=== PATIENT | female | born 1950 | race Caucasian/White ===

== ENCOUNTER → 2016-06-26 | Outpatient (CLI) | payer OTHER ==
[2016-04-22 18:00] VITALS: BP 129/91
[2016-06-26 08:03] LABS: ALANINE AMINOTRANSFERASE 27 Units/L (12-78); ALBUMIN 3.6 g/dL (3.4-5.0); ALKALINE PHOSPHATASE 86 Units/L (46-116); ASPARTATE AMINO TRANSFERASE 13 Units/L (15-37); BLOOD UREA NITROGEN 15 mg/dL (7-18); CALCIUM 8.8 mg/dL (8.5-10.1); CHLORIDE 107 mmol/L (98-107); FREE T4 (FREE THYROXINE) 1.21 ng/dL (0.76-1.46); GLUCOSE 93 mg/dL (65-99); SODIUM 142 mmol/L (136-145); TOTAL PROTEIN 6.9 g/dL (6.4-8.2); TSH (3RD GENERATION) 1.362 uIU/mL (0.358-3.74); eGFR BLACK RACES > 60 (>60); eGFR NON BLACK RACES > 60 (>60)
== END ==
LOC: LAB 07:08
PROVIDERS: ATTEND Ophthalmology
DX: E03.8 Other specified hypothyroidism (principal); E27.49 Other adrenocortical insufficiency
CPT/HCPCS: 36415; 80053; 84439; 84443; 86376

== ENCOUNTER 2016-07-29 17:46 | Emergency (ER) | payer OTHER ==
[2016-07-29 18:02] VITALS: BP 187/97; BMI 33.9
[2016-07-29] MEDS ORDERED: DECADRON INJ IM ONE (19:25)
[2016-07-29] MEDS ORDERED: ROCEPHIN VIAL 1 GM IM ONE (19:25)
[2016-07-29] MEDS ORDERED: TORADOL 60 MG VIAL IM ONE (19:25)
--- NOTE | 2016-07-29 19:27 | DR.GENAD ---
HPI - PCP Primary Care Physician: DAYA DUTTA - HPI Comment HPI Comment: RIGHT EAR PAIN SINCE YESTERDAY. WORSE TODAY. FREQUENT EAR INFECTION. - Complaint/Symptoms Chief Complaint Doctors Comments: SEVERE RIGHT EAR PAIN. PATIENT CRYING. Chief Complaint:: "RIGHT EAR IS HURTING AND STARTED YESTERDAY." - Nurses notes reviewed Nurses Notes Review: Yes - Source History Provided: Patient - Mode of Arrival Mode of Arrival: Ambulatory - Timing Onset of Chief Complaint: 07/28/16 Came on: Suddenly - Duration Duration: Constant Duration: Days - Severity Severity: Moderate PMH - PMH Past Medical History: Yes Past Medical History: Asthma, COPD, GERD Past Surgical History: Yes Surgical History: Appendectomy, Cholecystectomy Past Surgical History Comment: 6 INCHES OF COLON REMOVED, NISAN, HERNIA REPAIR, TUMMY TUCK, BREAST AUGMENTATION - Family History History of Family Medical Conditions: Yes Family Medical History: Diabetes Mellitus, [place], Hypertension - Social History Does patient currently use any type of tobacco product: Yes Have you used tobacco products in the last 12 months: Yes Type of Tobacco Use: Cigarettes How many years tobacco product used: 30 Does any household member use tobacco: No Alcohol Use: None Do you use any recreational Drugs:: No Lives With: Family Lives Where: Home - infectious screening In the last 2 months have you had wt loss of >10#?: NO Have you had fever, night sweats or hemotysis?: No Have you traveled outside the country in the last 6 months?: No Isolation: Standard ROS - Review of Systems Constitutional: No Symptoms Reported. negative: Fever, Weakness, Fatigue Eyes: No Symptoms Reported. negative: Eye Pain, Discharge ENTM: Ear Pain. negative: Ear Discharge, Hearing Loss, Nose Discharge, Nose Congestion, Throat Pain Respiratoy: No Symptoms Reported. negative: Productive Cough, Non-Productive Cough, Short of Breath, Wheezing, Hemoptysis Cardiovascular: No Symptoms Reported Gastrointestinal/Abdominal: No Symptoms Reported Genitourinary: No Symptoms Reported Neurological: Headache, Dizziness Musculoskeletal: No Symptoms Reported Integumentary: No Symptoms Reported Hematologic/Lymphatic: No Symptoms Reported Endocrine: No Symptoms Reported All Other Systems: Reviewed and Negative PE - Vital Signs Vitals: Temperature 99.0 F Pulse Rate 116 Respiratory Rate 18 Blood Pressure [Right Arm] 146/70 Blood Pressure [Left Arm] 127/82 Blood Pressure 187/97 O2 Sat by Pulse Oximetry 99 - General Limitations: No Limitations General Appearance: Alert - Head Head Exam: Normal Inspection - Eyes Eye exam: Normal Appearance - ENT ENT Exam: Normal External Ear Exam External Ear Exam: Pain with Movement. negative: Auricular Hematoma, Auricular Trauma, Mastoid Tenderness, Periauricular Adenopathy TM/Canal Exam: Left Bulging Nose Exam: Normal Nose Exam Mouth Exam: Normal Inspection Throat Exam: Normal Inspection - Neck Neck Exam: Trachea Midline - Chest Chest Inspection: Symmetric Chest Wall Rise - Respiratory Respiratory Exam: Normal Lung Sounds Bilat Respiratory Exam: Bilateral Clear to Auscultation - Cardiovascular Cardiovascular Exam: Regular Rate, Normal Rhythm, Normal Heart Sounds - Abdominal Exam Abdominal Exam: Normal Inspection - Extremities Extremities Exam: Normal Inspection - Back Back Exam: Normal Inspection - Neurologic Neurological Exam: Alert, Oriented X3 - Psychiatric Psychiatric Exam: Anxious - Skin Skin Exam: Normal Color MDM - Additional Information Additional Information Obtained From: Family - Differential Diagnosis Differential Diagnosis: RIGHT OTITIS MEDIS, SINUSITIS Course - Treatment Treatment: SEE ORDERS. IM MEDS IN ED. - Reevaluation 1st: Improved - Education/Counseling Education/Counseling: Patient, Education Educated On: Treatment, Diagnosis, Needs for Follow Up - Diagnosis Discharge Problem: Right otitis media Qualifiers: Otitis media type: suppurative Chronicity: acute Recurrence: recurrent Spontaneous tympanic membrane rupture: without spontaneous rupture Qualified Code(s): H66.004 - Acute suppurative otitis media without spontaneous rupture of ear drum, recurrent, right ear - Discharge Plan Disposition: 01 HOME, SELF-CARE Condition: Stable Prescriptions: Clarithromycin [Biaxin] 500 mg PO BID #20 tab Ketorolac Tromethamine [Toradol Tab] 10 mg PO Q8H PRN #20 tab PRN Reason: Pain - Follow ups/Referrals Follow ups/Referrals: NFD,None [Primary Care Provider] - 3 days - Instructions Instructions: Otitis Media, Adult Additional Instructions: RETURN TO ED IF WORSE.
[2016-07-29] MEDS ORDERED: DECADRON INJ ONE (19:31)
[2016-07-29] MEDS ORDERED: TORADOL 60 MG VIAL ONE (19:31)
[2016-07-29] MEDS ORDERED: ROCEPHIN VIAL 1 GM ONE (19:31)
[2016-07-29] MEDS ORDERED: XYLOCAINE 1 % (PLAIN) ONE (19:33)
== END 2016-07-29 20:09 | disposition home or self-care (01) ==
LOC: ER 18:03
DX: H66.004 Acute suppurative otitis media without spontaneous rupture of ear drum, recurrent, right ear (principal)
CPT/HCPCS: 96372; 99282; J0696; J1100; J1885; J2001

== ENCOUNTER 2016-08-04 21:33 | Emergency (ER) | payer OTHER ==
[2016-08-04 21:44] VITALS: BP 173/77; BMI 33.2
[2016-08-04] MEDS ORDERED: HIBICLENS WASH ONE (21:52)
[2016-08-04] MEDS ORDERED: ADACEL TDaP IM ONE ×2 (22:06→22:16)
--- NOTE | 2016-08-04 22:09 | DR.GENAD ---
HPI - PCP Primary Care Physician: flory baez - Complaint/Symptoms Chief Complaint Doctors Comments: Patient states she was cutting the label off a box and it cut her in the stomach about 45 minutes ago. spouse states he thinks about 3/4 inch of the knife went into her stomach. Patient states she tried gluing the wound to control the bleeding but the family made her stop and come to the emergency room. States the pain is 3-4 of 10. She is unsure when she had her last tetanus. States she has right inner ear problems and she is taking steriods for her ear from ENT. She denies fever, chills, nausea or vomiting. Patient states she has taken Keflex before without problems and she has some Keflex at home now. Chief Complaint:: patient dropped knife and it poked her the belly - Nurses notes reviewed Nurses Notes Review: Yes - Source History Provided: Patient, Family Member - Mode of Arrival Mode of Arrival: Ambulatory - Timing Onset of Chief Complaint: 08/04/16 Came on: Suddenly - Duration Duration: Constant How lon Duration: Minutes - Location Location: epigastric area midline - Severity Severity: Mild - Modifying Factors Worsens:: nothing Improves:: nothing PMH - PMH Past Medical History: Yes Past Medical History: Asthma, COPD, GERD Past Surgical History: Yes Surgical History: Appendectomy, Cholecystectomy, Hysterectomy Past Surgical History Comment: stomach surgery, mrsa - Family History History of Family Medical Conditions: Yes Family Medical History: Diabetes Mellitus, [place], Hypertension Family Medical History Comment: stroke - Social History Does patient currently use any type of tobacco product: Yes Have you used tobacco products in the last 12 months: No Type of Tobacco Use: Cigarettes How many years tobacco product used: 30 Does any household member use tobacco: No Alcohol Use: None Do you use any recreational Drugs:: No Lives With: Spouse Lives Where: Home - infectious screening In the last 2 months have you had wt loss of >10#?: NO Have you had fever, night sweats or hemotysis?: No Have you traveled outside the country in the last 6 months?: No Isolation: Standard ROS - Review of Systems Constitutional: No Symptoms Reported. negative: See HPI, Chills, Diaphoresis, Fever, Malaise, Weakness, Irritable, Fatigue, Loss of Appetite, Other Eyes: No Symptoms Reported ENTM: No Symptoms Reported, Ear Pain (right ear pain) Respiratoy: No Symptoms Reported Cardiovascular: No Symptoms Reported Gastrointestinal/Abdominal: No Symptoms Reported, Abdominal Pain (epigastric tenderness; puncture with bleeding) Genitourinary: No Symptoms Reported. negative: See HPI, Discharge, Dysuria, Frequency, Hematuria, Pain, Bleeding, Other Neurological: No Symptoms Reported Musculoskeletal: No Symptoms Reported Integumentary: No Symptoms Reported, Wound (one cm puncture wound abdomen) Hematologic/Lymphatic: No Symptoms Reported Endocrine: No Symptoms Reported Psychiatric: No Symptoms Reported PE - Vital Signs Vitals: Temperature 98.0 F Pulse Rate 62 Respiratory Rate 20 Blood Pressure [] 146/70 Blood Pressure [] 127/82 Blood Pressure 173/77 O2 Sat by Pulse Oximetry 97 - General Limitations: No Limitations General Appearance: Alert, In Distress (mild) - Head Head Exam: Normal Inspection, Atraumatic, Normocephalic - Eyes Eye exam: Normal Appearance, PERRL, EOMI. negative: Scleral Icterus, Conjunctival Injection, Nystagmus, Miosis, Mydrasis, Periorbital Swelling, Periorbital Tenderness, Other - ENT ENT Exam: Normal Exam, Normal Oropharynx, Normal External Ear Exam, Mucous Membranes Moist, TM's Normal Bilaterally External Ear Exam: Normal External Inspection TM/Canal Exam: Bilateral Normal Nose Exam: Normal Nose Exam Mouth Exam: Normal Inspection Throat Exam: Normal Inspection. negative: Tonsillar Erythema, Tonsillomegaly, Tonsillar Exudate, R Peritonsillar Mass, L Peritonsillar Mass, Muffled Voice, Other - Neck Neck Exam: Normal Inspection, Full ROM, Trachea Midline. negative: Tenderness, Meningismus, Lymphadenopathy, Thyromegaly, Other - Chest Chest Inspection: Normal Inspection, Symmetric Chest Wall Rise - Respiratory Respiratory Exam: Normal Lung Sounds Bilat Respiratory Exam: Bilateral Clear to Auscultation - Cardiovascular Cardiovascular Exam: Regular Rate, Normal Rhythm, Normal Heart Sounds - Abdominal Exam Abdominal Exam: Normal Inspection, Normal Bowel Sounds, Soft, Tenderness ( puncture wound epigastric ) Abdominal Tenderness: Epigastrium, Mild - Extremities Extremities Exam: Normal Inspection, Full ROM, Normal Capillary Refill. negative: Tenderness, Edema, Joint Swelling, Calf Tenderness, Other - Back Back Exam: Normal Inspection, Full ROM. negative: Tenderness, (R) CVA Tenderness, (L) CVA Tenderness, Muscle Spasm, Paraspinal Tenderness, Vertebral Tenderness, Rashes, (R) Sciatic Notch Tenderness, (L) Sciatic Notch Tendern, (R ) Straight Leg Raise, (L) Straight Leg Raise, Other - Neurologic Neurological Exam: Alert, Oriented X3, CN II-XII Intact, Normal Gait, Reflexes Normal - Psychiatric Psychiatric Exam: Normal Affect, Normal Mood - Skin Skin Exam: Warm, Dry, Intact, Normal Color ROR - Labs Reviewed Laboratory Results Reviewed?: Yes (all x-ray results reviewed and discussed with patient) - XRAY XRAY Interpreted by: Radiologist (CT abdomend: Superficial laceration of the anterior abdominal wall just above the umbilical region. Multiple renal cysts ) Procedures - Laceration/Wound Repair Abdomen Wound's Depth, Shape: Superficial, Linear Wound Explored: no foreign body removed Betadine Prep?: No Anesthesia: 1% Lidocaine Volume Anesthetic (ccs): 10 Wound Repaired With: sutures Suture Size/Type: 4:0 Number of Sutures: 2 Sterile Dressing Applied?: Yes Splint Applied?: No Sling Applied?: No - Diagnosis Discharge Problem: Laceration Puncture wound of abdomen Qualifiers: Encounter type: initial encounter Qualified Code(s): S31.139A - Puncture wound of abdominal wall without foreign body, unspecified quadrant without penetration into peritoneal cavity, initial encounter - Discharge Plan Disposition: 01 HOME, SELF-CARE Condition: Stable Prescriptions: Cephalexin [KEFLEX CAP 500 MG *] 500 mg PO BID #20 cap - Follow ups/Referrals Follow ups/Referrals: DAYA BAEZ [Primary Care Provider] - 3 days - Instructions Instructions: Stab Wound, Puncture Wound
--- NOTE | 2016-08-04 22:42 | CT ---
EXAM: CT ABDOMEN AND PELVIS WITHOUT CONTRAST INDICATION: Knife wound anterior abdomen COMPARISION: No priors available for comparison TECHNIQUE: Axial CT examination of the abdomen and pelvis was performed without intravenous contrast. Coronal a nd sagittal reconstructions were created using the axial data. FINDINGS: Soft tissue gas and mild inflammation noted in the anterior subcutaneous soft tissues of the abdomen just above the umbilical region. There is rectus diastases above the umbilical region. There is mandi dence of prior anterior abdominal wall hernia repair with metal sutures present below the umbilical region. No free air is identified within the abdomen or pelvis. The gallbladder has been removed. There is a 3.2 cm cyst or hemangioma in the right lobe of the live r anteriorly. Smaller low-attenuation foci are also present within the liver which are too small to characterize. There are multiple bilateral renal cysts. The pancreas, spleen, and adrenal glands davi ear unremarkable. The bowel loops are nonobstructed. No abnormal mass, fluid collection, or lymphade nopathy. The appendix and uterus have been removed. There is colonic diverticulosis. The urinary radha dder appears unremarkable. IMPRESSION: There is evidence of a superficial laceration of the anterior abdominal wall just above the umbilica l region. There is rectus diastases and evidence of prior anterior abdominal wall hernia repair. The re are multiple renal cysts and small low-attenuation foci within the liver representing cysts or he mangiomas. Reported By:
== END 2016-08-04 23:17 | disposition home or self-care (01) ==
LOC: ER 21:36
PROC: 0WQF0ZZ Repair Abdominal Wall, Open Approach (ICD-10-PCS; principal; 2016-08-04)
DX: S31.139A Puncture wound of abdominal wall without foreign body, unspecified quadrant without penetration into peritoneal cavity, initial encounter (principal); W26.0XXA Contact with knife, initial encounter; Y92.9 Unspecified place or not applicable
CPT/HCPCS: 12001; 74176; 90471; 99283

== ENCOUNTER 2016-08-19 22:14 | Emergency (ER) | payer OTHER ==
[2016-08-19 22:26] VITALS: BP 151/89; BMI 33.9
--- NOTE | 2016-08-19 23:13 | DR.GENAD ---
HPI - PCP Primary Care Physician: Gustavo - HPI Comment HPI Comment: PATIENTS LESION HAVE NECROTIC CENTER AND SURROUNDING REDNESS. NO ACTIVE DRAINAGE. PATIENT NAUSEATED BUT NOT VOMITING. ABDOMINA WELL CHEST PAIN. PCP HAVE HER DOUBLE ANTIBIOTICS - Complaint/Symptoms Chief Complaint Doctors Comments: ABDOMINAL PAIN, CHEST PAIN AND INCRESING REDNESS OVER HEALING ABSCESS AND CELLULITIS OF LEFT THIGH. Chief Complaint:: "I had surgury andrea was a week ago. He cut 3 cysts out of it. The wound now has gotten very red and painful. I think it may be infected. Daya told me to double up on my antibiotics yesterday, so I did. Now my stomach is burning all the way to my throat." Self Treatment fo Chief Complaint: Currently taking Doxycycline 100, Clindamycin 300, Cephalexin 500. Patient is also taking hydrocodone 5/325 and Ultram for pain. - Nurses notes reviewed Nurses Notes Review: Yes - Source History Provided: Patient - Mode of Arrival Mode of Arrival: Ambulatory - Timing Onset of Chief Complaint: 08/16/16 Came on: Gradually - Duration Duration: Constant Duration: Days - Severity Severity: Moderate PMH - PMH Past Medical History: No Past Medical History: Asthma, COPD, GERD Past Surgical History: Yes Surgical History: Appendectomy, Cholecystectomy, Hysterectomy - Family History History of Family Medical Conditions: Yes Family Medical History: Diabetes Mellitus, [place], Hypertension - Social History Does patient currently use any type of tobacco product: Yes Have you used tobacco products in the last 12 months: Yes Type of Tobacco Use: Cigarettes Does any household member use tobacco: No Alcohol Use: None Do you use any recreational Drugs:: No Lives With: Family Lives Where: Home - infectious screening In the last 2 months have you had wt loss of >10#?: YES Have you had fever, night sweats or hemotysis?: No Have you traveled outside the country in the last 6 months?: No Isolation: Standard ROS - Review of Systems Constitutional: Weakness, Fatigue Eyes: No Symptoms Reported. negative: Eye Pain, Discharge ENTM: Nose Congestion, Throat Pain. negative: Ear Pain, Nose Discharge Respiratoy: Non-Productive Cough, Short of Breath. negative: Productive Cough, Wheezing, Hemoptysis Cardiovascular: Chest Pain. negative: Edema, Palpitations Gastrointestinal/Abdominal: Abdominal Pain, Nausea. negative: Diarrhea, Vomiting Genitourinary: No Symptoms Reported. negative: Dysuria, Frequency, Hematuria Neurological: Weakness. negative: Headache, Dizziness Musculoskeletal: Back Pain, Muscle Pain. negative: Neck Integumentary: Wound (LT LAT THIGH WOUND, UPPER THIGH WITH NECROTIC CENTER.) Hematologic/Lymphatic: No Symptoms Reported Endocrine: No Symptoms Reported All Other Systems: Reviewed and Negative PE - Vital Signs Vitals: Temperature 97.9 F Pulse Rate 82 Respiratory Rate 18 Blood Pressure [Right Arm] 146/70 Blood Pressure [Left Arm] 127/82 Blood Pressure 151/89 O2 Sat by Pulse Oximetry 92 - General Limitations: No Limitations General Appearance: Alert - Head Head Exam: Normal Inspection - Eyes Eye exam: Normal Appearance - ENT ENT Exam: Normal External Ear Exam External Ear Exam: Normal External Inspection TM/Canal Exam: Bilateral Normal Nose Exam: Normal Nose Exam Mouth Exam: Normal Inspection Throat Exam: Normal Inspection - Neck Neck Exam: Trachea Midline. negative: Tenderness, Meningismus, Lymphadenopathy - Chest Chest Inspection: Symmetric Chest Wall Rise - Respiratory Respiratory Exam: Normal Lung Sounds Bilat Respiratory Exam: Bilateral Rhonchi, Lower Rhonchi - Cardiovascular Cardiovascular Exam: Regular Rate, Normal Rhythm, Normal Heart Sounds - Abdominal Exam Abdominal Exam: Normal Bowel Sounds, Soft, Tenderness Abdominal Tenderness: Diffuse - Back Back Exam: Paraspinal Tenderness - Neurologic Neurological Exam: Alert, Oriented X3, CN II-XII Intact, Normal Gait, Reflexes Normal. negative: Motor Sensory Deficit - Psychiatric Psychiatric Exam: Normal Affect, Normal Mood - Skin Skin Exam: Dry MDM - Additional Information Additional Information Obtained From: Family - Differential Diagnosis Differential Diagnosis: ABDOMINAL PAIN, WORSENING CELLULITIS, CHEST PAIN, PNEUMONIA Course - Treatment Treatment: SEE ORDERS - Education/Counseling Education/Counseling: Patient, Family, Education Educated On: Treatment, Diagnosis, Needs for Follow Up ROR - Labs Reviewed Laboratory Results Reviewed?: Yes Result Diagrams: 08/19/16 23:25 08/19/16 23:25 Laboratory: WBC 12.7 X10^3/uL (3.6-10.0) H 08/19/16 23:25 RBC 4.66 X10^6/uL (3.5-5.4) 08/19/16 23:25 Hgb 13.8 g/dL (12.0-16.0) 08/19/16 23:25 Hct 41.3 % (36.0-47.0) 08/19/16 23:25 MCV 88.8 fL (80.0-100.0) 08/19/16 23: MCH 29.7 pg (27.0-34.0) 08/19/16 23: MCHC 33.5 g/dL (33.0-35.0) 08/19/16: RDW 14.4 % (11.6-16.5) 08/19/16: Plt Count 418 X10^3/uL (150.0-450.0) 08/19/16 23: MPV 6.3 fL (7.4-11.0) L 08/19/16 23: Neut % 66.3 % (42.0-75.0) 08/19/16: Lymph % 20.8 % (21.0-51.0) L 08/19/16: [place] % 9.7 % (0.0-13.0) 08/19/16: Eos % 2.3 % (0.9-2.9) 08/19/16 23: Baso % 0.9 % (0.2-1.0) 08/19/16 23: Neut # 8.4 x10^3/uL (2.2-4.8) H 08/19/16 23:25 Lymph # 2.6 X10^3/uL (1.3-2.9) 08/19/16 23:25 [place] # 1.2 x10^3/uL (0.3-0.8) H 08/19/16 23:25 Eos # 0.3 x10^3/uL (0.0-0.2) H 08/19/16 23:25 Baso # 0.1 X10^3/uL (0.0-0.1) 08/19/16 23:25 Absolute Nucleated RBC 0.0 /100WBC 08/19/16 23:25 Sodium 140 mmol/L (136-145) 08/19/16 23:25 Corrected Sodium TNP 08/19/16 23:25 Potassium 4.1 mmol/L (3.5-5.1) 08/19/16 23:25 Chloride 107 mmol/L (98-107) 08/19/16 23:25 Carbon Dioxide 26.9 mmol/L (21-32) 08/19/16 23:25 BUN 8 mg/dL (7-18) 08/19/16 23:25 Creatinine 0.94 mg/dL (0.55-1.02) 08/19/16 23:25 Est GFR (MDRD) Af Amer > 60 (>60) 08/19/16 23:25 Est GFR (MDRD) Non-Af > 60 (>60) 08/19/16 23:25 Glucose 95 mg/dL (65-99) 08/19/16 23:25 Calcium 8.9 mg/dL (8.5-10.1) 08/19/16 23:25 Corrected Calcium 9.5 mg/dL (8.5-10.1) 08/19/16 23:25 Total Bilirubin 0.30 mg/dL (0.2-1.0) 08/19/16 23:25 AST 15 Units/L (15-37) 08/19/16 23:25 ALT 26 Units/L (12-78) 08/19/16 23:25 Alkaline Phosphatase 86 Units/L (46-116) 08/19/16 23:25 Total Protein 6.9 g/dL (6.4-8.2) 08/19/16 23:25 Albumin 3.2 g/dL (3.4-5.0) L 08/19/16 23:25 Globulin 3.7 g/dL (2.5-4.5) 08/19/16 23:25 Albumin/Globulin Ratio 0.9 Ratio (1.1-2.1) L 08/19/16 23:25 Amylase 36 Units/L (25-115) 08/19/16 23:25 Lipase 88 Units/L (73-393) 08/19/16 23:25 Specimen Type Clean catch urine 08/19/16 23:21 Urine Color Yellow (YELLOW) 08/19/16 23: Urine Appearance Clear (CLEAR) 08/19/16 23: Urine pH 8.0 (5.0 - 8.0) 08/19/16 23: Ur Specific [place] 1.010 (1.000-1.030) 08/19/16 23:21 Urine Protein Negative (NEGATIVE) 08/19/16 23: Urine Glucose (UA) Negative (NEGATIVE) 08/19/16 23:21 Urine Ketones Negative (NEGATIVE) 08/19/16 23:21 Urine Occult Blood 1+ (NEGATIVE) 08/19/16 23:21 Urine Nitrite Negative (NEGATIVE) 08/19/16 23:21 Urine Bilirubin Negative (NEGATIVE) 08/19/16 23:21 Urine Urobilinogen Normal (NORMAL) 08/19/16 23:21 Ur Leukocyte Esterase Negative (NEGATIVE) 08/19/16 23:21 Urine RBC 0-3 /HPF (NEGATIVE) 08/19/16 23:21 Urine WBC None seen /HPF (NEGATIVE) 08/19/16 23:21 Ur Squamous Epith Cells Rare /HPF (NEGATIVE) 08/19/16 23:21 Urine Bacteria Negative /HPF (NEGATIVE) 08/19/16 23:21 Ur Culture Indicated? No/not indicated 08/19/16 23:21 - XRAY XRAY Interpreted by: Radiologist XRAY Findings: REPORT DISCUSS WITH PATIENT. - Diagnosis Discharge Problem: Abdominal pain Qualifiers: Abdominal location: upper abdomen, unspecified Qualified Code(s): R10.10 - Upper abdominal pain, unspecified Cellulitis Qualifiers: Site of cellulitis: extremity Site of cellulitis of extremity: lower extremity Laterality: left Qualified Code(s): L03.116 - Cellulitis of left lower limb - Discharge Plan Disposition: 01 HOME, SELF-CARE Condition: Stable Prescriptions: Ranitidine HCl [ZANTAC TAB 150 MG *] 150 mg PO BID #60 tab Sulfamethoxazole-Trimethoprim [BACTRIM DS TAB 800/160 MG *] 1 tab PO Q8H #30 tab - Follow ups/Referrals Follow ups/Referrals: DAYA DUTTA [Primary Care Provider] - 2 days - Instructions Instructions: Cellulitis, [id number], Abdominal Pain, Adult, [id number] Additional Instructions: RETURN TO ED IF WORSE.
[2016-08-19 23:37] LABS: BILIRUBIN,URINE NEGATIVE (NEGATIVE); BLOOD/HEMOGLOBIN,URINE 1+ (NEGATIVE); GLUCOSE, URINE NEGATIVE (NEGATIVE); KETONES,URINE NEGATIVE (NEGATIVE); LEUKOCYTE ESTERASE ,URINE NEGATIVE (NEGATIVE); NITRITES,URINE NEGATIVE (NEGATIVE); PROTEIN,URINE NEGATIVE (NEGATIVE); UROBILINOGEN,URINE NORMAL (NORMAL)
--- NOTE | 2016-08-19 23:38 | RAD ---
EXAM: Chest X-ray INDICATION: Chest pain COMPARISION: Prior exam from December 15, 2015 TECHNIQUE: Single view FINDINGS: Chronic lung parenchymal changes are present bilaterally. No focal lung parenchymal abnormality [place] ntified. The cardiac silhouette is mildly enlarged. The mediastinum is normal. The regional skele ton is intact. IMPRESSION: Chronic lung parenchymal changes are seen bilaterally, non-specific. No acute abnormality. Reported By:
[2016-08-19 23:45] LABS: APPEARANCE,URINE CLEAR (CLEAR); COLOR,URINE YELLOW (YELLOW)
[2016-08-19 23:46] LABS: BACTERIA,URINE NEGATIVE /HPF (NEGATIVE); RBC,URINE 0-3 /HPF (NEGATIVE); SQUAMOUS EPITHELIAL CELL,UR RARE /HPF (NEGATIVE)
[2016-08-19 23:46] LABS: BASOPHILS # (AUTO) 0.1 X10^3/uL (0.0-0.1); BASOPHILS % (AUTO) 0.9 % (0.2-1.0); EOSINOPHILS # (AUTO) 0.3 x10^3/uL (0.0-0.2); EOSINOPHILS % (AUTO) 2.3 % (0.9-2.9); HEMATOCRIT 41.3 % (36.0-47.0); HEMOGLOBIN 13.8 g/dL (12.0-16.0); LYMPHOCYTES # (AUTO) 2.6 X10^3/uL (1.3-2.9); LYMPHOCYTES % (AUTO) 20.8 % (21.0-51.0); MEAN CORPUSCULAR HEMOGLOBIN 29.7 pg (27.0-34.0); MEAN CORPUSCULAR HGB CONC 33.5 g/dL (33.0-35.0); MEAN CORPUSCULAR VOLUME 88.8 fL (80.0-100.0); MEAN PLATELET VOLUME 6.3 fL (7.4-11.0); MONOCYTES # (AUTO) 1.2 x10^3/uL (0.3-0.8); MONOCYTES % (AUTO) 9.7 % (0.0-13.0); NEUTROPHILS # (AUTO) 8.4 x10^3/uL (2.2-4.8); NEUTROPHILS % (AUTO) 66.3 % (42.0-75.0); PLATELET COUNT 418 X10^3/uL (150.0-450.0); RED BLOOD COUNT 4.66 X10^6/uL (3.5-5.4); RED CELL DISTRIBUTION WIDTH 14.4 % (11.6-16.5); WHITE BLOOD COUNT 12.7 X10^3/uL (3.6-10.0)
[2016-08-19 23:47] LABS: ALANINE AMINOTRANSFERASE 26 Units/L (12-78); ALBUMIN 3.2 g/dL (3.4-5.0); ALKALINE PHOSPHATASE 86 Units/L (46-116); AMYLASE 36 Units/L (25-115); ASPARTATE AMINO TRANSFERASE 15 Units/L (15-37); BLOOD UREA NITROGEN 8 mg/dL (7-18); CALCIUM 8.9 mg/dL (8.5-10.1); CARBON DIOXIDE 26.9 mmol/L (21-32); CHLORIDE 107 mmol/L (98-107); COR CA(FOR HYPOALB) 9.5 mg/dL (8.5-10.1); CREATININE 0.94 mg/dL (0.55-1.02); GLUCOSE 95 mg/dL (65-99); LIPASE 88 Units/L (73-393); SODIUM 140 mmol/L (136-145); TOTAL PROTEIN 6.9 g/dL (6.4-8.2); eGFR BLACK RACES > 60 (>60); eGFR NON BLACK RACES > 60 (>60)
--- NOTE | 2016-08-20 01:00 | CT ---
EXAM: CT ABDOMEN AND PELVIS WITHOUT CONTRAST INDICATION: Abdominal pain, recent surgery COMPARISION: No priors available for comparison TECHNIQUE: Axial CT examination of the abdomen and pelvis was performed without intravenous contrast. Coronal a nd sagittal reconstructions were created using the axial data. FINDINGS: The lung bases are clear. The spleen, pancreas , and adrenal glands are normal. There is cysts ident ified in both kidneys and the liver . The gallbladder has been removed. There is no evidence of bili maynor ductal dilatation. The aorta and inferior vena cava are normal in caliber. The bowel loops are n onobstructed. No abnormal mass, lymphadenopathy, or fluid collection. There is an anterior abdominal wall hernia a t the umbilical region. Surgical clips also noted in the anterior abdominal wall at the midline belo w the umbilical region. Urinary bladder is normal. There is colonic diverticulosis. The uterus has been removed. The append ix has been removed. The regional skeleton is intact. IMPRESSION: Cysts are identified in both kidneys and the liver. There is colonic diverticulosis. No acute abnorm ality is identified. Reported By:
[2016-08-20] MEDS ORDERED: PEPCID TAB 20 MG PO ONE (01:36)
[2016-08-20] MEDS ORDERED: BACTRIM DS TAB PO ONE ×2 (01:37→01:40)
[2016-08-20] MEDS ORDERED: PEPCID TAB 20 MG ONE (01:40)
== END 2016-08-20 02:09 | disposition home or self-care (01) ==
LOC: ER 22:14
DX: L03.116 Cellulitis of left lower limb (principal); R10.84 Generalized abdominal pain; N28.1 Cyst of kidney, acquired; K76.89 Other specified diseases of liver; K57.30 Diverticulosis of large intestine without perforation or abscess without bleeding
CPT/HCPCS: 36415; 71010; 74176; 80053; 81001; 82150; 83690; 85025; 99283

== ENCOUNTER 2016-08-27 20:30 | Emergency (ER) | payer OTHER ==
[2016-08-27 20:37] VITALS: BP 138/71; BMI 33.9
--- NOTE | 2016-08-27 20:45 | DR.GENAD ---
HPI - PCP Primary Care Physician: sasha - HPI Comment HPI Comment: ABSCESS/CYST WAS DRAIN AND PATIENT CURRENTLY ON ANTIBIOTICS. WOUND WAS SUTURED. THE SURE SEVERAL IN MIDDLE PORTION OF WOUND AROUND DRAINAGE OPEN UP. DRAIN IS STILL INTACT AND DRAINING WOUND. NO FEVER. - Complaint/Symptoms Chief Complaint Doctors Comments: ABSCESS LEFT BUTTOCKS. Chief Complaint:: "i had cyst removed from left leg (crease between buttocks and left upper leg) and it got infected. so they had to go in and put a drain port in and i have ripped the stitches out." - Nurses notes reviewed Nurses Notes Review: Yes - Source History Provided: Patient - Mode of Arrival Mode of Arrival: Ambulatory - Timing Onset of Chief Complaint: 08/27/16 Came on: Suddenly - Duration Duration: Constant Duration: Days - Severity Severity: Moderate PMH - PMH Past Medical History: Yes Past Medical History: Asthma, COPD, GERD Past Surgical History: Yes Surgical History: Appendectomy, Cholecystectomy, Hysterectomy - Family History History of Family Medical Conditions: Yes Family Medical History: Diabetes Mellitus, [place], Hypertension - Social History Type of Tobacco Use: Cigarettes Alcohol Use: None Do you use any recreational Drugs:: No Lives With: Spouse Lives Where: Home - infectious screening Have you traveled outside the country in the last 6 months?: No Isolation: Standard ROS - Review of Systems Constitutional: negative: Chills, Fever Eyes: negative: Eye Pain, Discharge ENTM: Nose Congestion. negative: Ear Pain, Nose Discharge, Throat Pain Respiratoy: Non-Productive Cough. negative: Productive Cough, Short of Breath, Wheezing, Hemoptysis Cardiovascular: No Symptoms Reported Gastrointestinal/Abdominal: No Symptoms Reported Genitourinary: No Symptoms Reported Neurological: No Symptoms Reported Musculoskeletal: Muscle Pain Integumentary: Other (WOUND LT BUTTOCKS WITH DRAIN NOW OPEN.) Hematologic/Lymphatic: No Symptoms Reported Endocrine: No Symptoms Reported All Other Systems: Reviewed and Negative PE - Vital Signs Vitals: Temperature 97.8 F Pulse Rate 88 Respiratory Rate 20 Blood Pressure [Right Arm] 146/70 Blood Pressure [Left Arm] 127/82 Blood Pressure 138/71 O2 Sat by Pulse Oximetry 95 - General Limitations: No Limitations General Appearance: Alert - Head Head Exam: Normal Inspection - Eyes Eye exam: Normal Appearance - ENT ENT Exam: Normal External Ear Exam External Ear Exam: Normal External Inspection TM/Canal Exam: Bilateral Normal Nose Exam: Normal Nose Exam Mouth Exam: Normal Inspection Throat Exam: Normal Inspection - Neck Neck Exam: Trachea Midline - Chest Chest Inspection: Symmetric Chest Wall Rise - Respiratory Respiratory Exam: Normal Lung Sounds Bilat Respiratory Exam: Bilateral Clear to Auscultation - Cardiovascular Cardiovascular Exam: Regular Rate, Normal Rhythm, Normal Heart Sounds - Abdominal Exam Abdominal Exam: Normal Bowel Sounds, Soft. negative: Tenderness - Extremities Extremities Exam: Edema (TRACE) - Back Back Exam: Paraspinal Tenderness - Neurologic Neurological Exam: Alert, Oriented X3 - Psychiatric Psychiatric Exam: Anxious (INFECTED WOUND) - Skin Skin Exam: Erythema, Other MDM - Additional Information Additional Information Obtained From: Family - Differential Diagnosis Differential Diagnosis: WOUND DEHISCENSE, INFECTED WOUND. Course - Treatment Treatment: SEE ORDERS. - Reevaluation 1st: Improved (IM PAIN MED IN ED.) - Consultation Consultation Comments: DISCUSS PATIENT WITH DR. SHELLEY, SURGEON [employer] TRA[employer]ER. WANT DRESSING APPLY. PATIENT TO SEE THEN ON SUNDAY. - Education/Counseling Education/Counseling: Family, Education Educated On: Treatment, Diagnosis, Needs for Follow Up - Diagnosis Discharge Problem: Wound dehiscence Cellulitis Qualifiers: Site of cellulitis: buttock Qualified Code(s): L03.317 - Cellulitis of buttock - Discharge Plan Disposition: HOME, SELF-CARE Condition: Stable - Follow ups/Referrals Follow ups/Referrals: NFD,None [Primary Care Provider] - 3 days - Instructions Instructions: Wound Dehiscence, [id number] Additional Instructions: RETURN TO ED IF WORSE. SEE YOUR SURGEON THIS SUNDAY
[2016-08-27] MEDS ORDERED: TORADOL 60 MG VIAL IM ONE (21:02)
[2016-08-27] MEDS ORDERED: TORADOL 60 MG VIAL ONE (21:04)
== END 2016-08-27 22:25 | disposition home or self-care (01) ==
LOC: ER 20:30
DX: L03.317 Cellulitis of buttock (principal); T81.31XA Disruption of external operation (surgical) wound, not elsewhere classified, initial encounter
CPT/HCPCS: 96372; 99281; 99282; J1885

== ENCOUNTER → 2016-09-13 | Outpatient (CLI) | payer OTHER ==
[2016-08-27 20:37] VITALS: BP 138/71
== END ==
LOC: RAD 14:35
PROVIDERS: ATTEND Nurse Practitioner Family
DX: Z01.818 Encounter for other preprocedural examination (principal); R94.31 Abnormal electrocardiogram [ECG] [EKG]
CPT/HCPCS: 93306

== ENCOUNTER 2016-10-29 15:46 | Emergency (ER) | payer OTHER ==
[2016-10-29 15:51] VITALS: BP 150/83; BMI 33.1
--- NOTE | 2016-10-29 16:12 | DR.GENAD ---
HPI - PCP Primary Care Physician: [place] - Complaint/Symptoms Chief Complaint Doctors Comments: Patient admits to having a history of generalized cyst fomation of the body. Chief Complaint:: patient stated she was having problems swolling food for a couple of weeks but 2 days ago she started having pain in her throat - Source History Provided: Patient - Mode of Arrival Mode of Arrival: Ambulatory - Timing Onset of Chief Complaint: 10/27/16 PMH - PMH Past Medical History: Yes Past Medical History: Asthma, COPD, GERD Past Surgical History: Yes Surgical History: Appendectomy, Cholecystectomy, Hysterectomy - Family History History of Family Medical Conditions: Yes Family Medical History: Diabetes Mellitus, [place], Hypertension - Social History Does patient currently use any type of tobacco product: Yes Have you used tobacco products in the last 12 months: Yes Type of Tobacco Use: Cigarettes How many years tobacco product used: 30 Does any household member use tobacco: No Alcohol Use: None Do you use any recreational Drugs:: No Lives With: Family Lives Where: Home - infectious screening In the last 2 months have you had wt loss of >10#?: NO Have you had fever, night sweats or hemotysis?: No Have you traveled outside the country in the last 6 months?: No Isolation: Standard ROS - Review of Systems Eyes: No Symptoms Reported ENTM: No Symptoms Reported Respiratoy: No Symptoms Reported Cardiovascular: No Symptoms Reported Gastrointestinal/Abdominal: No Symptoms Reported Genitourinary: No Symptoms Reported Neurological: No Symptoms Reported Musculoskeletal: See HPI, Neck Pain Integumentary: No Symptoms Reported Hematologic/Lymphatic: No Symptoms Reported Endocrine: No Symptoms Reported Psychiatric: No Symptoms Reported All Other Systems: Reviewed and Negative PE - Vital Signs Vitals: Temperature 98.6 F Pulse Rate 90 Respiratory Rate 18 Blood Pressure [Right Arm] 146/70 Blood Pressure [Left Arm] 127/82 Blood Pressure 150/83 O2 Sat by Pulse Oximetry 100 - General General Appearance: Alert, In No Apparent Distress - Head Head Exam: Normal Inspection, Atraumatic - Eyes Eye exam: Normal Appearance, PERRL, EOMI - ENT ENT Exam: Normal Exam External Ear Exam: Normal External Inspection TM/Canal Exam: Bilateral Normal Nose Exam: Normal Nose Exam Mouth Exam: Normal Inspection Throat Exam: Normal Inspection - Neck Neck Exam: Normal Inspection, Tenderness (left mid cervical spine) - Chest Chest Inspection: Normal Inspection - Respiratory Respiratory Exam: Normal Lung Sounds Bilat Respiratory Exam: Bilateral Clear to Auscultation - Cardiovascular Cardiovascular Exam: Regular Rate, Normal Rhythm - Abdominal Exam Abdominal Exam: Normal Inspection Abdominal Tenderness: negative: RUQ, RLQ, LUQ, LLQ, Epigastrium, Suprapubic, Diffuse, Mild, Moderate, Severe, Other - Extremities Extremities Exam: Normal Inspection, Full ROM - Back Back Exam: Normal Inspection - Neurologic Neurological Exam: Alert, Oriented X3, CN II-XII Intact - Psychiatric Psychiatric Exam: Normal Affect - Skin Skin Exam: Warm, Dry, Intact ROR - Labs Reviewed Laboratory: Streptococcus Screen Negative (NEGATIVE) 10/29/16 16:15 - XRAY XRAY Interpreted by: Radiologist (Cervical spine: There is no enlargement of the epiglottis. No swelling of the adenoids or prevertebral soft tissues is identified. There is no stenosis or foreign body of the upper aerodigestive tract. Degenerative change of the cervical spine noted. to include a grad 1 C3- C4 anterolisthesis. No acute skeletal abnormality identified. 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
--- NOTE | 2016-10-29 17:10 | RAD ---
Two-view soft tissue neck series: Indication: Left throat pain. Comparison: None available. Findings/impression: There is no enlargement of the epiglottis. No swelling of the adenoids or preve rtebral soft tissues is identified. There is no stenosis or foreign body of the upper aerodigestive tract. Degenerative change of the cervical spine noted, to include a grade 1 C3-C4 anterolisthesis. No acute skeletal abnormality identified. Ocular prosthesis noted on the left. Reported By:
[2016-10-29] MEDS ORDERED: TORADOL 60 MG VIAL IM ONE (17:47)
[2016-10-29] MEDS ORDERED: TORADOL 60 MG VIAL ONE (17:48)
== END 2016-10-29 18:24 | disposition home or self-care (01) ==
LOC: ER 15:51
DX: M47.12 Other spondylosis with myelopathy, cervical region (principal)
CPT/HCPCS: 70360; 87070; 87880; 96372; 99283; J1885

== ENCOUNTER 2017-03-11 22:36 | Emergency (ER) | payer OTHER ==
[2017-03-11 22:43] VITALS: BP 131/63; BMI 32.3
[2017-03-11] MEDS ORDERED: TORADOL 60 MG VIAL IM ONE (22:49)
[2017-03-11] MEDS ORDERED: TORADOL 60 MG VIAL ONE (22:50)
--- NOTE | 2017-03-11 22:50 | DR.GENAD ---
HPI - PCP Primary Care Physician: NFD - Complaint/Symptoms Chief Complaint Doctors Comments: Patient states that the foot pain is 10/10, sharp, aggravated by pressure, duration tonight. Chief Complaint:: RT ANKLE AN RT FOOT PAIN PT STEPPED IN A WHOLE AT PENTECOSTALISM TONIGHT - Source History Provided: Patient - Mode of Arrival Mode of Arrival: Wheelchair - Timing Onset of Chief Complaint: 03/11/17 PMH - PMH Past Medical History: Yes Past Medical History: Asthma, COPD, GERD Past Surgical History: Yes Surgical History: Appendectomy, Cholecystectomy, Hysterectomy - Family History History of Family Medical Conditions: Yes Family Medical History: Diabetes Mellitus, [place], Hypertension - Social History Alcohol Use: None Do you use any recreational Drugs:: No Lives With: Family Lives Where: Home - infectious screening In the last 2 months have you had wt loss of >10#?: NO Have you had fever, night sweats or hemotysis?: No Have you traveled outside the country in the last 6 months?: No Isolation: Standard ROS - Review of Systems Constitutional: negative: Diaphoresis Eyes: No Symptoms Reported ENTM: No Symptoms Reported Respiratoy: No Symptoms Reported Cardiovascular: No Symptoms Reported Gastrointestinal/Abdominal: No Symptoms Reported Genitourinary: No Symptoms Reported Neurological: No Symptoms Reported Musculoskeletal: Foot (pain) Integumentary: No Symptoms Reported Hematologic/Lymphatic: No Symptoms Reported Endocrine: No Symptoms Reported Psychiatric: No Symptoms Reported All Other Systems: Reviewed and Negative PE - Vital Signs Vitals: Temperature 987 F Pulse Rate 98 Respiratory Rate 18 Blood Pressure [Right Arm] 146/70 Blood Pressure [Left Arm] 127/82 Blood Pressure 131/63 O2 Sat by Pulse Oximetry 95 - General Limitations: Physical Limitation (right foot pain) General Appearance: Alert, In No Apparent Distress - Head Head Exam: Normal Inspection, Atraumatic - Eyes Eye exam: Normal Appearance, PERRL, EOMI - ENT ENT Exam: Normal Exam External Ear Exam: Normal External Inspection TM/Canal Exam: Bilateral Normal Nose Exam: Normal Nose Exam Mouth Exam: Normal Inspection Throat Exam: Normal Inspection - Neck Neck Exam: Normal Inspection, Full ROM - Chest Chest Inspection: Normal Inspection, Symmetric Chest Wall Rise - Respiratory Respiratory Exam: Normal Lung Sounds Bilat Respiratory Exam: Bilateral Clear to Auscultation - Cardiovascular Cardiovascular Exam: Regular Rate, Normal Rhythm - Abdominal Exam Abdominal Exam: Normal Inspection, Normal Bowel Sounds Abdominal Tenderness: negative: RUQ, RLQ, LUQ, LLQ, Epigastrium, Suprapubic, Diffuse, Mild, Moderate, Severe, Other - Extremities Extremities Exam: Normal Inspection, Full ROM, Other (right foot pain with ankle edema ) - Back Back Exam: Normal Inspection, Full ROM - Neurologic Neurological Exam: Alert, Oriented X3, CN II-XII Intact. negative: Normal Gait - Psychiatric Psychiatric Exam: Normal Affect, Normal Mood - Skin Skin Exam: Warm, Dry, Intact Course - Reevaluation 1st: Improved ROR - XRAY XRAY Interpreted by: Radiologist (Foot: There is soft tissue swelling about the midfoot. There is no cortical lucency. Lisfranc joint position appears normal. No acute fracture...) - Diagnosis Discharge Problem: Foot pain, right - Discharge Plan Condition: Stable - Follow ups/Referrals Follow ups/Referrals: NFD,None [Primary Care Provider] - 3 days - Instructions
--- NOTE | 2017-03-12 00:26 | RAD ---
Right foot three views Indication: Pain after trauma. Findings: There is soft tissue swelling about the midfoot. There is no cortical lucency. Lisfranc maxwell nt position appears normal. Impression: No acute fracture. If there is suspicion for Lisfranc injury, weightbearing views may be helpful Reported By:
== END 2017-03-12 00:49 | disposition home or self-care (01) ==
LOC: ER 22:36
DX: M79.671 Pain in right foot (principal)
CPT/HCPCS: 73630; 96372; 99282; 99283; J1885

== ENCOUNTER 2017-03-22 11:15 | Inpatient (IN) | payer OTHER ==
--- NOTE | 2017-03-22 12:18 | DR.H&P ---
H&P - History & Physical for Day of: H&P Date: 03/22/17 - Chief Complaint Chief Complaint: fever, bodyaches, ccc, sob - Allergies Allergies/Adverse Reactions: Allergies Allergy/AdvReac Type Severity Reaction Status Date / Time almond Allergy Verified 03/22/17 12:49 caffeine Allergy Verified 03/22/17 12:47 cefdinir [From Omnicef] Allergy Verified 03/22/17 12:47 pittman Allergy Verified 03/22/17 12:49 codeine Allergy Verified 03/22/17 12:47 diphenhydramine Allergy Verified 03/22/17 12:47 [From Benadryl] doxycycline Allergy Verified 03/22/17 12:47 Egg Derived Allergy Verified 03/22/17 12:47 esomeprazole [From Nexium] Allergy Verified 03/22/17 12:47 gluten Allergy Verified 03/22/17 12:47 grape Allergy Verified 03/22/17 12:49 hazelnut Allergy Verified 03/22/17 12:49 hydroxyzine [From Atarax] Allergy Verified 03/22/17 12:47 Iodine and Iodide Containing Allergy Verified 03/22/17 12:47 Produc levofloxacin [From Levaquin] Allergy Verified 03/22/17 12:47 losartan Allergy Verified 03/22/17 12:47 nut - unspecified Allergy Verified 03/22/17 12:47 olmesartan [From Benicar] Allergy Verified 03/22/17 12:47 Penicillins Allergy Verified 03/22/17 12:47 Pork/Porcine Containing Allergy Verified 03/22/17 12:47 Products prednisone Allergy Verified 03/22/17 12:47 rabeprazole [From Aciphex] Allergy Verified 03/22/17 12:47 shrimp Allergy Verified 03/22/17 12:47 spinach Allergy Verified 03/22/17 12:49 starch Allergy Verified 03/22/17 12:47 turkey Allergy Verified 03/11/17 23:03 bananas Allergy Mild RASH Uncoded 03/22/17 12:47 chocolate Allergy Mild RASH Uncoded 03/22/17 12:47 cinaman Allergy Mild RASH Uncoded 10/29/16 15:47 grains except for rice Allergy Mild RASH Uncoded 03/22/17 12:47 onions Allergy Mild RASH Uncoded 03/22/17 12:47 tomatoes Allergy Mild RASH Uncoded 03/22/17 12:47 apples Allergy Unknown Uncoded 03/22/17 12:47 carbonated drinks Allergy Unknown Uncoded 03/22/17 12:47 CATFISH Allergy Uncoded 03/22/17 12:49 GRAPES Allergy Uncoded 03/22/17 12:47 potatoes Allergy Uncoded 03/22/17 12:47 red meats Allergy Uncoded 03/22/17 12:47 TEA Allergy Uncoded 03/22/17 12:47 - History of Present Illness History of Present Illness: PT IS 67 WF DIRECT ADMIT FROM DR GREEN OFFICE WITH ACUTE ON CHRONIC BRONCHITIS WITH FLU LIKE ILLNESS, FEVER, CHILLS AND SOB. PT HAS BEEN ON AUGMENTIN AND HAD ROCEPHIN INJECTION ONE WEEK AGO WITHOUT IMPROVEMENT. PT HAD PMH OF COPD, HTN, OA. PLAN TO ADMIT FOR TREATMENT OF BRONCHITIS, IV ATBX, RESP THERAPY - Past Medical History Past Medical History: Asthma, COPD, GERD - Past Surgical History Surgical History: Appendectomy, Cholecystectomy, Hysterectomy - Family History Family Medical History: Diabetes Mellitus, [place], Hypertension - Social History Does patient currently use any type of tobacco product: Yes Have you used tobacco products in the last 12 months: Yes Type of Tobacco Use: Cigarettes Does any household member use tobacco: No Alcohol Use: None Drug Use: None - Review of Systems Constitutional: Fever, Chills, Weakness Eyes: No Symptoms Reported ENT: No Symptoms Reported Respiratory: Cough, Shortness of Breath, SOB with Excertion Cardiovascular: No Symptoms Reported Gastrointestinal: Nausea Genitourinary: No Symptoms Reported Musculoskeletal: No Symptoms Reported Skin: No Symptoms Reported Neurological: No Symptoms Reported - Physical Exam Vital Signs: Temperature 97.8 F Pulse Rate [Right Brachial] 88 Respiratory Rate 24 Blood Pressure [Right Arm] 138/77 Blood Pressure [Left Arm] 127/82 Blood Pressure 131/63 O2 Sat by Pulse Oximetry 96 Oriented: Normal Eyes: Normal Ear: Normal Nose: Normal Throat: Normal Respiratory: Wheezes Throughout, RLL Diminished, LLL Diminished Cardiovascular: Normal : Normal Auscultation: Bowel Sounds: Normal Palpation: Normal Tenderness: Epigastric Skin: Decreased Turgur Musculoskeletal: Back:Lumbar Psychiatric: Anxiety Affect: Anxious Speech Pattern: Clear, Appropriate - Assessment/Plan (1) Acute bronchitis Status: Acute Plan: ADMIT, IV ATBX, IV HYDRATION. BLOOD AND SPUTUM SPECIMEN. RESUME HOME MEDS, JET NEBS SUPPLEMENTAL O2. ABG ON ADMISSION (2) COPD exacerbation Status: Acute (3) GERD (gastroesophageal reflux disease) Status: Chronic (4) HTN (hypertension) Status: Chronic
[2017-03-22 13:04] LABS: BASOPHILS # (AUTO) 0.1 X10^3/uL (0.0-0.1); BASOPHILS % (AUTO) 0.7 % (0.2-1.0); EOSINOPHILS % (AUTO) 0.3 % (0.9-2.9); HEMATOCRIT 44.2 % (36.0-47.0); LYMPHOCYTES # (AUTO) 2.5 X10^3/uL (1.3-2.9); LYMPHOCYTES % (AUTO) 25.7 % (21.0-51.0); MEAN CORPUSCULAR HEMOGLOBIN 29.7 pg (27.0-34.0); MEAN CORPUSCULAR HGB CONC 34.1 g/dL (33.0-35.0); MEAN CORPUSCULAR VOLUME 87.3 fL (80.0-100.0); MEAN PLATELET VOLUME 6.8 fL (7.4-11.0); MONOCYTES # (AUTO) 0.9 x10^3/uL (0.3-0.8); MONOCYTES % (AUTO) 9.4 % (0.0-13.0); NEUTROPHILS # (AUTO) 6.2 x10^3/uL (2.2-4.8); NEUTROPHILS % (AUTO) 63.9 % (42.0-75.0); PLATELET COUNT 322 X10^3/uL (150.0-450.0); RED BLOOD COUNT 5.06 X10^6/uL (3.5-5.4); RED CELL DISTRIBUTION WIDTH 14.2 % (11.6-16.5); WHITE BLOOD COUNT 9.7 X10^3/uL (3.6-10.0)
[2017-03-22 13:07] VITALS: BMI 32.5
[2017-03-22 13:11] LABS: ALANINE AMINOTRANSFERASE 30 Units/L (12-78); ALBUMIN 3.2 g/dL (3.4-5.0); ALKALINE PHOSPHATASE 102 Units/L (46-116); ASPARTATE AMINO TRANSFERASE 21 Units/L (15-37); BLOOD UREA NITROGEN 15 mg/dL (7-18); CALCIUM 8.1 mg/dL (8.5-10.1); CARBON DIOXIDE 27.3 mmol/L (21-32); CHLORIDE 99 mmol/L (98-107); COR CA(FOR HYPOALB) 8.7 mg/dL (8.5-10.1); COR NA(FOR HYPERGLY) 137 mmol/L (136-145); CREATININE 0.96 mg/dL (0.55-1.02); SODIUM 136 mmol/L (136-145); TOTAL PROTEIN 6.3 g/dL (6.4-8.2); eGFR BLACK RACES > 60 (>60); eGFR NON BLACK RACES > 60 (>60)
[2017-03-22] MEDS: SOLU-Medrol 125 MG VIAL IVP SCH ×3 (13:22→22:01)
[2017-03-22] MEDS: ROBITUSSIN DM PO SCH ×3 (13:22→20:55)
[2017-03-22] MEDS: ZITHROMAX INJ 500 MG VIAL 500 MG in NS 250 ML IV 250 ML IV SCH (13:23)
[2017-03-22] MEDS ORDERED: NS 1/2 1000 ML IV 1,000 ML IV ONE (13:55)
[2017-03-22] MEDS: NS 1/2 1000 ML IV 1,000 ML IV SCH (14:00)
[2017-03-22] MEDS ORDERED: SALINE 3% 15 ML NEB TX ONE (14:07)
[2017-03-22] MEDS ORDERED: SALINE 3% 15 ML NEB TX NEB ONE (14:10)
[2017-03-22 14:20] LABS: ABG BASE EXCESS 3.7 mmol/L (-2.0-2.0); ABG HCO3 27.7 mmol/L (22-26)
--- NOTE | 2017-03-22 15:06 | RAD ---
Examination: Portable AP chest History: Pneumonia Comparison reference 08/19/2016. Findings: Continued normal heart size with clear lungs and pleural spaces. Impression: No significant interval change or acute abnormality. Reported By:
[2017-03-22] MEDS: DUONEB 0.5 MG/3 MG NEB SCH ×2 (16:43→20:36)
[2017-03-22] MEDS: PULMICORT NEB TX 0.5 MG NEB SCH (20:36)
[2017-03-22] MEDS: TAMIFLU PO SCH (20:51)
[2017-03-22] MEDS: TUSSIONEX PENNKINETIC SUSP PO PRN (20:52)
[2017-03-23] MEDS: DUONEB 0.5 MG/3 MG NEB SCH ×7 (01:03→20:30)
[2017-03-23] MEDS ORDERED: NS 500 ML IV 500 ML IV ONE (04:23)
[2017-03-23] MEDS: SOLU-Medrol 125 MG VIAL IVP SCH ×3 (05:36→20:59)
[2017-03-23 05:48] LABS: BASOPHILS % (AUTO) 0.4 % (0.2-1.0); EOSINOPHILS % (AUTO) 0.1 % (0.9-2.9); HEMOGLOBIN 14.5 g/dL (12.0-16.0); LYMPHOCYTES # (AUTO) 0.7 X10^3/uL (1.3-2.9); LYMPHOCYTES % (AUTO) 12.2 % (21.0-51.0); MEAN CORPUSCULAR HEMOGLOBIN 29.6 pg (27.0-34.0); MEAN CORPUSCULAR HGB CONC 33.7 g/dL (33.0-35.0); MEAN CORPUSCULAR VOLUME 87.8 fL (80.0-100.0); MONOCYTES # (AUTO) 0.2 x10^3/uL (0.3-0.8); MONOCYTES % (AUTO) 3.9 % (0.0-13.0); NEUTROPHILS # (AUTO) 4.8 x10^3/uL (2.2-4.8); NEUTROPHILS % (AUTO) 83.4 % (42.0-75.0); PLATELET COUNT 329 X10^3/uL (150.0-450.0); RED CELL DISTRIBUTION WIDTH 14.5 % (11.6-16.5); WHITE BLOOD COUNT 5.8 X10^3/uL (3.6-10.0)
[2017-03-23] MEDS: NS 1/2 1000 ML IV 1,000 ML IV SCH ×3 (06:07→18:04)
[2017-03-23 06:33] LABS: ALANINE AMINOTRANSFERASE 30 Units/L (12-78); ALBUMIN 3.1 g/dL (3.4-5.0); ALKALINE PHOSPHATASE 119 Units/L (46-116); ASPARTATE AMINO TRANSFERASE 11 Units/L (15-37); BLOOD UREA NITROGEN 14 mg/dL (7-18); CALCIUM 8.6 mg/dL (8.5-10.1); CARBON DIOXIDE 22.1 mmol/L (21-32); CHLORIDE 101 mmol/L (98-107); COR CA(FOR HYPOALB) 9.3 mg/dL (8.5-10.1); COR NA(FOR HYPERGLY) 140 mmol/L (136-145); CREATININE 1.16 mg/dL (0.55-1.02); SODIUM 136 mmol/L (136-145); TOTAL PROTEIN 6.7 g/dL (6.4-8.2); eGFR BLACK RACES > 60 (>60); eGFR NON BLACK RACES 50 (>60)
[2017-03-23 06:46] LABS: BAND NEUTROPHILS % 6 % (0-10); PLATELET MORPHOLOGY COMMENT NORMAL (NORMAL)
[2017-03-23] MEDS: PULMICORT NEB TX 0.5 MG NEB SCH ×2 (09:01→20:30)
[2017-03-23] MEDS ORDERED: PATIENT'S HOME MEDICATION (Ondansetron Hcl [Ondansetron Hcl] 1 TAB) PO PRN (09:17)
[2017-03-23] MEDS ORDERED: PATIENT'S HOME MEDICATION (Albuterol Sulfate [Proair Hfa] 2 PUFF) INH PRN (09:17)
[2017-03-23] MEDS ORDERED: HYDROCHLOROTHIAZIDE 25 MG TAB PO PRN (09:17)
[2017-03-23] MEDS ORDERED: PROVENTIL NEB TX 0.083% 2.5MG/ 3ML NEB SCH (09:30)
[2017-03-23] MEDS: TAMIFLU PO SCH ×2 (09:44→21:01)
[2017-03-23] MEDS: ZITHROMAX INJ 500 MG VIAL 500 MG in NS 250 ML IV 250 ML IV SCH (09:44)
[2017-03-23] MEDS: ROBITUSSIN DM PO SCH ×4 (09:44→21:01)
[2017-03-23] MEDS ORDERED: ZOFRAN TAB 4 MG PO PRN (09:44)
[2017-03-23] MEDS: NICOTINE PATCH TD SCH (10:19)
[2017-03-23] MEDS ORDERED: FLUVIRIN IM ONE (13:00)
--- NOTE | 2017-03-23 15:37 | PCM.PROG ---
Progress Note - Progress Note for Day of Date: 03/23/17 - Subjective Subjective: patient is a 67-year-old white female who was admitted one day ago with acute bronchitis with COPD as well as acute influenza a virus. patient continues to have diffuse expiratory wheezes and mild central rhonchi as well as a productive cough and generalized weakness. Patient denies any vomiting or diarrhea this morning states she feels a little bit better than admission. Patient is on IV antibiotics as well as IV steroids and respiratory therapy and Tamiflu. Patient has contact precautions. We plan to continue current medication regimen and encourage supplemental O2 use repeat a.m. labs, encourage oral hydration. - Past Medical Family Social History Past Med/Fam/Surg Hx: No changes since H&P Allergies: Allergies almond Allergy (Verified 03/22/17 12:49) caffeine Allergy (Verified 03/22/17 12:47) cefdinir [From Omnicef] Allergy (Verified 03/22/17 12:47) pittman Allergy (Verified 03/22/17 12:49) codeine Allergy (Verified 03/22/17 12:47) diphenhydramine [From Benadryl] Allergy (Verified 03/22/17 12:47) doxycycline Allergy (Verified 03/22/17 12:47) Egg Derived Allergy (Verified 03/22/17 12:47) esomeprazole [From Nexium] Allergy (Verified 03/22/17 12:47) gluten Allergy (Verified 03/22/17 12:47) grape Allergy (Verified 03/22/17 12:49) hazelnut Allergy (Verified 03/22/17 12:49) hydroxyzine [From Atarax] Allergy (Verified 03/22/17 12:47) Iodine and Iodide Containing Produc Allergy (Verified 03/22/17 12:47) levofloxacin [From Levaquin] Allergy (Verified 03/22/17 12:47) losartan Allergy (Verified 03/22/17 12:47) nut - unspecified Allergy (Verified 03/22/17 12:47) olmesartan [From Benicar] Allergy (Verified 03/22/17 12:47) Penicillins Allergy (Verified 03/22/17 12:47) Pork/Porcine Containing Products Allergy (Verified 03/22/17 12:47) prednisone Allergy (Verified 03/22/17 12:47) rabeprazole [From Aciphex] Allergy (Verified 03/22/17 12:47) shrimp Allergy (Verified 03/22/17 12:47) spinach Allergy (Verified 03/22/17 12:49) starch Allergy (Verified 03/22/17 12:47) turkey Allergy (Verified 03/11/17 23:03) bananas Allergy (Mild, Uncoded 03/22/17 12:47) RASH chocolate Allergy (Mild, Uncoded 03/22/17 12:47) RASH cinaman Allergy (Mild, Uncoded 10/29/16 15:47) RASH grains except for rice Allergy (Mild, Uncoded 03/22/17 12:47) RASH onions Allergy (Mild, Uncoded 03/22/17 12:47) RASH tomatoes Allergy (Mild, Uncoded 03/22/17 12:47) RASH apples Allergy (Unknown, Uncoded 03/22/17 12:47) carbonated drinks Allergy (Unknown, Uncoded 03/22/17 12:47) CATFISH Allergy (Uncoded 03/22/17 12:49) GRAPES Allergy (Uncoded 03/22/17 12:47) potatoes Allergy (Uncoded 03/22/17 12:47) red meats Allergy (Uncoded 03/22/17 12:47) TEA Allergy (Uncoded 03/22/17 12:47) - Review of Systems ROS: No change since H&P - Vital Signs and I&O's Vital Signs: Temperature 97.7 F Pulse Rate [Right Brachial] 85 Pulse Rate 82 Respiratory Rate 20 Blood Pressure [Right Arm] 134/63 Blood Pressure [Left Arm] 127/82 Blood Pressure 131/63 O2 Sat by Pulse Oximetry 91 Intake and Output: Intake & Output 03/21/17 03/22/17 03/23/17 03/24/17 11:59 11:59 11:59 11:59 Intake Total 600 375 Balance 600 375 - Physical Exam Oriented: Normal Eyes: Normal Ear: Normal Nose: Normal Throat: Normal Respiratory: Wheezes, Rhonchi Cardiovascular: Normal : Normal Auscultation: Bowel Sounds: Normal Tenderness: Epigastric Skin: Decreased Turgur Musculoskeletal: Back:Lumbar Psychiatric: Anxiety Affect: Anxious Speech Pattern: Clear - Laboratory and Diagnostics Result Diagrams: 03/23/17 04:22 03/23/17 04:22 Labs: 03/22/17 14:42 Sputum - Expectorated Sputum Sputum Culture - Preliminary 03/22/17 14:42 Sputum - Expectorated Sputum - Final Laboratory WBC 5.8 X10^3/uL (3.6-10.0) 03/23/17 04:22 RBC 4.90 X10^6/uL (3.5-5.4) 03/23/17 04:22 Hgb 14.5 g/dL (12.0-16.0) 03/23/17 04:22 Hct 43.0 % (36.0-47.0) 03/23/17 04:22 MCV 87.8 fL (80.0-100.0) 03/23/17 04:22 MCH 29.6 pg (27.0-34.0) 03/23/17 04:22 MCHC 33.7 g/dL (33.0-35.0) 03/23/17 04:22 RDW 14.5 % (11.6-16.5) 03/23/17 04:22 Plt Count 329 X10^3/uL (150.0-450.0) 03/23/17 04:22 Plt Count Comment Adequate (ADEQUATE) 03/23/17 04:22 MPV 7.0 fL (7.4-11.0) L 03/23/17 04:22 Neut % 83.4 % (42.0-75.0) H 03/23/17 04:22 Lymph % 12.2 % (21.0-51.0) L 03/23/17 04:22 [place] % 3.9 % (0.0-13.0) 03/23/17 04:22 Eos % 0.1 % (0.9-2.9) L 03/23/17 04:22 Baso % 0.4 % (0.2-1.0) 03/23/17 04:22 Neut # 4.8 x10^3/uL (2.2-4.8) 03/23/17 04:22 Lymph # 0.7 X10^3/uL (1.3-2.9) L 03/23/17 04:22 [place] # 0.2 x10^3/uL (0.3-0.8) L 03/23/17 04:22 Eos # 0.0 x10^3/uL (0.0-0.2) 03/23/17 04:22 Baso # 0.0 X10^3/uL (0.0-0.1) 03/23/17 04:22 Absolute Nucleated RBC 0.1 /100WBC 03/23/17 04:22 Total Counted 100 03/23/17 04:22 Neutrophils % (Manual) 74 % (39-76) 03/23/17 04:22 Band Neutrophils % 6 % (0-10) 03/23/17 04:22 Lymphocytes % (Manual) 16 % (13-43) 03/23/17 04:22 Monocytes % (Manual) 4 % (4-9) 03/23/17 04:22 Plt Morphology Comment Normal (NORMAL) 03/23/17 04:22 RBC Morphology Normal (NORMAL) 03/23/17 04:22 Sample Site Left brachial 03/22/17 13:55 ABG pH 7.460 (7.35-7.45) H 03/22/17 13:55 ABG pCO2 39.0 mmHg (35.0-45.0) 03/22/17 13:55 ABG pO2 57.0 mmHg (80.0-100.0) L 03/22/17 13:55 ABG HCO3 27.7 mmol/L (22-26) H 03/22/17 13:55 ABG O2 Saturation 91.0 % (90-100) 03/22/17 13:55 ABG Base Excess 3.7 mmol/L (-2.0-2.0) H 03/22/17 13:55 Oneil Test Na 03/22/17 13:55 A-a Gradient 44.0 mmHg 03/22/17 13:55 FiO2 21.000 03/22/17 13:55 Blood Gas Comments Jr well aw 03/22/17 13:55 Sodium 136 mmol/L (136-145) 03/23/17 04:22 Corrected Sodium 140 mmol/L (136-145) 03/23/17 04:22 Potassium 4.3 mmol/L (3.5-5.1) 03/23/17 04:22 Chloride 101 mmol/L (98-107) 03/23/17 04:22 Carbon Dioxide 22.1 mmol/L (21-32) 03/23/17 04:22 BUN 14 mg/dL (7-18) 03/23/17 04:22 Creatinine 1.16 mg/dL (0.55-1.02) H 03/23/17 04:22 Est GFR (MDRD) Af Amer > 60 (>60) 03/23/17 04:22 Est GFR (MDRD) Non-Af 50 (>60) L 03/23/17 04:22 Glucose 272 mg/dL (65-99) H 03/23/17 04:22 Calcium 8.6 mg/dL (8.5-10.1) 03/23/17 04:22 Corrected Calcium 9.3 mg/dL (8.5-10.1) 03/23/17 04:22 Total Bilirubin 0.10 mg/dL (0.2-1.0) L 03/23/17 04:22 AST 11 Units/L (15-37) L 03/23/17 04:22 ALT 30 Units/L (12-78) 03/23/17 04:22 Alkaline Phosphatase 119 Units/L (46-116) H 03/23/17 04:22 Total Protein 6.7 g/dL (6.4-8.2) 03/23/17 04:22 Albumin 3.1 g/dL (3.4-5.0) L 03/23/17 04:22 Globulin 3.6 g/dL (2.5-4.5) 03/23/17 04:22 Albumin/Globulin Ratio 0.9 Ratio (1.1-2.1) L 03/23/17 04:22 Influenza Type A (PCR) Positive (NEGATIVE) A 03/22/17 13:57 Influenza Type B (PCR) Negative (NEGATIVE) 03/22/17 13:57 - Plan (1) Acute bronchitis Status: Acute Plan: CONTINUE IV ATBX, IV HYDRATION. BLOOD AND SPUTUM CULTURES PENDING. CONTINUED HOME MEDS, JET NEBS SUPPLEMENTAL O2. ABG COLLECTED ON ADMISSION (2) Influenza A Status: Acute Plan: TAMIFLU (3) COPD exacerbation Status: Acute (4) GERD (gastroesophageal reflux disease) Status: Chronic (5) HTN (hypertension) Status: Chronic
[2017-03-23] MEDS ORDERED: NS 1/2 1000 ML IV 1,000 ML IV ONE (18:02)
[2017-03-23] MEDS: PREMARIN PO SCH (21:01)
[2017-03-23] MEDS: SINGULAIR TAB 10 MG PO SCH (21:01)
[2017-03-23] MEDS: XANAX PO SCH (21:01)
[2017-03-23] MEDS: ZANTAC PO SCH (21:15)
[2017-03-24 05:29] LABS: BASOPHILS % (AUTO) 0.1 % (0.2-1.0); EOSINOPHILS % (AUTO) 0.1 % (0.9-2.9); HEMATOCRIT 42.8 % (36.0-47.0); HEMOGLOBIN 14.3 g/dL (12.0-16.0); LYMPHOCYTES # (AUTO) 1.4 X10^3/uL (1.3-2.9); LYMPHOCYTES % (AUTO) 7.1 % (21.0-51.0); MEAN CORPUSCULAR HEMOGLOBIN 29.5 pg (27.0-34.0); MEAN CORPUSCULAR HGB CONC 33.4 g/dL (33.0-35.0); MEAN CORPUSCULAR VOLUME 88.4 fL (80.0-100.0); MONOCYTES # (AUTO) 1.5 x10^3/uL (0.3-0.8); NEUTROPHILS # (AUTO) 16.1 x10^3/uL (2.2-4.8); NEUTROPHILS % (AUTO) 84.7 % (42.0-75.0); PLATELET COUNT 340 X10^3/uL (150.0-450.0); RED BLOOD COUNT 4.84 X10^6/uL (3.5-5.4); RED CELL DISTRIBUTION WIDTH 14.7 % (11.6-16.5)
[2017-03-24 05:45] LABS: ALANINE AMINOTRANSFERASE 27 Units/L (12-78); ALBUMIN 2.9 g/dL (3.4-5.0); ALKALINE PHOSPHATASE 104 Units/L (46-116); ASPARTATE AMINO TRANSFERASE 15 Units/L (15-37); BLOOD UREA NITROGEN 14 mg/dL (7-18); CALCIUM 8.3 mg/dL (8.5-10.1); CHLORIDE 103 mmol/L (98-107); COR CA(FOR HYPOALB) 9.2 mg/dL (8.5-10.1); COR NA(FOR HYPERGLY) 138 mmol/L (136-145); CREATININE 0.96 mg/dL (0.55-1.02); SODIUM 137 mmol/L (136-145); TOTAL PROTEIN 6.3 g/dL (6.4-8.2); eGFR BLACK RACES > 60 (>60); eGFR NON BLACK RACES > 60 (>60)
[2017-03-24] MEDS: SOLU-Medrol 125 MG VIAL IVP SCH ×3 (06:10→21:22)
[2017-03-24] MEDS: NS 1/2 1000 ML IV 1,000 ML IV SCH (06:10)
[2017-03-24] MEDS: TUSSIONEX PENNKINETIC SUSP PO PRN ×2 (06:17→23:58)
[2017-03-24 06:31] LABS: BAND NEUTROPHILS % 7 % (0-10); PLATELET MORPHOLOGY COMMENT NORMAL (NORMAL)
--- NOTE | 2017-03-24 07:12 | RAD ---
Indication: Shortness of breath. Exam: Portable chest Comparison: 03/22/2017 Findings: The heart is normal. The pulmonary vessels are normal. The lungs are mildly hyperinflated. No consolidation or effusion is seen and the bones are intact. Impression: Stable chest with no acute abnormality seen. Reported By:
[2017-03-24] MEDS ORDERED: NIASPAN ER TAB 500 MG PO SCH ×2 (09:00→21:00)
[2017-03-24] MEDS: PULMICORT NEB TX 0.5 MG NEB SCH ×2 (09:25→20:28)
[2017-03-24] MEDS: DUONEB 0.5 MG/3 MG NEB SCH ×4 (09:25→20:28)
[2017-03-24] MEDS: ROBITUSSIN DM PO SCH ×4 (09:56→21:20)
[2017-03-24] MEDS: PREMARIN PO SCH ×2 (09:56→21:21)
[2017-03-24] MEDS: SYNTHROID 75 mcg TAB PO SCH (09:56)
[2017-03-24] MEDS: XANAX PO SCH ×2 (09:56→21:22)
[2017-03-24] MEDS: TAMIFLU PO SCH ×2 (09:56→21:22)
[2017-03-24] MEDS: NICOTINE PATCH TD SCH (09:57)
[2017-03-24] MEDS: TESSALON PERLES PO PRN ×2 (10:05→19:27)
[2017-03-24] MEDS: ZANTAC PO SCH ×2 (10:07→21:20)
[2017-03-24 17:40] LABS: ABG ALLEN TEST POS; ABG BASE EXCESS 0.2 mmol/L (-2.0-2.0); ABG HCO3 23.3 mmol/L (22-26)
[2017-03-24] MEDS: SINGULAIR TAB 10 MG PO SCH (21:20)
[2017-03-24] MEDS: NORCO 7.5/325 MG TAB PO PRN (21:21)
[2017-03-25] MEDS: SOLU-Medrol 125 MG VIAL IVP SCH (05:42)
[2017-03-25 06:15] LABS: BASOPHILS % (AUTO) 0.3 % (0.2-1.0); HEMATOCRIT 40.5 % (36.0-47.0); HEMOGLOBIN 13.9 g/dL (12.0-16.0); LYMPHOCYTES # (AUTO) 1.3 X10^3/uL (1.3-2.9); LYMPHOCYTES % (AUTO) 6.5 % (21.0-51.0); MEAN CORPUSCULAR HEMOGLOBIN 29.5 pg (27.0-34.0); MEAN CORPUSCULAR HGB CONC 34.3 g/dL (33.0-35.0); MEAN CORPUSCULAR VOLUME 86.2 fL (80.0-100.0); MONOCYTES % (AUTO) 5.2 % (0.0-13.0); PLATELET COUNT 327 X10^3/uL (150.0-450.0); RED CELL DISTRIBUTION WIDTH 14.3 % (11.6-16.5); WHITE BLOOD COUNT 19.3 X10^3/uL (3.6-10.0)
[2017-03-25 06:34] LABS: ALANINE AMINOTRANSFERASE 30 Units/L (12-78); ALBUMIN 2.8 g/dL (3.4-5.0); ALKALINE PHOSPHATASE 99 Units/L (46-116); ASPARTATE AMINO TRANSFERASE 17 Units/L (15-37); BLOOD UREA NITROGEN 17 mg/dL (7-18); CALCIUM 8.3 mg/dL (8.5-10.1); CHLORIDE 101 mmol/L (98-107); COR CA(FOR HYPOALB) 9.3 mg/dL (8.5-10.1); COR NA(FOR HYPERGLY) 137 mmol/L (136-145); CREATININE 0.92 mg/dL (0.55-1.02); SODIUM 135 mmol/L (136-145); TOTAL PROTEIN 6.3 g/dL (6.4-8.2); eGFR BLACK RACES > 60 (>60); eGFR NON BLACK RACES > 60 (>60)
[2017-03-25 06:58] LABS: BAND NEUTROPHILS % 5 % (0-10)
[2017-03-25 06:59] LABS: PLATELET MORPHOLOGY COMMENT NORMAL (NORMAL)
[2017-03-25] MEDS: PULMICORT NEB TX 0.5 MG NEB SCH (09:10)
[2017-03-25] MEDS: DUONEB 0.5 MG/3 MG NEB SCH ×2 (09:10→12:05)
[2017-03-25] MEDS: TESSALON PERLES PO PRN (09:18)
[2017-03-25] MEDS: ROBITUSSIN DM PO SCH ×2 (09:18→14:21)
[2017-03-25] MEDS: TAMIFLU PO SCH (09:18)
[2017-03-25] MEDS: PREMARIN PO SCH (09:18)
[2017-03-25] MEDS: XANAX PO SCH (09:18)
[2017-03-25] MEDS: NORCO 7.5/325 MG TAB PO PRN (09:18)
[2017-03-25] MEDS: ZANTAC PO SCH (09:18)
[2017-03-25] MEDS: SYNTHROID 75 mcg TAB PO SCH (09:18)
[2017-03-25] MEDS: NICOTINE PATCH TD SCH (09:19)
[2017-03-25] MEDS ORDERED: SYNTHROID 100 mcg TAB PO SCH (13:00)
[2017-03-25] MEDS: TUSSIONEX PENNKINETIC SUSP PO PRN (14:21)
[2017-03-25 17:14] VITALS: BP 148/71
[2017-03-25] MEDS ORDERED: NORVASC TAB 5 MG PO SCH (21:00)
== END 2017-03-25 15:35 | disposition home or self-care (01) | DRG 202 ==
LOC: MED/SURG 11:15 → OBSVTOIN 13:30
PROVIDERS: ADMIT Internal Medicine; ATTEND Internal Medicine
DX: J20.8 Acute bronchitis due to other specified organisms (principal); J44.1 Chronic obstructive pulmonary disease with (acute) exacerbation; R06.03 Acute respiratory distress; J10.1 Influenza due to other identified influenza virus with other respiratory manifestations; R06.02 Shortness of breath; I10 Essential (primary) hypertension; K21.9 Gastro-esophageal reflux disease without esophagitis; R53.1 Weakness
CPT/HCPCS: 36415; 36600; 71010; 80053; 82803; 85025; 87040; 87070; 87077; 87186; 87205; 87502; 94640; 94760; A4222; G9035; G0378; J0456; J2930; J7620; J7626

== ENCOUNTER 2017-03-28 00:18 | Inpatient (IN) | payer OTHER ==
[2017-03-28] MEDS ORDERED: DUONEB 0.5 MG/3 MG ONE (00:30)
[2017-03-28 00:35] LABS: ABG BASE EXCESS 3.5 mmol/L (-2.0-2.0); ABG HCO3 26.5 mmol/L (22-26)
--- NOTE | 2017-03-28 00:37 | DR.GENAD ---
HPI - HPI Comment HPI Comment: DISCHARGE FROM HOSPITAL 03/25/2017. BECAME WORSE TONIGHT. SHE IS HAVING CHEST PAIN, SHE IA WEAK AND DRAIN OF ENERGY. NO FEVER. NEB TREATMENT IN ED HELPING SOB. - Complaint/Symptoms Chief Complaint Doctors Comments: INCREASING SOB AND OXYGEN DESATURATION TONIGHT. - Nurses notes reviewed Nurses Notes Review: Yes - Source History Provided: Patient, Family Member - Mode of Arrival Mode of Arrival: Ambulatory - Timing Came on: Suddenly - Duration Duration: Constant Duration: Days - Severity Severity: Moderate PMH - PMH Past Medical History: Asthma, COPD, GERD Past Surgical History: Yes Surgical History: Appendectomy, Cholecystectomy, Hysterectomy - Family History Family Medical History: Diabetes Mellitus, [place], Hypertension - Social History Do you use any recreational Drugs:: No ROS - Review of Systems Constitutional: Malaise, Weakness, Fatigue. negative: Chills, Fever Eyes: No Symptoms Reported. negative: Eye Pain, Discharge ENTM: Nose Discharge, Nose Congestion. negative: Ear Pain, Throat Pain Respiratoy: Productive Cough, Short of Breath, Wheezing Cardiovascular: Chest Pain, Edema, Palpitations Gastrointestinal/Abdominal: Nausea Genitourinary: No Symptoms Reported. negative: Dysuria, Frequency, Hematuria Neurological: Headache, Weakness, Dizziness Musculoskeletal: Joint Pain, Joint Swelling, Muscle Pain Integumentary: negative: Rash, Juandice Hematologic/Lymphatic: No Symptoms Reported Endocrine: Decreased Appetite. negative: Flushing All Other Systems: Reviewed and Negative PE - Vital Signs Vitals: Temperature 97.7 F Pulse Rate 102 Respiratory Rate 26 Blood Pressure [Right Arm] 141/70 Blood Pressure [Left Arm] 148/71 Blood Pressure 135/81 O2 Sat by Pulse Oximetry 96 - General Limitations: No Limitations General Appearance: Alert - Head Head Exam: Normal Inspection - Eyes Eye exam: Normal Appearance - ENT ENT Exam: Normal External Ear Exam External Ear Exam: Normal External Inspection TM/Canal Exam: Bilateral Normal Nose Exam: Normal Nose Exam Mouth Exam: Normal Inspection Throat Exam: Normal Inspection - Neck Neck Exam: Trachea Midline. negative: Tenderness, Meningismus, Lymphadenopathy - Chest Chest Inspection: Symmetric Chest Wall Rise - Respiratory Respiratory Exam: Chest Wall Tenderness, Respiratory Distress Respiratory Exam: Bilateral Wheezing, Bilateral Rhonchi, Upper Wheezing, Upper Rhonchi, Lower Wheezing, Lower Rhonchi - Cardiovascular Cardiovascular Exam: Tachycardia - Abdominal Exam Abdominal Exam: Normal Bowel Sounds, Soft, Dimnished Bowel Sounds MDM - Additional Information Additional Information Obtained From: Family - Differential Diagnosis Differential Diagnosis: CHEST PAIN, [place], PNEUMONIA, COPD EXACERBATION Course - Treatment Treatment: SEE ORDERS. NEB RX, IV SOLUMEDROL, ROCEPHIN IVPB IN ED. - Education/Counseling Education/Counseling: Patient, Family, Education Educated On: Treatment, Diagnosis, Needs for Follow Up ROR - Labs Reviewed Result Diagrams: 03/28/17 04:33 03/28/17 04:33 Laboratory: WBC 18.2 X10^3/uL (3.6-10.0) H 03/28/17 04:33 RBC 4.64 X10^6/uL (3.5-5.4) 03/28/17 04:33 Hgb 13.7 g/dL (12.0-16.0) 03/28/17 04:33 Hct 40.2 % (36.0-47.0) 03/28/17 04:33 MCV 86.7 fL (80.0-100.0) 03/28/17 04:33 MCH 29.6 pg (27.0-34.0) 03/28/17 04:33 MCHC 34.2 g/dL (33.0-35.0) 03/28/17 04:33 RDW 14.4 % (11.6-16.5) 03/28/17 04:33 Plt Count 302 X10^3/uL (150.0-450.0) 03/28/17 04:33 Plt Count Comment Adequate (ADEQUATE) 03/28/17 04:33 MPV 6.8 fL (7.4-11.0) L 03/28/17 04:33 Neut % 90.8 % (42.0-75.0) H 03/28/17 04:33 Lymph % 5.5 % (21.0-51.0) L 03/28/17 04:33 [place] % 3.1 % (0.0-13.0) 03/28/17 04:33 Eos % 0.3 % (0.9-2.9) L 03/28/17 04:33 Baso % 0.3 % (0.2-1.0) 03/28/17 04:33 Neut # 16.6 x10^3/uL (2.2-4.8) H 03/28/17 04:33 Lymph # 1.0 X10^3/uL (1.3-2.9) L 03/28/17 04:33 [place] # 0.6 x10^3/uL (0.3-0.8) 03/28/17 04:33 Eos # 0.1 x10^3/uL (0.0-0.2) 03/28/17 04:33 Baso # 0.1 X10^3/uL (0.0-0.1) 03/28/17 04:33 Absolute Nucleated RBC 0.0 /100WBC 03/28/17 04:33 Total Counted 100 03/28/17 04:33 Neutrophils % (Manual) 89 % (39-76) H 03/28/17 04:33 Band Neutrophils % 2 % (0-10) 03/28/17 04:33 Lymphocytes % (Manual) 6 % (13-43) L 03/28/17 04:33 Monocytes % (Manual) 3 % (4-9) L 03/28/17 04:33 Eosinophils % (Manual) 2 % (0-6) 03/28/17 00:30 Plt Morphology Comment Normal (NORMAL) 03/28/17 04:33 RBC Morphology Normal (NORMAL) 03/28/17 04:33 INR Target Range - 03/28/17 04:33 INR 0.87 (0.8-1.3) 03/28/17 04:33 PTT 25.8 SECONDS (22.9-36.5) 03/28/17 04:33 PTT Comment - 03/28/17 04:33 Sample Site Lbra 03/28/17 00:24 ABG pH 7.500 (7.35-7.45) H 03/28/17 00:24 ABG pCO2 34.0 mmHg (35.0-45.0) L 03/28/17 00:24 ABG pO2 59.0 mmHg (80.0-100.0) L 03/28/17 00:24 ABG HCO3 26.5 mmol/L (22-26) H 03/28/17 00:24 ABG O2 Saturation 93.0 % (90-100) 03/28/17 00:24 ABG Base Excess 3.5 mmol/L (-2.0-2.0) H 03/28/17 00:24 Oneil Test Na 03/28/17 00:24 A-a Gradient 48.0 mmHg 03/28/17 00:24 FiO2 21.000 03/28/17 00:24 Blood Gas Comments Jr abg well-mtf 03/28/17 00:24 Sodium 136 mmol/L (136-145) 03/28/17 04:33 Corrected Sodium 139 mmol/L (136-145) 03/28/17 04:33 Potassium 4.1 mmol/L (3.5-5.1) 03/28/17 04:33 Chloride 101 mmol/L (98-107) 03/28/17 04:33 Carbon Dioxide 22.4 mmol/L (21-32) 03/28/17 04:33 BUN 11 mg/dL (7-18) 03/28/17 04:33 Creatinine 0.82 mg/dL (0.55-1.02) 03/28/17 04:33 Est GFR (MDRD) Af Amer > 60 (>60) 03/28/17 04:33 Est GFR (MDRD) Non-Af > 60 (>60) 03/28/17 04:33 Glucose 205 mg/dL (65-99) H 03/28/17 04:33 Calcium 8.4 mg/dL (8.5-10.1) L 03/28/17 04:33 Corrected Calcium 9.5 mg/dL (8.5-10.1) 03/28/17 04:33 Magnesium 2.1 mg/dL (1.7-2.9) 03/28/17 04:33 Total Bilirubin 0.40 mg/dL (0.2-1.0) 03/28/17 04:33 AST 35 Units/L (15-37) 03/28/17 04:33 ALT 50 Units/L (12-78) 03/28/17 04:33 Alkaline Phosphatase 97 Units/L (46-116) 03/28/17 04:33 Creatine Kinase 284 Units/L (26-192) H 03/28/17 04:33 CK-MB (CK-2) 1.4 ng/mL (0-4.0) 03/28/17 04:33 CK/CKMB % Calc 0.5 % (<4) 03/28/17 04:33 Troponin I < 0.02 ng/mL (0-1.5) 03/28/17 04:33 Total Protein 6.5 g/dL (6.4-8.2) 03/28/17 04:33 Albumin 2.6 g/dL (3.4-5.0) L 03/28/17 04:33 Globulin 3.9 g/dL (2.5-4.5) 03/28/17 04:33 Albumin/Globulin Ratio 0.7 Ratio (1.1-2.1) L 03/28/17 04:33 Specimen Type Clean catch urine 03/28/17 02:31 Urine Color Yellow (YELLOW) 03/28/17 02:31 Urine Appearance Clear (CLEAR) 03/28/17 02:31 Urine pH 7.0 (5.0 - 8.0) 03/28/17 02:31 Ur Specific [place] 1.005 (1.000-1.030) 03/28/17 02:31 Urine Protein Negative (NEGATIVE) 03/28/17 02:31 Urine Glucose (UA) Negative (NEGATIVE) 03/28/17 02:31 Urine Ketones Negative (NEGATIVE) 03/28/17 02:31 Urine Occult Blood 1+ (NEGATIVE) 03/28/17 02:31 Urine Nitrite Negative (NEGATIVE) 03/28/17 02:31 Urine Bilirubin Negative (NEGATIVE) 03/28/17 02:31 Urine Urobilinogen Normal (NORMAL) 03/28/17 02:31 Ur Leukocyte Esterase Negative (NEGATIVE) 03/28/17 02:31 Urine RBC Rare /HPF (NEGATIVE) 03/28/17 02:31 Urine WBC 0-1 /HPF (NEGATIVE) 03/28/17 02:31 Ur Squamous Epith Cells Few /HPF (NEGATIVE) 03/28/17 02:31 Urine Bacteria Trace /HPF (NEGATIVE) 03/28/17 02:31 Ur Culture Indicated? No/not indicated 03/28/17 02:31 - XRAY XRAY Interpreted by: Radiologist XRAY Findings: REPORT DISCUSS WITH PATIENT AND FAMILY. - EKG Rhythm: NSR (EKG NOTED) - Diagnosis Discharge Problem: Pneumonia Qualifiers: Pneumonia type: due to unspecified organism Laterality: left Lung location: lower lobe of lung Qualified Code(s): J18.1 - Lobar pneumonia, unspecified organism COPD (chronic obstructive pulmonary disease) Qualifiers: COPD type: COPD with acute lower respiratory infection Qualified Code(s): J44.0 - Chronic obstructive pulmonary disease with acute lower respiratory infection Chest pain Qualifiers: Chest pain type: unspecified Qualified Code(s): R07.9 - Chest pain, unspecified CHF (congestive heart failure) Qualifiers: Congestive heart failure type: combined Congestive heart failure chronicity: acute on chronic Qualified Code(s): I50.43 - Acute on chronic combined systolic (congestive) and diastolic (congestive) heart failure - Discharge Plan Disposition: 09 ADMITTED INPATIENT Condition: Stable - Follow ups/Referrals - Instructions
[2017-03-28] MEDS ORDERED: DUONEB 0.5 MG/3 MG NEB ONE (00:50)
[2017-03-28] MEDS ORDERED: SOLU-Medrol 125 MG VIAL IVP ONE (00:52)
[2017-03-28] MEDS ORDERED: SOLU-Medrol 125 MG VIAL ONE (00:54)
[2017-03-28 01:04] LABS: BASOPHILS # (AUTO) 0.1 X10^3/uL (0.0-0.1); BASOPHILS % (AUTO) 0.3 % (0.2-1.0); EOSINOPHILS # (AUTO) 0.2 x10^3/uL (0.0-0.2); EOSINOPHILS % (AUTO) 0.9 % (0.9-2.9); HEMATOCRIT 41.8 % (36.0-47.0); HEMOGLOBIN 14.3 g/dL (12.0-16.0); LYMPHOCYTES # (AUTO) 2.8 X10^3/uL (1.3-2.9); MEAN CORPUSCULAR HEMOGLOBIN 29.4 pg (27.0-34.0); MEAN CORPUSCULAR HGB CONC 34.2 g/dL (33.0-35.0); MEAN PLATELET VOLUME 6.9 fL (7.4-11.0); MONOCYTES # (AUTO) 1.6 x10^3/uL (0.3-0.8); MONOCYTES % (AUTO) 8.4 % (0.0-13.0); NEUTROPHILS % (AUTO) 75.4 % (42.0-75.0); PLATELET COUNT 337 X10^3/uL (150.0-450.0); RED BLOOD COUNT 4.86 X10^6/uL (3.5-5.4); RED CELL DISTRIBUTION WIDTH 14.1 % (11.6-16.5); WHITE BLOOD COUNT 18.6 X10^3/uL (3.6-10.0)
[2017-03-28 01:12] LABS: ALANINE AMINOTRANSFERASE 52 Units/L (12-78); ALBUMIN 2.8 g/dL (3.4-5.0); ALKALINE PHOSPHATASE 108 Units/L (46-116); ASPARTATE AMINO TRANSFERASE 32 Units/L (15-37); BLOOD UREA NITROGEN 13 mg/dL (7-18); CALCIUM 8.3 mg/dL (8.5-10.1); CARBON DIOXIDE 25.8 mmol/L (21-32); CHLORIDE 100 mmol/L (98-107); COR CA(FOR HYPOALB) 9.3 mg/dL (8.5-10.1); CREATININE 0.91 mg/dL (0.55-1.02); SODIUM 135 mmol/L (136-145); TOTAL PROTEIN 6.7 g/dL (6.4-8.2); eGFR BLACK RACES > 60 (>60); eGFR NON BLACK RACES > 60 (>60)
--- NOTE | 2017-03-28 01:16 | RAD ---
Chest PA and lateral Indication: Cough, wheezing and dyspnea Comparison: 03/24/2017 Findings: There is no pneumothorax or large effusion. Heart size upper limits of normal with peribron chial thickening noted. Left lower lobe infiltrate suspected best seen on the lateral view and in the retrocardiac location. Impression: Mild cardiomegaly and COPD change with bronchitis possible left lower lobe pneumonia. Fol low-up to resolution to exclude underlying lesion. Reported By:
[2017-03-28 01:22] LABS: BAND NEUTROPHILS % 1 % (0-10); PLATELET MORPHOLOGY COMMENT NORMAL (NORMAL)
[2017-03-28 01:28] LABS: CKMB % 0.5 % (<4); CREATINE KINASE 336 Units/L (26-192); CREATINE KINASE MB 1.6 ng/mL (0-4.0); TROPONIN I < 0.02 ng/mL (0-1.5)
[2017-03-28] MEDS ORDERED: ZITHROMAX INJ 500 MG VIAL 500 MG in D5W 250 ML IV 250 ML IV SCH ×2 (01:44→07:30)
[2017-03-28] MEDS ORDERED: NS 1/2 1000 ML IV 1,000 ML IV ONE ×2 (01:54→21:22)
[2017-03-28] MEDS: NS 1/2 1000 ML IV 1,000 ML IV SCH ×2 (02:01→21:18)
[2017-03-28] MEDS ORDERED: SALINE 3% 15 ML NEB TX ONE (02:41)
[2017-03-28] MEDS ORDERED: NORCO 7.5/325 MG TAB PO PRN ×2 (03:08→11:11)
[2017-03-28 03:12] LABS: BILIRUBIN,URINE NEGATIVE (NEGATIVE); BLOOD/HEMOGLOBIN,URINE 1+ (NEGATIVE); GLUCOSE, URINE NEGATIVE (NEGATIVE); KETONES,URINE NEGATIVE (NEGATIVE); LEUKOCYTE ESTERASE ,URINE NEGATIVE (NEGATIVE); NITRITES,URINE NEGATIVE (NEGATIVE); PROTEIN,URINE NEGATIVE (NEGATIVE); UROBILINOGEN,URINE NORMAL (NORMAL)
[2017-03-28 03:20] LABS: APPEARANCE,URINE CLEAR (CLEAR); BACTERIA,URINE TRACE /HPF (NEGATIVE); COLOR,URINE YELLOW (YELLOW); RBC,URINE RARE /HPF (NEGATIVE); SQUAMOUS EPITHELIAL CELL,UR FEW /HPF (NEGATIVE)
[2017-03-28] MEDS: TUSSIONEX PENNKINETIC SUSP PO PRN ×2 (04:04→21:13)
[2017-03-28] MEDS: DUONEB 0.5 MG/3 MG NEB SCH ×5 (04:59→20:49)
[2017-03-28 05:01] LABS: BASOPHILS # (AUTO) 0.1 X10^3/uL (0.0-0.1); BASOPHILS % (AUTO) 0.3 % (0.2-1.0); EOSINOPHILS # (AUTO) 0.1 x10^3/uL (0.0-0.2); EOSINOPHILS % (AUTO) 0.3 % (0.9-2.9); HEMATOCRIT 40.2 % (36.0-47.0); HEMOGLOBIN 13.7 g/dL (12.0-16.0); LYMPHOCYTES % (AUTO) 5.5 % (21.0-51.0); MEAN CORPUSCULAR HEMOGLOBIN 29.6 pg (27.0-34.0); MEAN CORPUSCULAR HGB CONC 34.2 g/dL (33.0-35.0); MEAN CORPUSCULAR VOLUME 86.7 fL (80.0-100.0); MEAN PLATELET VOLUME 6.8 fL (7.4-11.0); MONOCYTES # (AUTO) 0.6 x10^3/uL (0.3-0.8); MONOCYTES % (AUTO) 3.1 % (0.0-13.0); NEUTROPHILS # (AUTO) 16.6 x10^3/uL (2.2-4.8); NEUTROPHILS % (AUTO) 90.8 % (42.0-75.0); PLATELET COUNT 302 X10^3/uL (150.0-450.0); RED BLOOD COUNT 4.64 X10^6/uL (3.5-5.4); RED CELL DISTRIBUTION WIDTH 14.4 % (11.6-16.5); WHITE BLOOD COUNT 18.2 X10^3/uL (3.6-10.0)
[2017-03-28 05:12] LABS: ALANINE AMINOTRANSFERASE 50 Units/L (12-78); ALBUMIN 2.6 g/dL (3.4-5.0); ALKALINE PHOSPHATASE 97 Units/L (46-116); ASPARTATE AMINO TRANSFERASE 35 Units/L (15-37); BLOOD UREA NITROGEN 11 mg/dL (7-18); CALCIUM 8.4 mg/dL (8.5-10.1); CARBON DIOXIDE 22.4 mmol/L (21-32); CHLORIDE 101 mmol/L (98-107); COR CA(FOR HYPOALB) 9.5 mg/dL (8.5-10.1); COR NA(FOR HYPERGLY) 139 mmol/L (136-145); CREATININE 0.82 mg/dL (0.55-1.02); SODIUM 136 mmol/L (136-145); TOTAL PROTEIN 6.5 g/dL (6.4-8.2); eGFR BLACK RACES > 60 (>60); eGFR NON BLACK RACES > 60 (>60)
[2017-03-28 05:20] LABS: CKMB % 0.5 % (<4); CREATINE KINASE 284 Units/L (26-192); CREATINE KINASE MB 1.4 ng/mL (0-4.0); TROPONIN I < 0.02 ng/mL (0-1.5)
[2017-03-28 05:35] LABS: BAND NEUTROPHILS % 2 % (0-10); PLATELET MORPHOLOGY COMMENT NORMAL (NORMAL)
[2017-03-28] MEDS ORDERED: ROCEPHIN 1 GM IV PREMIX 1 GM/50 ML IV.SOLN. IV SCH (09:00)
[2017-03-28] MEDS: ZITHROMAX INJ 500 MG VIAL 500 MG in NS 250 ML IV 250 ML IV SCH (09:52)
[2017-03-28] MEDS: ROBITUSSIN DM PO SCH ×4 (09:53→21:13)
[2017-03-28 10:21] VITALS: BMI 33.4
[2017-03-28 11:33] LABS: CKMB % 0.5 % (<4); CREATINE KINASE 212 Units/L (26-192); CREATINE KINASE MB < 1.0 ng/mL (0-4.0); TROPONIN I < 0.02 ng/mL (0-1.5)
[2017-03-28] MEDS: AZELASTINE NAS SCH (12:05)
[2017-03-28] MEDS: FLUTICASONE NAS SCH (12:05)
[2017-03-28] MEDS: PREMARIN PO SCH ×2 (12:47→21:13)
[2017-03-28] MEDS: SYNTHROID 100 mcg TAB PO SCH (12:48)
[2017-03-28] MEDS: NEURONTIN CAP 100 MG PO SCH ×2 (13:02→21:13)
--- NOTE | 2017-03-28 16:29 | CT ---
HISTORY: COPD, follow-up lung nodules, left lower lobe pneumonia Study: CT chest without contrast Comparison: September 10, 2015 and additional priors dating back to May 12, 2013 Technique: Multiple axial, coronal, and sagittal CT images of the chest were reviewed without contras t. AEC was utilized. Findings: There is a background of centrilobular and paraseptal emphysema with superimposed regions of consolid ation, nodularity, and ground-glass opacity in the bilateral lower and right middle lobes most consis tent with bronchopneumonia but for which a trial of therapy with short-term follow-up imaging in 2-3 months is recommended given the presence of nodularity. Some of the previously described pulmonary no dules are obscured and with new nodularity now noted. There are trace basilar effusions versus pleura l thickening. Hepatic and renal cysts are noted within the upper abdomen. The patient is status post cholecystectomy. There are bilateral adrenal adenomas versus adenomatous hyperplasia. IMPRESSION: Findings most compatible with bilateral bronchopneumonia for which a trial of therapy with short-term follow-up imaging is recommended to document resolution given the presence of nodularity. Reported By:
[2017-03-28] MEDS: NICOTINE PATCH TD SCH (17:26)
[2017-03-28] MEDS: ROCEPHIN 1 GM IV PREMIX 1 GM/50 ML IV.SOLN. IV SCH (21:12)
[2017-03-28] MEDS: SINGULAIR TAB 10 MG PO SCH (21:13)
[2017-03-28] MEDS: MIRAPEX TAB 1 MG PO SCH (21:13)
[2017-03-28] MEDS: NIASPAN ER TAB 500 MG PO SCH (21:13)
[2017-03-28] MEDS: TESSALON PERLES PO PRN (21:13)
[2017-03-28] MEDS: NORVASC TAB 5 MG PO SCH (21:13)
[2017-03-29] MEDS: DUONEB 0.5 MG/3 MG NEB SCH ×6 (01:10→20:59)
[2017-03-29 04:38] LABS: BASOPHILS # (AUTO) 0.1 X10^3/uL (0.0-0.1); BASOPHILS % (AUTO) 0.6 % (0.2-1.0); EOSINOPHILS % (AUTO) 0.2 % (0.9-2.9); HEMATOCRIT 37.2 % (36.0-47.0); HEMOGLOBIN 12.5 g/dL (12.0-16.0); LYMPHOCYTES % (AUTO) 9.9 % (21.0-51.0); MEAN CORPUSCULAR HEMOGLOBIN 29.1 pg (27.0-34.0); MEAN CORPUSCULAR HGB CONC 33.6 g/dL (33.0-35.0); MEAN CORPUSCULAR VOLUME 86.8 fL (80.0-100.0); MEAN PLATELET VOLUME 6.9 fL (7.4-11.0); MONOCYTES # (AUTO) 1.6 x10^3/uL (0.3-0.8); MONOCYTES % (AUTO) 7.8 % (0.0-13.0); NEUTROPHILS # (AUTO) 16.4 x10^3/uL (2.2-4.8); NEUTROPHILS % (AUTO) 81.5 % (42.0-75.0); PLATELET COUNT 304 X10^3/uL (150.0-450.0); RED BLOOD COUNT 4.29 X10^6/uL (3.5-5.4); RED CELL DISTRIBUTION WIDTH 14.2 % (11.6-16.5); WHITE BLOOD COUNT 20.1 X10^3/uL (3.6-10.0)
[2017-03-29 04:57] LABS: ALANINE AMINOTRANSFERASE 39 Units/L (12-78); ALBUMIN 2.3 g/dL (3.4-5.0); ALKALINE PHOSPHATASE 113 Units/L (46-116); ASPARTATE AMINO TRANSFERASE 12 Units/L (15-37); BLOOD UREA NITROGEN 10 mg/dL (7-18); CALCIUM 8.3 mg/dL (8.5-10.1); CARBON DIOXIDE 23.8 mmol/L (21-32); CHLORIDE 103 mmol/L (98-107); COR CA(FOR HYPOALB) 9.7 mg/dL (8.5-10.1); COR NA(FOR HYPERGLY) 139 mmol/L (136-145); CREATININE 0.73 mg/dL (0.55-1.02); SODIUM 137 mmol/L (136-145); TOTAL PROTEIN 6.1 g/dL (6.4-8.2); eGFR BLACK RACES > 60 (>60); eGFR NON BLACK RACES > 60 (>60)
[2017-03-29 05:24] LABS: BAND NEUTROPHILS % 1 % (0-10); PLATELET MORPHOLOGY COMMENT NORMAL (NORMAL)
[2017-03-29] MEDS: NEURONTIN CAP 100 MG PO SCH ×3 (05:34→22:55)
[2017-03-29] MEDS: ZyrTEC TAB 10 MG PO SCH (08:43)
[2017-03-29] MEDS: ROBITUSSIN DM PO SCH ×4 (08:43→20:59)
[2017-03-29] MEDS: SYNTHROID 100 mcg TAB PO SCH (08:44)
[2017-03-29] MEDS: NICOTINE PATCH TD SCH (08:44)
[2017-03-29] MEDS: ZITHROMAX INJ 500 MG VIAL 500 MG in NS 250 ML IV 250 ML IV SCH (08:44)
[2017-03-29] MEDS: PREMARIN PO SCH ×2 (08:44→20:58)
[2017-03-29] MEDS ORDERED: SOLU-Medrol 40 MG VIAL IVP SCH (09:00)
[2017-03-29] MEDS ORDERED: MIRALAX POWDER (1 DOSE 17GM) PO PRN (09:00)
[2017-03-29] MEDS: FLUTICASONE NAS SCH (10:37)
[2017-03-29] MEDS: AZELASTINE NAS SCH (10:37)
[2017-03-29] MEDS: SOLU-Medrol 40 MG VIAL IVP SCH ×2 (13:10→21:07)
[2017-03-29] MEDS: MIRAPEX TAB 1 MG PO SCH (20:57)
[2017-03-29] MEDS: XANAX PO PRN (20:57)
[2017-03-29] MEDS: NIASPAN ER TAB 500 MG PO SCH (20:58)
[2017-03-29] MEDS: NORVASC TAB 5 MG PO SCH (20:58)
[2017-03-29] MEDS: NORCO 7.5/325 MG TAB PO PRN (20:58)
[2017-03-29] MEDS: SINGULAIR TAB 10 MG PO SCH (20:59)
[2017-03-29] MEDS: NS 1/2 1000 ML IV 1,000 ML IV SCH (20:59)
[2017-03-29] MEDS: ROCEPHIN 1 GM IV PREMIX 1 GM/50 ML IV.SOLN. IV SCH (20:59)
[2017-03-29] MEDS: TESSALON PERLES PO PRN (20:59)
[2017-03-30] MEDS: DUONEB 0.5 MG/3 MG NEB SCH ×6 (01:20→20:54)
[2017-03-30] MEDS: NORCO 7.5/325 MG TAB PO PRN ×3 (04:18→21:01)
[2017-03-30] MEDS: TUSSIONEX PENNKINETIC SUSP PO PRN ×2 (04:19→23:17)
[2017-03-30 05:29] LABS: ALANINE AMINOTRANSFERASE 37 Units/L (12-78); ALBUMIN 2.6 g/dL (3.4-5.0); ALKALINE PHOSPHATASE 115 Units/L (46-116); ASPARTATE AMINO TRANSFERASE 10 Units/L (15-37); BLOOD UREA NITROGEN 14 mg/dL (7-18); CALCIUM 8.4 mg/dL (8.5-10.1); CARBON DIOXIDE 24.4 mmol/L (21-32); CHLORIDE 98 mmol/L (98-107); COR CA(FOR HYPOALB) 9.5 mg/dL (8.5-10.1); COR NA(FOR HYPERGLY) 137 mmol/L (136-145); SODIUM 132 mmol/L (136-145); TOTAL PROTEIN 6.5 g/dL (6.4-8.2); eGFR BLACK RACES > 60 (>60); eGFR NON BLACK RACES 59 (>60)
[2017-03-30 05:36] LABS: BASOPHILS # (AUTO) 0.1 X10^3/uL (0.0-0.1); BASOPHILS % (AUTO) 0.4 % (0.2-1.0); HEMATOCRIT 39.2 % (36.0-47.0); HEMOGLOBIN 13.1 g/dL (12.0-16.0); LYMPHOCYTES # (AUTO) 1.1 X10^3/uL (1.3-2.9); MEAN CORPUSCULAR HGB CONC 33.3 g/dL (33.0-35.0); MEAN CORPUSCULAR VOLUME 87.1 fL (80.0-100.0); MEAN PLATELET VOLUME 6.9 fL (7.4-11.0); MONOCYTES # (AUTO) 0.4 x10^3/uL (0.3-0.8); NEUTROPHILS # (AUTO) 20.5 x10^3/uL (2.2-4.8); NEUTROPHILS % (AUTO) 92.6 % (42.0-75.0); PLATELET COUNT 397 X10^3/uL (150.0-450.0); RED CELL DISTRIBUTION WIDTH 14.4 % (11.6-16.5); WHITE BLOOD COUNT 22.2 X10^3/uL (3.6-10.0)
[2017-03-30] MEDS: NEURONTIN CAP 100 MG PO SCH ×3 (05:41→21:00)
[2017-03-30] MEDS: SOLU-Medrol 40 MG VIAL IVP SCH ×3 (05:42→20:59)
[2017-03-30 06:21] LABS: BAND NEUTROPHILS % 5 % (0-10); PLATELET MORPHOLOGY COMMENT NORMAL (NORMAL)
[2017-03-30] MEDS ORDERED: MORPHINE SULFATE INJ 4 MG ONE (09:04)
[2017-03-30] MEDS: ZyrTEC TAB 10 MG PO SCH (09:12)
[2017-03-30] MEDS: ZITHROMAX INJ 500 MG VIAL 500 MG in NS 250 ML IV 250 ML IV SCH (09:13)
[2017-03-30] MEDS: PREMARIN PO SCH ×2 (09:13→21:00)
[2017-03-30] MEDS: SYNTHROID 100 mcg TAB PO SCH (09:13)
[2017-03-30] MEDS: ROBITUSSIN DM PO SCH ×3 (09:13→20:59)
[2017-03-30] MEDS: NICOTINE PATCH TD SCH (09:14)
[2017-03-30] MEDS: MORPHINE SULFATE INJ 4 MG IVP PRN ×2 (09:16→23:17)
[2017-03-30] MEDS: FLUTICASONE NAS SCH (09:56)
[2017-03-30] MEDS: AZELASTINE NAS SCH (09:56)
[2017-03-30] MEDS ORDERED: DILAUDID INJ IVP PRN (10:32)
[2017-03-30] MEDS: MUCOMYST (RESPIRATORY USE ONLY) NEB SCH ×2 (11:18→20:53)
[2017-03-30] MEDS ORDERED: NS 1/2 1000 ML IV 1,000 ML IV ONE (13:51)
--- NOTE | 2017-03-30 14:05 | CT ---
CT OF THE ABDOMEN AND PELVIS WITHOUT CONTRAST HISTORY: Abdominal wall hematoma Comparison: 08/20/2016 Technique: Multiple axial images of the abdomen and pelvis were obtained from the lung bases to the pubic symphy sis without the administration of IV contrast. Dose reduction techniques including Automated Exposur e Control (AEC) and adjustment of mA and kV were utlized. Findings: The heart is normal in size. There is no pericardial effusion. Small consolidative opacity left lung base with scattered centrilobular nodularity. The sensitivity for focal lesion detection within the solid abdominal viscera is diminished without t he use of IV contrast. Liver and spleen are normal in size, and contour. Simple hepatic cysts are unchanged.. No ductal dili tation. Gallbladder absent. The pancreas is unremarkable. Adrenal glands are normal. Kidneys are norm al in contour without hydronephrosis or nephrolithiasis. Simple left renal cysts. No bowel obstruction or inflammation. Fat containing ventral hernia. Mild subcutaneous stranding roger g the left abdomen best seen on series 3, image 55 No abnormal appearing mesenteric or retroperitonea l lymph nodes. No free fluid or fluid collections. The bladder is normal in appearance. Uterus not well seen. No free fluid or abnormal pelvic lymph nod es. No aggressive osseous lesions. IMPRESSION: 1. Nonspecific subcutaneous stranding of the left abdominal wall without leti hematoma. 2. Suspicion of developing pneumonia in the left lung base. Correlate with clinical picture. Reported By:
[2017-03-30] MEDS: NS 1/2 1000 ML IV 1,000 ML IV SCH ×2 (14:17→16:33)
[2017-03-30] MEDS ORDERED: CONSULT PHARMACY - ANTIBIOTIC XX SCH (15:00)
--- NOTE | 2017-03-30 15:01 | DR.H&P ---
H&P - History & Physical for Day of: H&P Date: 03/28/17 - Chief Complaint Chief Complaint: sob, fever, ccc - Allergies Allergies/Adverse Reactions: Allergies Allergy/AdvReac Type Severity Reaction Status Date / Time almond Allergy Verified 03/28/17 00:40 caffeine Allergy Verified 03/28/17 00:40 cefdinir [From Omnicef] Allergy Verified 03/28/17 00:40 pittman Allergy Verified 03/28/17 00:40 codeine Allergy Verified 03/28/17 00:40 diphenhydramine Allergy Verified 03/28/17 00:40 [From Benadryl] doxycycline Allergy Verified 03/28/17 00:40 Egg Derived Allergy Verified 03/28/17 00:40 esomeprazole [From Nexium] Allergy Verified 03/28/17 00:40 gluten Allergy Verified 03/28/17 00:40 grape Allergy Verified 03/28/17 00:40 hazelnut Allergy Verified 03/28/17 00:40 hydroxyzine [From Atarax] Allergy Verified 03/28/17 00:40 Iodine and Iodide Containing Allergy Verified 03/28/17 00:40 Produc levofloxacin [From Levaquin] Allergy Verified 03/28/17 00:40 losartan Allergy Verified 03/28/17 00:40 nut - unspecified Allergy Verified 03/28/17 00:40 olmesartan [From Benicar] Allergy Verified 03/28/17 00:40 Penicillins Allergy Verified 03/28/17 00:40 Pork/Porcine Containing Allergy Verified 03/28/17 00:40 Products prednisone Allergy Verified 03/28/17 00:40 rabeprazole [From Aciphex] Allergy Verified 03/28/17 00:40 shrimp Allergy Verified 03/28/17 00:40 spinach Allergy Verified 03/28/17 00:40 starch Allergy Verified 03/28/17 00:40 turkey Allergy Verified 03/28/17 00:40 bananas Allergy Mild RASH Uncoded 03/28/17 00:40 chocolate Allergy Mild RASH Uncoded 03/28/17 00:40 cinaman Allergy Mild RASH Uncoded 03/28/17 00:40 grains except for rice Allergy Mild RASH Uncoded 03/28/17 00:40 onions Allergy Mild RASH Uncoded 03/28/17 00:40 tomatoes Allergy Mild RASH Uncoded 03/28/17 00:40 apples Allergy Unknown Uncoded 03/28/17 00:40 carbonated drinks Allergy Unknown Uncoded 03/28/17 00:40 CATFISH Allergy Uncoded 03/28/17 00:40 GRAPES Allergy Uncoded 03/28/17 00:40 potatoes Allergy Uncoded 03/28/17 00:40 red meats Allergy Uncoded 03/28/17 00:40 TEA Allergy Uncoded 03/28/17 00:40 - History of Present Illness History of Present Illness: the patient is a 67-year-old white female who was an ER admission after presenting with complaints of shortness of breath and cough cold congestion and fever and body aches. Patient was recently treated inpatient for influenza with bronchitis and COPD exacerbation. Patient states she felt better upon discharge with a sudden return of increased shortness of breath and respiratory distress. Plan to admit patient for further evaluation, IV antibiotics, aggressive respiratory therapy and supplemental O2 - Past Medical History Past Medical History: Arthritis, Asthma, COPD, GERD - Past Surgical History Surgical History: Appendectomy, Cholecystectomy, Hysterectomy - Family History Family Medical History: Diabetes Mellitus, [place], Hypertension - Social History Does patient currently use any type of tobacco product: Yes Have you used tobacco products in the last 12 months: Yes Type of Tobacco Use: Cigarettes How many years tobacco product used: 40 Packs per day or dips/chews per day: 1/2 PPD Does any household member use tobacco: No Alcohol Use: None Drug Use: None - Medications Home Medications: Gabapentin [Gabapentin] 1 tab PO TID 03/28/17 [History Confirmed 03/28/17] Hydrocodone-Acet 7.5 mg/325 mg [NORCO 7.5 MG/325 MG *] 1 tab PO BID PRN [History Confirmed 03/28/17] - Review of Systems Constitutional: Fever, Chills, Weakness Eyes: No Symptoms Reported, Vision Change Respiratory: Cough, Shortness of Breath, SOB with Excertion, Sputum, Wheezing Cardiovascular: No Symptoms Reported Gastrointestinal: Nausea Genitourinary: No Symptoms Reported Musculoskeletal: Back Pain Skin: No Symptoms Reported Neurological: No Symptoms Reported - Physical Exam Vital Signs: Temperature 97.8 F Pulse Rate [Right Brachial] 57 Pulse Rate [Left Brachial] 109 Pulse Rate 88 Respiratory Rate 20 Blood Pressure [Right Arm] 163/72 Blood Pressure [Left Arm] 136/63 Blood Pressure 135/81 O2 Sat by Pulse Oximetry 92 Oriented: Normal Eyes: Normal Ear: Normal Nose: Normal Throat: Normal Respiratory: Wheezes Throughout, RLL Diminished, LLL Diminished Cardiovascular: Tachycardia : Normal Auscultation: Bowel Sounds: Normal Palpation: Normal Tenderness: Normal, Epigastric Skin: Normal Musculoskeletal: Back:Lumbar Psychiatric: Anxiety Affect: Anxious Speech Pattern: Clear, Appropriate - Assessment/Plan (1) Pneumonia Qualifiers: Pneumonia type: due to unspecified organism Laterality: left Lung location: lower lobe of lung Qualified Code(s): J18.1 - Lobar pneumonia, unspecified organism Status: Acute Plan: admit, blood and sputum cultures. resp therapy, o2, iv atbx, iv steroids. resume home meds, pulmonary toileting (2) COPD (chronic obstructive pulmonary disease) Qualifiers: COPD type: COPD with acute lower respiratory infection Qualified Code(s): J44.0 - Chronic obstructive pulmonary disease with acute lower respiratory infection Status: Chronic (3) Influenza A Status: Acute (4) SOB (shortness of breath) Status: Acute (5) GERD (gastroesophageal reflux disease) Status: Chronic (6) Osteoarthritis Status: Chronic
--- NOTE | 2017-03-30 15:05 | PCM.PROG ---
Progress Note - Progress Note for Day of Date: 03/30/17 - Subjective Subjective: patient is a 67-year-old white female who is admitted with respiratory distress and pneumonia. Patient has had improved distress however continued persistent cough. Patient complains of left abdominal pain she has a bruise to the area without any known injury. Patient complains of pain increased with severe coughing episodes patient reports very scant amount of sputum production however are normal rhonchi. Patient continues complaining of weakness. Plan to obtain a CT of the abdomen without contrast to evaluate left lower quadrant pain, add Mucomyst to respiratory therapy and Smart vest - Past Medical Family Social History Past Med/Fam/Surg Hx: No changes since H&P Allergies: Allergies almond Allergy (Verified 03/28/17 00:40) caffeine Allergy (Verified 03/28/17 00:40) cefdinir [From Omnicef] Allergy (Verified 03/28/17 00:40) pittman Allergy (Verified 03/28/17 00:40) codeine Allergy (Verified 03/28/17 00:40) diphenhydramine [From Benadryl] Allergy (Verified 03/28/17 00:40) doxycycline Allergy (Verified 03/28/17 00:40) Egg Derived Allergy (Verified 03/28/17 00:40) esomeprazole [From Nexium] Allergy (Verified 03/28/17 00:40) gluten Allergy (Verified 03/28/17 00:40) grape Allergy (Verified 03/28/17 00:40) hazelnut Allergy (Verified 03/28/17 00:40) hydroxyzine [From Atarax] Allergy (Verified 03/28/17 00:40) Iodine and Iodide Containing Produc Allergy (Verified 03/28/17 00:40) levofloxacin [From Levaquin] Allergy (Verified 03/28/17 00:40) losartan Allergy (Verified 03/28/17 00:40) nut - unspecified Allergy (Verified 03/28/17 00:40) olmesartan [From Benicar] Allergy (Verified 03/28/17 00:40) Penicillins Allergy (Verified 03/28/17 00:40) Pork/Porcine Containing Products Allergy (Verified 03/28/17 00:40) prednisone Allergy (Verified 03/28/17 00:40) rabeprazole [From Aciphex] Allergy (Verified 03/28/17 00:40) shrimp Allergy (Verified 03/28/17 00:40) spinach Allergy (Verified 03/28/17 00:40) starch Allergy (Verified 03/28/17 00:40) turkey Allergy (Verified 03/28/17 00:40) bananas Allergy (Mild, Uncoded 03/28/17 00:40) RASH chocolate Allergy (Mild, Uncoded 03/28/17 00:40) RASH cinaman Allergy (Mild, Uncoded 03/28/17 00:40) RASH grains except for rice Allergy (Mild, Uncoded 03/28/17 00:40) RASH onions Allergy (Mild, Uncoded 03/28/17 00:40) RASH tomatoes Allergy (Mild, Uncoded 03/28/17 00:40) RASH apples Allergy (Unknown, Uncoded 03/28/17 00:40) carbonated drinks Allergy (Unknown, Uncoded 03/28/17 00:40) CATFISH Allergy (Uncoded 03/28/17 00:40) GRAPES Allergy (Uncoded 03/28/17 00:40) potatoes Allergy (Uncoded 03/28/17 00:40) red meats Allergy (Uncoded 03/28/17 00:40) TEA Allergy (Uncoded 03/28/17 00:40) - Review of Systems ROS: No change since H&P - Vital Signs and I&O's Vital Signs: Temperature 97.8 F Pulse Rate [Right Brachial] 57 Pulse Rate [Left Brachial] 109 Pulse Rate 88 Respiratory Rate 20 Blood Pressure [Right Arm] 163/72 Blood Pressure [Left Arm] 136/63 Blood Pressure 135/81 O2 Sat by Pulse Oximetry 92 Intake and Output: Intake & Output 03/28/17 03/29/17 03/30/17 03/31/17 11:59 11:59 11:59 11:59 Intake Total 240 2296 3008 Balance 240 2296 3008 - Physical Exam Oriented: Normal Eyes: Normal Ear: Normal Nose: Normal Throat: Normal Respiratory: Diminished, Wheezes Cardiovascular: Tachycardia : Normal Auscultation: Bowel Sounds: Normal Tenderness: Normal, LLQ, Epigastric Skin: Bruising Musculoskeletal: Back:Lumbar Psychiatric: Anxiety Affect: Anxious Speech Pattern: Clear, Appropriate - Laboratory and Diagnostics Result Diagrams: 03/30/17 04:55 03/30/17 04:55 Labs: 03/28/17 02:51 Sputum - Expectorated Sputum Sputum Culture - Final Staphylococcus Aureus 03/28/17 02:51 Sputum - Expectorated Sputum - Final 03/28/17 00:43 Blood Blood Culture - Preliminary 03/28/17 00:30 Blood Blood Culture - Preliminary Laboratory WBC 22.2 X10^3/uL (3.6-10.0) H 03/30/17 04:55 RBC 4.50 X10^6/uL (3.5-5.4) 03/30/17 04:55 Hgb 13.1 g/dL (12.0-16.0) 03/30/17 04:55 Hct 39.2 % (36.0-47.0) 03/30/17 04:55 MCV 87.1 fL (80.0-100.0) 03/30/17 04:55 MCH 29.0 pg (27.0-34.0) 03/30/17 04:55 MCHC 33.3 g/dL (33.0-35.0) 03/30/17 04:55 RDW 14.4 % (11.6-16.5) 03/30/17 04:55 Plt Count 397 X10^3/uL (150.0-450.0) 03/30/17 04:55 Plt Count Comment Adequate (ADEQUATE) 03/30/17 04:55 MPV 6.9 fL (7.4-11.0) L 03/30/17 04:55 Neut % 92.6 % (42.0-75.0) H 03/30/17 04:55 Lymph % 5.0 % (21.0-51.0) L 03/30/17 04:55 [place] % 2.0 % (0.0-13.0) 03/30/17 04:55 Eos % 0.0 % (0.9-2.9) L 03/30/17 04:55 Baso % 0.4 % (0.2-1.0) 03/30/17 04:55 Neut # 20.5 x10^3/uL (2.2-4.8) H 03/30/17 04:55 Lymph # 1.1 X10^3/uL (1.3-2.9) L 03/30/17 04:55 [place] # 0.4 x10^3/uL (0.3-0.8) 03/30/17 04:55 Eos # 0.0 x10^3/uL (0.0-0.2) 03/30/17 04:55 Baso # 0.1 X10^3/uL (0.0-0.1) 03/30/17 04:55 Absolute Nucleated RBC 0.0 /100WBC 03/30/17 04:55 Total Counted 100 03/30/17 04:55 Neutrophils % (Manual) 91 % (39-76) H 03/30/17 04:55 Band Neutrophils % 5 % (0-10) 03/30/17 04:55 Lymphocytes % (Manual) 2 % (13-43) L 03/30/17 04:55 Monocytes % (Manual) 2 % (4-9) L 03/30/17 04:55 Eosinophils % (Manual) 2 % (0-6) 03/28/17 00:30 Plt Morphology Comment Normal (NORMAL) 03/30/17 04:55 RBC Morphology Normal (NORMAL) 03/30/17 04:55 INR Target Range - 03/28/17 04:33 INR 0.87 (0.8-1.3) 03/28/17 04:33 PTT 25.8 SECONDS (22.9-36.5) 03/28/17 04:33 PTT Comment - 03/28/17 04:33 Sample Site Lbra 03/28/17 00:24 ABG pH 7.500 (7.35-7.45) H 03/28/17 00:24 ABG pCO2 34.0 mmHg (35.0-45.0) L 03/28/17 00:24 ABG pO2 59.0 mmHg (80.0-100.0) L 03/28/17 00:24 ABG HCO3 26.5 mmol/L (22-26) H 03/28/17 00:24 ABG O2 Saturation 93.0 % (90-100) 03/28/17 00:24 ABG Base Excess 3.5 mmol/L (-2.0-2.0) H 03/28/17 00:24 Oneil Test Na 03/28/17 00:24 A-a Gradient 48.0 mmHg 03/28/17 00:24 FiO2 21.000 03/28/17 00:24 Blood Gas Comments Jr abg well-mtf 03/28/17 00:24 Sodium 132 mmol/L (136-145) L 03/30/17 04:55 Corrected Sodium 137 mmol/L (136-145) 03/30/17 04:55 Potassium 4.1 mmol/L (3.5-5.1) 03/30/17 04:55 Chloride 98 mmol/L (98-107) 03/30/17 04:55 Carbon Dioxide 24.4 mmol/L (21-32) 03/30/17 04:55 BUN 14 mg/dL (7-18) 03/30/17 04:55 Creatinine 1.00 mg/dL (0.55-1.02) 03/30/17 04:55 Est GFR (MDRD) Af Amer > 60 (>60) 03/30/17 04:55 Est GFR (MDRD) Non-Af 59 (>60) 03/30/17 04:55 Glucose 290 mg/dL (65-99) H 03/30/17 04:55 Calcium 8.4 mg/dL (8.5-10.1) L 03/30/17 04:55 Corrected Calcium 9.5 mg/dL (8.5-10.1) 03/30/17 04:55 Magnesium 2.1 mg/dL (1.7-2.9) 03/28/17 04:33 Total Bilirubin 0.30 mg/dL (0.2-1.0) 03/30/17 04:55 AST 10 Units/L (15-37) L 03/30/17 04:55 ALT 37 Units/L (12-78) 03/30/17 04:55 Alkaline Phosphatase 115 Units/L (46-116) 03/30/17 04:55 Creatine Kinase 212 Units/L (26-192) H 03/28/17 11:00 CK-MB (CK-2) < 1.0 ng/mL (0-4.0) 03/28/17 11:00 CK/CKMB % Calc 0.5 % (<4) 03/28/17 11:00 Troponin I < 0.02 ng/mL (0-1.5) 03/28/17 11:00 Total Protein 6.5 g/dL (6.4-8.2) 03/30/17 04:55 Albumin 2.6 g/dL (3.4-5.0) L 03/30/17 04:55 Globulin 3.9 g/dL (2.5-4.5) 03/30/17 04:55 Albumin/Globulin Ratio 0.7 Ratio (1.1-2.1) L 03/30/17 04:55 Specimen Type Clean catch urine 03/28/17 02:31 Urine Color Yellow (YELLOW) 03/28/17 02:31 Urine Appearance Clear (CLEAR) 03/28/17 02:31 Urine pH 7.0 (5.0 - 8.0) 03/28/17 02:31 Ur Specific [place] 1.005 (1.000-1.030) 03/28/17 02:31 Urine Protein Negative (NEGATIVE) 03/28/17 02:31 Urine Glucose (UA) Negative (NEGATIVE) 03/28/17 02:31 Urine Ketones Negative (NEGATIVE) 03/28/17 02:31 Urine Occult Blood 1+ (NEGATIVE) 03/28/17 02:31 Urine Nitrite Negative (NEGATIVE) 03/28/17 02:31 Urine Bilirubin Negative (NEGATIVE) 03/28/17 02:31 Urine Urobilinogen Normal (NORMAL) 03/28/17 02:31 Ur Leukocyte Esterase Negative (NEGATIVE) 03/28/17 02:31 Urine RBC Rare /HPF (NEGATIVE) 03/28/17 02:31 Urine WBC 0-1 /HPF (NEGATIVE) 03/28/17 02:31 Ur Squamous Epith Cells Few /HPF (NEGATIVE) 03/28/17 02:31 Urine Bacteria Trace /HPF (NEGATIVE) 03/28/17 02:31 Ur Culture Indicated? No/not indicated 03/28/17 02:31 - Plan (1) Pneumonia Status: Acute Qualifiers: Pneumonia type: due to unspecified organism Laterality: left Lung location: lower lobe of lung Qualified Code(s): J18.1 - Lobar pneumonia, unspecified organism Plan: blood and sputum cultures collected on admission. ct chest obtained, see emr. resp therapy, o2, iv atbx, iv steroids. resume home meds, pulmonary toileting. mucomyst and smart vest (2) COPD (chronic obstructive pulmonary disease) Status: Chronic Qualifiers: COPD type: COPD with acute lower respiratory infection Qualified Code(s): J44.0 - Chronic obstructive pulmonary disease with acute lower respiratory infection (3) Influenza A Status: Acute (4) SOB (shortness of breath) Status: Acute (5) GERD (gastroesophageal reflux disease) Status: Chronic (6) Osteoarthritis Status: Chronic (7) LLQ abdominal pain Status: Acute Plan: large bruised area without known injury, pain control. ct abd/pelvis
[2017-03-30] MEDS: PEPCID 20 MG IV PREMIX* 20 MG/50 ML BAG IV SCH ×2 (16:11→21:03)
[2017-03-30] MEDS: BACTRIM DS TAB PO SCH ×2 (16:11→21:00)
[2017-03-30] MEDS: TESSALON PERLES PO PRN (20:59)
[2017-03-30] MEDS: SINGULAIR TAB 10 MG PO SCH (21:00)
[2017-03-30] MEDS: NORVASC TAB 5 MG PO SCH (21:00)
[2017-03-30] MEDS: MIRAPEX TAB 1 MG PO SCH (21:00)
[2017-03-30] MEDS: NIASPAN ER TAB 500 MG PO SCH (21:01)
[2017-03-30] MEDS: XANAX PO PRN (21:01)
[2017-03-30] MEDS: ROCEPHIN 1 GM IV PREMIX 1 GM/50 ML IV.SOLN. IV SCH (21:03)
[2017-03-31] MEDS: NS 1/2 1000 ML IV 1,000 ML IV SCH ×2 (00:14→16:07)
[2017-03-31] MEDS: DUONEB 0.5 MG/3 MG NEB SCH ×6 (01:09→21:08)
--- NOTE | 2017-03-31 05:36 | RAD ---
Chest, PA and lateral Indication: Pneumonia, COPD Comparison: 03/28/2017 Findings: The heart size is normal. There are chronic interstitial changes of the lungs with hyperinf lation, suggestive for COPD. Left lower lobe infiltrate is improved, although minimal left basilar ai rspace disease persists. No pleural effusion. Impression: Improving left basilar infiltrate. Chronic findings of COPD. Reported By:
[2017-03-31] MEDS: SOLU-Medrol 40 MG VIAL IVP SCH (05:39)
[2017-03-31] MEDS: NEURONTIN CAP 100 MG PO SCH ×3 (05:39→22:39)
[2017-03-31 06:09] LABS: BASOPHILS # (AUTO) 0.1 X10^3/uL (0.0-0.1); BASOPHILS % (AUTO) 0.2 % (0.2-1.0); HEMATOCRIT 38.7 % (36.0-47.0); HEMOGLOBIN 12.9 g/dL (12.0-16.0); LYMPHOCYTES # (AUTO) 1.2 X10^3/uL (1.3-2.9); LYMPHOCYTES % (AUTO) 4.7 % (21.0-51.0); MEAN CORPUSCULAR HEMOGLOBIN 29.4 pg (27.0-34.0); MEAN CORPUSCULAR HGB CONC 33.3 g/dL (33.0-35.0); MEAN CORPUSCULAR VOLUME 88.1 fL (80.0-100.0); MEAN PLATELET VOLUME 6.7 fL (7.4-11.0); MONOCYTES # (AUTO) 1.4 x10^3/uL (0.3-0.8); MONOCYTES % (AUTO) 5.5 % (0.0-13.0); NEUTROPHILS # (AUTO) 23.4 x10^3/uL (2.2-4.8); NEUTROPHILS % (AUTO) 89.6 % (42.0-75.0); PLATELET COUNT 423 X10^3/uL (150.0-450.0); RED BLOOD COUNT 4.39 X10^6/uL (3.5-5.4); RED CELL DISTRIBUTION WIDTH 14.6 % (11.6-16.5); WHITE BLOOD COUNT 26.2 X10^3/uL (3.6-10.0)
[2017-03-31 06:15] LABS: ALANINE AMINOTRANSFERASE 32 Units/L (12-78); ALBUMIN 2.7 g/dL (3.4-5.0); ALKALINE PHOSPHATASE 104 Units/L (46-116); ASPARTATE AMINO TRANSFERASE 8 Units/L (15-37); BLOOD UREA NITROGEN 15 mg/dL (7-18); CALCIUM 8.6 mg/dL (8.5-10.1); CARBON DIOXIDE 24.6 mmol/L (21-32); CHLORIDE 101 mmol/L (98-107); COR CA(FOR HYPOALB) 9.6 mg/dL (8.5-10.1); COR NA(FOR HYPERGLY) 139 mmol/L (136-145); CREATININE 0.96 mg/dL (0.55-1.02); SODIUM 136 mmol/L (136-145); TOTAL PROTEIN 6.6 g/dL (6.4-8.2); eGFR BLACK RACES > 60 (>60); eGFR NON BLACK RACES > 60 (>60)
[2017-03-31 06:56] LABS: PLATELET MORPHOLOGY COMMENT NORMAL (NORMAL)
[2017-03-31] MEDS: ROBITUSSIN DM PO SCH ×5 (07:17→22:39)
[2017-03-31] MEDS: NORCO 7.5/325 MG TAB PO PRN ×3 (07:38→22:40)
[2017-03-31] MEDS ORDERED: FLONASE NASAL SPRAY ENOSTRIL SCH (09:00)
[2017-03-31] MEDS: MUCOMYST (RESPIRATORY USE ONLY) NEB SCH ×2 (09:18→21:08)
[2017-03-31] MEDS: PREMARIN PO SCH ×2 (10:32→22:39)
[2017-03-31] MEDS: SYNTHROID 100 mcg TAB PO SCH (10:32)
[2017-03-31] MEDS: BACTRIM DS TAB PO SCH ×2 (10:32→22:42)
[2017-03-31] MEDS: PEPCID 20 MG IV PREMIX* 20 MG/50 ML BAG IV SCH ×2 (10:33→22:38)
[2017-03-31] MEDS: ZITHROMAX INJ 500 MG VIAL 500 MG in NS 250 ML IV 250 ML IV SCH (10:33)
[2017-03-31] MEDS: ZyrTEC TAB 10 MG PO SCH (10:33)
[2017-03-31] MEDS: NICOTINE PATCH TD SCH (10:34)
[2017-03-31] MEDS: FLUTICASONE NAS SCH (10:46)
[2017-03-31] MEDS: AZELASTINE NAS SCH (10:46)
[2017-03-31] MEDS: LEVSIN/MAALOX/LIDOC VISC PO SCH ×3 (13:48→22:42)
[2017-03-31] MEDS: NYSTATIN SUSP PO SCH ×3 (13:48→22:42)
[2017-03-31] MEDS: ZOFRAN TAB 4 MG PO PRN (13:50)
[2017-03-31] MEDS: TESSALON PERLES PO PRN (22:39)
[2017-03-31] MEDS: NIASPAN ER TAB 500 MG PO SCH (22:39)
[2017-03-31] MEDS: MIRAPEX TAB 1 MG PO SCH (22:40)
[2017-03-31] MEDS: SINGULAIR TAB 10 MG PO SCH (22:41)
[2017-03-31] MEDS: NORVASC TAB 5 MG PO SCH (22:42)
[2017-04-01] MEDS: DUONEB 0.5 MG/3 MG NEB SCH ×6 (01:05→22:09)
[2017-04-01] MEDS ORDERED: NS 1/2 1000 ML IV 1,000 ML IV ONE (03:49)
[2017-04-01] MEDS: NS 1/2 1000 ML IV 1,000 ML IV SCH ×2 (03:53→18:24)
[2017-04-01] MEDS: TUSSIONEX PENNKINETIC SUSP PO PRN (03:54)
[2017-04-01] MEDS: PHENERGAN INJ 25 MG IV PRN ×2 (04:07→16:40)
[2017-04-01] MEDS: TESSALON PERLES PO PRN (04:07)
[2017-04-01] MEDS: NEURONTIN CAP 100 MG PO SCH ×3 (05:21→20:59)
[2017-04-01 06:08] LABS: BASOPHILS # (AUTO) 0.1 X10^3/uL (0.0-0.1); BASOPHILS % (AUTO) 0.3 % (0.2-1.0); EOSINOPHILS % (AUTO) 0.1 % (0.9-2.9); HEMATOCRIT 37.7 % (36.0-47.0); HEMOGLOBIN 12.9 g/dL (12.0-16.0); LYMPHOCYTES # (AUTO) 2.4 X10^3/uL (1.3-2.9); LYMPHOCYTES % (AUTO) 12.4 % (21.0-51.0); MEAN CORPUSCULAR HEMOGLOBIN 29.7 pg (27.0-34.0); MEAN CORPUSCULAR HGB CONC 34.2 g/dL (33.0-35.0); MEAN CORPUSCULAR VOLUME 86.8 fL (80.0-100.0); MEAN PLATELET VOLUME 6.7 fL (7.4-11.0); MONOCYTES # (AUTO) 2.3 x10^3/uL (0.3-0.8); MONOCYTES % (AUTO) 11.8 % (0.0-13.0); NEUTROPHILS # (AUTO) 14.5 x10^3/uL (2.2-4.8); NEUTROPHILS % (AUTO) 75.4 % (42.0-75.0); PLATELET COUNT 397 X10^3/uL (150.0-450.0); RED BLOOD COUNT 4.34 X10^6/uL (3.5-5.4); RED CELL DISTRIBUTION WIDTH 14.4 % (11.6-16.5); WHITE BLOOD COUNT 19.2 X10^3/uL (3.6-10.0)
[2017-04-01 06:23] LABS: ALANINE AMINOTRANSFERASE 32 Units/L (12-78); ALBUMIN 2.7 g/dL (3.4-5.0); ALKALINE PHOSPHATASE 107 Units/L (46-116); ASPARTATE AMINO TRANSFERASE 11 Units/L (15-37); BLOOD UREA NITROGEN 20 mg/dL (7-18); CALCIUM 8.5 mg/dL (8.5-10.1); CARBON DIOXIDE 26.4 mmol/L (21-32); CHLORIDE 101 mmol/L (98-107); COR CA(FOR HYPOALB) 9.5 mg/dL (8.5-10.1); COR NA(FOR HYPERGLY) 137 mmol/L (136-145); SODIUM 136 mmol/L (136-145); TOTAL PROTEIN 6.3 g/dL (6.4-8.2); eGFR BLACK RACES > 60 (>60); eGFR NON BLACK RACES 59 (>60)
[2017-04-01 06:41] LABS: PLATELET MORPHOLOGY COMMENT NORMAL (NORMAL)
[2017-04-01] MEDS: MUCOMYST (RESPIRATORY USE ONLY) NEB SCH (08:40)
[2017-04-01] MEDS: ZyrTEC TAB 10 MG PO SCH (10:01)
[2017-04-01] MEDS: NYSTATIN SUSP PO SCH ×4 (10:01→21:00)
[2017-04-01] MEDS: ROBITUSSIN DM PO SCH ×4 (10:01→20:59)
[2017-04-01] MEDS: NICOTINE PATCH TD SCH (10:02)
[2017-04-01] MEDS: PREMARIN PO SCH ×2 (10:03→20:59)
[2017-04-01] MEDS: SYNTHROID 100 mcg TAB PO SCH (10:03)
[2017-04-01] MEDS: AZELASTINE NAS SCH (10:07)
[2017-04-01] MEDS: BACTRIM DS TAB PO SCH ×2 (10:07→21:00)
[2017-04-01] MEDS: LEVSIN/MAALOX/LIDOC VISC PO SCH ×4 (10:07→21:00)
[2017-04-01] MEDS: FLUTICASONE NAS SCH (10:07)
[2017-04-01] MEDS: PEPCID 20 MG IV PREMIX* 20 MG/50 ML BAG IV SCH ×2 (10:08→21:01)
[2017-04-01] MEDS: ZITHROMAX INJ 500 MG VIAL 500 MG in NS 250 ML IV 250 ML IV SCH (10:08)
[2017-04-01] MEDS: ROCEPHIN VIAL 1 GM 1 GM in NS 100 ML IV + SPIKE MINIBAG* 100 ML IV SCH (10:08)
--- NOTE | 2017-04-01 13:08 | RAD ---
Examination: Chest, PA and lateral views History: Left lower lobe pneumonia, CHF Comparison 03/31/2017 Findings: Continued normal heart size. Minimal residual infiltrate or atelectasis in the left lower l obe. No new abnormality demonstrated. There is no evidence for pneumothorax or large pleural effusion . Impression: Further improvement in left lower lobe infiltrate with very small residual. No new abnorm ality. Reported By:
[2017-04-01] MEDS: NORCO 7.5/325 MG TAB PO PRN (13:33)
[2017-04-01] MEDS: MORPHINE SULFATE INJ 4 MG IVP PRN (16:42)
[2017-04-01] MEDS: NORVASC TAB 5 MG PO SCH (20:59)
[2017-04-01] MEDS: MIRAPEX TAB 1 MG PO SCH (20:59)
[2017-04-01] MEDS: NIASPAN ER TAB 500 MG PO SCH (20:59)
[2017-04-01] MEDS: SINGULAIR TAB 10 MG PO SCH (20:59)
[2017-04-01] MEDS: MUCOMYST 20% 200 MG/ML NEB SCH (22:09)
[2017-04-02] MEDS: DUONEB 0.5 MG/3 MG NEB SCH ×6 (02:11→21:53)
[2017-04-02] MEDS: NEURONTIN CAP 100 MG PO SCH ×3 (05:16→20:59)
[2017-04-02 06:25] LABS: BASOPHILS % (AUTO) 0.1 % (0.2-1.0); EOSINOPHILS # (AUTO) 0.1 x10^3/uL (0.0-0.2); EOSINOPHILS % (AUTO) 0.6 % (0.9-2.9); HEMATOCRIT 41.2 % (36.0-47.0); HEMOGLOBIN 14.1 g/dL (12.0-16.0); LYMPHOCYTES # (AUTO) 4.1 X10^3/uL (1.3-2.9); LYMPHOCYTES % (AUTO) 23.7 % (21.0-51.0); MEAN CORPUSCULAR HEMOGLOBIN 29.9 pg (27.0-34.0); MEAN CORPUSCULAR HGB CONC 34.2 g/dL (33.0-35.0); MEAN CORPUSCULAR VOLUME 87.3 fL (80.0-100.0); MEAN PLATELET VOLUME 6.6 fL (7.4-11.0); MONOCYTES # (AUTO) 1.7 x10^3/uL (0.3-0.8); MONOCYTES % (AUTO) 10.1 % (0.0-13.0); NEUTROPHILS # (AUTO) 11.3 x10^3/uL (2.2-4.8); NEUTROPHILS % (AUTO) 65.5 % (42.0-75.0); PLATELET COUNT 391 X10^3/uL (150.0-450.0); RED BLOOD COUNT 4.72 X10^6/uL (3.5-5.4); RED CELL DISTRIBUTION WIDTH 14.7 % (11.6-16.5); WHITE BLOOD COUNT 17.3 X10^3/uL (3.6-10.0)
[2017-04-02 06:50] LABS: ALANINE AMINOTRANSFERASE 33 Units/L (12-78); ALBUMIN 2.9 g/dL (3.4-5.0); ALKALINE PHOSPHATASE 100 Units/L (46-116); ASPARTATE AMINO TRANSFERASE 15 Units/L (15-37); BLOOD UREA NITROGEN 19 mg/dL (7-18); CALCIUM 8.9 mg/dL (8.5-10.1); CARBON DIOXIDE 27.3 mmol/L (21-32); CHLORIDE 97 mmol/L (98-107); COR CA(FOR HYPOALB) 9.8 mg/dL (8.5-10.1); CREATININE 1.07 mg/dL (0.55-1.02); SODIUM 136 mmol/L (136-145); TOTAL PROTEIN 6.6 g/dL (6.4-8.2); eGFR BLACK RACES > 60 (>60); eGFR NON BLACK RACES 55 (>60)
[2017-04-02 07:17] LABS: BAND NEUTROPHILS % 8 % (0-10); PLATELET MORPHOLOGY COMMENT NORMAL (NORMAL)
[2017-04-02] MEDS: MUCOMYST 20% 200 MG/ML NEB SCH ×2 (09:22→21:53)
[2017-04-02] MEDS: NORCO 7.5/325 MG TAB PO PRN ×2 (09:24→20:46)
[2017-04-02] MEDS: ZyrTEC TAB 10 MG PO SCH (09:25)
[2017-04-02] MEDS: NYSTATIN SUSP PO SCH ×4 (09:25→20:48)
[2017-04-02] MEDS: SYNTHROID 100 mcg TAB PO SCH (09:25)
[2017-04-02] MEDS: ROCEPHIN VIAL 1 GM 1 GM in NS 100 ML IV + SPIKE MINIBAG* 100 ML IV SCH (09:25)
[2017-04-02] MEDS: BACTRIM DS TAB PO SCH ×2 (09:25→20:46)
[2017-04-02] MEDS: PREMARIN PO SCH ×2 (09:25→20:46)
[2017-04-02] MEDS: NICOTINE PATCH TD SCH (09:33)
[2017-04-02] MEDS: ROBITUSSIN DM PO SCH ×4 (09:33→20:59)
[2017-04-02] MEDS: PEPCID 20 MG IV PREMIX* 20 MG/50 ML BAG IV SCH ×2 (09:35→20:46)
[2017-04-02] MEDS: LEVSIN/MAALOX/LIDOC VISC PO SCH ×4 (09:35→20:48)
[2017-04-02] MEDS: AZELASTINE NAS SCH (09:35)
[2017-04-02] MEDS: FLUTICASONE NAS SCH (09:35)
[2017-04-02] MEDS: NS 1/2 1000 ML IV 1,000 ML IV SCH ×3 (09:36→23:44)
[2017-04-02] MEDS: ZOFRAN TAB 4 MG PO PRN (09:59)
[2017-04-02] MEDS: XANAX PO PRN ×2 (09:59→20:46)
[2017-04-02] MEDS: TUSSIONEX PENNKINETIC SUSP PO PRN (09:59)
[2017-04-02] MEDS ORDERED: NS 1/2 1000 ML IV 1,000 ML IV ONE (20:38)
[2017-04-02] MEDS: NIASPAN ER TAB 500 MG PO SCH (20:46)
[2017-04-02] MEDS: TESSALON PERLES PO PRN (20:47)
[2017-04-02] MEDS: MIRAPEX TAB 1 MG PO SCH (20:47)
[2017-04-02] MEDS: NORVASC TAB 5 MG PO SCH (20:47)
[2017-04-02] MEDS: SINGULAIR TAB 10 MG PO SCH (20:47)
[2017-04-02] MEDS: MORPHINE SULFATE INJ 4 MG IVP PRN (23:50)
[2017-04-02] MEDS: PHENERGAN INJ 25 MG IV PRN (23:50)
[2017-04-03] MEDS: DUONEB 0.5 MG/3 MG NEB SCH ×4 (01:01→12:06)
[2017-04-03] MEDS: NEURONTIN CAP 100 MG PO SCH ×2 (05:46→13:26)
[2017-04-03] MEDS: NORCO 7.5/325 MG TAB PO PRN ×3 (05:46→13:29)
[2017-04-03 05:53] LABS: ALBUMIN 2.8 g/dL (3.4-5.0); CALCIUM 8.5 mg/dL (8.5-10.1); CARBON DIOXIDE 27.6 mmol/L (21-32); COR CA(FOR HYPOALB) 9.5 mg/dL (8.5-10.1); CREATININE 1.18 mg/dL (0.55-1.02); TOTAL PROTEIN 6.2 g/dL (6.4-8.2)
[2017-04-03 06:33] LABS: BASOPHILS % (AUTO) 0.1 % (0.2-1.0); EOSINOPHILS # (AUTO) 0.2 x10^3/uL (0.0-0.2); EOSINOPHILS % (AUTO) 0.9 % (0.9-2.9); HEMATOCRIT 40.3 % (36.0-47.0); HEMOGLOBIN 13.7 g/dL (12.0-16.0); LYMPHOCYTES # (AUTO) 3.2 X10^3/uL (1.3-2.9); LYMPHOCYTES % (AUTO) 19.6 % (21.0-51.0); MEAN CORPUSCULAR HEMOGLOBIN 29.9 pg (27.0-34.0); MEAN PLATELET VOLUME 6.5 fL (7.4-11.0); MONOCYTES # (AUTO) 1.1 x10^3/uL (0.3-0.8); MONOCYTES % (AUTO) 6.9 % (0.0-13.0); NEUTROPHILS # (AUTO) 11.7 x10^3/uL (2.2-4.8); NEUTROPHILS % (AUTO) 72.5 % (42.0-75.0); PLATELET COUNT 370 X10^3/uL (150.0-450.0); RED BLOOD COUNT 4.58 X10^6/uL (3.5-5.4); RED CELL DISTRIBUTION WIDTH 14.7 % (11.6-16.5); WHITE BLOOD COUNT 16.1 X10^3/uL (3.6-10.0)
[2017-04-03 07:22] LABS: BAND NEUTROPHILS % 3 % (0-10); PLATELET MORPHOLOGY COMMENT NORMAL (NORMAL)
[2017-04-03] MEDS: MUCOMYST 20% 200 MG/ML NEB SCH (09:10)
[2017-04-03] MEDS: NYSTATIN SUSP PO SCH ×2 (09:42→13:25)
[2017-04-03] MEDS: PREMARIN PO SCH (09:43)
[2017-04-03] MEDS: ZOFRAN TAB 4 MG PO PRN (09:43)
[2017-04-03] MEDS: XANAX PO PRN (09:43)
[2017-04-03] MEDS: PEPCID 20 MG IV PREMIX* 20 MG/50 ML BAG IV SCH (09:44)
[2017-04-03] MEDS: BACTRIM DS TAB PO SCH (09:45)
[2017-04-03] MEDS: SYNTHROID 100 mcg TAB PO SCH (09:45)
[2017-04-03] MEDS: TUSSIONEX PENNKINETIC SUSP PO PRN (09:46)
[2017-04-03] MEDS: ZyrTEC TAB 10 MG PO SCH (09:46)
[2017-04-03] MEDS: NICOTINE PATCH TD SCH (09:52)
[2017-04-03] MEDS: ROBITUSSIN DM PO SCH ×2 (09:53→13:26)
[2017-04-03] MEDS: AZELASTINE NAS SCH (09:54)
[2017-04-03] MEDS: FLUTICASONE NAS SCH (09:54)
[2017-04-03] MEDS: LEVSIN/MAALOX/LIDOC VISC PO SCH ×2 (09:54→13:25)
[2017-04-03] MEDS: ROCEPHIN VIAL 1 GM 1 GM in NS 100 ML IV + SPIKE MINIBAG* 100 ML IV SCH (11:21)
[2017-04-03 13:58] VITALS: BP 117/63
== END 2017-04-03 13:55 | disposition home or self-care (01) | DRG 177 ==
LOC: ER 00:18 → MED/SURG 01:34 → OBSVTOIN 01:34
PROVIDERS: ADMIT Internal Medicine; ATTEND Internal Medicine
DX: J15.212 Pneumonia due to Methicillin resistant Staphylococcus aureus (principal); I50.43 Acute on chronic combined systolic (congestive) and diastolic (congestive) heart failure; J44.1 Chronic obstructive pulmonary disease with (acute) exacerbation; J44.0 Chronic obstructive pulmonary disease with (acute) lower respiratory infection; R06.03 Acute respiratory distress; R07.89 Other chest pain; R06.02 Shortness of breath; K21.9 Gastro-esophageal reflux disease without esophagitis; R94.31 Abnormal electrocardiogram [ECG] [EKG]; R10.32 Left lower quadrant pain; M13.89 Other specified arthritis, multiple sites; Z22.322 Carrier or suspected carrier of Methicillin resistant Staphylococcus aureus
CPT/HCPCS: 36415; 36600; 71020; 71250; 74176; 80053; 81001; 82550; 82553; 82803; 83735; 84484; 85025; 85610; 85730; 87040; 87070; 87077; 87186; 87205; 93005; 93010; 94640; 94669; 94760; 96365; 96374; 96375; 99231; 99284; A4222; S0028; S0181; J0456; J0696; J2270; J2550; J2920; J2930; J7620

== ENCOUNTER → 2017-04-12 | Outpatient (CLI) | payer OTHER ==
[2017-04-03 13:58] VITALS: BP 117/63
--- NOTE | 2017-04-12 17:19 | RAD ---
Examination: Chest, PA and lateral views History: COPD with acute Comparison 04/01/2017 Findings: Continued normal heart size with no acute pulmonary or pleural lesion demonstrated. Mediast inum and hilar structures continued to appear normal. Impression: No interval change or acute abnormality demonstrated. Reported By:
== END ==
LOC: RAD 16:10
PROVIDERS: ATTEND Internal Medicine
DX: J44.1 Chronic obstructive pulmonary disease with (acute) exacerbation (principal)
CPT/HCPCS: 71046

== ENCOUNTER → 2017-05-31 | Outpatient (CLI) | payer OTHER ==
--- NOTE | 2017-05-31 12:18 | CT ---
CT chest without contrast Indication: Follow-up lung nodule Technique: Helical CT images of the chest were obtained without IV contrast. Reformatted images in th e coronal and sagittal planes were also generated for review. Comparison: 03/28/2017, 09/10/2015, 07/17/2014 Findings: The heart is normal in size without pericardial effusion. The thoracic aorta is minimally c alcified without aneurysm. The central airways are patent. There is no mediastinal or bulky hilar lym phadenopathy. There is mild upper lobe predominant paraseptal emphysema. Small bilateral pulmonary nodules, includi ng 3 mm right upper lobe nodule (image 20, series 4) and 4 mm left upper lobe nodule (image 14, serie s 4) are stable since 2015, compatible with benignity. A left juxtafissural nodule on axial image 26 is also stable and most compatible with a benign intrapulmonary lymph node. Previously seen patchy no dular opacities within the bilateral lower and right middle lobe have resolved in the interval. No ne w focal consolidation or suspicious nodules are identified. There is no pleural effusion or pneumotho rax. Limited noncontrast images of the upper abdomen demonstrate stable hepatic and bilateral renal cysts. There are no aggressive osseous lesions. Impression: Interval resolution of previously seen bilateral nodular airspace disease, compatible with resolved b ronchopneumonia. Subcentimeter bilateral pulmonary nodules, unchanged since 2014 and most certainly benign. Mild emphysema. Reported By:
== END | disposition home or self-care (01) | DRG 206 ==
LOC: RAD 10:38
PROVIDERS: ATTEND Internal Medicine Pulmonary Disease
DX: R91.1 Solitary pulmonary nodule (principal); J43.8 Other emphysema
CPT/HCPCS: 71250

== ENCOUNTER → 2017-08-09 | Outpatient (CLI) | payer OTHER ==
[2017-08-09 07:39] LABS: BASOPHILS # (AUTO) 0.2 X10^3/uL (0.0-0.1); BASOPHILS % (AUTO) 1.5 % (0.2-1.0); EOSINOPHILS # (AUTO) 0.3 x10^3/uL (0.0-0.2); EOSINOPHILS % (AUTO) 2.1 % (0.9-2.9); HEMATOCRIT 46.5 % (36.0-47.0); HEMOGLOBIN 15.9 g/dL (12.0-16.0); LYMPHOCYTES # (AUTO) 2.4 X10^3/uL (1.3-2.9); LYMPHOCYTES % (AUTO) 18.7 % (21.0-51.0); MEAN CORPUSCULAR HEMOGLOBIN 29.4 pg (27.0-34.0); MEAN CORPUSCULAR HGB CONC 34.2 g/dL (33.0-35.0); MEAN CORPUSCULAR VOLUME 86.1 fL (80.0-100.0); MEAN PLATELET VOLUME 6.6 fL (7.4-11.0); MONOCYTES # (AUTO) 1.1 x10^3/uL (0.3-0.8); MONOCYTES % (AUTO) 8.6 % (0.0-13.0); NEUTROPHILS # (AUTO) 8.9 x10^3/uL (2.2-4.8); NEUTROPHILS % (AUTO) 69.1 % (42.0-75.0); PLATELET COUNT 431 X10^3/uL (150.0-450.0); RED CELL DISTRIBUTION WIDTH 14.3 % (11.6-16.5); WHITE BLOOD COUNT 12.9 X10^3/uL (3.6-10.0)
[2017-08-09 08:02] LABS: ALANINE AMINOTRANSFERASE 26 Units/L (12-78); ALBUMIN 3.7 g/dL (3.4-5.0); ALKALINE PHOSPHATASE 116 Units/L (46-116); ASPARTATE AMINO TRANSFERASE 13 Units/L (15-37); BLOOD UREA NITROGEN 11 mg/dL (7-18); CALCIUM 8.9 mg/dL (8.5-10.1); CARBON DIOXIDE 24.3 mmol/L (21-32); CHLORIDE 104 mmol/L (98-107); CHOL/HDL RATIO 4.1 (0.0-5.0); CHOLESTEROL 198 mg/dL (0-200); CREATININE 0.98 mg/dL (0.55-1.02); FREE T4 (FREE THYROXINE) 0.99 ng/dL (0.76-1.46); HDL CHOLESTEROL 48 mg/dL (40-60); SODIUM 140 mmol/L (136-145); TOTAL PROTEIN 7.4 g/dL (6.4-8.2); TRIGLYCERIDES 159 mg/dL (0-150); TSH (3RD GENERATION) 2.788 uIU/mL (0.358-3.74); eGFR BLACK RACES > 60 (>60); eGFR NON BLACK RACES > 60 (>60)
== END ==
LOC: LAB 07:15
PROVIDERS: ATTEND Internal Medicine
DX: I10 Essential (primary) hypertension (principal); E78.1 Pure hyperglyceridemia
CPT/HCPCS: 36415; 80053; 80061; 84439; 84443; 85025

== ENCOUNTER 2017-12-12 12:10 | Observation (INO) ==
--- NOTE | 2017-12-12 12:43 | DR.H&P ---
H&P - History & Physical for Day of: H&P Date: 12/12/17 - Chief Complaint Chief Complaint: CHEST PAIN - History of Present Illness History of Present Illness: 67 WF DIRECT ADMIT FROM DR DELVALLE OFFICE AFTER PRESENTING WTIH CO CHEST PAIN, PRESSURE "FEEL LIKE ELEPHANT SITTING ON MY CHEST ". PT STATES ONSET LAST NIGHT WITH CENTRAL CP, FOLLOWED BY EXCESSIVE SWEATING AND NAUSEA. PT DID NOT SLEEP LAST PM, CO SEVERE PRESSURE. PT STATES SHE HAD HTN AND HIATIAL HERNIA. PT TOOK ZANTAC WITHOUT RELIEF. PT HAD CATH OVER 5 YEARS AGO. PT ADMITTED FOR CHEST PAIN PROTOCOL RO AMI - Past Medical History Past Medical History: Anxiety, Arthritis, Asthma, COPD, Dyslipidemia, GERD, Headaches, Hypertension - Past Surgical History Surgical History: Appendectomy, Cholecystectomy, Hysterectomy - Family History Family Medical History: Diabetes Mellitus, CA, Hypertension - Social History Does patient currently use any type of tobacco product: Yes Have you used tobacco products in the last 12 months: Yes Type of Tobacco Use: Cigarettes Does any household member use tobacco: No Alcohol Use: None Drug Use: None - Medications Home Medications: almond Allergy (Verified 03/28/17 00:40) caffeine Allergy (Verified 03/28/17 00:40) cefdinir [From Omnicef] Allergy (Verified 03/28/17 00:40) pittman Allergy (Verified 03/28/17 00:40) codeine Allergy (Verified 03/28/17 00:40) diphenhydramine [From Benadryl] Allergy (Verified 03/28/17 00:40) doxycycline Allergy (Verified 03/28/17 00:40) Egg Derived Allergy (Verified 03/28/17 00:40) esomeprazole [From Nexium] Allergy (Verified 03/28/17 00:40) gluten Allergy (Verified 03/28/17 00:40) grape Allergy (Verified 03/28/17 00:40) hazelnut Allergy (Verified 03/28/17 00:40) hydroxyzine [From Atarax] Allergy (Verified 03/28/17 00:40) Iodine and Iodide Containing Produc Allergy (Verified 03/28/17 00:40) levofloxacin [From Levaquin] Allergy (Verified 03/28/17 00:40) losartan Allergy (Verified 03/28/17 00:40) nut - unspecified Allergy (Verified 03/28/17 00:40) olmesartan [From Benicar] Allergy (Verified 03/28/17 00:40) Penicillins Allergy (Verified 03/28/17 00:40) Pork/Porcine Containing Products Allergy (Verified 03/28/17 00:40) prednisone Allergy (Verified 03/28/17 00:40) rabeprazole [From Aciphex] Allergy (Verified 03/28/17 00:40) shrimp Allergy (Verified 03/28/17 00:40) spinach Allergy (Verified 03/28/17 00:40) starch Allergy (Verified 03/28/17 00:40) turkey Allergy (Verified 03/28/17 00:40) bananas Allergy (Mild, Uncoded 03/28/17 00:40) RASH chocolate Allergy (Mild, Uncoded 03/28/17 00:40) RASH cinaman Allergy (Mild, Uncoded 03/28/17 00:40) RASH grains except for rice Allergy (Mild, Uncoded 03/28/17 00:40) RASH onions Allergy (Mild, Uncoded 03/28/17 00:40) RASH tomatoes Allergy (Mild, Uncoded 03/28/17 00:40) RASH apples Allergy (Unknown, Uncoded 03/28/17 00:40) carbonated drinks Allergy (Unknown, Uncoded 03/28/17 00:40) CATFISH Allergy (Uncoded 03/28/17 00:40) GRAPES Allergy (Uncoded 03/28/17 00:40) potatoes Allergy (Uncoded 03/28/17 00:40) red meats Allergy (Uncoded 03/28/17 00:40) TEA Allergy (Uncoded 03/28/17 00:40) - Review of Systems Constitutional: No Symptoms Reported Eyes: No Symptoms Reported ENT: No Symptoms Reported Respiratory: Shortness of Breath Cardiovascular: Chest Pain Gastrointestinal: Nausea Genitourinary: No Symptoms Reported Musculoskeletal: Back Pain Skin: No Symptoms Reported Neurological: No Symptoms Reported - Physical Exam Vital Signs: Blood Pressure [Right Arm] 109/58 Blood Pressure [Left Arm] 117/63 Blood Pressure 117/63 Oriented: Normal Eyes: Normal Ear: Normal Nose: Normal Throat: Normal Respiratory: RLL Diminished, LLL Diminished Cardiovascular: Normal. negative: Edema Auscultation: Bowel Sounds: Normal Palpation: Normal Tenderness: Epigastric Skin: Normal Musculoskeletal: Back:Lumbar Psychiatric: Anxiety Affect: Anxious Speech Pattern: Clear, Appropriate - Assessment/Plan (1) Chest pain Qualifiers: Chest pain type: unspecified Qualified Code(s): R07.9 - Chest pain, unspecified Status: Acute Plan: ADMIT TO [facility] FOR SERIAL CE'S AND EKG'S R/O AMI. VERIFY HOME MEDS, BP AND LIPID CONTROL. 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: Spinal osteoarthritis complication: with myelopathy Qualified Code(s): M47.12 - Other spondylosis with myelopathy, cervical region Status: Chronic (4) GERD (gastroesophageal reflux disease) Status: Chronic (5) HTN (hypertension) Status: Chronic - Allergies Allergies/Adverse Reactions: Allergies Allergy/AdvReac Type Severity Reaction Status Date / Time almond Allergy Verified 03/28/17 00:40 caffeine Allergy Verified 03/28/17 00:40 cefdinir [From Omnicef] Allergy Verified 03/28/17 00:40 pittman Allergy Verified 03/28/17 00:40 codeine Allergy Verified 03/28/17 00:40 diphenhydramine Allergy Verified 03/28/17 00:40 [From Benadryl] doxycycline Allergy Verified 03/28/17 00:40 Egg Derived Allergy Verified 03/28/17 00:40 esomeprazole [From Nexium] Allergy Verified 03/28/17 00:40 gluten Allergy Verified 03/28/17 00:40 grape Allergy Verified 03/28/17 00:40 hazelnut Allergy Verified 03/28/17 00:40 hydroxyzine [From Atarax] Allergy Verified 03/28/17 00:40 Iodine and Iodide Containing Allergy Verified 03/28/17 00:40 Produc levofloxacin [From Levaquin] Allergy Verified 03/28/17 00:40 losartan Allergy Verified 03/28/17 00:40 nut - unspecified Allergy Verified 03/28/17 00:40 olmesartan [From Benicar] Allergy Verified 03/28/17 00:40 Penicillins Allergy Verified 03/28/17 00:40 Pork/Porcine Containing Allergy Verified 03/28/17 00:40 Products prednisone Allergy Verified 03/28/17 00:40 rabeprazole [From Aciphex] Allergy Verified 03/28/17 00:40 shrimp Allergy Verified 03/28/17 00:40 spinach Allergy Verified 03/28/17 00:40 starch Allergy Verified 03/28/17 00:40 turkey Allergy Verified 03/28/17 00:40 bananas Allergy Mild RASH Uncoded 03/28/17 00:40 chocolate Allergy Mild RASH Uncoded 03/28/17 00:40 cinaman Allergy Mild RASH Uncoded 03/28/17 00:40 grains except for rice Allergy Mild RASH Uncoded 03/28/17 00:40 onions Allergy Mild RASH Uncoded 03/28/17 00:40 tomatoes Allergy Mild RASH Uncoded 03/28/17 00:40 apples Allergy Unknown Uncoded 03/28/17 00:40 carbonated drinks Allergy Unknown Uncoded 03/28/17 00:40 CATFISH Allergy Uncoded 03/28/17 00:40 GRAPES Allergy Uncoded 03/28/17 00:40 potatoes Allergy Uncoded 03/28/17 00:40 red meats Allergy Uncoded 03/28/17 00:40 TEA Allergy Uncoded 03/28/17 00:40
[2017-12-12] MEDS ORDERED: PHARMACY CONSULT - DOSE _____ XX SCH (13:00)
--- NOTE | 2017-12-12 14:09 | RAD ---
Indication: Chest pain Exam: Portable chest Comparison: 04/12/2017 Findings: The heart is normal. The pulmonary vessels are normal. The lungs are mildly hyperinflated. No consolidation or effusion is seen. The bones are intact. There is overlying EKG lead artifact. Impression: Overlying EKG lead artifact otherwise , stable with no acute abnormality seen. Reported By:
[2017-12-12] MEDS: NS 1000 ML 1,000 ML IV SCH (14:10)
[2017-12-12 14:20] LABS: BASOPHILS % (AUTO) 0.2 % (0.2-1.0); EOSINOPHILS # (AUTO) 0.3 x10^3/uL (0.0-0.2); EOSINOPHILS % (AUTO) 2.3 % (0.9-2.9); HEMATOCRIT 44.2 % (36.0-47.0); HEMOGLOBIN 14.9 g/dL (12.0-16.0); LYMPHOCYTES # (AUTO) 2.4 X10^3/uL (1.3-2.9); LYMPHOCYTES % (AUTO) 20.8 % (21.0-51.0); MEAN CORPUSCULAR HEMOGLOBIN 29.8 pg (27.0-34.0); MEAN CORPUSCULAR HGB CONC 33.6 g/dL (33.0-35.0); MEAN CORPUSCULAR VOLUME 88.7 fL (80.0-100.0); MEAN PLATELET VOLUME 6.8 fL (7.4-11.0); MONOCYTES % (AUTO) 8.3 % (0.0-13.0); NEUTROPHILS % (AUTO) 68.4 % (42.0-75.0); PLATELET COUNT 397 X10^3/uL (150.0-450.0); RED BLOOD COUNT 4.99 X10^6/uL (3.5-5.4); RED CELL DISTRIBUTION WIDTH 13.8 % (11.6-16.5); WHITE BLOOD COUNT 11.7 X10^3/uL (3.6-10.0)
[2017-12-12] MEDS: LEVSIN/MAALOX/LIDOC VISC PO SCH ×3 (14:22→20:24)
[2017-12-12 14:31] LABS: ALANINE AMINOTRANSFERASE 24 Units/L (12-78); ALBUMIN 3.6 g/dL (3.4-5.0); ALKALINE PHOSPHATASE 101 Units/L (46-116); ASPARTATE AMINO TRANSFERASE 13 Units/L (15-37); BLOOD UREA NITROGEN 10 mg/dL (7-18); CALCIUM 8.6 mg/dL (8.5-10.1); CARBON DIOXIDE 22.1 mmol/L (21-32); CHLORIDE 104 mmol/L (98-107); COR NA(FOR HYPERGLY) 140 mmol/L (136-145); CREATININE 1.09 mg/dL (0.55-1.02); MAGNESIUM 1.8 mg/dL (1.7-2.9); SODIUM 139 mmol/L (136-145); TOTAL PROTEIN 6.9 g/dL (6.4-8.2); eGFR NON BLACK RACES 54 (>60)
[2017-12-12 14:46] LABS: CKMB % 1.7 % (<4); CREATINE KINASE 89 Units/L (26-192); CREATINE KINASE MB 1.5 ng/mL (0-4.0); TROPONIN I < 0.02 ng/mL (0-1.5)
[2017-12-12 14:56] VITALS: BMI 35.4
[2017-12-12] MEDS: NICOTINE PATCH TD SCH (15:08)
[2017-12-12] MEDS: LOVENOX INJ 40 MG SYR SC SCH (17:11)
[2017-12-12 19:13] LABS: CKMB % 1.7 % (<4); CREATINE KINASE 77 Units/L (26-192); CREATINE KINASE MB 1.3 ng/mL (0-4.0); TROPONIN I < 0.02 ng/mL (0-1.5)
[2017-12-12 19:58] LABS: BILIRUBIN,URINE NEGATIVE (NEGATIVE); BLOOD/HEMOGLOBIN,URINE NEGATIVE (NEGATIVE); GLUCOSE, URINE NEGATIVE (NEGATIVE); KETONES,URINE NEGATIVE (NEGATIVE); LEUKOCYTE ESTERASE ,URINE NEGATIVE (NEGATIVE); NITRITES,URINE NEGATIVE (NEGATIVE); PROTEIN,URINE NEGATIVE (NEGATIVE); UROBILINOGEN,URINE NORMAL (NORMAL)
[2017-12-12 20:02] LABS: APPEARANCE,URINE CLEAR (CLEAR); COLOR,URINE YELLOW (YELLOW)
[2017-12-13 01:25] LABS: CKMB % 1.7 % (<4); CREATINE KINASE 65 Units/L (26-192); CREATINE KINASE MB 1.1 ng/mL (0-4.0); TROPONIN I < 0.02 ng/mL (0-1.5)
[2017-12-13] MEDS: NS 1000 ML 1,000 ML IV SCH (02:32)
[2017-12-13 05:45] LABS: CHOL/HDL RATIO 4.1 (0.0-5.0)
[2017-12-13 07:28] VITALS: BP 118/58
[2017-12-13] MEDS: LOVENOX INJ 40 MG SYR SC SCH (08:26)
[2017-12-13] MEDS: LEVSIN/MAALOX/LIDOC VISC PO SCH (08:26)
[2017-12-13] MEDS: NICOTINE PATCH TD SCH (08:26)
== END 2017-12-13 12:05 | disposition home or self-care (01) ==
LOC: MED/SURG
PROVIDERS: ADMIT Internal Medicine; ATTEND Internal Medicine
DX: K44.9 Diaphragmatic hernia without obstruction or gangrene; J44.9 Chronic obstructive pulmonary disease, unspecified; M47.12 Other spondylosis with myelopathy, cervical region; F41.8 Other specified anxiety disorders; D72.828 Other elevated white blood cell count; K21.9 Gastro-esophageal reflux disease without esophagitis; R07.89 Other chest pain; I10 Essential (primary) hypertension; Z79.899 Other long term (current) drug therapy; R94.31 Abnormal electrocardiogram [ECG] [EKG]
CPT/HCPCS: 36415; 71010; 71045; 80053; 80061; 81003; 82550; 82553; 83735; 84484; 85025; 85610; 85730; 93005; 93010; 94760; A4216; A4222; G0378; J1650; J7030

== ENCOUNTER 2018-12-19 16:41 | Inpatient (IN) ==
[2018-12-19] MEDS ORDERED: PROVENTIL NEB TX 0.083% 2.5MG/ 3ML NEB PRN (19:09)
[2018-12-19] MEDS: PROVENTIL NEB TX 0.083% 2.5MG/ 3ML NEB SCH (20:18)
[2018-12-19 22:32] VITALS: BMI 34.1
[2018-12-20] MEDS: PROVENTIL NEB TX 0.083% 2.5MG/ 3ML NEB SCH ×6 (01:23→20:09)
[2018-12-20 05:20] LABS: BASOPHILS # (AUTO) 0.1 X10^3/uL (0.0-0.1); BASOPHILS % (AUTO) 0.8 % (0.2-1.0); EOSINOPHILS # (AUTO) 0.2 x10^3/uL (0.0-0.2); EOSINOPHILS % (AUTO) 1.7 % (0.9-2.9); HEMATOCRIT 40.9 % (36.0-47.0); HEMOGLOBIN 13.9 g/dL (12.0-16.0); LYMPHOCYTES # (AUTO) 1.8 X10^3/uL (1.3-2.9); LYMPHOCYTES % (AUTO) 18.7 % (21.0-51.0); MEAN CORPUSCULAR VOLUME 88.1 fL (80.0-100.0); MEAN PLATELET VOLUME 6.9 fL (7.4-11.0); MONOCYTES % (AUTO) 9.9 % (0.0-13.0); NEUTROPHILS # (AUTO) 6.6 x10^3/uL (2.2-4.8); NEUTROPHILS % (AUTO) 68.9 % (42.0-75.0); PLATELET COUNT 384 X10^3/uL (150.0-450.0); RED BLOOD COUNT 4.64 X10^6/uL (3.5-5.4); RED CELL DISTRIBUTION WIDTH 14.7 % (11.6-16.5); WHITE BLOOD COUNT 9.6 X10^3/uL (3.6-10.0)
[2018-12-20 05:28] LABS: ALANINE AMINOTRANSFERASE 20 Units/L (12-78); ALBUMIN 3.2 g/dL (3.4-5.0); ALKALINE PHOSPHATASE 94 Units/L (46-116); ASPARTATE AMINO TRANSFERASE 12 Units/L (15-37); BLOOD UREA NITROGEN 14 mg/dL (7-18); CALCIUM 8.7 mg/dL (8.5-10.1); CARBON DIOXIDE 24.2 mmol/L (21-32); CHLORIDE 102 mmol/L (98-107); COR CA(FOR HYPOALB) 9.3 mg/dL (8.5-10.1); COR NA(FOR HYPERGLY) 138 mmol/L (136-145); CREATININE 0.87 mg/dL (0.55-1.02); SODIUM 138 mmol/L (136-145); TOTAL PROTEIN 6.5 g/dL (6.4-8.2); eGFR NON BLACK RACES > 60 (>60)
[2018-12-20] MEDS: SOLU-Medrol 125 MG VIAL IVP SCH ×3 (06:11→21:03)
[2018-12-20] MEDS: ZITHROMAX INJ 500 MG VIAL 500 MG in NS 250 ML IV 250 ML IV SCH (06:11)
[2018-12-20] MEDS: NS 1000 ML 1,000 ML IV SCH (06:11)
--- NOTE | 2018-12-20 06:19 | RAD ---
HISTORY: COPD exacerbation Study: Chest AP portable Comparison: 10/04/2018 Findings: The heart is mildly enlarged. The left ventricle is prominent. The sheryl are normal. The lung hoskins are clear. No pleural effusions are identified. The bony thorax is unremarkable. IMPRESSION: Mild cardiomegaly with left ventricular prominence No acute infiltrates Reported By:
[2018-12-20] MEDS: PULMICORT NEB TX 0.5 MG NEB SCH ×2 (08:18→20:08)
[2018-12-20] MEDS: TUSSIONEX PENNKINETIC SUSP PO SCH ×2 (08:27→20:58)
[2018-12-20] MEDS ORDERED: PHARMACY CONSULT - DOSE _____ XX SCH (09:00)
[2018-12-20 09:12] LABS: ABG BASE EXCESS -3.5 mmol/L (-2.0-2.0); ABG HCO3 20.1 mmol/L (22-26)
[2018-12-20 09:13] LABS: ABG ALLEN TEST POS
[2018-12-20] MEDS: MUCOMYST 20% 200 MG/ML NEB SCH ×3 (09:36→20:09)
[2018-12-20] MEDS: CARDIZEM TAB 30 MG PLAIN PO SCH ×2 (09:41→20:54)
[2018-12-20] MEDS: PROTONIX INJ 40 MG VIAL IVP SCH (09:41)
[2018-12-20] MEDS ORDERED: WELLBUTRIN SR 150 MG (BID) PO ONE (09:47)
[2018-12-20] MEDS ORDERED: ROCEPHIN VIAL 1 GRAM ONE (09:48)
[2018-12-20] MEDS ORDERED: ALLEGRA ONE (09:48)
[2018-12-20] MEDS ORDERED: SYNTHROID 100 mcg TAB ONE (09:49)
[2018-12-20] MEDS: ALLEGRA PO SCH (10:00)
[2018-12-20] MEDS: SYNTHROID 100 mcg TAB PO SCH (10:01)
[2018-12-20] MEDS: ROCEPHIN VIAL 1 GRAM IVP SCH (10:02)
[2018-12-20] MEDS: WELLBUTRIN XL 150 MG (DAILY) PO SCH (10:03)
[2018-12-20] MEDS: LOVENOX INJ 40 MG SYR SC SCH (13:33)
[2018-12-20] MEDS: NEURONTIN CAP 100 MG PO SCH ×2 (13:39→21:04)
--- NOTE | 2018-12-20 14:54 | DR.H&P ---
H&P - History & Physical for Day of: H&P Date: 12/20/18 - Chief Complaint Chief Complaint: sob, ccc, wheezing - History of Present Illness History of Present Illness: 68 WF DIRECT ADMIT FROM DR GREEN OFFICE AFTER PRESENTING WITH CO SOB, CCC, WHEEZING. PT HAS FAILED OUTPT THERAPY WITH ROUND OF DOXYCYLCINE AND ZITHROMAX PO WELL IM ROCEPHIN X 2 AND DECADRON IM. PT HAS PENDING BACK SURGERY, BUT CANNOT SCHEDULE UNTIL AB HAS RESOLVED. PT HAS PMH OF COPD, DENISE, HTN, AFIB, JUDAH, OA, DM. PT ADMITTED FOR TREATMENT OF ACUTE ILLNESS. - Past Medical History Past Medical History: Hypertension, Dyslipidemia, Anxiety, COPD, Asthma, GERD, Arthritis, Headaches - Past Surgical History Surgical History: Abdominal Surgery, Appendectomy, Bowel Resection, Cholecystectomy, Hysterectomy - Family History Family Medical History: Diabetes Mellitus, [place] - Social History Does patient currently use any type of tobacco product: Yes Have you used tobacco products in the last 12 months: Yes Type of Tobacco Use: Cigarettes How many years tobacco product used: 40 Does any household member use tobacco: No Alcohol Use: None Drug Use: None - Medications Home Medications: almond Allergy (Verified 12/31/17 19:29) caffeine Allergy (Verified 12/31/17 19:29) cefdinir [From Omnicef] Allergy (Verified 12/31/17 19:29) pittman Allergy (Verified 12/31/17 19:29) codeine Allergy (Verified 12/31/17 19:29) diphenhydramine [From Benadryl] Allergy (Verified 12/31/17 19:29) doxycycline Allergy (Verified 12/31/17 19:29) Egg Derived Allergy (Verified 12/31/17 19:29) esomeprazole [From Nexium] Allergy (Verified 12/31/17 19:29) gluten Allergy (Verified 12/31/17 19:29) grape Allergy (Verified 12/31/17 19:29) hazelnut Allergy (Verified 12/31/17 19:29) hydroxyzine [From Atarax] Allergy (Verified 12/31/17 19:29) Iodine and Iodide Containing Produc Allergy (Verified 12/31/17 19:29) levofloxacin [From Levaquin] Allergy (Verified 12/31/17 19:29) losartan Allergy (Verified 12/31/17 19:29) nut - unspecified Allergy (Verified 12/31/17 19:29) olmesartan [From Benicar] Allergy (Verified 12/31/17:29) Penicillins Allergy (Verified 12/31/17:29) Pork/Porcine Containing Products Allergy (Verified 12/31/17 19:29) prednisone Allergy (Verified 12/31/17 19:29) rabeprazole [From Aciphex] Allergy (Verified 12/31/17:29) shrimp Allergy (Verified 12/31/17 19:29) spinach Allergy (Verified 12/31/17:29) starch Allergy (Verified 12/31/17:29) turkey Allergy (Verified 12/31/17:29) bananas Allergy (Mild, Uncoded 12/31/17 19:29) RASH chocolate Allergy (Mild, Uncoded 12/31/17 19:29) RASH cinaman Allergy (Mild, Uncoded 12/31/17 19:29) RASH grains except for rice Allergy (Mild, Uncoded 12/31/17 19:29) RASH onions Allergy (Mild, Uncoded 12/31/17 19:29) RASH tomatoes Allergy (Mild, Uncoded 12/31/17 19:29) RASH apples Allergy (Unknown, Uncoded 12/31/17:29) carbonated drinks Allergy (Unknown, Uncoded 12/31/17 19:29) CATFISH Allergy (Uncoded 12/31/17 19:29) GRAPES Allergy (Uncoded 12/31/17 19:29) potatoes Allergy (Uncoded 12/31/17 19:29) red meats Allergy (Uncoded 12/31/17 19:29) TEA Allergy (Uncoded 12/31/17 19:29) CONTINUE taking the following medications bupropion HCl [Wellbutrin XL] 150 mg PO DAILY 12/19/18 [History] cetirizine [Zyrtec] 10 mg PO HS 12/19/18 [History] digoxin [Lanoxin] 250 mcg PO HS 12/19/18 [History] diltiazem HCl [Cardizem] 30 mg PO BID 12/19/18 [History] estrogens-methyltestosterone 1.25 mg PO HS 12/19/18 [History] fexofenadine 180 mg PO DAILY 12/19/18 [History] levothyroxine [Synthroid] 100 mcg HS 12/19/18 [History] - Review of Systems Constitutional: Weakness Eyes: No Symptoms Reported ENT: No Symptoms Reported Respiratory: Cough, Shortness of Breath, SOB with Excertion, Pleuritic Pain, Wheezing Cardiovascular: No Symptoms Reported. denies: Edema Gastrointestinal: Nausea Genitourinary: No Symptoms Reported Musculoskeletal: Back Pain, Leg Pain Skin: No Symptoms Reported Neurological: No Symptoms Reported - Physical Exam Vital Signs: Temperature 98.8 F Pulse Rate 102 Respiratory Rate 22 Blood Pressure [Right Arm] 134/61 Blood Pressure [Left Arm] 118/58 Blood Pressure 112/63 O2 Sat by Pulse Oximetry 97 Oriented: Normal Eyes: Normal Ear: Normal Nose: Normal Throat: Normal Respiratory: Wheezes Throughout, RLL Diminished, LLL Diminished Cardiovascular: Normal. negative: Edema : Normal Auscultation: Bowel Sounds: Normal Palpation: Normal Tenderness: Normal Skin: Normal Musculoskeletal: Back:Thoracic, Back:Lumbar Psychiatric: Anxiety Affect: Anxious Speech Pattern: Clear, Appropriate - Assessment/Plan (1) COPD exacerbation Status: Acute Plan: ADMIT, IV ATBX THERAPY. SPUTUM CULTURE ORDERED ON ADMISSION. RESP CONSULT, NEYMAR NEBS, IV SOLU MEDROL. BUDESONIDE NEBS, BP CONTROL. ABG, CXR ON ADMISSION, REPEAT AM LABS. VERIFY HOME MEDICATION (2) Acute bronchitis Status: Acute (3) HTN (hypertension) Status: Chronic (4) Hypothyroid Status: Chronic (5) GERD (gastroesophageal reflux disease) Status: Chronic (6) Arthritis Status: Chronic (7) Afib Status: Acute Plan: RESTARTED LANOXIN AND CARDIZEM, FOLLOWED BY DR DAVIS - Allergies Allergies/Adverse Reactions: Allergies Allergy/AdvReac Type Severity Reaction Status Date / Time almond Allergy Verified 12/31/17 19:29 caffeine Allergy Verified 12/31/17 19:29 cefdinir [From Omnicef] Allergy Verified 12/31/17 19:29 pittman Allergy Verified 12/31/17 19:29 codeine Allergy Verified 12/31/17 19:29 diphenhydramine Allergy Verified 12/31/17 19:29 [From Benadryl] doxycycline Allergy Verified 12/31/17 19:29 Egg Derived Allergy Verified 12/31/17 19:29 esomeprazole [From Nexium] Allergy Verified 12/31/17 19:29 gluten Allergy Verified 12/31/17 19:29 grape Allergy Verified 12/31/17 19:29 hazelnut Allergy Verified 12/31/17 19:29 hydroxyzine [From Atarax] Allergy Verified 12/31/17 19:29 Iodine and Iodide Containing Allergy Verified 12/31/17 19:29 Produc levofloxacin [From Levaquin] Allergy Verified 12/31/17 19:29 losartan Allergy Verified 12/31/17 19:29 nut - unspecified Allergy Verified 12/31/17 19:29 olmesartan [From Benicar] Allergy Verified 12/31/17 19:29 Penicillins Allergy Verified 12/31/17 19:29 Pork/Porcine Containing Allergy Verified 12/31/17 19:29 Products prednisone Allergy Verified 12/31/17 19:29 rabeprazole [From Aciphex] Allergy Verified 12/31/17 19:29 shrimp Allergy Verified 12/31/17 19:29 spinach Allergy Verified 12/31/17 19:29 starch Allergy Verified 12/31/17 19:29 turkey Allergy Verified 12/31/17 19:29 bananas Allergy Mild RASH Uncoded 12/31/17 19:29 chocolate Allergy Mild RASH Uncoded 12/31/17 19:29 cinaman Allergy Mild RASH Uncoded 12/31/17 19:29 grains except for rice Allergy Mild RASH Uncoded 12/31/17 19:29 onions Allergy Mild RASH Uncoded 12/31/17 19:29 tomatoes Allergy Mild RASH Uncoded 12/31/17 19:29 apples Allergy Unknown Uncoded 12/31/17 19:29 carbonated drinks Allergy Unknown Uncoded 12/31/17 19:29 CATFISH Allergy Uncoded 12/31/17 19:29 GRAPES Allergy Uncoded 12/31/17 19:29 potatoes Allergy Uncoded 12/31/17 19:29 red meats Allergy Uncoded 12/31/17 19:29 TEA Allergy Uncoded 12/31/17 19:29
[2018-12-20] MEDS ORDERED: POTASSIUM CHL 40 MEQ/NS 0.45% 500 ML IV PRN (15:10)
[2018-12-20] MEDS ORDERED: KLOR-CON PO PRN (15:10)
[2018-12-20] MEDS ORDERED: MICRO K EXTEN CAP 10 MEQ PO PRN (15:10)
[2018-12-20] MEDS ORDERED: K-RIDER 10 MEQ/NS 100 ML 10 MEQ/100 ML BAG IV PRN (15:10)
[2018-12-20] MEDS ORDERED: MAGNESIUM SULFATE 1 GRAM/100 mL PREMIX 1 GM/100 ML BAG IV PRN (15:10)
[2018-12-20] MEDS ORDERED: POTASSIUM CHL 60 MEQ/NS 0.45% 500 ML IV PRN (15:10)
[2018-12-20] MEDS ORDERED: POTASSIUM CHLORIDE LIQ 20 MEQ UDC PO PRN (15:10)
[2018-12-20] MEDS ORDERED: K-DUR TAB 20 MEQ PO PRN (15:10)
[2018-12-20] MEDS: NICOTINE PATCH TD SCH (15:54)
[2018-12-20] MEDS: MAG-OX TAB PO SCH (16:52)
[2018-12-20] MEDS: LANOXIN PO SCH (20:55)
[2018-12-20] MEDS ORDERED: LANOXIN PO SCH (21:00)
[2018-12-20] MEDS ORDERED: CARDIZEM TAB 30 MG PLAIN PO SCH (21:00)
[2018-12-21] MEDS: PROVENTIL NEB TX 0.083% 2.5MG/ 3ML NEB SCH ×6 (00:25→20:03)
[2018-12-21] MEDS: XANAX PO PRN ×2 (02:08→22:56)
[2018-12-21] MEDS: NS 1000 ML 1,000 ML IV SCH (05:33)
[2018-12-21] MEDS: SOLU-Medrol 125 MG VIAL IVP SCH (05:54)
[2018-12-21] MEDS: NEURONTIN CAP 100 MG PO SCH ×3 (05:54→21:00)
[2018-12-21 06:21] LABS: BASOPHILS % (AUTO) 0.2 % (0.2-1.0); HEMATOCRIT 43.5 % (36.0-47.0); HEMOGLOBIN 14.5 g/dL (12.0-16.0); LYMPHOCYTES # (AUTO) 1.2 X10^3/uL (1.3-2.9); LYMPHOCYTES % (AUTO) 6.2 % (21.0-51.0); MEAN CORPUSCULAR HEMOGLOBIN 29.9 pg (27.0-34.0); MEAN CORPUSCULAR HGB CONC 33.4 g/dL (33.0-35.0); MEAN CORPUSCULAR VOLUME 89.6 fL (80.0-100.0); MEAN PLATELET VOLUME 6.8 fL (7.4-11.0); MONOCYTES # (AUTO) 0.8 x10^3/uL (0.3-0.8); NEUTROPHILS # (AUTO) 17.8 x10^3/uL (2.2-4.8); NEUTROPHILS % (AUTO) 89.6 % (42.0-75.0); PLATELET COUNT 442 X10^3/uL (150.0-450.0); RED BLOOD COUNT 4.85 X10^6/uL (3.5-5.4); RED CELL DISTRIBUTION WIDTH 14.6 % (11.6-16.5); WHITE BLOOD COUNT 19.9 X10^3/uL (3.6-10.0)
[2018-12-21 06:36] LABS: ALANINE AMINOTRANSFERASE 19 Units/L (12-78); ALBUMIN 3.4 g/dL (3.4-5.0); ALKALINE PHOSPHATASE 98 Units/L (46-116); ASPARTATE AMINO TRANSFERASE 9 Units/L (15-37); BLOOD UREA NITROGEN 15 mg/dL (7-18); CARBON DIOXIDE 17.8 mmol/L (21-32); CHLORIDE 103 mmol/L (98-107); COR NA(FOR HYPERGLY) 138 mmol/L (136-145); CREATININE 1.27 mg/dL (0.55-1.02); MAGNESIUM 1.8 mg/dL (1.7-2.9); SODIUM 136 mmol/L (136-145); TOTAL PROTEIN 7.1 g/dL (6.4-8.2); eGFR NON BLACK RACES 45 (>60)
[2018-12-21] MEDS: PULMICORT NEB TX 0.5 MG NEB SCH ×2 (08:14→20:03)
[2018-12-21] MEDS: MUCOMYST 20% 200 MG/ML NEB SCH ×2 (08:14→20:04)
[2018-12-21] MEDS: LOVENOX INJ 40 MG SYR SC SCH (09:02)
[2018-12-21] MEDS: SYNTHROID 100 mcg TAB PO SCH (09:03)
[2018-12-21] MEDS: ALLEGRA PO SCH (09:04)
[2018-12-21] MEDS: ROCEPHIN VIAL 1 GRAM IVP SCH (09:05)
[2018-12-21] MEDS: AZELASTINE FLUTICASONE NAS SCH (09:05)
[2018-12-21] MEDS: CARDIZEM TAB 30 MG PLAIN PO SCH ×2 (09:05→20:55)
[2018-12-21] MEDS: WELLBUTRIN XL 150 MG (DAILY) PO SCH (09:06)
[2018-12-21] MEDS: PROTONIX INJ 40 MG VIAL IVP SCH (09:19)
[2018-12-21] MEDS: MAG-OX TAB PO SCH (09:20)
[2018-12-21] MEDS: NICOTINE PATCH TD SCH (09:20)
[2018-12-21] MEDS: ZITHROMAX INJ 500 MG VIAL 500 MG in NS 250 ML IV 250 ML IV SCH (09:21)
[2018-12-21] MEDS: TUSSIONEX PENNKINETIC SUSP PO SCH ×2 (09:21→21:03)
[2018-12-21] MEDS ORDERED: ASTELIN NASAL SPRAY ENOSTRIL ONE (11:49)
[2018-12-21] MEDS: FLONASE NASAL SPRAY ENOSTRIL SCH ×3 (11:57→20:58)
[2018-12-21] MEDS: ASTELIN NASAL SPRAY ENOSTRIL SCH ×3 (11:57→21:00)
[2018-12-21] MEDS: AVELOX IV 400 MG/250 ML BAG 400 MG/250 ML PIGGYBACK IV SCH (12:07)
--- NOTE | 2018-12-21 13:42 | CT ---
CT SINUSES CLINICAL HISTORY: 68-year-old female with maxillary pain and fever. COMPARISON: None. TECHNIQUE: Multiple, noncontrast axial CT images of the paranasal sinuses were obtained and reformatted in the axial, sagittal, and coronal planes. The resulting images were processed with soft tissue and bone algorithm.Dose reduction techniques including Automated Exposure Control (AEC) and adjustment of mA and kV were utilized. FINDINGS: Limited intracranial evaluation demonstrates no acute abnormalities. Left globe prosthesis with right globe and bilateral orbits unremarkable otherwise. The frontal sinuses and frontal recesses are clear. The anterior and posterior ethmoidal air cells are clear. The sphenoid sinuses are clear. The intersinus septum is to the left of midline and inserts on the carotid canal. The sphenoid ostia and sphenoethmoidal recesses are clear. The mastoid air cells, mastoid antrum, and tympanic cavities are clear. Skull base foramina are normal in appearance. Maxillary sinuses are clear. The maxillary ostia, infundibula, and middle meati are patent. No fluid levels are identified. Nasal cavity is within normal limits. Nasopharynx is normal. Torus palatinus. IMPRESSION: 1. No evidence of acute or chronic sinusitis. 2. Demonstrable patency of the frontal recesses, sphenoethmoidal recesses, and ostiomeatal units. 3. Left globe prosthesis. Reported By:
[2018-12-21] MEDS: LANOXIN PO SCH (20:59)
[2018-12-21] MEDS: NORCO 7.5/325 MG TAB PO PRN (23:32)
[2018-12-22] MEDS: PROVENTIL NEB TX 0.083% 2.5MG/ 3ML NEB SCH ×6 (00:49→20:15)
[2018-12-22] MEDS: NS 1000 ML 1,000 ML IV SCH (05:00)
[2018-12-22] MEDS: NORCO 7.5/325 MG TAB PO PRN ×2 (05:01→20:55)
[2018-12-22] MEDS: NEURONTIN CAP 100 MG PO SCH ×3 (05:01→21:00)
[2018-12-22] MEDS: ASTELIN NASAL SPRAY ENOSTRIL SCH ×3 (05:01→21:00)
[2018-12-22 05:54] LABS: BASOPHILS # (AUTO) 0.1 X10^3/uL (0.0-0.1); BASOPHILS % (AUTO) 0.5 % (0.2-1.0); HEMOGLOBIN 14.3 g/dL (12.0-16.0); LYMPHOCYTES # (AUTO) 1.8 X10^3/uL (1.3-2.9); LYMPHOCYTES % (AUTO) 6.1 % (21.0-51.0); MEAN CORPUSCULAR HEMOGLOBIN 30.1 pg (27.0-34.0); MEAN CORPUSCULAR HGB CONC 34.1 g/dL (33.0-35.0); MEAN CORPUSCULAR VOLUME 88.3 fL (80.0-100.0); MEAN PLATELET VOLUME 6.5 fL (7.4-11.0); MONOCYTES # (AUTO) 1.8 x10^3/uL (0.3-0.8); MONOCYTES % (AUTO) 6.1 % (0.0-13.0); NEUTROPHILS # (AUTO) 25.7 x10^3/uL (2.2-4.8); NEUTROPHILS % (AUTO) 87.3 % (42.0-75.0); PLATELET COUNT 429 X10^3/uL (150.0-450.0); RED BLOOD COUNT 4.76 X10^6/uL (3.5-5.4); RED CELL DISTRIBUTION WIDTH 14.8 % (11.6-16.5); WHITE BLOOD COUNT 29.4 X10^3/uL (3.6-10.0)
[2018-12-22 06:04] LABS: ALANINE AMINOTRANSFERASE 18 Units/L (12-78); ALBUMIN 3.2 g/dL (3.4-5.0); ALKALINE PHOSPHATASE 83 Units/L (46-116); ASPARTATE AMINO TRANSFERASE 9 Units/L (15-37); BLOOD UREA NITROGEN 18 mg/dL (7-18); CALCIUM 8.5 mg/dL (8.5-10.1); CARBON DIOXIDE 21.5 mmol/L (21-32); CHLORIDE 102 mmol/L (98-107); COR CA(FOR HYPOALB) 9.1 mg/dL (8.5-10.1); COR NA(FOR HYPERGLY) 136 mmol/L (136-145); CREATININE 1.06 mg/dL (0.55-1.02); MAGNESIUM 1.9 mg/dL (1.7-2.9); SODIUM 135 mmol/L (136-145); TOTAL PROTEIN 6.4 g/dL (6.4-8.2); eGFR NON BLACK RACES 55 (>60)
[2018-12-22 06:17] LABS: BAND NEUTROPHILS % 5 % (0-10)
[2018-12-22 06:18] LABS: PLATELET MORPHOLOGY COMMENT NORMAL (NORMAL)
[2018-12-22] MEDS: MAG-OX TAB PO SCH (08:29)
[2018-12-22] MEDS: ALLEGRA PO SCH (08:29)
[2018-12-22] MEDS: SYNTHROID 100 mcg TAB PO SCH (08:29)
[2018-12-22] MEDS: WELLBUTRIN XL 150 MG (DAILY) PO SCH (08:29)
[2018-12-22] MEDS: PROTONIX INJ 40 MG VIAL IVP SCH (08:29)
[2018-12-22] MEDS: CARDIZEM TAB 30 MG PLAIN PO SCH ×2 (08:29→20:52)
[2018-12-22] MEDS: NICOTINE PATCH TD SCH (08:30)
[2018-12-22] MEDS: TUSSIONEX PENNKINETIC SUSP PO SCH ×2 (08:31→20:52)
[2018-12-22] MEDS: LOVENOX INJ 40 MG SYR SC SCH (08:32)
[2018-12-22] MEDS: FLONASE NASAL SPRAY ENOSTRIL SCH ×2 (08:35→20:53)
[2018-12-22] MEDS: AZELASTINE FLUTICASONE NAS SCH (08:36)
[2018-12-22] MEDS: PULMICORT NEB TX 0.5 MG NEB SCH ×2 (08:42→20:15)
[2018-12-22] MEDS: MUCOMYST 20% 200 MG/ML NEB SCH ×2 (08:42→20:15)
[2018-12-22] MEDS: AVELOX IV 400 MG/250 ML BAG 400 MG/250 ML PIGGYBACK IV SCH (11:37)
--- NOTE | 2018-12-22 12:13 | RAD ---
HISTORY: Abdomen pain Study: Acute abdominal series Comparison: Chest x-ray December 20, 2018, abdominal CT November 15, 2017 Findings: The trachea is midline. The cardiac silhouette is unremarkable. No focal consolidation. Subsegmental atelectasis versus scarring within the left lung base is similar to prior. The bony thorax is unremarkable. Flat plate and upright evaluation of the abdomen demonstrates a nonspecific bowel gas pattern. Postoperative changes of cholecystectomy. Surgical jennifer overlie the lower abdomen. No pathological soft tissue mass or calcification can be observed. The bony structures are grossly intact. IMPRESSION: 1. No acute cardiopulmonary disease. 2. No evidence for acute abdominal pathology identified. Reported By:
[2018-12-22] MEDS: DILAUDID INJ IVP PRN (12:52)
[2018-12-22] MEDS: LANOXIN PO SCH (20:52)
[2018-12-23] MEDS: PROVENTIL NEB TX 0.083% 2.5MG/ 3ML NEB SCH ×6 (01:11→20:45)
[2018-12-23] MEDS: NEURONTIN CAP 100 MG PO SCH ×3 (05:00→21:00)
[2018-12-23] MEDS: ASTELIN NASAL SPRAY ENOSTRIL SCH ×3 (05:04→21:00)
[2018-12-23] MEDS: DILAUDID INJ IVP PRN ×4 (05:04→23:50)
[2018-12-23 05:37] LABS: BASOPHILS # (AUTO) 0.1 X10^3/uL (0.0-0.1); BASOPHILS % (AUTO) 0.5 % (0.2-1.0); EOSINOPHILS % (AUTO) 0.1 % (0.9-2.9); HEMATOCRIT 41.8 % (36.0-47.0); HEMOGLOBIN 14.3 g/dL (12.0-16.0); LYMPHOCYTES # (AUTO) 2.3 X10^3/uL (1.3-2.9); LYMPHOCYTES % (AUTO) 13.1 % (21.0-51.0); MEAN CORPUSCULAR HGB CONC 34.2 g/dL (33.0-35.0); MEAN CORPUSCULAR VOLUME 87.8 fL (80.0-100.0); MEAN PLATELET VOLUME 6.7 fL (7.4-11.0); MONOCYTES # (AUTO) 1.7 x10^3/uL (0.3-0.8); MONOCYTES % (AUTO) 9.7 % (0.0-13.0); NEUTROPHILS # (AUTO) 13.7 x10^3/uL (2.2-4.8); NEUTROPHILS % (AUTO) 76.6 % (42.0-75.0); PLATELET COUNT 377 X10^3/uL (150.0-450.0); RED BLOOD COUNT 4.76 X10^6/uL (3.5-5.4); RED CELL DISTRIBUTION WIDTH 14.4 % (11.6-16.5)
[2018-12-23] MEDS: NS 1000 ML 1,000 ML IV SCH ×2 (05:39→20:28)
[2018-12-23 05:40] LABS: WHITE BLOOD COUNT 17.8 X10^3/uL (3.6-10.0)
[2018-12-23 05:49] LABS: ALANINE AMINOTRANSFERASE 16 Units/L (12-78); ALKALINE PHOSPHATASE 82 Units/L (46-116); ASPARTATE AMINO TRANSFERASE 10 Units/L (15-37); BLOOD UREA NITROGEN 13 mg/dL (7-18); CALCIUM 8.3 mg/dL (8.5-10.1); CARBON DIOXIDE 25.8 mmol/L (21-32); CHLORIDE 97 mmol/L (98-107); COR CA(FOR HYPOALB) 9.1 mg/dL (8.5-10.1); SODIUM 132 mmol/L (136-145); TOTAL PROTEIN 6.5 g/dL (6.4-8.2); eGFR NON BLACK RACES 59 (>60)
[2018-12-23] MEDS: ALLEGRA PO SCH (08:58)
[2018-12-23] MEDS: CARDIZEM TAB 30 MG PLAIN PO SCH ×2 (08:58→20:25)
[2018-12-23] MEDS: AZELASTINE FLUTICASONE NAS SCH (08:58)
[2018-12-23] MEDS: FLONASE NASAL SPRAY ENOSTRIL SCH ×2 (08:58→20:25)
[2018-12-23] MEDS: MAG-OX TAB PO SCH (08:59)
[2018-12-23] MEDS: LINZESS PO SCH (08:59)
[2018-12-23] MEDS: PROTONIX INJ 40 MG VIAL IVP SCH (08:59)
[2018-12-23] MEDS: NICOTINE PATCH TD SCH (08:59)
[2018-12-23] MEDS: WELLBUTRIN XL 150 MG (DAILY) PO SCH (08:59)
[2018-12-23] MEDS: SYNTHROID 100 mcg TAB PO SCH (09:00)
[2018-12-23] MEDS: TUSSIONEX PENNKINETIC SUSP PO SCH ×2 (09:00→20:26)
[2018-12-23] MEDS: LOVENOX INJ 40 MG SYR SC SCH (09:00)
[2018-12-23] MEDS: PULMICORT NEB TX 0.5 MG NEB SCH ×2 (09:02→20:45)
[2018-12-23] MEDS: NORCO 7.5/325 MG TAB PO PRN (10:45)
[2018-12-23] MEDS: ROBITUSSIN DM PO SCH ×4 (13:35→20:25)
[2018-12-23] MEDS: VIBRAMYCIN 100 MG in D5W 250 ML IV 250 ML IV SCH ×2 (14:52→20:26)
[2018-12-23] MEDS: ROCEPHIN VIAL 1 GRAM IVP SCH (16:01)
--- NOTE | 2018-12-23 16:59 | US ---
HISTORY: Left lower quadrant pain. History of prior bowel resection, hysterectomy, appendectomy and cholecystectomy. Prior abdominal surgery. Study: Ultrasound of the abdomen complete. Comparison: 11/21/2018. Technique: Grayscale, color and duplex Doppler ultrasound evaluation of the abdomen is provided. Findings: Liver is slightly prominent measuring 17 cm in length. There is diffuse fatty change. Multiple simple cysts of liver are again observed. The largest is seen on the left measuring 2.75 cm. No solid mass or biliary ductal ectasia is seen. The common hepatic duct measures 6 mm in diameter. Color Doppler studies of the liver normal. Pancreas is normal. Gallbladder is surgically absent. Right kidney measures 9.5 cm in length. Cortical thickness is 1.57 cm. Resistive index is 0.56. There is a cyst in the upper pole of the right kidney measuring 5.5 cm in maximum dimension. No solid mass, stone or hydronephrosis is seen. Doppler studies of the right kidney are normal. Left kidney measures 11.3 cm in length. Cortical thickness is 2.23 cm. Resistive index is 0.56 which is normal. Multiple cysts are seen involving the left kidney. The largest of these measures about 5.5 cm in diameter. No solid mass, stone or hydronephrosis is seen. Color Doppler studies of the left kidney are normal. The spleen is normal in size measuring 11 cm in length. VC is patent. Abdominal aorta was difficult visualized secondary to overlying bowel gas. IMPRESSION: Slightly prominent liver with diffuse steatosis. Stable cyst present involving the liver and both kidneys. No solid mass is seen. Status post cholecystectomy. Reported By:
[2018-12-23] MEDS ORDERED: STERILE WATER IRRIGATION IR ONE (17:26)
[2018-12-23] MEDS: MYLICON TAB 80 MG CHEW PO SCH ×2 (20:24→20:25)
[2018-12-23] MEDS: LANOXIN PO SCH (20:25)
[2018-12-24] MEDS: PROVENTIL NEB TX 0.083% 2.5MG/ 3ML NEB SCH ×6 (01:15→20:41)
[2018-12-24] MEDS: DILAUDID INJ IVP PRN ×2 (04:43→20:56)
[2018-12-24 05:47] LABS: BASOPHILS # (AUTO) 0.1 X10^3/uL (0.0-0.1); BASOPHILS % (AUTO) 0.5 % (0.2-1.0); EOSINOPHILS # (AUTO) 0.2 x10^3/uL (0.0-0.2); EOSINOPHILS % (AUTO) 1.3 % (0.9-2.9); HEMOGLOBIN 13.5 g/dL (12.0-16.0); MEAN CORPUSCULAR HEMOGLOBIN 29.8 pg (27.0-34.0); MEAN CORPUSCULAR HGB CONC 33.7 g/dL (33.0-35.0); MEAN CORPUSCULAR VOLUME 88.5 fL (80.0-100.0); MEAN PLATELET VOLUME 6.8 fL (7.4-11.0); MONOCYTES # (AUTO) 1.6 x10^3/uL (0.3-0.8); NEUTROPHILS # (AUTO) 12.5 x10^3/uL (2.2-4.8); NEUTROPHILS % (AUTO) 76.2 % (42.0-75.0); PLATELET COUNT 337 X10^3/uL (150.0-450.0); RED BLOOD COUNT 4.51 X10^6/uL (3.5-5.4); RED CELL DISTRIBUTION WIDTH 14.5 % (11.6-16.5); WHITE BLOOD COUNT 16.4 X10^3/uL (3.6-10.0)
[2018-12-24] MEDS: NS 1000 ML 1,000 ML IV SCH ×2 (05:48→19:15)
[2018-12-24] MEDS: NEURONTIN CAP 100 MG PO SCH ×3 (05:49→22:34)
[2018-12-24] MEDS: ASTELIN NASAL SPRAY ENOSTRIL SCH ×3 (05:49→22:32)
[2018-12-24 05:56] LABS: ALANINE AMINOTRANSFERASE 13 Units/L (12-78); ALBUMIN 2.8 g/dL (3.4-5.0); ALKALINE PHOSPHATASE 83 Units/L (46-116); ASPARTATE AMINO TRANSFERASE 11 Units/L (15-37); BLOOD UREA NITROGEN 11 mg/dL (7-18); CALCIUM 8.3 mg/dL (8.5-10.1); CARBON DIOXIDE 26.9 mmol/L (21-32); CHLORIDE 98 mmol/L (98-107); COR CA(FOR HYPOALB) 9.3 mg/dL (8.5-10.1); CREATININE 0.95 mg/dL (0.55-1.02); SODIUM 133 mmol/L (136-145); TOTAL PROTEIN 6.4 g/dL (6.4-8.2); eGFR NON BLACK RACES > 60 (>60)
[2018-12-24] MEDS: PULMICORT NEB TX 0.5 MG NEB SCH ×3 (08:30→20:41)
[2018-12-24] MEDS: ALLEGRA PO SCH (09:10)
[2018-12-24] MEDS: AZELASTINE FLUTICASONE NAS SCH (09:10)
[2018-12-24] MEDS: FLONASE NASAL SPRAY ENOSTRIL SCH ×2 (09:11→20:29)
[2018-12-24] MEDS: CARDIZEM TAB 30 MG PLAIN PO SCH ×2 (09:11→20:25)
[2018-12-24] MEDS: LINZESS PO SCH (09:12)
[2018-12-24] MEDS: MAG-OX TAB PO SCH (09:13)
[2018-12-24] MEDS: ROBITUSSIN DM PO SCH ×4 (09:14→20:30)
[2018-12-24] MEDS: SYNTHROID 100 mcg TAB PO SCH (09:15)
[2018-12-24] MEDS: WELLBUTRIN XL 150 MG (DAILY) PO SCH (09:15)
[2018-12-24] MEDS: LOVENOX INJ 40 MG SYR SC SCH (09:25)
[2018-12-24] MEDS: PROTONIX INJ 40 MG VIAL IVP SCH (09:26)
[2018-12-24] MEDS: MYLICON TAB 80 MG CHEW PO SCH ×4 (09:26→20:29)
[2018-12-24] MEDS: NICOTINE PATCH TD SCH (09:26)
[2018-12-24] MEDS: ROCEPHIN VIAL 1 GRAM IVP SCH (09:26)
[2018-12-24] MEDS: TUSSIONEX PENNKINETIC SUSP PO SCH ×2 (09:27→20:31)
[2018-12-24] MEDS: VIBRAMYCIN 100 MG in D5W 250 ML IV 250 ML IV SCH (09:27)
[2018-12-24] MEDS: LANOXIN PO SCH (20:27)
[2018-12-24] MEDS: VIBRAMYCIN 100 MG in NS 100 ML IV 100 ML IV SCH (20:48)
[2018-12-25] MEDS: PROVENTIL NEB TX 0.083% 2.5MG/ 3ML NEB SCH ×4 (00:46→12:30)
[2018-12-25] MEDS: NS 1000 ML 1,000 ML IV SCH (05:05)
[2018-12-25 05:35] LABS: BASOPHILS # (AUTO) 0.1 X10^3/uL (0.0-0.1); BASOPHILS % (AUTO) 0.4 % (0.2-1.0); EOSINOPHILS # (AUTO) 0.4 x10^3/uL (0.0-0.2); EOSINOPHILS % (AUTO) 2.9 % (0.9-2.9); HEMATOCRIT 39.4 % (36.0-47.0); HEMOGLOBIN 13.1 g/dL (12.0-16.0); LYMPHOCYTES # (AUTO) 1.9 X10^3/uL (1.3-2.9); LYMPHOCYTES % (AUTO) 14.1 % (21.0-51.0); MEAN CORPUSCULAR HEMOGLOBIN 29.7 pg (27.0-34.0); MEAN CORPUSCULAR HGB CONC 33.3 g/dL (33.0-35.0); MEAN CORPUSCULAR VOLUME 89.2 fL (80.0-100.0); MEAN PLATELET VOLUME 6.8 fL (7.4-11.0); MONOCYTES % (AUTO) 7.5 % (0.0-13.0); NEUTROPHILS # (AUTO) 10.2 x10^3/uL (2.2-4.8); NEUTROPHILS % (AUTO) 75.1 % (42.0-75.0); PLATELET COUNT 321 X10^3/uL (150.0-450.0); RED BLOOD COUNT 4.42 X10^6/uL (3.5-5.4); RED CELL DISTRIBUTION WIDTH 14.5 % (11.6-16.5); WHITE BLOOD COUNT 13.6 X10^3/uL (3.6-10.0)
[2018-12-25 05:50] LABS: ALANINE AMINOTRANSFERASE 14 Units/L (12-78); ALBUMIN 2.6 g/dL (3.4-5.0); ALKALINE PHOSPHATASE 85 Units/L (46-116); ASPARTATE AMINO TRANSFERASE 7 Units/L (15-37); BLOOD UREA NITROGEN 9 mg/dL (7-18); CALCIUM 8.5 mg/dL (8.5-10.1); CARBON DIOXIDE 23.6 mmol/L (21-32); CHLORIDE 104 mmol/L (98-107); COR CA(FOR HYPOALB) 9.6 mg/dL (8.5-10.1); COR NA(FOR HYPERGLY) 139 mmol/L (136-145); CREATININE 0.89 mg/dL (0.55-1.02); SODIUM 138 mmol/L (136-145); TOTAL PROTEIN 6.5 g/dL (6.4-8.2); eGFR NON BLACK RACES > 60 (>60)
[2018-12-25] MEDS: ASTELIN NASAL SPRAY ENOSTRIL SCH ×2 (06:11→13:26)
[2018-12-25] MEDS: NEURONTIN CAP 100 MG PO SCH ×2 (06:11→13:26)
[2018-12-25] MEDS: PULMICORT NEB TX 0.5 MG NEB SCH (08:08)
[2018-12-25] MEDS: ROBITUSSIN DM PO SCH ×2 (08:45→13:26)
[2018-12-25] MEDS: MYLICON TAB 80 MG CHEW PO SCH ×2 (08:46→13:26)
[2018-12-25] MEDS: TUSSIONEX PENNKINETIC SUSP PO SCH (08:46)
[2018-12-25] MEDS: PROTONIX INJ 40 MG VIAL IVP SCH (08:46)
[2018-12-25] MEDS: CARDIZEM TAB 30 MG PLAIN PO SCH (08:47)
[2018-12-25] MEDS: ALLEGRA PO SCH (08:47)
[2018-12-25] MEDS: WELLBUTRIN XL 150 MG (DAILY) PO SCH (08:47)
[2018-12-25] MEDS: MAG-OX TAB PO SCH (08:47)
[2018-12-25] MEDS: SYNTHROID 100 mcg TAB PO SCH (08:47)
[2018-12-25] MEDS: LINZESS PO SCH (08:47)
[2018-12-25] MEDS: LOVENOX INJ 40 MG SYR SC SCH (08:48)
[2018-12-25] MEDS: ROCEPHIN VIAL 1 GRAM IVP SCH (08:51)
[2018-12-25] MEDS: NICOTINE PATCH TD SCH (08:52)
[2018-12-25] MEDS: FLONASE NASAL SPRAY ENOSTRIL SCH (08:55)
[2018-12-25] MEDS: AZELASTINE FLUTICASONE NAS SCH (08:55)
[2018-12-25] MEDS: VIBRAMYCIN 100 MG in NS 100 ML IV 100 ML IV SCH (08:56)
--- NOTE | 2018-12-25 09:46 | RAD ---
HISTORY: COPD exacerbation. Prior history of COPD, asthma, hypertension and [place]. Study: Single-view chest, done portably Comparison: 12/20/2018. Findings: There is again evidence of lower cervical spine surgery with metallic plate and screws. Trachea is midline. Heart size is upper normal. Although there are increased interstitial markings bilaterally, these have generally improved compared to the prior studies. Linear foci of subsegmental atelectasis are present the left lung base. No dense consolidation, CHF, pleural fluid or pneumothorax is seen. No acute osseous changes are identified. IMPRESSION: The increased interstitial markings in both lungs have generally improved compared to the prior studies. There are linear foci of subsegmental atelectasis present in the left lung base. No consolidation, CHF, pleural fluid or pneumothorax is seen. Reported By:
[2018-12-25] MEDS: DILAUDID INJ IVP PRN (11:30)
[2018-12-25 13:04] VITALS: BP 157/71
== END 2018-12-25 13:50 | disposition home or self-care (01) | DRG 192 ==
LOC: ICU 18:18 → MED/SURG 12-20 14:29
PROVIDERS: ADMIT Internal Medicine; ATTEND Internal Medicine
DX: K21.9 Gastro-esophageal reflux disease without esophagitis; M50.30 Other cervical disc degeneration, unspecified cervical region; M51.36 Other intervertebral disc degeneration, lumbar region; R10.84 Generalized abdominal pain; J44.0 Chronic obstructive pulmonary disease with (acute) lower respiratory infection; I10 Essential (primary) hypertension; F41.9 Anxiety disorder, unspecified; E11.65 Type 2 diabetes mellitus with hyperglycemia; E03.8 Other specified hypothyroidism; I48.91 Unspecified atrial fibrillation; Z79.01 Long term (current) use of anticoagulants; R06.02 Shortness of breath; E78.2 Mixed hyperlipidemia; J44.1 Chronic obstructive pulmonary disease with (acute) exacerbation; J20.9 Acute bronchitis, unspecified
CPT/HCPCS: 36415; 36600; 70486; 71010; 71045; 74022; 76700; 80053; 80162; 82803; 83735; 85025; 87070; 87077; 87186; 87205; 94640; 94669; A4222; C9113; S0106; J0456; J0696; J1170; J1650; J2280; J2930; J3490; J7030; J7050; J7060; J7608; J7613; J7626

== ENCOUNTER 2019-10-18 21:30 | Inpatient (IN) ==
[2019-10-18 21:37] VITALS: BMI 33.5
--- NOTE | 2019-10-18 21:54 | DR.GENAD ---
HPI - PCP Primary Care Physician: MOOK - Complaint/Symptoms Chief Complaint Doctors Comments: States she has been running a temp today with chills and frontal headache getting progressively worst with SOB and wheezing. States she is a patient of Dr. Rogers and has asthma and COPD. She has an inhaler at home but she has not used it recently. States she went to [facility] to the beach with the family last week> She smoked but stopped Dec 19. States this is not the worst headache of her life but she do not usually have a headache this badly. She is having problems with her balance when she stands. States the pain is 8 of 10. She has taken acetominophen 1000mg and later 1500mg about three hours ago. States she has been nauseated but cannot throw up because she had the Zane procedure done. She denies diarrhea, stomach or chest pain. States she has been feeling weak. Patient states she can take Rocephin, Keflex and Decadron. Chief Complaint:: STATES SHE HAD AN ORAL TEMP OF 102 THIS EVENING WITH MILD NAUSEA Self Treatment fo Chief Complaint: STATES SHE HAS TAKEN 2500MG OF TYLENOL. - COVID-19 Coronavirus risk:travel/contact w/high risk person: Yes Has patient experienced Coronavirus symptoms: Yes Coronavirus symptoms experienced: Fever - Nurses notes reviewed Nurses Notes Review: Yes - Source History Provided: Patient - Mode of Arrival Mode of Arrival: Ambulatory - Timing Onset of Chief Complaint: 10/18/19 Came on: Gradually - Duration Duration: Intermittent How lon Duration: Days - Severity Severity: Mild - Modifying Factors Worsens:: nothing Improves:: nothing PMH - PMH Past Medical History: Yes Past Medical History: Hypertension, Dyslipidemia, Anxiety, COPD, Asthma, GERD, Arthritis, Headaches Past Surgical History: Yes Surgical History: Abdominal Surgery, Appendectomy, Bowel Resection, Cholecystectomy, Hysterectomy - Family History History of Family Medical Conditions: Yes Family Medical History: Diabetes Mellitus, [place] - Social History Does any household member use tobacco: No Alcohol Use: None Do you use any recreational Drugs:: No Lives With: Family Lives Where: Home - infectious screening In the last 2 months have you had wt loss of >10#?: NO Have you had fever, night sweats or hemotysis?: No Have you traveled outside the country in the last 6 months?: No Isolation: Standard ROS - Review of Systems Constitutional: No Symptoms Reported, Fever, Malaise, Weakness, Loss of Appetite Eyes: No Symptoms Reported ENTM: No Symptoms Reported, Nose Discharge, Nose Congestion Respiratoy: No Symptoms Reported, Short of Breath, Wheezing Cardiovascular: No Symptoms Reported. negative: See HPI, Chest Pain, Edema, Palpitations, Syncope, Cyanosis, Skin Mottling, Other Gastrointestinal/Abdominal: No Symptoms Reported, Nausea Genitourinary: No Symptoms Reported. negative: See HPI, Discharge, Dysuria, Frequency, Hematuria, Pain, Bleeding, Other Neurological: No Symptoms Reported, Headache, Weakness Musculoskeletal: No Symptoms Reported Integumentary: No Symptoms Reported. negative: See HPI, Change in Color, Change in Hair/Nails, Dryness, Lesions, Lumps, Rash, Itching, Wound, Bruises, Juandice, Other Hematologic/Lymphatic: No Symptoms Reported. negative: See HPI, Anemia, Blood Clots, Easy Bleeding, Easy Bruising, Swollen Glands, Lymphadenopathy, Other Endocrine: No Symptoms Reported Psychiatric: No Symptoms Reported. negative: See HPI, Anxiety, Depression, Hallucinations, Excessive crying, Suicidal, Other PE - General Limitations: No Limitations General Appearance: Alert, In Distress (moderate) - Head Head Exam: Normal Inspection, Atraumatic, Normocephalic - Eyes Eye exam: Normal Appearance, PERRL, EOMI. negative: Scleral Icterus, Conjunctival Injection, Nystagmus, Miosis, Mydrasis, Periorbital Swelling, Periorbital Tenderness, Other - ENT ENT Exam: Normal Exam, Normal Oropharynx, Normal External Ear Exam, Mucous Membranes Moist, TM's Normal Bilaterally External Ear Exam: Normal External Inspection TM/Canal Exam: Bilateral Normal Nose Exam: Normal Nose Exam Mouth Exam: Normal Inspection. negative: Drooling, Trismus, Lip Swelling, Tongue Elevation, Tongue Swelling, Laceration, Other Throat Exam: Normal Inspection. negative: Tonsillar Erythema, Tonsillomegaly, Tonsillar Exudate, R Peritonsillar Mass, L Peritonsillar Mass, Muffled Voice, Other - Neck Neck Exam: Normal Inspection, Full ROM, Trachea Midline. negative: Tenderness, Meningismus, Lymphadenopathy, Thyromegaly, Other - Chest Chest Inspection: Normal Inspection, Symmetric Chest Wall Rise. negative: Tenderness, Rash, Abscess, Other - Respiratory Respiratory Exam: Normal Lung Sounds Bilat, Prolonged Expiratory Phase Respiratory Exam: Bilateral Wheezing, Bilateral Decreased Breath Sounds - Cardiovascular Cardiovascular Exam: Regular Rate, Normal Rhythm, Normal Heart Sounds - Abdominal Exam Abdominal Exam: Normal Inspection, Normal Bowel Sounds, Soft. negative: Distention, Tenderness, Guarding, Rebound, Rigidity, Dimnished Bowel Sounds, Hyperactive Bowel Sounds, Hypoactive Bowel Sounds, Organomegaly, Trauma, Incision, Ascites, Mass, Bruit, Pulsatile Mass, Hernia, Other Abdominal Tenderness: negative: RUQ, RLQ, LUQ, LLQ, Epigastrium, Suprapubic, Diffuse, Mild, Moderate, Severe, Other - Extremities Extremities Exam: Normal Inspection, Full ROM, Normal Capillary Refill. negative: Tenderness, Edema, Joint Swelling, Calf Tenderness, Other - Back Back Exam: Normal Inspection, Full ROM. negative: Tenderness, (R) CVA Tenderness, (L) CVA Tenderness, Muscle Spasm, Paraspinal Tenderness, Vertebral Tenderness, Rashes, (R) Sciatic Notch Tenderness, (L) Sciatic Notch Tendern, (R) Straight Leg Raise, (L) Straight Leg Raise, Other - Neurologic Neurological Exam: Alert, Oriented X3, CN II-XII Intact, Normal Gait, Reflexes Normal - Psychiatric Psychiatric Exam: Normal Affect, Normal Mood. negative: Depressed, Agitated, Anxious, Flat Affect, Manic, Homicidal Ideation, Suicidal Ideation, Other - Skin Skin Exam: Warm, Dry, Intact, Normal Color. negative: Rash, Cyanosis, Diaphoresis, Erythema, Pallor, Mottled, Other - Vital Signs Vitals: Temperature 99.0 F Pulse Rate 108 Respiratory Rate 22 Blood Pressure [Right Arm] 146/78 Blood Pressure 122/61 O2 Sat by Pulse Oximetry 91 Course - Reevaluation 1st: Improved - Consultation Called: 00:23 Call Returned: 00:36 (Dr. Cabral to admit. Treat with Remdesivir; draw Covid Igm/IgG ) - Education/Counseling Education/Counseling: Patient, Family Educated On: Treatment, Diagnosis, Needs for Follow Up ROR - Labs Reviewed Laboratory Results Reviewed?: Yes (All labs and x-ray results reviewed and discussed with patient) Result Diagrams: 10/18/19 22:24 10/18/19 22:24 - XRAY XRAY Interpreted by: Radiologist (CT head: No evidence of acute intracranial bleed. Prosthetic left orbit.) - EKG Rate: 105 [place]: Normal Rhythm: NSR, ST Block: None Hypertrophy: None ST: Normal, Old, Inf, Infarct - Labs Reviewed Laboratory: WBC 22.4 X10^3/uL (3.6-10.0) H 10/18/19 22:24 RBC 4.90 X10^6/uL (3.5-5.4) 10/18/19 22:24 Hgb 13.8 g/dL (12.0-16.0) 10/18/19 22:24 Hct 41.4 % (36.0-47.0) 10/18/19 22:24 MCV 84.5 fL (80.0-100.0) 10/18/19 22:24 MCH 28.2 pg (27.0-34.0) 10/18/19 22: MCHC 33.4 g/dL (33.0-35.0) 10/18/19 22: RDW 14.5 % (11.6-16.5) 10/18/19: Plt Count 387 X10^3/uL (150.0-450.0) 10/18/19 22:24 Plt Count Comment Adequate (ADEQUATE) 10/18/19 22:24 MPV 6.4 fL (7.4-11.0) L 10/18/19 22:24 Neut % (Auto) 88.4 % (42.0-75.0) H 10/18/19 22:24 Lymph % (Auto) 6.5 % (21.0-51.0) L 10/18/19 22:24 [place] % (Auto) 4.1 % (0.0-13.0) 10/18/19 22:24 Eos % (Auto) 0.7 % (0.9-2.9) L 10/18/19 22:24 Baso % (Auto) 0.3 % (0.2-1.0) 10/18/19 22:24 Neut # (Auto) 19.8 x10^3/uL (2.2-4.8) H 10/18/19 22:24 Lymph # (Auto) 1.5 X10^3/uL (1.3-2.9) 10/18/19 22:24 [place] # (Auto) 0.9 x10^3/uL (0.3-0.8) H 10/18/19 22:24 Eos # (Auto) 0.2 x10^3/uL (0.0-0.2) 10/18/19 22:24 Baso # (Auto) 0.1 X10^3/uL (0.0-0.1) 10/18/19 22:24 Absolute Nucleated RBC 0.0 /100WBC 10/18/19 22:24 Total Counted 100 10/18/19 22:24 Neutrophils % (Manual) 84 % (39-76) H 10/18/19 22:24 Band Neutrophils % 5 % (0-10) 10/18/19 22:24 Lymphocytes % (Manual) 7 % (13-43) L 10/18/19 22:24 Monocytes % (Manual) 4 % (4-9) 10/18/19 22:24 Plt Morphology Comment Normal (NORMAL) 10/18/19 22: RBC Morphology Normal (NORMAL) 10/18/19 22: PT 12.6 SECONDS (11.8-14.3) 10/18/19 22:24 INR Target Range - 10/18/19 22: INR 0.97 (0.8-1.3) 10/18/19 22:24 APTT 29.5 SECONDS (22.9-36.5) 10/18/19 22: PTT Comment - 10/18/19 22:24 D-Dimer 549 ng/mL (0-400) H* 10/18/19 22:24 Sample Site Rrad 10/18/19 23:01 ABG pH 7.520 (7.35-7.45) H 10/18/19 23:01 ABG pCO2 28.0 mmHg (35.0-45.0) L 10/18/19 23:01 ABG pO2 58.0 mmHg (80.0-100.0) L 10/18/19 23:01 ABG HCO3 22.9 mmol/L (22-26) 10/18/19 23:01 ABG O2 Saturation 93.0 % (90-100) 10/18/19 23:01 ABG Base Excess 1.0 mmol/L (-2.0-2.0) 10/18/19 23: Oneil Test Pos 10/18/19 23: A-a Gradient 57.0 mmHg 10/18/19 23:01 FiO2 21.0 10/18/19 23:01 Blood Gas Comments Jr abg well-kb 10/18/19 23:01 Sodium 130 mmol/L (136-145) L 10/18/19 22:24 Corrected Sodium 130 mmol/L (136-145) L 10/18/19 22:24 Potassium 3.5 mmol/L (3.5-5.1) 10/18/19 22:24 Chloride 96 mmol/L (98-107) L 10/18/19 22:24 Carbon Dioxide 23.4 mmol/L (21-32) 10/18/19 22:24 BUN 12 mg/dL (7-18) 10/18/19 22:24 Creatinine 1.16 mg/dL (0.55-1.02) H 10/18/19 22:24 Est GFR (MDRD) Af Amer 60 (>60) 10/18/19 22:24 Est GFR (MDRD) Non-Af 50 (>60) L 10/18/19 22:24 Glucose 116 mg/dL (65-99) H 10/18/19 22:24 Calcium 9.2 mg/dL (8.5-10.1) 10/18/19 22:24 Corrected Calcium TNP 10/18/19 22:24 Magnesium 1.4 mg/dL (1.7-2.9) L 10/18/19 22:24 Total Bilirubin 0.60 mg/dL (0.2-1.0) 10/18/19 22:24 AST 19 Units/L (15-37) 10/18/19 22:24 ALT 26 Units/L (12-78) 10/18/19 22:24 Alkaline Phosphatase 91 Units/L (46-116) 10/18/19 22:24 Creatine Kinase 80 Units/L (26-192) 10/18/19 22:24 CK-MB (CK-2) < 1.0 ng/mL (0-4.0) 10/18/19 22:24 CK/CKMB % Calc 1.3 % (<4) 10/18/19 22:24 Troponin I < 0.02 ng/mL (0-1.5) 10/18/19 22:24 Total Protein 7.0 g/dL (6.4-8.2) 10/18/19 22:24 Albumin 3.4 g/dL (3.4-5.0) 10/18/19 22:24 Globulin 3.6 g/dL (2.5-4.5) 10/18/19 22:24 Albumin/Globulin Ratio 0.9 Ratio (1.1-2.1) L 10/18/19 22:24 Digoxin 0.38 ng/mL (0.9-2) L 10/18/19 22:24 SARS-CoV-2 (PCR) Negative (NEGATIVE) 10/18/19 23:19 - XRAY Xray Findings: CXR: Multifocal alveolar airspace disease in the bilateral lower lung zones is seen. Could represent infection such as multifocal lobar pneumonia. (LEONELA HERRERA) Opioid - Opioid Risk Tool Age (Pepe box if 16-45): No History of Preadolescent Sexual Abuse: No Total: 0 Total Score Risk Category: Low Risk - Diagnosis Discharge Problem: COVID-19 determined by clinical diagnostic criteria, Multifocal pneumonia, COPD exacerbation, Hyponatremia, Hyperglycemia Headache Qualifiers: Headache chronicity pattern: unspecified pattern - Discharge Plan Disposition: 09 ADMITTED INPATIENT Condition: Stable - Follow ups/Referrals Follow ups/Referrals: SEBASTIÁN ROGERS [Primary Care Provider] - 3 days - Instructions
[2019-10-18] MEDS ORDERED: TORADOL 30 MG VIAL IVP ONE (22:20)
[2019-10-18] MEDS ORDERED: DUONEB 0.5 MG/3 MG (3 mL) NEB ONE ×2 (22:21→22:27)
[2019-10-18] MEDS ORDERED: NS 1000 ML 1,000 ML ONE (22:32)
[2019-10-18] MEDS ORDERED: TORADOL 30 MG VIAL ONE (22:32)
[2019-10-18 22:46] LABS: BASOPHILS # (AUTO) 0.1 X10^3/uL (0.0-0.1); BASOPHILS % (AUTO) 0.3 % (0.2-1.0); EOSINOPHILS # (AUTO) 0.2 x10^3/uL (0.0-0.2); EOSINOPHILS % (AUTO) 0.7 % (0.9-2.9); HEMATOCRIT 41.4 % (36.0-47.0); HEMOGLOBIN 13.8 g/dL (12.0-16.0); LYMPHOCYTES # (AUTO) 1.5 X10^3/uL (1.3-2.9); LYMPHOCYTES % (AUTO) 6.5 % (21.0-51.0); MEAN CORPUSCULAR HEMOGLOBIN 28.2 pg (27.0-34.0); MEAN CORPUSCULAR HGB CONC 33.4 g/dL (33.0-35.0); MEAN CORPUSCULAR VOLUME 84.5 fL (80.0-100.0); MEAN PLATELET VOLUME 6.4 fL (7.4-11.0); MONOCYTES # (AUTO) 0.9 x10^3/uL (0.3-0.8); MONOCYTES % (AUTO) 4.1 % (0.0-13.0); NEUTROPHILS # (AUTO) 19.8 x10^3/uL (2.2-4.8); NEUTROPHILS % (AUTO) 88.4 % (42.0-75.0); PLATELET COUNT 387 X10^3/uL (150.0-450.0); RED CELL DISTRIBUTION WIDTH 14.5 % (11.6-16.5); WHITE BLOOD COUNT 22.4 X10^3/uL (3.6-10.0)
[2019-10-18] MEDS ORDERED: NS 1000 ML 1,000 ML IV SCH (23:00)
[2019-10-18 23:04] LABS: BLOOD UREA NITROGEN 12 mg/dL (7-18); CALCIUM 9.2 mg/dL (8.5-10.1); CARBON DIOXIDE 23.4 mmol/L (21-32); CHLORIDE 96 mmol/L (98-107); COR NA(FOR HYPERGLY) 130 mmol/L (136-145); CREATININE 1.16 mg/dL (0.55-1.02); SODIUM 130 mmol/L (136-145); TROPONIN I < 0.02 ng/mL (0-1.5); eGFR NON BLACK RACES 50 (>60)
[2019-10-18 23:08] LABS: ALANINE AMINOTRANSFERASE 26 Units/L (12-78); ALBUMIN 3.4 g/dL (3.4-5.0); ALKALINE PHOSPHATASE 91 Units/L (46-116); ASPARTATE AMINO TRANSFERASE 19 Units/L (15-37); CKMB % 1.3 % (<4); CREATINE KINASE 80 Units/L (26-192); CREATINE KINASE MB < 1.0 ng/mL (0-4.0); DIGOXIN 0.38 ng/mL (0.9-2); MAGNESIUM 1.4 mg/dL (1.7-2.9)
[2019-10-18 23:09] LABS: BAND NEUTROPHILS % 5 % (0-10)
[2019-10-18 23:10] LABS: PLATELET MORPHOLOGY COMMENT NORMAL (NORMAL)
[2019-10-18 23:15] LABS: ABG ALLEN TEST POS; ABG HCO3 22.9 mmol/L (22-26)
--- NOTE | 2019-10-18 23:31 | CT ---
STUDY: CT HEAD WITHOUT IV CONTRASTCOMPARISON: NoneTECHNIQUE: axial images were acquired of the head without IV contrast. Coronal and sagittal images were provided. All images were reviewed in a variety of windows and levels.RADIATION REDUCTION TECHNIQUE: Automated exposure control, Adjustment of the mA and/or kV according to patient size, or iterative reconstruction techniques were used.HISTORY: HEADACHEFINDINGS:There is no evidence of an acute intracranial bleed. A prosthetic left orbit is noted.There is no evidence of a mass or midline shift.There is no evidence of an extra-axial fluid collection.The garay-white matter differentiation is within normal limits.The visualized bones are unremarkable.The visualized sinuses are clear.The mastoid air cells are well-aerated.IMPRESSION:THERE IS NO EVIDENCE OF AN ACUTE INTRACRANIAL BLEEDElectronically signed by: Phil Steen (Oct 18, 2019 23:29:24)
[2019-10-18] MEDS: ROCEPHIN VIAL 1 GRAM 1 G in NS 100 ML IV + SPIKE MINIBAG* 100 ML IV ONE ×2 (23:37→23:47)
[2019-10-18] MEDS ORDERED: NS 100 ML IV + SPIKE MINIBAG* 100 ML IV ONE (23:44)
[2019-10-18] MEDS ORDERED: ROCEPHIN VIAL 1 GRAM ONE (23:44)
--- NOTE | 2019-10-18 23:57 | RAD ---
STUDY: FRONTAL AND LATERAL VIEW OF THE CHESTCOMPARISON: 05/20/2019HISTORY: PNEUMONIAFINDINGS: Partial visualization of cervical fusion hardware is notedBilateral lower lobe airspace disease is noted which appears worsened when compared to the prior examination.The heart size is within normal limits.The mediastinum is unremarkable.There is no evidence of pleural effusion or gross pneumothorax.The trachea is midline.On the lateral view, the retrosternal and retrocardiac spaces are clear.IMPRESSION:Multifocal alveolar airspace disease in the bilateral lower lung zones is seen. This could represent infection such as multifocal lobar pneumonia.Electronically signed by: Phil Steen (Oct 18, 2019 23:55:41)
[2019-10-19] MEDS ORDERED: REMDESIVIR (INVESTIGATIONAL DRUG GS-5734) IV ONE (00:43)
[2019-10-19] MEDS ORDERED: ASCORBIC ACID INJ MULTI-DOSE VIAL IM SCH (00:45)
[2019-10-19] MEDS ORDERED: PATIENT'S HOME MEDICATION (Albuterol Sulfate [Proair Hfa] 2 PUFF) INH PRN (00:56)
[2019-10-19] MEDS ORDERED: NS 1000 ML 1,000 ML IV SCH (01:00)
[2019-10-19] MEDS: ROCEPHIN VIAL 1 GRAM 1 G in NS 100 ML IV + SPIKE MINIBAG* 100 ML IV SCH ×2 (01:59→08:40)
[2019-10-19] MEDS ORDERED: ASCORBIC ACID INJ MULTI-DOSE VIAL ONE (02:03)
[2019-10-19] MEDS ORDERED: NS 100 ML IV 100 ML IV ONE (02:04)
[2019-10-19] MEDS: ASCORBIC ACID INJ MULTI-DOSE VIAL 1,500 MG in NS 100 ML IV 100 ML IV SCH ×2 (02:14→08:40)
[2019-10-19] MEDS ORDERED: NS 250 ML IV 250 ML IV ONE (03:04)
[2019-10-19] MEDS: NS 1000 ML 1,000 ML IV SCH ×3 (03:27→20:36)
[2019-10-19] MEDS ORDERED: VENTOLIN or PROAIR HFA IN PRN (05:25)
[2019-10-19 05:35] LABS: BASOPHILS # (AUTO) 0.2 X10^3/uL (0.0-0.1); EOSINOPHILS # (AUTO) 0.2 x10^3/uL (0.0-0.2); EOSINOPHILS % (AUTO) 1.3 % (0.9-2.9); HEMOGLOBIN 12.5 g/dL (12.0-16.0); LYMPHOCYTES # (AUTO) 2.8 X10^3/uL (1.3-2.9); LYMPHOCYTES % (AUTO) 15.2 % (21.0-51.0); MEAN CORPUSCULAR HEMOGLOBIN 28.1 pg (27.0-34.0); MEAN CORPUSCULAR VOLUME 85.1 fL (80.0-100.0); MEAN PLATELET VOLUME 6.7 fL (7.4-11.0); MONOCYTES # (AUTO) 0.9 x10^3/uL (0.3-0.8); MONOCYTES % (AUTO) 4.6 % (0.0-13.0); NEUTROPHILS # (AUTO) 14.5 x10^3/uL (2.2-4.8); NEUTROPHILS % (AUTO) 77.9 % (42.0-75.0); PLATELET COUNT 347 X10^3/uL (150.0-450.0); RED BLOOD COUNT 4.46 X10^6/uL (3.5-5.4); RED CELL DISTRIBUTION WIDTH 14.7 % (11.6-16.5); WHITE BLOOD COUNT 18.6 X10^3/uL (3.6-10.0)
[2019-10-19 05:47] LABS: BLOOD UREA NITROGEN 12 mg/dL (7-18); CHLORIDE 99 mmol/L (98-107); CREATININE 1.05 mg/dL (0.55-1.02); SODIUM 132 mmol/L (136-145)
[2019-10-19 05:48] LABS: ALANINE AMINOTRANSFERASE 22 Units/L (12-78); ALBUMIN 2.9 g/dL (3.4-5.0); ALKALINE PHOSPHATASE 78 Units/L (46-116); ASPARTATE AMINO TRANSFERASE 16 Units/L (15-37); CALCIUM 8.5 mg/dL (8.5-10.1); COR CA(FOR HYPOALB) 9.4 mg/dL (8.5-10.1); TOTAL PROTEIN 6.3 g/dL (6.4-8.2); eGFR NON BLACK RACES 56 (>60)
[2019-10-19] MEDS ORDERED: VITAMIN D (1.25MG) PO SCH (09:00)
[2019-10-19] MEDS ORDERED: ZINC SULFATE PO SCH (09:00)
[2019-10-19] MEDS ORDERED: THIAMINE HCL INJ IM SCH (09:00)
[2019-10-19] MEDS: PULMICORT NEB TX 0.5 MG NEB SCH ×2 (09:08→21:13)
[2019-10-19] MEDS: DUONEB 0.5 MG/3 MG (3 mL) NEB SCH ×4 (09:08→21:14)
--- NOTE | 2019-10-19 10:10 | DR.H&P ---
H&P - History & Physical for Day of: H&P Date: 10/19/19 - Chief Complaint Chief Complaint: FEVER, HEADACHE, NAUSEA, WEAKNESS, SHORTNESS OF BREATH, AND WHEEZING. - History of Present Illness History of Present Illness: FEVER, HEADACHE, NAUSEA, WEAKNESS, SHORTNESS OF BREATH, AND WHEEZING. - Past Medical History Past Medical History: Hypertension, Dyslipidemia, Anxiety, COPD, Asthma, GERD, Arthritis, Headaches - Past Surgical History Surgical History: Abdominal Surgery, Appendectomy, Bowel Resection, Cholecystectomy, Hysterectomy - Family History Family Medical History: Diabetes Mellitus, [place], Coronary Artery Disease, Hypertension - Social History Does patient currently use any type of tobacco product: No Have you used tobacco products in the last 12 months: No Type of Tobacco Use: Cigarettes Does any household member use tobacco: No Alcohol Use: None Drug Use: None - Medications Home Medications: almond Allergy (Verified 05/20/19 11:09) caffeine Allergy (Verified 05/20/19 11:09) cefdinir [From Omnicef] Allergy (Verified 05/20/19 11:09) pittman Allergy (Verified 05/20/19 11:09) codeine Allergy (Verified 05/20/19 11:09) diphenhydramine [From Benadryl] Allergy (Verified 05/20/19 11:09) Egg Derived Allergy (Verified 05/20/19 11:09) esomeprazole [From Nexium] Allergy (Verified 05/20/19 11:09) gluten Allergy (Verified 05/20/19 11:09) grape Allergy (Verified 05/20/19 11:09) hazelnut Allergy (Verified 05/20/19 11:09) hydroxyzine [From Atarax] Allergy (Verified 05/20/19 11:09) Iodine and Iodide Containing Produc Allergy (Verified 05/20/19 11:09) levofloxacin [From Levaquin] Allergy (Verified 05/20/19 11:09) losartan Allergy (Verified 05/20/19 11:09) nut - unspecified Allergy (Verified 05/20/19 11:09) olmesartan [From Benicar] Allergy (Verified 05/20/19 11:09) Penicillins Allergy (Verified 05/20/19 11:09) Pork/Porcine Containing Products Allergy (Verified 05/20/19 11:09) prednisone Allergy (Verified 05/20/19 11:09) rabeprazole [From Aciphex] Allergy (Verified 05/20/19 11:09) shrimp Allergy (Verified 05/20/19 11:09) spinach Allergy (Verified 05/20/19 11:09) starch Allergy (Verified 05/20/19 11:09) turkey Allergy (Verified 05/20/19 11:09) bananas Allergy (Mild, Uncoded 05/20/19 11:09) RASH chocolate Allergy (Mild, Uncoded 05/20/19 11:09) RASH cinaman Allergy (Mild, Uncoded 05/20/19 11:09) RASH grains except for rice Allergy (Mild, Uncoded 05/20/19 11:09) RASH onions Allergy (Mild, Uncoded 05/20/19 11:09) RASH tomatoes Allergy (Mild, Uncoded 05/20/19 11:09) RASH apples Allergy (Unknown, Uncoded 05/20/19 11:09) carbonated drinks Allergy (Unknown, Uncoded 05/20/19 11:09) CATFISH Allergy (Uncoded 05/20/19 11:09) GRAPES Allergy (Uncoded 05/20/19 11:09) potatoes Allergy (Uncoded 05/20/19 11:09) red meats Allergy (Uncoded 05/20/19 11:09) TEA Allergy (Uncoded 05/20/19 11:09) - Review of Systems Constitutional: Fever, Chills, Weakness Eyes: No Symptoms Reported ENT: No Symptoms Reported Respiratory: See HPI, Cough, Shortness of Breath, SOB with Excertion, Wheezing Cardiovascular: No Symptoms Reported Gastrointestinal: Nausea Genitourinary: No Symptoms Reported Musculoskeletal: No Symptoms Reported Skin: No Symptoms Reported Neurological: Weakness - Physical Exam Vital Signs: Temperature 98.4 F Pulse Rate [Right] 69 Pulse Rate 70 Respiratory Rate 20 Blood Pressure [Right Arm] 102/55 Blood Pressure 122/61 O2 Sat by Pulse Oximetry 91 Oriented: Normal Eyes: Normal Ear: Normal Nose: Normal Throat: Normal Respiratory: Diminished Throughout, Wheezes Throughout Cardiovascular: Tachycardia. negative: S3, S4, Murmur : Normal Auscultation: Bowel Sounds: Normal Palpation: Normal Tenderness: Normal Skin: Normal Musculoskeletal: Normal Psychiatric: Normal Mood Description: Calm Affect: Normal Speech Pattern: Clear - Assessment/Plan (1) Multifocal pneumonia Status: Acute Plan: ADMIT, NS AT 75 ML/HR, ROCEPHIN 1G IV DAILY, PULMICORT NEB TX BID, DUONEBS QID, PLAQUENIL 200MG PO BID, TESSALON PERLES 200MG PO TID, DIGOXIN 0.125MG PO DAILY. (2) COVID-19 determined by clinical diagnostic criteria Status: Acute Plan: COVID IgG/IgM PENDING (3) COPD exacerbation Status: Acute (4) Hyponatremia Status: Acute - Allergies Allergies/Adverse Reactions: Allergies Allergy/AdvReac Type Severity Reaction Status Date / Time almond Allergy Verified 05/20/19 11:09 caffeine Allergy Verified 05/20/19 11:09 cefdinir [From Omnicef] Allergy Verified 05/20/19 11:09 pittman Allergy Verified 05/20/19 11:09 codeine Allergy Verified 05/20/19 11:09 diphenhydramine Allergy Verified 05/20/19 11:09 [From Benadryl] Egg Derived Allergy Verified 05/20/19 11:09 esomeprazole [From Nexium] Allergy Verified 05/20/19 11:09 gluten Allergy Verified 05/20/19 11:09 grape Allergy Verified 05/20/19 11:09 hazelnut Allergy Verified 05/20/19 11:09 hydroxyzine [From Atarax] Allergy Verified 05/20/19 11:09 Iodine and Iodide Containing Allergy Verified 05/20/19 11:09 Produc levofloxacin [From Levaquin] Allergy Verified 05/20/19 11:09 losartan Allergy Verified 05/20/19 11:09 nut - unspecified Allergy Verified 05/20/19 11:09 olmesartan [From Benicar] Allergy Verified 05/20/19 11:09 Penicillins Allergy Verified 05/20/19 11:09 Pork/Porcine Containing Allergy Verified 05/20/19 11:09 Products prednisone Allergy Verified 05/20/19 11:09 rabeprazole [From Aciphex] Allergy Verified 05/20/19 11:09 shrimp Allergy Verified 05/20/19 11:09 spinach Allergy Verified 05/20/19 11:09 starch Allergy Verified 05/20/19 11:09 turkey Allergy Verified 05/20/19 11:09 bananas Allergy Mild RASH Uncoded 05/20/19 11:09 chocolate Allergy Mild RASH Uncoded 05/20/19 11:09 cinaman Allergy Mild RASH Uncoded 05/20/19 11:09 grains except for rice Allergy Mild RASH Uncoded 05/20/19 11:09 onions Allergy Mild RASH Uncoded 05/20/19 11:09 tomatoes Allergy Mild RASH Uncoded 05/20/19 11:09 apples Allergy Unknown Uncoded 05/20/19 11:09 carbonated drinks Allergy Unknown Uncoded 05/20/19 11:09 CATFISH Allergy Uncoded 05/20/19 11:09 GRAPES Allergy Uncoded 05/20/19 11:09 potatoes Allergy Uncoded 05/20/19 11:09 red meats Allergy Uncoded 05/20/19 11:09 TEA Allergy Uncoded 05/20/19 11:09
[2019-10-19] MEDS: TESSALON PERLES PO SCH ×3 (10:23→21:27)
[2019-10-19] MEDS: PLAQUENIL PO SCH ×2 (10:23→20:41)
[2019-10-19] MEDS ORDERED: KLOR-CON PO PRN (14:31)
[2019-10-19] MEDS ORDERED: POTASSIUM CHL 60 MEQ/NS 0.45% 500 ML IV PRN (14:31)
[2019-10-19] MEDS ORDERED: K-RIDER 10 MEQ/NS 100 ML 10 MEQ/100 ML BAG IV PRN (14:31)
[2019-10-19] MEDS ORDERED: POTASSIUM CHLORIDE LIQ 20 MEQ UDC PO PRN (14:31)
[2019-10-19] MEDS ORDERED: MICRO K EXTEN CAP 10 MEQ PO PRN (14:31)
[2019-10-19] MEDS ORDERED: POTASSIUM CHL 40 MEQ/NS 0.45% 500 ML IV PRN (14:31)
[2019-10-19] MEDS ORDERED: K-DUR TAB 20 MEQ PO ONE (14:45)
[2019-10-19] MEDS ORDERED: MAGNESIUM SULFATE 1 GRAM/100 mL PREMIX 4 G/400 ML BAG IV ONE (14:45)
[2019-10-19] MEDS: K-DUR TAB 20 MEQ PO PRN (14:47)
[2019-10-19] MEDS: MAGNESIUM SULFATE 1 GRAM/100 mL PREMIX 1 GM/100 ML BAG IV PRN ×4 (14:48→18:38)
[2019-10-19 15:03] LABS: BILIRUBIN,URINE NEGATIVE (NEGATIVE); BLOOD/HEMOGLOBIN,URINE NEGATIVE (NEGATIVE); GLUCOSE, URINE NEGATIVE (NEGATIVE); KETONES,URINE NEGATIVE (NEGATIVE); LEUKOCYTE ESTERASE ,URINE NEGATIVE (NEGATIVE); NITRITES,URINE NEGATIVE (NEGATIVE); PROTEIN,URINE NEGATIVE (NEGATIVE); UROBILINOGEN,URINE NORMAL (NORMAL)
[2019-10-19 15:06] LABS: APPEARANCE,URINE CLEAR (CLEAR); COLOR,URINE YELLOW (YELLOW)
[2019-10-19] MEDS: NORCO 5/325 MG TAB PO PRN ×2 (16:27→20:41)
[2019-10-19] MEDS ORDERED: NORCO 5/325 MG TAB ONE (16:34)
[2019-10-19] MEDS: LANOXIN PO SCH (20:40)
[2019-10-20] MEDS: NORCO 5/325 MG TAB PO PRN ×2 (01:46→12:34)
[2019-10-20] MEDS: NS 1000 ML 1,000 ML IV SCH ×2 (05:11→20:22)
[2019-10-20] MEDS: TESSALON PERLES PO SCH ×3 (05:12→21:46)
[2019-10-20 05:43] LABS: BASOPHILS # (AUTO) 0.1 X10^3/uL (0.0-0.1); BASOPHILS % (AUTO) 1.1 % (0.2-1.0); EOSINOPHILS # (AUTO) 0.3 x10^3/uL (0.0-0.2); EOSINOPHILS % (AUTO) 2.6 % (0.9-2.9); HEMATOCRIT 34.9 % (36.0-47.0); HEMOGLOBIN 11.6 g/dL (12.0-16.0); LYMPHOCYTES % (AUTO) 17.4 % (21.0-51.0); MEAN CORPUSCULAR HEMOGLOBIN 28.6 pg (27.0-34.0); MEAN CORPUSCULAR HGB CONC 33.4 g/dL (33.0-35.0); MEAN CORPUSCULAR VOLUME 85.7 fL (80.0-100.0); MEAN PLATELET VOLUME 6.8 fL (7.4-11.0); MONOCYTES # (AUTO) 1.2 x10^3/uL (0.3-0.8); MONOCYTES % (AUTO) 10.8 % (0.0-13.0); NEUTROPHILS # (AUTO) 7.8 x10^3/uL (2.2-4.8); NEUTROPHILS % (AUTO) 68.1 % (42.0-75.0); PLATELET COUNT 345 X10^3/uL (150.0-450.0); RED BLOOD COUNT 4.07 X10^6/uL (3.5-5.4); RED CELL DISTRIBUTION WIDTH 14.7 % (11.6-16.5); WHITE BLOOD COUNT 11.4 X10^3/uL (3.6-10.0)
[2019-10-20 05:57] LABS: ALANINE AMINOTRANSFERASE 21 Units/L (12-78); ALBUMIN 2.7 g/dL (3.4-5.0); ALKALINE PHOSPHATASE 97 Units/L (46-116); ASPARTATE AMINO TRANSFERASE 13 Units/L (15-37); BLOOD UREA NITROGEN 10 mg/dL (7-18); CALCIUM 8.3 mg/dL (8.5-10.1); CARBON DIOXIDE 24.1 mmol/L (21-32); CHLORIDE 102 mmol/L (98-107); COR CA(FOR HYPOALB) 9.3 mg/dL (8.5-10.1); COR NA(FOR HYPERGLY) 133 mmol/L (136-145); CREATININE 0.88 mg/dL (0.55-1.02); MAGNESIUM 1.8 mg/dL (1.7-2.9); SODIUM 132 mmol/L (136-145); eGFR NON BLACK RACES > 60 (>60)
[2019-10-20] MEDS: ROCEPHIN VIAL 1 GRAM 1 G in NS 100 ML IV + SPIKE MINIBAG* 100 ML IV SCH (08:05)
[2019-10-20] MEDS: PLAQUENIL PO SCH ×2 (08:05→20:23)
--- NOTE | 2019-10-20 08:05 | RAD ---
HISTORYSOB, FEVERSTUDYCHEST, 1 VIEWCOMPARISONChest film October 18, 2019FINDINGSThe trachea is midline. The cardiac silhouette is unremarkable . The lungs are clear without focal infiltrate or effusion. The bony thorax is unremarkable. Patient has had a prior lower C-spine anterior fusion.IMPRESSIONNo acute cardiopulmonary disease and no change when compared to the last film October 18, 2019..Electronically signed by: AUBREY PEREZ (Oct 20, 2019 08:03:45)
[2019-10-20] MEDS: K-DUR TAB 20 MEQ PO PRN (08:06)
[2019-10-20] MEDS: DUONEB 0.5 MG/3 MG (3 mL) NEB SCH ×4 (10:10→21:29)
[2019-10-20] MEDS: PULMICORT NEB TX 0.5 MG NEB SCH ×2 (10:10→21:29)
[2019-10-20 10:14] LABS: ABG BASE EXCESS -0.7 mmol/L (-2.0-2.0); ABG HCO3 23.2 mmol/L (22-26)
[2019-10-20] MEDS: LOVENOX INJ 40 MG SYR SC SCH (12:32)
[2019-10-20] MEDS: MAGNESIUM SULFATE 1 GRAM/100 mL PREMIX 1 GM/100 ML BAG IV PRN ×3 (12:35→15:00)
[2019-10-20] MEDS ORDERED: TORADOL 15 MG VIAL IVP PRN (12:55)
[2019-10-20] MEDS: NORCO 7.5/325 MG TAB PO PRN ×2 (16:30→20:23)
[2019-10-20] MEDS: LANOXIN PO SCH (20:22)
[2019-10-21] MEDS: NORCO 7.5/325 MG TAB PO PRN ×2 (03:06→13:25)
[2019-10-21] MEDS: TESSALON PERLES PO SCH (05:11)
[2019-10-21 05:21] LABS: BASOPHILS # (AUTO) 0.1 X10^3/uL (0.0-0.1); BASOPHILS % (AUTO) 1.2 % (0.2-1.0); EOSINOPHILS # (AUTO) 0.8 x10^3/uL (0.0-0.2); EOSINOPHILS % (AUTO) 6.8 % (0.9-2.9); HEMATOCRIT 35.7 % (36.0-47.0); HEMOGLOBIN 11.8 g/dL (12.0-16.0); LYMPHOCYTES # (AUTO) 2.1 X10^3/uL (1.3-2.9); LYMPHOCYTES % (AUTO) 18.4 % (21.0-51.0); MEAN CORPUSCULAR HEMOGLOBIN 28.6 pg (27.0-34.0); MEAN CORPUSCULAR HGB CONC 33.1 g/dL (33.0-35.0); MEAN CORPUSCULAR VOLUME 86.5 fL (80.0-100.0); MEAN PLATELET VOLUME 6.9 fL (7.4-11.0); MONOCYTES # (AUTO) 0.9 x10^3/uL (0.3-0.8); MONOCYTES % (AUTO) 8.3 % (0.0-13.0); NEUTROPHILS # (AUTO) 7.3 x10^3/uL (2.2-4.8); NEUTROPHILS % (AUTO) 65.3 % (42.0-75.0); PLATELET COUNT 377 X10^3/uL (150.0-450.0); RED BLOOD COUNT 4.13 X10^6/uL (3.5-5.4); RED CELL DISTRIBUTION WIDTH 14.6 % (11.6-16.5); WHITE BLOOD COUNT 11.2 X10^3/uL (3.6-10.0)
[2019-10-21 05:30] LABS: ALANINE AMINOTRANSFERASE 22 Units/L (12-78); ALBUMIN 2.8 g/dL (3.4-5.0); ALKALINE PHOSPHATASE 90 Units/L (46-116); ASPARTATE AMINO TRANSFERASE 13 Units/L (15-37); BLOOD UREA NITROGEN 7 mg/dL (7-18); CALCIUM 8.3 mg/dL (8.5-10.1); CARBON DIOXIDE 24.6 mmol/L (21-32); CHLORIDE 104 mmol/L (98-107); COR CA(FOR HYPOALB) 9.3 mg/dL (8.5-10.1); COR NA(FOR HYPERGLY) 138 mmol/L (136-145); CREATININE 0.89 mg/dL (0.55-1.02); MAGNESIUM 1.8 mg/dL (1.7-2.9); SODIUM 137 mmol/L (136-145); TOTAL PROTEIN 6.1 g/dL (6.4-8.2); eGFR NON BLACK RACES > 60 (>60)
--- NOTE | 2019-10-21 06:01 | RAD ---
HISTORYShortness of breathSTUDYChest AP [id number]/2020FINDINGSThe heart remains enlarged. No congestive heart failure is noted. No acute alveolar infiltrates or pleural effusions are identified. Bony thorax is unremarkable.IMPRESSIONCardiomegaly without congestive heart failureNo acute infiltratesElectronically signed by: ANA CABRAL (Oct 21, 2019 05:59:06)
[2019-10-21] MEDS: MAGNESIUM SULFATE 1 GRAM/100 mL PREMIX 1 GM/100 ML BAG IV PRN ×2 (06:06→08:45)
[2019-10-21 08:43] VITALS: BP 104/55
[2019-10-21] MEDS: LOVENOX INJ 40 MG SYR SC SCH (08:44)
[2019-10-21] MEDS: PLAQUENIL PO SCH (08:44)
[2019-10-21] MEDS: ROCEPHIN VIAL 1 GRAM 1 G in NS 100 ML IV + SPIKE MINIBAG* 100 ML IV SCH (08:44)
[2019-10-21] MEDS ORDERED: VITAMIN D3 25 mcg (1,000 UNITS) PO SCH (09:00)
[2019-10-21] MEDS ORDERED: VITAMIN A PO SCH (09:00)
[2019-10-21] MEDS: PULMICORT NEB TX 0.5 MG NEB SCH (09:30)
[2019-10-21] MEDS: DUONEB 0.5 MG/3 MG (3 mL) NEB SCH ×2 (09:30→12:25)
== END 2019-10-21 13:45 | disposition home or self-care (01) | DRG 178 ==
LOC: ER 21:31 → MED/SURG 10-19 00:46
PROVIDERS: ADMIT Internal Medicine; ATTEND Internal Medicine
DX: E87.6 Hypokalemia; E87.1 Hypo-osmolality and hyponatremia; I10 Essential (primary) hypertension; R26.89 Other abnormalities of gait and mobility; U07.1 COVID-19; J44.1 Chronic obstructive pulmonary disease with (acute) exacerbation; R94.31 Abnormal electrocardiogram [ECG] [EKG]; I48.91 Unspecified atrial fibrillation; E83.42 Hypomagnesemia; R53.1 Weakness
CPT/HCPCS: 36415; 36600; 70450; 71010; 71020; 71045; 71046; 80053; 80162; 81003; 82550; 82553; 82728; 82803; 83735; 84484; 85025; 85378; 85610; 85730; 86140; 87040; 87070; 87205; 87635; 93005; 94640; 94760; 96365; 96367; 96374; 96375; 97162; 97166; 99284; A4222; J0696; J1650; J1885; J3411; J3475; J7030; J7050; J7620; J7626

== ENCOUNTER 2019-11-02 22:01 | Inpatient (IN) ==
[2019-11-02 22:07] VITALS: BMI 33.5
--- NOTE | 2019-11-02 22:27 | DR.GENAD ---
HPI Time Seen Time Seen by Provider: 11/02/19 22:26 PCP Primary Care Physician: MOOK Complaint/Symptoms Chief Complaint:: FREEZING AND HURTING IN RIGHT SIDE. WAS HERE ABOUT 2 WEEKS AGO WITH PNEUMONIA Source History Provided: Patient Mode of Arrival Mode of Arrival: Ambulatory Timing Onset of Chief Complaint: 11/02/19 PMH PMH Past Medical History: Yes Past Medical History: Anxiety, Arthritis, Asthma, COPD, Dyslipidemia, GERD, Headaches and Hypertension Past Surgical History: Yes Surgical History: Abdominal Surgery, Appendectomy, Bowel Resection, C holecystectomy and Hysterectomy Family History History of Family Medical Conditions: Yes Family Medical History: Diabetes Mellitus, [place], Coronary Artery Disease and Hypertension Social History Do you use any recreational Drugs:: No Infectious screening Have you traveled outside the country in the last 6 months?: No Isolation: Droplet ROS Review of Systems Constitutional: No Symptoms Reported and See HPI Eyes: No Symptoms Reported and See HPI ENTM: No Symptoms Reported and See HPI Respiratoy: No Symptoms Reported and See HPI Cardiovascular: No Symptoms Reported and See HPI Gastrointestinal/Abdominal: No Symptoms Reported and See HPI Genitourinary: No Symptoms Reported and See HPI Neurological: No Symptoms Reported and See HPI Musculoskeletal: No Symptoms Reported and See HPI Integumentary: No Symptoms Reported and See HPI Hematologic/Lymphatic: No Symptoms Reported and See HPI Endocrine: No Symptoms Reported and See HPI Psychiatric: No Symptoms Reported and See HPI All Other Systems: Reviewed and Negative PE Vital Signs Vitals: Temperature 99.1 F Pulse Rate 111 Respiratory Rate 24 Blood Pressure [Left Arm] 104/55 Blood Pressure 150/91 O2 Sat by Pulse Oximetry 96 General Limitations: No Limitations General Appearance: Alert and In No Apparent Distress Head Head Exam: Normal Inspection Eyes Eye exam: Normal Appearance ENT ENT Exam: Normal Exam External Ear Exam: Normal External Inspection TM/Canal Exam: Bilateral: Normal Nose Exam: Normal Nose Exam Mouth Exam: Normal Inspection Throat Exam: Normal Inspection Neck Neck Exam: Normal Inspection Chest Chest Inspection: Normal Inspection Respiratory Respiratory Exam: Normal Lung Sounds Bilat Respiratory Exam: Bilateral: Clear to Auscultation Cardiovascular Cardiovascular Exam: Regular Rate and Normal Rhythm Abdominal Exam Abdominal Exam: Normal Inspection, Normal Bowel Sounds and Soft Extremities Extremities Exam: Normal Inspection Back Back Exam: Normal Inspection Neurologic Neurological Exam: Alert and Oriented X3 Psychiatric Psychiatric Exam: Normal Affect and Normal Mood Skin Skin Exam: Warm, Dry, Intact and Normal Color ROR Labs Reviewed Result Diagrams: 11/02/19 23:04 11/02/19 23:04 Laboratory: WBC 20.3 X10^3/uL (3.6-10.0) H 11/02/19 23:04 RBC 5.18 X10^6/uL (3.5-5.4) 11/02/19 23:04 Hgb 14.5 g/dL (12.0-16.0) 11/02/19 23:04 Hct 44.2 % (36.0-47.0) 11/02/19 23:04 MCV 85.2 fL (80.0-100.0) 11/02/19 23:04 MCH 27.9 pg (27.0-34.0) 11/02/19 23:04 MCHC 32.8 g/dL (33.0-35.0) L 11/02/19 23:04 RDW 15.0 % (11.6-16.5) 11/02/19 23:04 Plt Count 434 X10^3/uL (150.0-450.0) 11/02/19 23:04 Plt Count Comment Adequate (ADEQUATE) 11/02/19 23:04 MPV 6.5 fL (7.4-11.0) L 11/02/19 23:04 Neut % (Auto) 94.3 % (42.0-75.0) H 11/02/19 23:04 Lymph % (Auto) 2.4 % (21.0-51.0) L 11/02/19 23:04 Gibson % (Auto) 2.3 % (0.0-13.0) 11/02/19 23:04 Eos % (Auto) 0.9 % (0.9-2.9) 11/02/19 23:04 Baso % (Auto) 0.1 % (0.2-1.0) L 11/02/19 23:04 Neut # (Auto) 19.1 x10^3/uL (2.2-4.8) H 11/02/19 23:04 Lymph # (Auto) 0.5 X10^3/uL (1.3-2.9) L 11/02/19 23:04 Gibson # (Auto) 0.5 x10^3/uL (0.3-0.8) 11/02/19 23:04 Eos # (Auto) 0.2 x10^3/uL (0.0-0.2) 11/02/19 23:04 Baso # (Auto) 0.0 X10^3/uL (0.0-0.1) 11/02/19 23:04 Absolute Nucleated RBC 0.0 /100WBC 11/02/19 23:04 Total Counted 100 11/02/19 23:04 Neutrophils % (Manual) 89 % (39-76) H 11/02/19 23:04 Band Neutrophils % 5 % (0-10) 11/02/19 23:04 Lymphocytes % (Manual) 2 % (13-43) L 11/02/19 23:04 Monocytes % (Manual) 2 % (4-9) L 11/02/19 23:04 Eosinophils % (Manual) 2 % (0-6) 11/02/19 23:04 Plt Morphology Comment Normal (NORMAL) 11/02/19 23:04 RBC Morphology Abnormal (NORMAL) A 11/02/19 23:04 Stomatocytes Present 11/02/19 23:04 Sodium 136 mmol/L (136-145) 11/02/19 23:04 Corrected Sodium TNP 11/02/19 23:04 Potassium 3.9 mmol/L (3.5-5.1) 11/02/19 23:04 Chloride 100 mmol/L (98-107) 11/02/19 23:04 Carbon Dioxide 23.5 mmol/L (21-32) 11/02/19 23:04 BUN 12 mg/dL (7-18) 11/02/19 23:04 Creatinine 1.09 mg/dL (0.55-1.02) H 11/02/19 23:04 Est GFR (MDRD) Af Amer > 60 (>60) 11/02/19 23:04 Est GFR (MDRD) Non-Af 53 (>60) L 11/02/19 23:04 Glucose 90 mg/dL (65-99) 11/02/19 23:04 Calcium 9.4 mg/dL (8.5-10.1) 11/02/19 23:04 Corrected Calcium TNP 11/02/19 23:04 Total Bilirubin 0.80 mg/dL (0.2-1.0) 11/02/19 23:04 AST 33 Units/L (15-37) 11/02/19 23:04 ALT 33 Units/L (12-78) 11/02/19 23:04 Alkaline Phosphatase 94 Units/L (46-116) 11/02/19 23:04 Total Protein 7.8 g/dL (6.4-8.2) 11/02/19 23:04 Albumin 3.9 g/dL (3.4-5.0) 11/02/19 23:04 Globulin 3.9 g/dL (2.5-4.5) 11/02/19 23:04 Albumin/Globulin Ratio 1.0 Ratio (1.1-2.1) L 11/02/19 23:04 Amylase 50 Units/L (25-115) 11/02/19 23:04 Lipase 185 Units/L (73-393) 11/02/19 23:04 Specimen Type Clean catch urine 11/02/19 20:55 Urine Color Pale yellow (YELLOW) 11/02/19 20:55 Urine Appearance Clear (CLEAR) 11/02/19 20:55 Urine pH 6.5 (5.0 - 8.0) 11/02/19 20:55 Ur Specific [place] 1.010 (1.000-1.030) 11/02/19 20:55 Urine Protein Negative (NEGATIVE) 11/02/19 20:55 Urine Glucose (UA) Negative (NEGATIVE) 11/02/19 20:55 Urine Ketones Negative (NEGATIVE) 11/02/19 20:55 Urine Occult Blood Negative (NEGATIVE) 11/02/19 20:55 Urine Nitrite Negative (NEGATIVE) 11/02/19 20:55 Urine Bilirubin Negative (NEGATIVE) 11/02/19 20:55 Urine Urobilinogen Normal (NORMAL) 11/02/19 20:55 Ur Leukocyte Esterase Negative (NEGATIVE) 11/02/19 20:55 Opioid Opioid Risk Tool Age (Pepe box if 16-45): No History of Preadolescent Sexual Abuse: No Total: 0 Total Score Risk Category: Low Risk Copyright: Aubrey EGAN predicting aberrant behaviors Instructions Forms: Excuse From Work Precautions for COVID19 Patient Portal Social Distancing
[2019-11-02] MEDS ORDERED: ZOFRAN INJ 4 MG VIAL IVP ONE (22:45)
[2019-11-02] MEDS ORDERED: DEMEROL INJ IVP ONE (22:53)
[2019-11-02] MEDS ORDERED: DEMEROL INJ ONE (23:05)
[2019-11-02] MEDS ORDERED: ZOFRAN INJ 4 MG VIAL ONE (23:05)
[2019-11-02] MEDS ORDERED: NS 1000 ML 1,000 ML ONE (23:05)
[2019-11-02 23:22] LABS: BILIRUBIN,URINE NEGATIVE (NEGATIVE); BLOOD/HEMOGLOBIN,URINE NEGATIVE (NEGATIVE); GLUCOSE, URINE NEGATIVE (NEGATIVE); KETONES,URINE NEGATIVE (NEGATIVE); LEUKOCYTE ESTERASE ,URINE NEGATIVE (NEGATIVE); NITRITES,URINE NEGATIVE (NEGATIVE); PH,URINE 6.5 (5.0 - 8.0); PROTEIN,URINE NEGATIVE (NEGATIVE); UROBILINOGEN,URINE NORMAL (NORMAL)
[2019-11-02] MEDS: NS 1000 ML 1,000 ML IV SCH (23:22)
[2019-11-02 23:23] LABS: BASOPHILS % (AUTO) 0.1 % (0.2-1.0); EOSINOPHILS # (AUTO) 0.2 x10^3/uL (0.0-0.2); EOSINOPHILS % (AUTO) 0.9 % (0.9-2.9); HEMATOCRIT 44.2 % (36.0-47.0); HEMOGLOBIN 14.5 g/dL (12.0-16.0); LYMPHOCYTES # (AUTO) 0.5 X10^3/uL (1.3-2.9); LYMPHOCYTES % (AUTO) 2.4 % (21.0-51.0); MEAN CORPUSCULAR HEMOGLOBIN 27.9 pg (27.0-34.0); MEAN CORPUSCULAR HGB CONC 32.8 g/dL (33.0-35.0); MEAN CORPUSCULAR VOLUME 85.2 fL (80.0-100.0); MEAN PLATELET VOLUME 6.5 fL (7.4-11.0); MONOCYTES # (AUTO) 0.5 x10^3/uL (0.3-0.8); MONOCYTES % (AUTO) 2.3 % (0.0-13.0); NEUTROPHILS # (AUTO) 19.1 x10^3/uL (2.2-4.8); NEUTROPHILS % (AUTO) 94.3 % (42.0-75.0); PLATELET COUNT 434 X10^3/uL (150.0-450.0); RED BLOOD COUNT 5.18 X10^6/uL (3.5-5.4); WHITE BLOOD COUNT 20.3 X10^3/uL (3.6-10.0)
[2019-11-02 23:30] LABS: ALANINE AMINOTRANSFERASE 33 Units/L (12-78); ALBUMIN 3.9 g/dL (3.4-5.0); ALKALINE PHOSPHATASE 94 Units/L (46-116); AMYLASE 50 Units/L (25-115); ASPARTATE AMINO TRANSFERASE 33 Units/L (15-37); BLOOD UREA NITROGEN 12 mg/dL (7-18); CALCIUM 9.4 mg/dL (8.5-10.1); CARBON DIOXIDE 23.5 mmol/L (21-32); CHLORIDE 100 mmol/L (98-107); CREATININE 1.09 mg/dL (0.55-1.02); LIPASE 185 Units/L (73-393); SODIUM 136 mmol/L (136-145); TOTAL PROTEIN 7.8 g/dL (6.4-8.2); eGFR NON BLACK RACES 53 (>60)
[2019-11-02 23:37] LABS: APPEARANCE,URINE CLEAR (CLEAR); COLOR,URINE PALE YELLOW (YELLOW)
[2019-11-02 23:38] LABS: BAND NEUTROPHILS % 5 % (0-10); PLATELET MORPHOLOGY COMMENT NORMAL (NORMAL); STOMATOCYTES PRESENT
--- NOTE | 2019-11-03 00:01 | CT ---
HISTORYFREEZING AND HURTING IN RIGHT SIDE.STUDYABDOMEN/PELVIS W/O [id number] axial images of the abdomen and pelvis were obtained from the lung bases to the pubic symphysis without the administration of IV contrast. Dose reduction techniques including Automated Exposure Control (AEC) and adjustment of mA and kV were utilized.FINDINGSThe visualized portions of the lung bases mild subsegmental atelectasis within the right middle lobe. Spleen, pancreas and adrenal glands are unremarkable in their CT appearance. The liver is normal in size. There are few low-attenuation lesions within the liver presumed hepatic cyst. Is post cholecystectomy changes. Stable 1.7 x 1.2 cm left adrenal nodule.. No significant mesenteric lymphadenopathy or stranding can be observed. No free fluid or free air is seen within the abdomen. The appendix is not visualized. No bowel wall thickening or bowel dilatation is present. The colon is normal in caliber. There are scattered diverticuli arising from the descending and sigmoid colon without evidence of acute diverticulitis.. The urinary bladder is grossly unremarkable. The bony structures are grossly intact. Spinal stabilization hardware L5-S1 level.IMPRESSIONColonic diverticulosis without evidence of diverticulitis.Bilateral renal and hepatic cysts.Fat containing ventral hernias.No acute abdominal or pelvic pathologyElectronically signed by: Nino Booth (Nov 02, 2019 23:59:36)
[2019-11-03] MEDS ORDERED: FLAGYL IV PREMIX 500 MG BAG 500 MG/100 ML BAG IV ONE ×3 (02:03→08:01)
[2019-11-03] MEDS ORDERED: OFIRMEV IV 1000 MG VIAL 1,000 MG/100 ML VIAL IV ONE ×2 (03:25→13:11)
[2019-11-03] MEDS: OFIRMEV IV 1000 MG VIAL 1,000 MG/100 ML VIAL IV PRN ×2 (03:34→13:28)
[2019-11-03] MEDS ORDERED: PROVENTIL NEB TX 0.083% 2.5MG/ 3ML NEB PRN ×2 (04:56→05:14)
[2019-11-03] MEDS ORDERED: ZOFRAN INJ 4 MG VIAL IVP PRN (05:12)
[2019-11-03] MEDS ORDERED: NS 1000 ML 1,000 ML ONE (06:23)
[2019-11-03] MEDS: NS 1000 ML 1,000 ML IV SCH ×4 (06:56→20:37)
[2019-11-03] MEDS ORDERED: DEMEROL INJ ONE (08:00)
[2019-11-03] MEDS: DEMEROL INJ IVP PRN ×2 (08:10→20:50)
[2019-11-03] MEDS: FLAGYL IV PREMIX 500 MG BAG 500 MG/100 ML BAG IV SCH ×3 (08:11→20:37)
--- NOTE | 2019-11-03 11:49 | RAD ---
HISTORYSOBSTUDYPortable AP chestCOMPARISONJuly 2019FINDINGSThere is relatively limited inspiration compared to prior exams. There are increased interstitial lung markings at the right lung base. The left lung is grossly clear of acute disease. There is no obvious effusion. The heart and mediastinum are unremarkable.IMPRESSIONNew infiltrate at the right lung base that may represent a pneumonitisElectronically signed by: ERI GORDILLO (Nov 03, 2019 11:48:13)
--- NOTE | 2019-11-03 19:07 | DR.H&P ---
H&P - History & Physical for Day of: H&P Date: 11/03/19 - Chief Complaint Chief Complaint: intractable santiago, fever, right side pain - History of Present Illness History of Present Illness: PT IS 69 WF ER ADMISSION WITH CO RIGHT SIDE RIB AND ABDOMINAL PAIN WITH CO DIARRHEA SINCE SHE WAS IN HOSPITAL 2 WEEKS AGO. PT HAD PNEUMONIA WITH COVID NEGATIVE 2 WEEKS AGO. PT STATES SHE FELT BETTER AND HAD ONSET OF ABDOMINAL PAIN ON SUNDAY. PT DENIES ANY SOB, PT REPORTS "I THOUGHT I WAS HAVING A HEART ATTACK" "IT FELT LIKE GAS STUCK IN MY CHEST". PT HAD CT ABD PELVIS IN ER AND STARTED ON REGIMEN FOR DIVERTICULITIS. - Past Medical History Past Medical History: Hypertension, Dyslipidemia, Anxiety, COPD, Asthma, GERD, Arthritis, Headaches - Past Surgical History Surgical History: Abdominal Surgery, Appendectomy, Bowel Resection, Cholecystectomy, Hysterectomy - Family History Family Medical History: Diabetes Mellitus, [place], Coronary Artery Disease, Hypertension - Social History Does patient currently use any type of tobacco product: No Type of Tobacco Use: None Alcohol Use: None Drug Use: None - Medications Home Medications: almond Allergy (Verified 05/20/19 11:09) cefdinir [From Omnicef] Allergy (Verified 05/20/19 11:09) pittman Allergy (Verified 05/20/19 11:09) codeine Allergy (Verified 05/20/19 11:09) diphenhydramine [From Benadryl] Allergy (Verified 05/20/19 11:09) esomeprazole [From Nexium] Allergy (Verified 05/20/19 11:09) grape Allergy (Verified 05/20/19 11:09) hazelnut Allergy (Verified 05/20/19 11:09) hydroxyzine [From Atarax] Allergy (Verified 05/20/19 11:09) Iodine and Iodide Containing Produc Allergy (Verified 05/20/19 11:09) levofloxacin [From Levaquin] Allergy (Verified 05/20/19 11:09) nut - unspecified Allergy (Verified 05/20/19 11:09) Penicillins Allergy (Verified 05/20/19 11:09) Pork/Porcine Containing Products Allergy (Verified 05/20/19 11:09) rabeprazole [From Aciphex] Allergy (Verified 05/20/19 11:09) spinach Allergy (Verified 05/20/19 11:09) turkey Allergy (Verified 05/20/19 11:09) cinaman Allergy (Mild, Uncoded 05/20/19 11:09) RASH grains except for rice Allergy (Mild, Uncoded 05/20/19 11:09) RASH carbonated drinks Allergy (Unknown, Uncoded 05/20/19 11:09) CATFISH Allergy (Uncoded 05/20/19 11:09) GRAPES Allergy (Uncoded 05/20/19 11:09) red meats Allergy (Uncoded 05/20/19 11:09) - Review of Systems Constitutional: Fever, Chills Eyes: No Symptoms Reported ENT: No Symptoms Reported Respiratory: No Symptoms Reported Cardiovascular: No Symptoms Reported Gastrointestinal: Nausea, Abdominal Pain, Diarrhea Genitourinary: No Symptoms Reported Musculoskeletal: Back Pain Skin: No Symptoms Reported Neurological: No Symptoms Reported - Physical Exam Vital Signs: Temperature 98.6 F Pulse Rate [Right Radial] 71 Pulse Rate 111 Respiratory Rate 20 Blood Pressure [Left Arm] 92/52 Blood Pressure 150/91 O2 Sat by Pulse Oximetry 94 Oriented: Normal Eyes: Normal Ear: Normal Nose: Normal Throat: Normal Respiratory: RLL Diminished, LLL Diminished Cardiovascular: Normal : Normal Auscultation: Bowel Sounds: Normal Palpation: Normal Tenderness: RUQ, RLQ, Epigastric Skin: Decreased Turgur Musculoskeletal: Back:Thoracic, Back:Lumbar Psychiatric: Anxiety Affect: Anxious Speech Pattern: Clear, Appropriate - Assessment/Plan (1) Pneumonia Status: Acute Plan: ADMIT, RESP THERAPY. BLOOD AND SPUTUM CUTLURE. RAPID COVID NEGATIVE IN ER, DROP. PRECAUTIONS. SUPPLEMENTAL O2, STOOL STUDIES. VERIFY HOME MEDICATION AND ALLERGIES. CARDIAC ENZYMES AND EKG, CXR ON ADMISSION (2) Acute diverticulitis Status: Acute (3) Headache Status: Acute (4) COPD (chronic obstructive pulmonary disease) Qualifiers: Status: Chronic (5) GERD (gastroesophageal reflux disease) Status: Chronic (6) HTN (hypertension) Status: Chronic - Allergies Allergies/Adverse Reactions: Allergies Allergy/AdvReac Type Severity Reaction Status Date / Time almond Allergy Verified 05/20/19 11:09 cefdinir [From Omnicef] Allergy Verified 05/20/19 11:09 pittman Allergy Verified 05/20/19 11:09 codeine Allergy Verified 05/20/19 11:09 diphenhydramine Allergy Verified 05/20/19 11:09 [From Benadryl] esomeprazole [From Nexium] Allergy Verified 05/20/19 11:09 grape Allergy Verified 05/20/19 11:09 hazelnut Allergy Verified 05/20/19 11:09 hydroxyzine [From Atarax] Allergy Verified 05/20/19 11:09 Iodine and Iodide Containing Allergy Verified 05/20/19 11:09 Produc levofloxacin [From Levaquin] Allergy Verified 05/20/19 11:09 nut - unspecified Allergy Verified 05/20/19 11:09 Penicillins Allergy Verified 05/20/19 11:09 Pork/Porcine Containing Allergy Verified 05/20/19 11:09 Products rabeprazole [From Aciphex] Allergy Verified 05/20/19 11:09 spinach Allergy Verified 05/20/19 11:09 turkey Allergy Verified 05/20/19 11:09 cinaman Allergy Mild RASH Uncoded 05/20/19 11:09 grains except for rice Allergy Mild RASH Uncoded 05/20/19 11:09 carbonated drinks Allergy Unknown Uncoded 05/20/19 11:09 CATFISH Allergy Uncoded 05/20/19 11:09 GRAPES Allergy Uncoded 05/20/19 11:09 red meats Allergy Uncoded 05/20/19 11:09
[2019-11-03 20:01] LABS: CREATINE KINASE 96 Units/L (26-192); CREATINE KINASE MB < 1.0 ng/mL (0-4.0); TROPONIN I < 0.02 ng/mL (0-1.5)
[2019-11-04] MEDS: OFIRMEV IV 1000 MG VIAL 1,000 MG/100 ML VIAL IV PRN (02:07)
[2019-11-04] MEDS: FLAGYL IV PREMIX 500 MG BAG 500 MG/100 ML BAG IV SCH ×4 (03:53→20:27)
[2019-11-04] MEDS: NS 1000 ML 1,000 ML IV SCH ×3 (05:45→20:27)
[2019-11-04 06:27] LABS: BASOPHILS % (AUTO) 0.6 % (0.2-1.0); EOSINOPHILS # (AUTO) 0.9 x10^3/uL (0.0-0.2); EOSINOPHILS % (AUTO) 10.6 % (0.9-2.9); HEMATOCRIT 36.2 % (36.0-47.0); LYMPHOCYTES % (AUTO) 11.7 % (21.0-51.0); MEAN CORPUSCULAR HEMOGLOBIN 28.5 pg (27.0-34.0); MEAN CORPUSCULAR HGB CONC 33.2 g/dL (33.0-35.0); MEAN CORPUSCULAR VOLUME 85.8 fL (80.0-100.0); MEAN PLATELET VOLUME 6.8 fL (7.4-11.0); MONOCYTES # (AUTO) 0.4 x10^3/uL (0.3-0.8); MONOCYTES % (AUTO) 4.3 % (0.0-13.0); NEUTROPHILS # (AUTO) 6.1 x10^3/uL (2.2-4.8); NEUTROPHILS % (AUTO) 72.8 % (42.0-75.0); PLATELET COUNT 320 X10^3/uL (150.0-450.0); RED BLOOD COUNT 4.21 X10^6/uL (3.5-5.4); RED CELL DISTRIBUTION WIDTH 15.1 % (11.6-16.5); WHITE BLOOD COUNT 8.4 X10^3/uL (3.6-10.0)
[2019-11-04 06:34] LABS: ALANINE AMINOTRANSFERASE 32 Units/L (12-78); ALBUMIN 2.8 g/dL (3.4-5.0); ALKALINE PHOSPHATASE 68 Units/L (46-116); ASPARTATE AMINO TRANSFERASE 37 Units/L (15-37); BLOOD UREA NITROGEN 6 mg/dL (7-18); CALCIUM 8.1 mg/dL (8.5-10.1); CARBON DIOXIDE 24.3 mmol/L (21-32); CHLORIDE 105 mmol/L (98-107); COR CA(FOR HYPOALB) 9.1 mg/dL (8.5-10.1); COR NA(FOR HYPERGLY) 140 mmol/L (136-145); CREATININE 0.94 mg/dL (0.55-1.02); SODIUM 138 mmol/L (136-145); TOTAL PROTEIN 5.9 g/dL (6.4-8.2); eGFR NON BLACK RACES > 60 (>60)
[2019-11-04] MEDS: LOVENOX INJ 40 MG SYR SC SCH (09:41)
[2019-11-04] MEDS: VSL#3 PO SCH (09:41)
[2019-11-04] MEDS: PROVENTIL NEB TX 0.083% 2.5MG/ 3ML NEB SCH ×2 (14:00→17:28)
[2019-11-04] MEDS ORDERED: NORCO 5/325 MG TAB PO PRN (18:43)
[2019-11-04] MEDS ORDERED: K-DUR TAB 20 MEQ PO PRN (19:13)
[2019-11-04] MEDS ORDERED: MICRO K EXTEN CAP 10 MEQ PO PRN (19:13)
[2019-11-04] MEDS ORDERED: POTASSIUM CHL 60 MEQ/NS 0.45% 500 ML IV PRN (19:13)
[2019-11-04] MEDS ORDERED: POTASSIUM CHL 40 MEQ/NS 0.45% 500 ML IV PRN (19:13)
[2019-11-04] MEDS ORDERED: POTASSIUM CHLORIDE LIQ 20 MEQ UDC PO PRN (19:13)
[2019-11-04] MEDS ORDERED: KLOR-CON PO PRN (19:13)
[2019-11-04] MEDS ORDERED: K-RIDER 10 MEQ/NS 100 ML 10 MEQ/100 ML BAG IV PRN (19:13)
[2019-11-04] MEDS: ROCEPHIN VIAL 1 GRAM 1 G in NS 100 ML IV + SPIKE MINIBAG* 100 ML IV SCH (20:27)
[2019-11-04] MEDS: MAGNESIUM SULFATE 1 GRAM/100 mL PREMIX 1 GM/100 ML BAG IV PRN ×2 (22:31→23:55)
[2019-11-05] MEDS: PROVENTIL NEB TX 0.083% 2.5MG/ 3ML NEB SCH ×3 (00:01→12:00)
[2019-11-05] MEDS: FLAGYL IV PREMIX 500 MG BAG 500 MG/100 ML BAG IV SCH ×2 (03:07→08:45)
[2019-11-05] MEDS: OFIRMEV IV 1000 MG VIAL 1,000 MG/100 ML VIAL IV PRN (04:05)
[2019-11-05] MEDS: NS 1000 ML 1,000 ML IV SCH (05:06)
[2019-11-05 06:11] LABS: BASOPHILS % (AUTO) 0.6 % (0.2-1.0); EOSINOPHILS # (AUTO) 0.6 x10^3/uL (0.0-0.2); EOSINOPHILS % (AUTO) 10.4 % (0.9-2.9); HEMATOCRIT 35.8 % (36.0-47.0); HEMOGLOBIN 11.8 g/dL (12.0-16.0); LYMPHOCYTES # (AUTO) 1.8 X10^3/uL (1.3-2.9); LYMPHOCYTES % (AUTO) 29.5 % (21.0-51.0); MEAN CORPUSCULAR HEMOGLOBIN 28.5 pg (27.0-34.0); MEAN CORPUSCULAR HGB CONC 33.1 g/dL (33.0-35.0); MEAN CORPUSCULAR VOLUME 86.1 fL (80.0-100.0); MEAN PLATELET VOLUME 6.8 fL (7.4-11.0); MONOCYTES # (AUTO) 0.6 x10^3/uL (0.3-0.8); MONOCYTES % (AUTO) 9.2 % (0.0-13.0); NEUTROPHILS # (AUTO) 3.1 x10^3/uL (2.2-4.8); NEUTROPHILS % (AUTO) 50.3 % (42.0-75.0); PLATELET COUNT 318 X10^3/uL (150.0-450.0); RED BLOOD COUNT 4.16 X10^6/uL (3.5-5.4); RED CELL DISTRIBUTION WIDTH 15.3 % (11.6-16.5); WHITE BLOOD COUNT 6.2 X10^3/uL (3.6-10.0)
[2019-11-05 06:23] LABS: ALANINE AMINOTRANSFERASE 48 Units/L (12-78); ALBUMIN 2.8 g/dL (3.4-5.0); ALKALINE PHOSPHATASE 94 Units/L (46-116); ASPARTATE AMINO TRANSFERASE 42 Units/L (15-37); BLOOD UREA NITROGEN 4 mg/dL (7-18); CARBON DIOXIDE 24.6 mmol/L (21-32); CHLORIDE 106 mmol/L (98-107); COR NA(FOR HYPERGLY) 143 mmol/L (136-145); CREATININE 0.82 mg/dL (0.55-1.02); MAGNESIUM 1.9 mg/dL (1.7-2.9); SODIUM 141 mmol/L (136-145); eGFR NON BLACK RACES > 60 (>60)
[2019-11-05] MEDS: LOVENOX INJ 40 MG SYR SC SCH (08:46)
[2019-11-05] MEDS: VSL#3 PO SCH (08:47)
--- NOTE | 2019-11-05 09:46 | RAD ---
HISTORYFEVER, PNEUMONIA, HX COPDSTUDYCHEST, 1 [id number]/2020FINDINGSThe trachea is midline. Heart size is enlarged, unchanged. Improved aeration of the right lung. Reticular opacities within the left lung base potentially represent developing infiltrate or subsegmental atelectasis. No pleural effusion or pneumothorax.No acute osseous abnormality.IMPRESSIONImproved aeration of the right lung with interval development of a few reticular opacities within the left lung base potentially representing an infiltrate versus subsegmental atelectasis.Cardiomegaly.Electronically signed by: DERRICK KING (Nov 05, 2019 09:45:32)
[2019-11-05] MEDS: ROCEPHIN VIAL 1 GRAM 1 G in NS 100 ML IV + SPIKE MINIBAG* 100 ML IV SCH (10:05)
[2019-11-05 13:41] VITALS: BP 140/63
== END 2019-11-05 03:40 | disposition home or self-care (01) | DRG 194 ==
LOC: ER 22:01 → OBS 11-03 04:33 → MED/SURG 11-03 14:08
PROVIDERS: ADMIT Internal Medicine; ATTEND Internal Medicine
CPT/HCPCS: 36415; 71010; 71045; 74176; 80053; 80162; 81003; 82150; 82270; 82550; 82553; 82728; 83690; 83735; 84484; 85025; 85652; 86140; 87040; 87045; 87324; 87338; 87427; 87449; 87493; 87635; 87899; 93005; 94640; 94760; 96365; 96374; 96375; 97161; 99284; A4216; A4222; J0131; J0696; J1650; J2175; J2405; J3475; J7030; J7050; J7613; S0030

== ENCOUNTER 2020-04-17 11:36 | Inpatient (IN) ==
[2020-04-17] MEDS ORDERED: TYLENOL 500 MG TAB EXTRA STRENGTH PO ONE (12:04)
[2020-04-17] MEDS ORDERED: NS 1000 ML 2,000 ML ONE (12:05)
[2020-04-17] MEDS ORDERED: TYLENOL 500 MG TAB EXTRA STRENGTH PO STA (12:07)
--- NOTE | 2020-04-17 12:11 | DR.SOBA ---
HPI - Time Seen Time seen: 12:00 - Primary Care Physician Primary Care Physician: stephan baez - Complaints Chief Complaint Doctors Comments: Patient is complaining of SOB with nausea. Family members states she has a cough and has been talking out her head this morning. Patient states her tested positive for COVID yesterday. She denies chest pain, diarrhea or hematuria. She denies tobacco, alcohol or drug usage. She is a patient of [facility]. States her appetite is good. Patient states she has taken Rocephin many times without problems even though she say she is allergic to Omicef. Patient also states she can take zithromax without problems. Chief Complaint:: SOB, fever, altered mental status, cough, fatigue. - COVID-19 Coronavirus risk:travel/contact w/high risk person: Yes Has patient experienced Coronavirus symptoms: Yes Coronavirus symptoms experienced: Fever, Coughing, Shortness of Breath - Reviewed Nurses Notes Reviewed: Yes - Source History Provided: Patient - Mode of Arrival Mode of Arrival: Wheelchair - Timing Onset of Chief Complaint: 04/14/20 - Duration Duration: Days (1) - Context Onset:: At Rest PE Risk Factors:: None History of:: COPD Currently on:: Neither Prehospital Care:: None - Modifying Factors Worsens:: Nothing Improves:: Nothing - Associated Signs and Symptoms Associated Signs and Symptoms: Fever, Cough - If Cough Cough: Nonproductive PMH - PMH Past Medical History: Yes Past Medical History: Asthma, COPD, Hypertension, Sleep Apnea Past Medical History Comment: Atrial flutter Past Surgical History: Yes Surgical History: Abdominal Surgery, Bowel Resection, Other Past Surgical History Comment: Back and neck surgeries, Hernia removal, Breast reduction, "Tummy tuck" - Family History History of Family Medical Conditions: Yes (Patient unsure) Family Medical History: Diabetes Mellitus, [place], Coronary Artery Disease, Hypertension - Social History Alcohol Use: None Do you use any recreational Drugs:: No - Travel Risk Coronavirus risk:travel/contact w/high risk person: Yes Has patient experienced Coronavirus symptoms: Yes Coronavirus symptoms experienced: Fever, Coughing, Shortness of Breath - infectious screening In the last 2 months have you had wt loss of >10#?: NO Have you had fever, night sweats or hemotysis?: Yes Have you traveled outside the country in the last 6 months?: No Isolation: Droplet ROS - Review of Systems Constitutional: No Symptoms Reported, Fever, Weakness Eyes: No Symptoms Reported ENTM: No Symptoms Reported Respiratoy: No Symptoms Reported, Non-Productive Cough, Short of Breath Cardiovascular: No Symptoms Reported Gastrointestinal/Abdominal: No Symptoms Reported, Nausea. negative: See HPI, Abdominal Pain, Constipation, Diarrhea, Vomiting, Food Intolerance, Other Genitourinary: No Symptoms Reported. negative: See HPI, Discharge, Dysuria, Frequency, Hematuria, Pain, Bleeding, Other Neurological: No Symptoms Reported Musculoskeletal: No Symptoms Reported Integumentary: No Symptoms Reported. negative: See HPI, Change in Color, Change in Hair/Nails, Dryness, Lesions, Lumps, Rash, Itching, Wound, Bruises, Juandice, Other Hematologic/Lymphatic: No Symptoms Reported Endocrine: No Symptoms Reported Psychiatric: No Symptoms Reported. negative: See HPI, Anxiety, Depression, Hallucinations, Excessive crying, Suicidal, Other PE - General Limitations: No Limitations General Appearance: Alert, In Distress (moderate) - Head Head Exam: Normal Inspection, Atraumatic, Normocephalic - Eyes Eye exam: Normal Appearance, PERRL, EOMI. negative: Scleral Icterus, Conjunctival Injection, Nystagmus, Miosis, Mydrasis, Periorbital Swelling, Periorbital Tenderness, Other - ENT ENT Exam: Normal Exam, Normal Oropharynx, Normal External Ear Exam, Mucous Membranes Moist, TM's Normal Bilaterally - Neck Neck Exam: Normal Inspection, Full ROM, Trachea Midline. negative: Tenderness, Meningismus, Lymphadenopathy, Thyromegaly, Other - Chest Chest Inspection: Normal Inspection, Symmetric Chest Wall Rise. negative: Tenderness, Rash, Abscess, Other - Respiratory Respiratory Exam: Normal Lung Sounds Bilat Respiratory Exam: Bilateral Decreased Breath Sounds, Left Rales - Cardiovascular Cardiovascular Exam: Regular Rate, Normal Rhythm, Tachycardia, Normal Heart Sounds, Systolic Murmur - Abdominal Exam Abdominal Exam: Normal Inspection, Normal Bowel Sounds, Soft, Tenderness (slight RUQ tenderness) Abdominal Tenderness: RUQ, Mild - Extremities Extremities Exam: Normal Inspection, Full ROM, Normal Capillary Refill. negative: Tenderness, Edema, Joint Swelling, Calf Tenderness, Other - Back Back Exam: Normal Inspection, Full ROM. negative: Tenderness, (R) CVA Tenderness, (L) CVA Tenderness, Muscle Spasm, Paraspinal Tenderness, Vertebral Tenderness, Rashes, (R) Sciatic Notch Tenderness, (L) Sciatic Notch Tendern, (R) Straight Leg Raise, (L) Straight Leg Raise, Other - Neurologic Neurological Exam: Alert, Oriented X3, CN II-XII Intact, Reflexes Normal. negative: Normal Gait (gait not tested) - Psychiatric Psychiatric Exam: Normal Affect, Normal Mood. negative: Depressed, Agitated, Anxious, Flat Affect, Manic, Homicidal Ideation, Suicidal Ideation, Other - Skin Skin Exam: Warm, Dry, Intact, Normal Color. negative: Rash, Cyanosis, Diaphoresis, Erythema, Pallor, Mottled, Other - Vital Signs Vitals: Temperature 102.1 F Pulse Rate 120 Respiratory Rate 32 Blood Pressure [Left Arm] 120/73 Blood Pressure 168/76 O2 Sat by Pulse Oximetry 86 Course - Reevaluation 1st: Improved (improved breathing with oxygen 2 liters.) - Consultation Called: 13:43 Call Returned: 13:43 (Dr. Rogers to admit) - Education/Counseling Education/Counseling: Patient Educated On: Treatment, Diagnosis, Needs for Follow Up ROR - Labs Reviewed Laboratory Results Reviewed?: Yes (All labs and x-ray results reviewed and discussed with patient) Result Diagrams: 04/17/20 12:25 04/17/20 12:25 - XRAY XRAY Interpreted by: Radiologist (CXR: No acute change; no acute chest abnormality.) - EKG Rate: 119 [place]: RAD Rhythm: NSR, ST Block: None Hypertrophy: None ST: Nonsp - Labs Reviewed Laboratory: WBC 7.4 X10^3/uL (3.6-10.0) 04/17/20 12:25 RBC 5.11 X10^6/uL (3.5-5.4) 04/17/20 12:25 Hgb 14.2 g/dL (12.0-16.0) 04/17/20 12:25 Hct 43.1 % (36.0-47.0) 04/17/20 12:25 MCV 84.3 fL (80.0-100.0) 04/17/20 12:25 MCH 27.8 pg (27.0-34.0) 04/17/20 12:25 MCHC 33.0 g/dL (33.0-35.0) 04/17/20 12:25 RDW 16.9 % (11.6-16.5) H 04/17/20 12:25 Plt Count 303 X10^3/uL (150.0-450.0) 04/17/20 12:25 MPV 6.5 fL (7.4-11.0) L 04/17/20 12:25 Neut % (Auto) 77.9 % (42.0-75.0) H 04/17/20 12:25 Lymph % (Auto) 12.8 % (21.0-51.0) L 04/17/20 12:25 [place] % (Auto) 8.8 % (0.0-13.0) 04/17/20 12:25 Eos % (Auto) 0.1 % (0.9-2.9) L 04/17/20 12:25 Baso % (Auto) 0.4 % (0.2-1.0) 04/17/20 12:25 Neut # (Auto) 5.7 x10^3/uL (2.2-4.8) H 04/17/20 12:25 Lymph # (Auto) 0.9 X10^3/uL (1.3-2.9) L 04/17/20 12:25 [place] # (Auto) 0.6 x10^3/uL (0.3-0.8) 04/17/20 12:25 Eos # (Auto) 0.0 x10^3/uL (0.0-0.2) 04/17/20 12:25 Baso # (Auto) 0.0 X10^3/uL (0.0-0.1) 04/17/20 12:25 Absolute Nucleated RBC 0.1 /100WBC 04/17/20 12:25 PT 12.5 SECONDS (11.8-14.3) 04/17/20 12:25 INR Target Range - 04/17/20 12:25 INR 0.96 (0.8-1.3) 04/17/20 12:25 APTT 29.3 SECONDS (22.9-36.5) 04/17/20 12:25 PTT Comment - 04/17/20 12:25 Sample Site Lr 04/17/20 12:33 ABG pH 7.490 (7.35-7.45) H 04/17/20 12:33 ABG pCO2 30.0 mmHg (35.0-45.0) L 04/17/20 12:33 ABG pO2 59.0 mmHg (80.0-100.0) L 04/17/20 12:33 ABG HCO3 22.9 mmol/L (22-26) 04/17/20 12:33 ABG O2 Saturation 92.0 % (90-100) 04/17/20 12:33 ABG Base Excess 0.3 mmol/L (-2.0-2.0) 04/17/20 12:33 Oneil Test Pos 04/17/20 12:33 A-a Gradient 53.0 mmHg 04/17/20 12:33 FiO2 21.0 04/17/20 12:33 Blood Gas Comments Pt nia well mt 04/17/20 12:33 Sodium 137 mmol/L (136-145) 04/17/20 12:25 Corrected Sodium TNP 04/17/20 12:25 Potassium 4.3 mmol/L (3.5-5.1) 04/17/20 12:25 Chloride 101 mmol/L (98-107) 04/17/20 12:25 Carbon Dioxide 25.2 mmol/L (21-32) 04/17/20 12:25 BUN 20 mg/dL (7-18) H 04/17/20 12:25 Creatinine 1.17 mg/dL (0.55-1.02) H 04/17/20 12:25 Est GFR (MDRD) Af Amer 59 (>60) 04/17/20 12:25 Est GFR (MDRD) Non-Af 49 (>60) L 04/17/20 12:25 Glucose 88 mg/dL (65-99) 04/17/20 12:25 Lactic Acid 2.4 mmol/L (0.4-2.0) H 04/17/20 12:25 Calcium 8.2 mg/dL (8.5-10.1) L 04/17/20 12:25 Corrected Calcium 8.8 mg/dL (8.5-10.1) 04/17/20 12:25 Magnesium 1.7 mg/dL (1.7-2.9) 04/17/20 12:25 Ferritin 153 ng/mL (8-252) 04/17/20 12:25 Total Bilirubin 0.30 mg/dL (0.2-1.0) 04/17/20 12:25 AST 25 Units/L (15-37) 04/17/20 12:25 ALT 28 Units/L (12-78) 04/17/20 12:25 Alkaline Phosphatase 87 Units/L (46-116) 04/17/20 12:25 Creatine Kinase 114 Units/L (26-192) 04/17/20 12:25 CK-MB (CK-2) < 1.0 ng/mL (0-4.0) 04/17/20 12:25 CK/CKMB % Calc 0.9 % (<4) 04/17/20 12:25 Troponin I < 0.02 ng/mL (0-1.5) 04/17/20 12:25 C-Reactive Protein 47.70 mg/L (0-3.0) H 04/17/20 12:25 Total Protein 7.1 g/dL (6.4-8.2) 04/17/20 12:25 Albumin 3.2 g/dL (3.4-5.0) L 04/17/20 12:25 Globulin 3.9 g/dL (2.5-4.5) 04/17/20 12:25 Albumin/Globulin Ratio 0.8 Ratio (1.1-2.1) L 04/17/20 12:25 Digoxin < 0.20 ng/mL (0.9-2) L 04/17/20 12:25 SARS CoV-2 RNA Rapid SASHA Positive (NEGATIVE) A 04/17/20 12:24 Opioid - Opioid Risk Tool Age (Pepe box if 16-45): No History of Preadolescent Sexual Abuse: No Total: 0 Total Score Risk Category: Low Risk - Diagnosis Discharge Problem: COVID-19 virus infection, Hypoxemia, COPD with exacerbation, Bronchitis due to COVID-19 virus, Fever due to COVID-19 Chronic kidney disease (CKD) Qualifiers: Chronic kidney disease stage: stage 2 (mild) Qualified Code(s): N18.2 - Chronic kidney disease, stage 2 (mild) - Discharge Plan Disposition: ADMITTED INPATIENT Condition: Fair
[2020-04-17] MEDS ORDERED: NS 1000 ML 1,000 ML IV ONE ×2 (12:27→16:11)
[2020-04-17] MEDS ORDERED: ROCEPHIN VIAL 1 GRAM 1 G in NS 100 ML IV + SPIKE MINIBAG* 100 ML IV ONE (12:28)
[2020-04-17] MEDS ORDERED: ROCEPHIN 1 GRAM IV PREMIX 1 G/50 ML IV.SOLN. IV ONE (12:31)
[2020-04-17] MEDS ORDERED: DUONEB 0.5 MG/3 MG (3 mL) NEB ONE ×2 (12:39→12:44)
[2020-04-17 12:41] LABS: BASOPHILS % (AUTO) 0.4 % (0.2-1.0); EOSINOPHILS % (AUTO) 0.1 % (0.9-2.9); HEMATOCRIT 43.1 % (36.0-47.0); HEMOGLOBIN 14.2 g/dL (12.0-16.0); LYMPHOCYTES # (AUTO) 0.9 X10^3/uL (1.3-2.9); LYMPHOCYTES % (AUTO) 12.8 % (21.0-51.0); MEAN CORPUSCULAR HEMOGLOBIN 27.8 pg (27.0-34.0); MEAN CORPUSCULAR VOLUME 84.3 fL (80.0-100.0); MEAN PLATELET VOLUME 6.5 fL (7.4-11.0); MONOCYTES # (AUTO) 0.6 x10^3/uL (0.3-0.8); MONOCYTES % (AUTO) 8.8 % (0.0-13.0); NEUTROPHILS # (AUTO) 5.7 x10^3/uL (2.2-4.8); NEUTROPHILS % (AUTO) 77.9 % (42.0-75.0); PLATELET COUNT 303 X10^3/uL (150.0-450.0); RED BLOOD COUNT 5.11 X10^6/uL (3.5-5.4); RED CELL DISTRIBUTION WIDTH 16.9 % (11.6-16.5); WHITE BLOOD COUNT 7.4 X10^3/uL (3.6-10.0)
--- NOTE | 2020-04-17 12:44 | RAD ---
HISTORYChest painSTUDYPortable AP [id number]/14/2021FINDINGSContinued normal heart size with no evidence for developing pulmonar y, mediastinal or pleural disease.IMPRESSIONNo change; no acute chest abnormality identified.Electron ically signed by: SETH CASAS (Apr 17, 2020 12:42:41)
[2020-04-17 12:49] LABS: ABG ALLEN TEST POS; ABG BASE EXCESS 0.3 mmol/L (-2.0-2.0); ABG HCO3 22.9 mmol/L (22-26)
[2020-04-17 12:58] LABS: ALANINE AMINOTRANSFERASE 28 Units/L (12-78); ALBUMIN 3.2 g/dL (3.4-5.0); ALKALINE PHOSPHATASE 87 Units/L (46-116); ASPARTATE AMINO TRANSFERASE 25 Units/L (15-37); BLOOD UREA NITROGEN 20 mg/dL (7-18); CALCIUM 8.2 mg/dL (8.5-10.1); CARBON DIOXIDE 25.2 mmol/L (21-32); CHLORIDE 101 mmol/L (98-107); COR CA(FOR HYPOALB) 8.8 mg/dL (8.5-10.1); CREATININE 1.17 mg/dL (0.55-1.02); SODIUM 137 mmol/L (136-145); TOTAL PROTEIN 7.1 g/dL (6.4-8.2); eGFR NON BLACK RACES 49 (>60)
[2020-04-17 13:00] LABS: LACTIC ACID 2.4 mmol/L (0.4-2.0)
[2020-04-17] MEDS ORDERED: NS 1000 ML 1,000 ML IV SCH (13:00)
[2020-04-17 13:11] LABS: DIGOXIN < 0.20 ng/mL (0.9-2)
[2020-04-17 13:13] LABS: CKMB % 0.9 % (<4); CREATINE KINASE 114 Units/L (26-192); CREATINE KINASE MB < 1.0 ng/mL (0-4.0); MAGNESIUM 1.7 mg/dL (1.7-2.9); TROPONIN I < 0.02 ng/mL (0-1.5)
[2020-04-17] MEDS ORDERED: ADVIL TAB 200 MG PO ONE (13:27)
[2020-04-17] MEDS ORDERED: MOTRIN TAB 600 MG PO ONE (13:28)
[2020-04-17] MEDS ORDERED: REMDESIVIR 200 MG in NS 250 ML IV 250 ML IV ONE (14:04)
[2020-04-17] MEDS ORDERED: NS 250 ML IV 250 ML IV ONE (14:47)
[2020-04-17] MEDS ORDERED: REMDESIVIR IV ONE (14:47)
[2020-04-17] MEDS ORDERED: IVERMECTIN PO ONE (16:00)
[2020-04-17] MEDS ORDERED: SOLU-Medrol 125 MG VIAL ONE ×2 (16:25→19:58)
[2020-04-17 16:28] VITALS: BMI 31.7
[2020-04-17] MEDS: SOLU-Medrol 125 MG VIAL IVP SCH ×2 (16:29→21:06)
[2020-04-17] MEDS: ASCORBIC ACID INJ MULTI-DOSE VIAL 1,500 MG in NS 50 ML IV 50 ML IV SCH ×2 (16:30→20:25)
[2020-04-17 16:34] LABS: ABG BASE EXCESS -2.2 mmol/L (-2.0-2.0); ABG HCO3 22.4 mmol/L (22-26)
[2020-04-17 16:35] LABS: ABG ALLEN TEST POS
[2020-04-17] MEDS ORDERED: IVERMECTIN ONE (16:37)
[2020-04-17] MEDS ORDERED: NS 50 ML IV + SPIKE MINIBAG* 0 ML IV ONE (16:37)
[2020-04-17] MEDS ORDERED: NS 50 ML IV 50 ML IV ONE ×2 (16:39→19:59)
[2020-04-17] MEDS ORDERED: ASCORBIC ACID INJ MULTI-DOSE VIAL IV ONE ×2 (16:39→19:59)
[2020-04-17] MEDS ORDERED: XOPENEX 1.25 MG/3 ML NEBULE NEB SCH (17:00)
[2020-04-17 17:27] LABS: BILIRUBIN,URINE NEGATIVE (NEGATIVE); BLOOD/HEMOGLOBIN,URINE NEGATIVE (NEGATIVE); GLUCOSE, URINE NEGATIVE (NEGATIVE); KETONES,URINE NEGATIVE (NEGATIVE); LEUKOCYTE ESTERASE ,URINE NEGATIVE (NEGATIVE); NITRITES,URINE NEGATIVE (NEGATIVE); PROTEIN,URINE NEGATIVE (NEGATIVE); UROBILINOGEN,URINE NORMAL (NORMAL)
[2020-04-17 17:29] LABS: APPEARANCE,URINE CLEAR (CLEAR); COLOR,URINE YELLOW (YELLOW)
[2020-04-17] MEDS: ACCUNEB 1.25 MG NEBULE NEB SCH ×2 (17:40→21:45)
[2020-04-17] MEDS ORDERED: ROBITUSSIN (PLAIN) ONE ×2 (17:43→19:58)
[2020-04-17] MEDS ORDERED: NS 1/2 1000 ML IV 1,000 ML IV ONE (17:43)
[2020-04-17] MEDS: ROBITUSSIN (PLAIN) PO SCH ×2 (17:54→20:25)
[2020-04-17] MEDS: NS 1/2 1000 ML IV 1,000 ML IV SCH (17:55)
[2020-04-17] MEDS ORDERED: POTASSIUM CHLORIDE LIQ 20 MEQ UDC PO PRN (18:27)
[2020-04-17] MEDS ORDERED: K-RIDER 10 MEQ/NS 100 ML 10 MEQ/100 ML BAG IV PRN (18:27)
[2020-04-17] MEDS ORDERED: KLOR-CON PO PRN (18:27)
[2020-04-17] MEDS ORDERED: K-DUR TAB 20 MEQ PO PRN (18:27)
[2020-04-17] MEDS ORDERED: POTASSIUM CHL 40 MEQ/NS 0.45% 500 ML IV PRN (18:27)
[2020-04-17] MEDS ORDERED: MICRO K EXTEN CAP 10 MEQ PO PRN (18:27)
[2020-04-17] MEDS ORDERED: POTASSIUM CHL 60 MEQ/NS 0.45% 500 ML IV PRN (18:27)
[2020-04-17] MEDS ORDERED: THIAMINE HCL INJ ONE (19:58)
[2020-04-17] MEDS ORDERED: MAGNESIUM SULFATE 1 GRAM/100 mL PREMIX 2 G/200 ML BAG IV ONE (19:59)
[2020-04-17] MEDS ORDERED: ULTRAM ONE (20:22)
[2020-04-17] MEDS: ULTRAM PO PRN (20:25)
[2020-04-17] MEDS: THIAMINE HCL INJ IVP SCH (20:25)
[2020-04-17] MEDS: ELIQUIS PO SCH (20:25)
[2020-04-17] MEDS: MILK OF MAGNESIA PO SCH (21:03)
[2020-04-17] MEDS: MAGNESIUM SULFATE 1 GRAM/100 mL PREMIX 1 GM/100 ML BAG IV PRN ×2 (21:30→23:27)
[2020-04-17] MEDS: BROVANA IN SCH (21:45)
[2020-04-17] MEDS: PULMICORT NEB TX 0.5 MG NEB SCH (21:45)
[2020-04-18] MEDS ORDERED: NS 50 ML IV 50 ML IV ONE (02:16)
[2020-04-18] MEDS ORDERED: ASCORBIC ACID INJ MULTI-DOSE VIAL IV ONE ×2 (02:16→20:16)
[2020-04-18] MEDS: ASCORBIC ACID INJ MULTI-DOSE VIAL 1,500 MG in NS 50 ML IV 50 ML IV SCH ×4 (02:48→20:32)
[2020-04-18] MEDS ORDERED: ULTRAM ONE (02:51)
[2020-04-18] MEDS: ULTRAM PO PRN (02:58)
[2020-04-18] MEDS ORDERED: NS 1/2 1000 ML IV 1,000 ML IV ONE (03:00)
[2020-04-18] MEDS ORDERED: SOLU-Medrol 125 MG VIAL ONE ×3 (04:12→20:15)
[2020-04-18] MEDS: NS 1/2 1000 ML IV 1,000 ML IV SCH ×3 (04:33→19:43)
[2020-04-18] MEDS: SOLU-Medrol 125 MG VIAL IVP SCH ×3 (05:18→20:59)
[2020-04-18 06:12] LABS: BASOPHILS % (AUTO) 0.5 % (0.2-1.0); HEMATOCRIT 39.9 % (36.0-47.0); LYMPHOCYTES # (AUTO) 0.6 X10^3/uL (1.3-2.9); LYMPHOCYTES % (AUTO) 18.7 % (21.0-51.0); MEAN CORPUSCULAR HEMOGLOBIN 27.8 pg (27.0-34.0); MEAN CORPUSCULAR HGB CONC 32.5 g/dL (33.0-35.0); MEAN CORPUSCULAR VOLUME 85.4 fL (80.0-100.0); MEAN PLATELET VOLUME 6.8 fL (7.4-11.0); MONOCYTES # (AUTO) 0.1 x10^3/uL (0.3-0.8); NEUTROPHILS # (AUTO) 2.6 x10^3/uL (2.2-4.8); NEUTROPHILS % (AUTO) 77.8 % (42.0-75.0); PLATELET COUNT 270 X10^3/uL (150.0-450.0); RED BLOOD COUNT 4.67 X10^6/uL (3.5-5.4); RED CELL DISTRIBUTION WIDTH 17.6 % (11.6-16.5); WHITE BLOOD COUNT 3.4 X10^3/uL (3.6-10.0)
[2020-04-18 06:14] LABS: ALANINE AMINOTRANSFERASE 24 Units/L (12-78); ALBUMIN 2.8 g/dL (3.4-5.0); ALKALINE PHOSPHATASE 85 Units/L (46-116); ASPARTATE AMINO TRANSFERASE 20 Units/L (15-37); BLOOD UREA NITROGEN 15 mg/dL (7-18); CALCIUM 7.9 mg/dL (8.5-10.1); CARBON DIOXIDE 17.4 mmol/L (21-32); CHLORIDE 102 mmol/L (98-107); COR CA(FOR HYPOALB) 8.9 mg/dL (8.5-10.1); COR NA(FOR HYPERGLY) 140 mmol/L (136-145); CREATININE 1.15 mg/dL (0.55-1.02); MAGNESIUM 2.1 mg/dL (1.7-2.9); SODIUM 135 mmol/L (136-145); TOTAL PROTEIN 6.4 g/dL (6.4-8.2); eGFR NON BLACK RACES 50 (>60)
[2020-04-18 06:25] LABS: ABG BASE EXCESS -6.2 mmol/L (-2.0-2.0)
[2020-04-18 06:26] LABS: ABG ALLEN TEST POSS; ABG HCO3 17.3 mmol/L (22-26)
--- NOTE | 2020-04-18 06:44 | RAD ---
HISTORYcovidSTUDYPortable AP [id number]/16/2021FINDINGSContinued normal heart size. The left lung remains essentially clear . There is slight interstitial density developing in the right lower lobe. No segmental or lobar cons olidation, edema or pneumothorax.IMPRESSIONInterval development of minimal right lower lobe atelectas is. No localized pneumonia is demonstrated.Electronically signed by: SETH CASAS (Apr 18, 2020 06: 41:54)
[2020-04-18] MEDS: ROBITUSSIN (PLAIN) PO SCH (08:23)
[2020-04-18] MEDS: ELIQUIS PO SCH ×2 (08:23→20:32)
[2020-04-18] MEDS: PEPCID 20 MG IV PREMIX* 20 MG/50 ML BAG IV SCH (08:23)
[2020-04-18] MEDS: ROCEPHIN VIAL 1 GRAM 1 G in NS 100 ML IV + SPIKE MINIBAG* 100 ML IV SCH (08:25)
[2020-04-18] MEDS: THIAMINE HCL INJ IVP SCH ×2 (08:52→20:33)
[2020-04-18] MEDS: ZITHROMAX INJ 500 MG VIAL 250 MG in NS 250 ML IV 250 ML IV SCH (08:57)
[2020-04-18] MEDS: ZINC SULFATE PO SCH (08:58)
[2020-04-18] MEDS: VITAMIN D3 125 mcg (5,000 UNITS) PO SCH (08:58)
[2020-04-18] MEDS ORDERED: DIFLUCAN PO SCH (09:00)
[2020-04-18] MEDS: MILK OF MAGNESIA PO SCH ×2 (09:12→20:33)
[2020-04-18] MEDS: BROVANA IN SCH ×2 (10:50→20:15)
[2020-04-18] MEDS: PULMICORT NEB TX 0.5 MG NEB SCH ×2 (11:00→20:20)
[2020-04-18] MEDS: ACCUNEB 1.25 MG NEBULE NEB SCH ×3 (11:00→20:20)
--- NOTE | 2020-04-18 11:16 | DR.H&P ---
H&P - History & Physical for Day of: H&P Date: 04/17/20 - Chief Complaint Chief Complaint: FEVER, SOB, COUGH, WEAKNESS - History of Present Illness History of Present Illness: PTIS 70 WF, ER ADMISSION WITH CO SOB with nausea. Family members states she has a cough and has been talking out her head this morning. Patient states her tested positive for COVID yesterday. She denies chest pain, diarrhea or hematuria. She denies tobacco, alcohol or drug usage. States her appetite is good. Patient states she has taken Rocephin many times without problems even though she say she is allergic to Omicef. Patient also states she can take zithromax without problems. PT HAS PMH OF HTN, COPD, DENISE, OA, AFIB, DM. PT ADMITTED FOR TREATMENT OF ACUTE COVID 19 PNEUMONIA WITH SEPSIS. - Past Medical History Past Medical History: Anxiety, Arthritis, Asthma, COPD, Diabetes, GERD, Headaches, Hypertension, PUD, Sleep Apnea - Past Surgical History Surgical History: Bowel Resection, Hysterectomy - Family History Family Medical History: Diabetes Mellitus, [place], Coronary Artery Disease, Hypertension - Social History Does patient currently use any type of tobacco product: No Have you used tobacco products in the last 12 months: No Alcohol Use: None Drug Use: None - Medications Home Medications: almond Allergy (Verified 05/20/19 11:09) cefdinir [From Omnicef] Allergy (Verified 05/20/19 11:09) pittman Allergy (Verified 05/20/19 11:09) codeine Allergy (Verified 05/20/19 11:09) diphenhydramine [From Benadryl] Allergy (Verified 05/20/19 11:09) esomeprazole [From Nexium] Allergy (Verified 05/20/19 11:09) fluconazole Allergy (Verified 12/17/19 08:02) hydroxyzine [From Atarax] Allergy (Verified 05/20/19 11:09) influenza virus vaccine ts [id number] (36 mos,up) [From Fluarix] Allergy (Verified 12/17/19 08:02) Iodine and Iodide Containing Produc Allergy (Verified 05/20/19 11:09) levofloxacin [From Levaquin] Allergy (Verified 05/20/19 11:09) losartan Allergy (Verified 12/17/19 08:02) morphine Allergy (Verified 12/17/19 08:02) Penicillins Allergy (Verified 05/20/19 11:09) Pork/Porcine Containing Products Allergy (Verified 05/20/19 11:09) potassium [From Potassimin] Allergy (Verified 12/17/19 08:02) prednisone Allergy (Verified 12/17/19 08:02) rabeprazole [From Aciphex] Allergy (Verified 05/20/19 11:09) spinach Allergy (Verified 05/20/19 11:09) sulfacetamide Allergy (Verified 12/17/19 08:02) turkey Allergy (Verified 05/20/19 11:09) cinaman Allergy (Mild, Uncoded 05/20/19 11:09) RASH carbonated drinks Allergy (Unknown, Uncoded 05/20/19 11:09) CATFISH Allergy (Uncoded 05/20/19 11:09) GRAPES Allergy (Uncoded 05/20/19 11:09) CONTINUE taking the following medications Estrogens Conjucated 1.5 mg PO QHS 04/17/20 [History] diltiazem HCl [Cardizem] 30 mg PO QHS 04/17/20 [History] dupilumab [Dupixent Syringe] See Rx Instructions .ROUTE .COMPLEX 04/17/20 [History] hydrochlorothiazide [HydroDiuril] 25 mg PO DAILY 04/17/20 [History] ondansetron HCl 8 mg PO Q8H PRN 04/17/20 [History] - Review of Systems Constitutional: Fever, Chills, Weakness, Malaise Eyes: No Symptoms Reported ENT: No Symptoms Reported Respiratory: Cough, Shortness of Breath, SOB with Excertion, Wheezing Cardiovascular: Palpitations Gastrointestinal: Nausea Genitourinary: No Symptoms Reported Musculoskeletal: No Symptoms Reported Skin: No Symptoms Reported Neurological: Weakness - Physical Exam Vital Signs: Temperature 98.7 F Pulse Rate [Right Radial] 66 Pulse Rate 60 Respiratory Rate 26 Blood Pressure [Left Arm] 96/52 Blood Pressure 96/59 O2 Sat by Pulse Oximetry 97 Oriented: Normal Eyes: Normal Ear: Normal Nose: Normal Throat: Dry Respiratory: Diminished Throughout Cardiovascular: Normal : Normal Auscultation: Bowel Sounds: Normal Palpation: Normal Tenderness: Normal Skin: Decreased [place]urgur Musculoskeletal: Back:Thoracic, Back:Lumbar Psychiatric: Anxiety Mood Description: Anxious Affect: Anxious Speech Pattern: Appropriate, Delayed. negative: Slurred - Assessment/Plan (1) COVID-19 virus infection Status: Acute Plan: COVID 19 WITH SEPSIS, IV ATBX THERAPY. RESP THERAPY, SUPPLEMENTAL O2, IV HYDRATION. IV SOLU MEDROL, IV REMDESIVIR, CONVALESCENT PLASMA. CE, EKG, BP CONTROL, VERIFY HOME MEDICATIONS. 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 Qualified Code(s): M47.12 - Other spondylosis with myelopathy, cervical region Status: Chronic (6) COPD (chronic obstructive pulmonary disease) Qualifiers: COPD type: unspecified COPD Qualified Code(s): J44.9 - Chronic obstructive pulmonary disease, unspecified Status: Chronic - Allergies Allergies/Adverse Reactions: Allergies Allergy/AdvReac Type Severity Reaction Status Date / Time almond Allergy Verified 05/20/19 11:09 cefdinir [From Omnicef] Allergy Verified 05/20/19 11:09 pittman Allergy Verified 05/20/19 11:09 codeine Allergy Verified 05/20/19 11:09 diphenhydramine Allergy Verified 05/20/19 11:09 [From Benadryl] esomeprazole [From Nexium] Allergy Verified 05/20/19 11:09 fluconazole Allergy Verified 12/17/19 08:02 hydroxyzine [From Atarax] Allergy Verified 05/20/19 11:09 influenza virus vaccine ts Allergy Verified 12/17/19 08:02 [id number] (36 mos,up) [From Fluarix] Iodine and Iodide Containing Allergy Verified 05/20/19 11:09 Produc levofloxacin [From Levaquin] Allergy Verified 05/20/19 11:09 losartan Allergy Verified 12/17/19 08:02 morphine Allergy Verified 12/17/19 08:02 Penicillins Allergy Verified 05/20/19 11:09 Pork/Porcine Containing Allergy Verified 05/20/19 11:09 Products potassium [From Potassimin] Allergy Verified 12/17/19 08:02 prednisone Allergy Verified 12/17/19 08:02 rabeprazole [From Aciphex] Allergy Verified 05/20/19 11:09 spinach Allergy Verified 05/20/19 11:09 sulfacetamide Allergy Verified 12/17/19 08:02 turkey Allergy Verified 05/20/19 11:09 cinaman Allergy Mild RASH Uncoded 05/20/19 11:09 carbonated drinks Allergy Unknown Uncoded 05/20/19 11:09 CATFISH Allergy Uncoded 05/20/19 11:09 GRAPES Allergy Uncoded 05/20/19 11:09
[2020-04-18] MEDS: REMDESIVIR 100 MG in NS 250 ML IV 250 ML IV SCH (15:00)
[2020-04-18] MEDS: ROBITUSSIN DM PO SCH ×3 (18:45→20:33)
[2020-04-18] MEDS ORDERED: REMDESIVIR IV ONE (19:02)
[2020-04-18] MEDS ORDERED: ROBITUSSIN DM ONE ×2 (19:02→20:16)
[2020-04-18] MEDS ORDERED: NS 250 ML IV 250 ML IV ONE (19:03)
[2020-04-18] MEDS ORDERED: THIAMINE HCL INJ ONE (20:15)
[2020-04-18] MEDS ORDERED: NS 100 ML IV 100 ML IV ONE (20:16)
[2020-04-18] MEDS ORDERED: ELIQUIS ONE (20:16)
[2020-04-18] MEDS: SYNTHROID 100 mcg TAB PO SCH (22:00)
[2020-04-18] MEDS: SINGULAIR TAB 10 MG PO SCH (22:00)
[2020-04-18] MEDS: PRAVACHOL PO SCH (22:00)
[2020-04-19] MEDS: ASCORBIC ACID INJ MULTI-DOSE VIAL 1,500 MG in NS 50 ML IV 50 ML IV SCH ×4 (02:06→21:58)
[2020-04-19 04:55] LABS: ABG ALLEN TEST POS; ABG BASE EXCESS -2.8 mmol/L (-2.0-2.0); ABG HCO3 20.6 mmol/L (22-26)
[2020-04-19] MEDS ORDERED: NS 1/2 1000 ML IV 1,000 ML IV ONE ×2 (05:51→20:14)
[2020-04-19] MEDS: NS 1/2 1000 ML IV 1,000 ML IV SCH ×2 (05:58→19:40)
[2020-04-19] MEDS: SOLU-Medrol 125 MG VIAL IVP SCH ×3 (05:59→21:59)
[2020-04-19 06:17] LABS: BASOPHILS % (AUTO) 0.2 % (0.2-1.0); HEMATOCRIT 36.8 % (36.0-47.0); LYMPHOCYTES # (AUTO) 0.9 X10^3/uL (1.3-2.9); LYMPHOCYTES % (AUTO) 6.6 % (21.0-51.0); MEAN CORPUSCULAR HEMOGLOBIN 27.6 pg (27.0-34.0); MEAN CORPUSCULAR HGB CONC 32.6 g/dL (33.0-35.0); MEAN CORPUSCULAR VOLUME 84.6 fL (80.0-100.0); MEAN PLATELET VOLUME 7.3 fL (7.4-11.0); MONOCYTES # (AUTO) 0.6 x10^3/uL (0.3-0.8); MONOCYTES % (AUTO) 4.1 % (0.0-13.0); NEUTROPHILS # (AUTO) 11.9 x10^3/uL (2.2-4.8); NEUTROPHILS % (AUTO) 89.1 % (42.0-75.0); PLATELET COUNT 259 X10^3/uL (150.0-450.0); RED BLOOD COUNT 4.35 X10^6/uL (3.5-5.4); WHITE BLOOD COUNT 13.4 X10^3/uL (3.6-10.0)
[2020-04-19 06:32] LABS: ALANINE AMINOTRANSFERASE 23 Units/L (12-78); ALBUMIN 2.7 g/dL (3.4-5.0); ALKALINE PHOSPHATASE 87 Units/L (46-116); ASPARTATE AMINO TRANSFERASE 21 Units/L (15-37); BLOOD UREA NITROGEN 15 mg/dL (7-18); CALCIUM 8.2 mg/dL (8.5-10.1); CARBON DIOXIDE 19.3 mmol/L (21-32); CHLORIDE 103 mmol/L (98-107); COR CA(FOR HYPOALB) 9.2 mg/dL (8.5-10.1); COR NA(FOR HYPERGLY) 142 mmol/L (136-145); CREATININE 1.02 mg/dL (0.55-1.02); SODIUM 138 mmol/L (136-145); TOTAL PROTEIN 6.1 g/dL (6.4-8.2); eGFR NON BLACK RACES 57 (>60)
--- NOTE | 2020-04-19 07:17 | RAD ---
HISTORYCOVID+STUDYCHEST, 1 VIEWCOMPARISONOne day prior.TECHNIQUEAP view of the chestFINDINGSThe cardiac and mediastinal contours appear stable. Slightly worse appearance of bilateral multifocal interstitial opacities. Blunted costophrenic sulcus on the left. No pneumothorax. Soft tissue attenuation limits evaluation.IMPRESSIONBilateral interstitial opacities consistent with COVID 19 appear slightly worse. Suspect small left pleural effusion.Electronically signed by: Ruel Price (Apr 19, 2020 07:15:47)
[2020-04-19] MEDS: ZITHROMAX INJ 500 MG VIAL 250 MG in NS 250 ML IV 250 ML IV SCH (08:49)
[2020-04-19] MEDS: MILK OF MAGNESIA PO SCH ×3 (08:50→21:58)
[2020-04-19] MEDS: THIAMINE HCL INJ IVP SCH ×2 (08:50→21:59)
[2020-04-19] MEDS: PEPCID 20 MG IV PREMIX* 20 MG/50 ML BAG IV SCH (08:50)
[2020-04-19] MEDS: ROCEPHIN VIAL 1 GRAM 1 G in NS 100 ML IV + SPIKE MINIBAG* 100 ML IV SCH (08:50)
[2020-04-19] MEDS: ROBITUSSIN DM PO SCH ×4 (08:51→21:59)
[2020-04-19] MEDS: ELIQUIS PO SCH ×2 (08:51→21:58)
[2020-04-19] MEDS: VITAMIN D3 125 mcg (5,000 UNITS) PO SCH (08:51)
[2020-04-19] MEDS: ZINC SULFATE PO SCH (09:03)
[2020-04-19] MEDS: ACCUNEB 1.25 MG NEBULE NEB SCH ×5 (09:10→21:00)
[2020-04-19] MEDS: PULMICORT NEB TX 0.5 MG NEB SCH ×4 (09:10→21:00)
[2020-04-19] MEDS: BROVANA IN SCH ×3 (09:20→21:10)
[2020-04-19] MEDS: ZOFRAN TAB 4 MG PO PRN (11:20)
[2020-04-19] MEDS: REMDESIVIR 100 MG in NS 250 ML IV 250 ML IV SCH (13:29)
[2020-04-19] MEDS ORDERED: LASIX IVP ONE (13:42)
[2020-04-19] MEDS ORDERED: KLOR-CON PO SCH (13:45)
[2020-04-19] MEDS: ULTRAM PO PRN (13:49)
[2020-04-19] MEDS: DIFLUCAN PO SCH (14:31)
[2020-04-19] MEDS: PRAVACHOL PO SCH (21:58)
[2020-04-19] MEDS: SINGULAIR TAB 10 MG PO SCH (21:59)
[2020-04-19] MEDS: SYNTHROID 100 mcg TAB PO SCH (21:59)
[2020-04-20] MEDS: ASCORBIC ACID INJ MULTI-DOSE VIAL 1,500 MG in NS 50 ML IV 50 ML IV SCH ×3 (02:09→16:20)
[2020-04-20] MEDS: SOLU-Medrol 125 MG VIAL IVP SCH ×2 (06:18→14:25)
[2020-04-20] MEDS: BROVANA IN SCH (08:26)
[2020-04-20] MEDS: ACCUNEB 1.25 MG NEBULE NEB SCH ×2 (08:38→14:04)
[2020-04-20] MEDS: PULMICORT NEB TX 0.5 MG NEB SCH (08:38)
[2020-04-20 10:00] LABS: ABG ALLEN TEST POS; ABG BASE EXCESS 0.8 mmol/L (-2.0-2.0); ABG HCO3 24.2 mmol/L (22-26)
[2020-04-20] MEDS: PEPCID 20 MG IV PREMIX* 20 MG/50 ML BAG IV SCH (10:30)
[2020-04-20] MEDS: VITAMIN D3 125 mcg (5,000 UNITS) PO SCH (10:30)
[2020-04-20] MEDS: ZITHROMAX INJ 500 MG VIAL 250 MG in NS 250 ML IV 250 ML IV SCH (10:30)
[2020-04-20] MEDS: ELIQUIS PO SCH (10:30)
[2020-04-20] MEDS: ROBITUSSIN DM PO SCH ×2 (10:30→14:25)
[2020-04-20] MEDS: DIFLUCAN PO SCH (10:30)
[2020-04-20] MEDS: ZINC SULFATE PO SCH (10:30)
[2020-04-20] MEDS: ROCEPHIN VIAL 1 GRAM 1 G in NS 100 ML IV + SPIKE MINIBAG* 100 ML IV SCH (10:30)
[2020-04-20] MEDS: THIAMINE HCL INJ IVP SCH (10:30)
[2020-04-20] MEDS: NS 1/2 1000 ML IV 1,000 ML IV SCH (11:00)
[2020-04-20] MEDS: MILK OF MAGNESIA PO SCH (11:02)
[2020-04-20] MEDS: ZOFRAN TAB 4 MG PO PRN (12:59)
[2020-04-20 13:02] VITALS: BP 124/59
[2020-04-20] MEDS: REMDESIVIR 100 MG in NS 250 ML IV 250 ML IV SCH (14:26)
== END 2020-04-20 17:10 | disposition home or self-care (01) | DRG 177 ==
LOC: ER 11:36 → OBS 14:01 → MED/SURG 04-18 21:39
PROVIDERS: ADMIT Internal Medicine; ATTEND Internal Medicine
DX: J12.82 Pneumonia due to coronavirus disease 2019; I12.9 Hypertensive chronic kidney disease with stage 1 through stage 4 chronic kidney disease, or unspecified chronic kidney disease; R07.89 Other chest pain; R79.89 Other specified abnormal findings of blood chemistry; R41.82 Altered mental status, unspecified; N18.2 Chronic kidney disease, stage 2 (mild); J44.1 Chronic obstructive pulmonary disease with (acute) exacerbation; U07.1 COVID-19; K21.9 Gastro-esophageal reflux disease without esophagitis; M47.12 Other spondylosis with myelopathy, cervical region

== ENCOUNTER 2022-01-05 11:06 | Observation (INO) ==
[2022-01-05] MEDS ORDERED: ZOFRAN INJ 4 MG VIAL IVP PRN (13:34)
[2022-01-05] MEDS ORDERED: NORCO 5/325 MG TAB PO PRN (13:34)
[2022-01-05] MEDS ORDERED: PULMICORT NEB TX 0.5 MG NEB SCH (13:45)
[2022-01-05] MEDS ORDERED: REFLEX: PROVENTIL NEB & PulmiCORT NEB~ NEB SCH (13:45)
[2022-01-05] MEDS ORDERED: NS 1,000 ML IV 1,000 ML IV SCH (14:00)
[2022-01-05 14:17] LABS: ABG BASE EXCESS 2.1 mmol/L (-2.0-2.0); ABG HCO3 25.3 mmol/L (22-26)
[2022-01-05] MEDS: DUONEB 0.5 MG/3 MG (3 mL) NEB SCH ×3 (14:36→21:00)
[2022-01-05 14:40] LABS: BASOPHILS # (AUTO) 0.1 X10^3/uL (0.0-0.1); BASOPHILS % (AUTO) 0.9 % (0.2-1.0); EOSINOPHILS # (AUTO) 0.2 x10^3/uL (0.0-0.2); EOSINOPHILS % (AUTO) 1.8 % (0.9-2.9); HEMATOCRIT 42.7 % (36.0-47.0); HEMOGLOBIN 14.5 g/dL (12.0-16.0); LYMPHOCYTES # (AUTO) 2.3 X10^3/uL (1.3-2.9); LYMPHOCYTES % (AUTO) 21.7 % (21.0-51.0); MEAN CORPUSCULAR HEMOGLOBIN 29.1 pg (27.0-34.0); MEAN CORPUSCULAR VOLUME 85.7 fL (80.0-100.0); MEAN PLATELET VOLUME 6.5 fL (7.4-11.0); MONOCYTES # (AUTO) 0.9 x10^3/uL (0.3-0.8); NEUTROPHILS % (AUTO) 66.6 % (42.0-75.0); RED BLOOD COUNT 4.98 X10^6/uL (3.5-5.4); RED CELL DISTRIBUTION WIDTH 14.8 % (11.6-16.5); WHITE BLOOD COUNT 10.4 X10^3/uL (3.6-10.0)
[2022-01-05 14:51] VITALS: BMI 39.6
--- NOTE | 2022-01-05 14:51 | RAD ---
HISTORYCOPD, SINUSITIS ANXIETY, CHF, COPD, GERD, CHRONIC PAIN SX: BOWEL RESECTION; CSPINESTUDZAID, PA/LAT [id number]/2021.FINDINGSThe trachea is midline. The cardiac silhouette is unremarkable. The aorta is tortuous with atherosclerosis. The lungs are clear without focal infiltrate or effusion. The bony thorax is unremarkable.IMPRESSIONNo acute cardiopulmonary findings .Electronically signed by: Girma Gale (Jan 05, 2022 14:49:26)
[2022-01-05 14:54] LABS: ALANINE AMINOTRANSFERASE 26 Units/L (12-78); ALKALINE PHOSPHATASE 83 Units/L (46-116); ASPARTATE AMINO TRANSFERASE 17 Units/L (15-37); BLOOD UREA NITROGEN 15 mg/dL (7-18); CALCIUM 8.6 mg/dL (8.5-10.1); CARBON DIOXIDE 28.3 mmol/L (21-32); CHLORIDE 102 mmol/L (98-107); CREATININE 0.89 mg/dL (0.55-1.02); SODIUM 134 mmol/L (136-145); TOTAL PROTEIN 7.2 g/dL (6.4-8.2); eGFR NON BLACK RACES > 60 (>60)
--- NOTE | 2022-01-05 15:33 | RAD ---
HISTORYSinusitisSTUDYParanasal sinuses three viewsCOMPARISONFebruary 2019FINDINGSSubmitted images of the sinuses are technically limited; the inferior half of both maxillary sinuses are obscured by the overlying petrous ridges. There is no definite mucosal thickening, polyp, fluid level or mucoperiosteal abnormality.IMPRESSIONNo significant or specific paranasal sinus abnormality identified.Electronically signed by: SETH CASAS (Jan 05, 2022 15:32:08)
[2022-01-05] MEDS: ZITHROMAX INJ 500 MG VIAL 500 MG in NS 250 ML IV 250 ML IV SCH (15:34)
[2022-01-05] MEDS: SOLU-Medrol 125 MG VIAL IVP SCH ×2 (15:35→21:44)
[2022-01-05] MEDS ORDERED: XANAX PO PRN (17:49)
[2022-01-05] MEDS: ROBITUSSIN DM PO SCH ×2 (17:50→21:36)
--- NOTE | 2022-01-05 17:53 | DR.H&P ---
H&P - History & Physical for Day of: H&P Date: 01/05/22 - Chief Complaint Chief Complaint: CCC, JAIMES - History of Present Illness History of Present Illness: PT IS 71 WF DIRECT ADMIT WITH CO FAILED OUTPT TREATMENT FOR COPD WITH ACUTE BRONCHITIS AND SINUSITIS. PT REPORTS SHE WAS EXPOSED TO RSV 3-4 WEEKS AGO AND HAS TAKEN 3 IM ROCEPHIN WITH KENALOG IM SHOTS AND PO ZITHROMAX AND A ROUND OF CLINDAMYCIN WITHOUT IMPROVEMENT. PT CO INCREASED MUCOUS PRODUCTION AND SOB. PT HAS PMH OF COPD,HTN, OA, DM AND GERD. PT ADMITTED FOR TREATMENT AND EVALUATION OF ACUTE ILLNESS. - Past Medical History Past Medical History: Anxiety, Hypothyroidism, COPD, GERD, CHF - Past Surgical History Surgical History: Appendectomy, Bowel Resection - Family History Family Medical History: Diabetes Mellitus, [place] - Social History Does patient currently use any type of tobacco product: No Have you used tobacco products in the last 12 months: No Type of Tobacco Use: None Does any household member use tobacco: No Alcohol Use: None Drug Use: None - Medications Home Medications: almond Allergy (Verified 01/05/22 14:14) cefdinir [From Omnicef] Allergy (Verified 01/05/22 14:14) pittman Allergy (Verified 01/05/22 14:14) codeine Allergy (Verified 01/05/22 14:14) diphenhydramine [From Benadryl] Allergy (Verified 01/05/22 14:14) esomeprazole [From Nexium] Allergy (Verified 01/05/22 14:14) hydroxyzine [From Atarax] Allergy (Verified 01/05/22 14:14) influenza virus vaccine ts [id number] (36 mos,up) [From Fluarix] Allergy (Verified 01/05/22 14:14) Iodine and Iodide Containing Produc Allergy (Verified 01/05/22 14:14) levofloxacin [From Levaquin] Allergy (Verified 01/05/22 14:14) losartan Allergy (Verified 01/05/22 14:14) morphine Allergy (Verified 01/05/22 14:14) Penicillins Allergy (Verified 01/05/22 14:14) Pork/Porcine Containing Products Allergy (Verified 01/05/22 14:14) potassium [From Potassimin] Allergy (Verified 01/05/22 14:14) prednisone Allergy (Verified 01/05/22 14:14) rabeprazole [From Aciphex] Allergy (Verified 01/05/22 14:14) spinach Allergy (Verified 01/05/22 14:14) sulfacetamide Allergy (Verified 01/05/22 14:14) turkey Allergy (Verified 01/05/22 14:14) cinaman Allergy (Mild, Uncoded 01/05/22 14:14) RASH carbonated drinks Allergy (Unknown, Uncoded 01/05/22 14:14) CATFISH Allergy (Uncoded 01/05/22 14:14) GRAPES Allergy (Uncoded 01/05/22 14:14) CONTINUE taking the following medications conjugated estrogens 1.25 mg tablet (Premarin) 1.25 mg PO DAILY 01/05/22 [History] digoxin 250 mcg (0.25 mg) tablet 0.25 mcg PO DAILY 01/05/22 [History] montelukast 10 mg tablet (Singulair) 10 mg PO DAILY 01/05/22 [History] pramipexole 1.5 mg tablet (Mirapex) 1.5 mg PO TID 01/05/22 [History] pravastatin 20 mg tablet 1 tab PO QDAY 01/05/22 [History] - Review of Systems Constitutional: Chills, Weakness, Malaise Eyes: Conjunctivae Inflammation, Redness ENT: Ear Pain, Nose Discharge, Nose Congestion, Throat Pain Respiratory: Shortness of Breath, SOB with Excertion, Sputum, Wheezing Cardiovascular: denies: Chest Pain Gastrointestinal: Nausea Genitourinary: No Symptoms Reported Musculoskeletal: Back Pain, Neck Pain Skin: No Symptoms Reported Neurological: Other (RIGHT SIDE HEADACHE) - Physical Exam Vital Signs: Temperature 98.1 F Pulse Rate [Bilateral Radial] 74 Respiratory Rate 20 Blood Pressure [Left Arm] 129/60 Blood Pressure 183/90 O2 Sat by Pulse Oximetry 91 Oriented: Normal Eyes: Discharge, Pain, Redness Ear: Normal Nose: Discharge Throat: Exudate Respiratory: Wheezes Throughout, RML Diminished, RLL Diminished, LLL Diminished Cardiovascular: Normal. negative: Edema : Normal Auscultation: Bowel Sounds: Normal Palpation: Normal Tenderness: Normal Skin: Decreased Turgur Musculoskeletal: Back:Lumbar Psychiatric: Anxiety Affect: Anxious Speech Pattern: Clear, Appropriate - Assessment/Plan (1) COPD with exacerbation Status: Acute Plan: ADMIT, CXR AND ABG ON ADMISSION. BLOOD AND SPUTUM CULTURE. RESP CONSULT, DELIA CORLEY. IV ZITHROMAX, RESP PANEL ON ADMISSION. IV SOLU MEDROL, BP CONTROL, VERIFY HOME MEDICATION AND. ENCOURAGE ORAL HYDRATION (2) Type 2 diabetes mellitus Status: Acute (3) Headache, migraine Qualifiers: Migraine type: unspecified Status migrainosus presence: without status migrainosus Intractability: intractable Qualified Code(s): G43.919 - Migraine, unspecified, intractable, without status migrainosus Status: Acute (4) GERD (gastroesophageal reflux disease) Status: Chronic (5) HTN (hypertension) Status: Chronic (6) Hypothyroid Status: Chronic - Allergies Allergies/Adverse Reactions: Allergies Allergy/AdvReac Type Severity Reaction Status Date / Time almond Allergy Verified 01/05/22 14:14 cefdinir [From Omnicef] Allergy Verified 01/05/22 14:14 pittman Allergy Verified 01/05/22 14:14 codeine Allergy Verified 01/05/22 14:14 diphenhydramine Allergy Verified 01/05/22 14:14 [From Benadryl] esomeprazole [From Nexium] Allergy Verified 01/05/22 14:14 hydroxyzine [From Atarax] Allergy Verified 01/05/22 14:14 influenza virus vaccine ts Allergy Verified 01/05/22 14:14 [id number] (36 mos,up) [From Fluarix] Iodine and Iodide Containing Allergy Verified 01/05/22 14:14 Produc levofloxacin [From Levaquin] Allergy Verified 01/05/22 14:14 losartan Allergy Verified 01/05/22 14:14 morphine Allergy Verified 01/05/22 14:14 Penicillins Allergy Verified 01/05/22 14:14 Pork/Porcine Containing Allergy Verified 01/05/22 14:14 Products potassium [From Potassimin] Allergy Verified 01/05/22 14:14 prednisone Allergy Verified 01/05/22 14:14 rabeprazole [From Aciphex] Allergy Verified 01/05/22 14:14 spinach Allergy Verified 01/05/22 14:14 sulfacetamide Allergy Verified 01/05/22 14:14 turkey Allergy Verified 01/05/22 14:14 cinaman Allergy Mild RASH Uncoded 01/05/22 14:14 carbonated drinks Allergy Unknown Uncoded 01/05/22 14:14 CATFISH Allergy Uncoded 01/05/22 14:14 GRAPES Allergy Uncoded 01/05/22 14:14
[2022-01-05 19:35] LABS: BILIRUBIN,URINE NEGATIVE (NEGATIVE); BLOOD/HEMOGLOBIN,URINE 1+ (NEGATIVE); GLUCOSE, URINE NEGATIVE (NEGATIVE); KETONES,URINE NEGATIVE (NEGATIVE); LEUKOCYTE ESTERASE ,URINE NEGATIVE (NEGATIVE); NITRITES,URINE NEGATIVE (NEGATIVE); PROTEIN,URINE 1+ (NEGATIVE); UROBILINOGEN,URINE NORMAL (NORMAL)
[2022-01-05 19:39] LABS: APPEARANCE,URINE CLEAR (CLEAR); BACTERIA,URINE TRACE /HPF (NEGATIVE); COLOR,URINE YELLOW (YELLOW); SQUAMOUS EPITHELIAL CELL,UR FEW /HPF (NEGATIVE)
[2022-01-05] MEDS ORDERED: MIRAPEX TAB 1 MG PO ONE (20:32)
[2022-01-05] MEDS ORDERED: PRAVACHOL PO SCH (21:00)
[2022-01-05] MEDS: CLARITIN PO SCH (21:38)
[2022-01-05] MEDS: PEPCID TAB 40 MG PO SCH (21:40)
[2022-01-05] MEDS: MIRAPEX TAB 1 MG PO SCH (21:42)
[2022-01-06 04:47] LABS: BASOPHILS # (AUTO) 0.1 X10^3/uL (0.0-0.1); BASOPHILS % (AUTO) 0.8 % (0.2-1.0); EOSINOPHILS % (AUTO) 0.1 % (0.9-2.9); HEMATOCRIT 40.8 % (36.0-47.0); HEMOGLOBIN 13.7 g/dL (12.0-16.0); LYMPHOCYTES # (AUTO) 0.7 X10^3/uL (1.3-2.9); LYMPHOCYTES % (AUTO) 8.8 % (21.0-51.0); MEAN CORPUSCULAR HEMOGLOBIN 28.7 pg (27.0-34.0); MEAN CORPUSCULAR HGB CONC 33.5 g/dL (33.0-35.0); MEAN CORPUSCULAR VOLUME 85.6 fL (80.0-100.0); MEAN PLATELET VOLUME 6.7 fL (7.4-11.0); MONOCYTES # (AUTO) 0.1 x10^3/uL (0.3-0.8); NEUTROPHILS # (AUTO) 7.3 x10^3/uL (2.2-4.8); NEUTROPHILS % (AUTO) 89.3 % (42.0-75.0); RED BLOOD COUNT 4.77 X10^6/uL (3.5-5.4); RED CELL DISTRIBUTION WIDTH 15.2 % (11.6-16.5); WHITE BLOOD COUNT 8.2 X10^3/uL (3.6-10.0)
[2022-01-06 04:56] LABS: ALANINE AMINOTRANSFERASE 26 Units/L (12-78); ALBUMIN 3.6 g/dL (3.4-5.0); ALKALINE PHOSPHATASE 87 Units/L (46-116); ASPARTATE AMINO TRANSFERASE 13 Units/L (15-37); BLOOD UREA NITROGEN 17 mg/dL (7-18); CALCIUM 8.3 mg/dL (8.5-10.1); CHLORIDE 101 mmol/L (98-107); COR NA(FOR HYPERGLY) 137 mmol/L (136-145); CREATININE 1.14 mg/dL (0.55-1.02); MAGNESIUM 1.9 mg/dL (1.7-2.9); SODIUM 134 mmol/L (136-145); TOTAL PROTEIN 6.9 g/dL (6.4-8.2); eGFR NON BLACK RACES 50 (>60)
[2022-01-06] MEDS: MAGNESIUM SULFATE 1 GRAM/100 mL PREMIX 1 G/100 ML BAG IV PRN ×2 (05:53→11:38)
[2022-01-06] MEDS: SOLU-Medrol 125 MG VIAL IVP SCH ×2 (05:53→13:22)
[2022-01-06] MEDS: MIRAPEX TAB 1 MG PO SCH ×2 (05:54→13:22)
[2022-01-06] MEDS: DUONEB 0.5 MG/3 MG (3 mL) NEB SCH ×2 (08:22→13:00)
[2022-01-06] MEDS: ZITHROMAX INJ 500 MG VIAL 500 MG in NS 250 ML IV 250 ML IV SCH (08:25)
[2022-01-06] MEDS: PEPCID TAB 40 MG PO SCH (08:25)
[2022-01-06] MEDS: CLARITIN PO SCH (08:25)
[2022-01-06] MEDS: ROBITUSSIN DM PO SCH ×2 (08:25→13:22)
[2022-01-06] MEDS ORDERED: LOVENOX INJ 40 MG SYR SC SCH (09:00)
[2022-01-06] MEDS ORDERED: SINGULAIR TAB 10 MG PO SCH (09:00)
[2022-01-06 11:55] VITALS: BP 135/63
[2022-01-06] MEDS ORDERED: TUSSIONEX PENNKINETIC SUSP PO ONE (13:25)
== END 2022-01-06 14:05 | disposition home or self-care (01) ==
LOC: MED/SURG → MERGE 12:43
PROVIDERS: ADMIT Internal Medicine; ATTEND Internal Medicine

== ENCOUNTER 2022-06-28 17:08 | Observation (INO) ==
[2022-06-28] MEDS ORDERED: PEPCID 20 MG VIAL IVP ONE (17:45)
[2022-06-28] MEDS ORDERED: PHENERGAN INJ 25 MG IM PRN (17:45)
[2022-06-28] MEDS ORDERED: TUSSIONEX PENNKINETIC SUSP PO PRN (17:46)
--- NOTE | 2022-06-28 17:51 | DR.H&P ---
H&P - History & Physical for Day of: H&P Date: 06/28/22 - Chief Complaint Chief Complaint: abdominal pain, n/v/d - History of Present Illness History of Present Illness: PT IS 72WF, DIRECT ADMIT FROM DR DELVALLE OFFICE WITH CO INTRACTABLE ABDOMINAL PAIN, WITH N/D SINCE YESTERDAY. PT HAS TAKEN ZOFRAN AT HOME WITHOUT RELIEF. PT CO LOW GRADE FEVER, DENIES ANY RESP SYMPTOMS. PT HAS PMH OF HTN, DM, OA, JUDAH, COPD AND GERD. - Past Medical History Past Medical History: Anxiety, CHF, COPD, GERD, Hypertension, Hypothyroidism - Past Surgical History Surgical History: Appendectomy, Bowel Resection - Family History Family Medical History: Diabetes Mellitus, [place] - Social History Does patient currently use any type of tobacco product: No Have you used tobacco products in the last 12 months: No Type of Tobacco Use: None Does any household member use tobacco: No Alcohol Use: None Drug Use: None - Medications Home Medications: cefdinir [From Omnicef] Allergy (Unknown, Unverified 01/05/22 14:14) codeine Allergy (Unknown, Unverified 01/05/22 14:14) diphenhydramine [From Benadryl] Allergy (Unknown, Unverified 01/05/22 14:14) esomeprazole [From Nexium] Allergy (Unknown, Unverified 01/05/22 14:14) fluconazole Allergy (Unknown, Verified 11/13/19 15:59) influenza virus vaccine [place] [id number] (36 mos,up) [From Fluarix] Allergy (Unknown, Unverified 01/05/22 14:14) iodine Allergy (Unknown, Verified 11/13/19 15:59) levofloxacin [From Levaquin] Allergy (Unknown, Unverified 01/05/22 14:14) losartan Allergy (Unknown, Unverified 01/05/22 14:14) morphine Allergy (Unknown, Unverified 01/05/22 14:14) penicillin V Allergy (Unknown, Verified 11/13/19 16:00) prednisone Allergy (Unknown, Unverified 01/05/22 14:14) rabeprazole [From Aciphex] Allergy (Unknown, Unverified 01/05/22 14:14) starch Allergy (Unknown, Verified 11/13/19 16:01) sulfacetamide Allergy (Unknown, Unverified 01/05/22 14:14) almond Allergy (Verified 01/05/22 14:14) pittman Allergy (Verified 01/05/22 14:14) hydroxyzine [From Atarax] Allergy (Verified 01/05/22 14:14) Iodine and Iodide Containing Produc Allergy (Verified 01/05/22 14:14) Penicillins Allergy (Verified 01/05/22 14:14) Pork/Porcine Containing Products Allergy (Verified 01/05/22 14:14) potassium [From Potassimin] Allergy (Verified 01/05/22 14:14) spinach Allergy (Verified 01/05/22 14:14) turkey Allergy (Verified 01/05/22 14:14) cinaman Allergy (Mild, Uncoded 01/05/22 14:14) RASH carbonated drinks Allergy (Unknown, Uncoded 01/05/22 14:14) Pork (Diagnostic) *DIAGNOSTIC Allergy (Unknown, Uncoded 11/13/19 16:00) CATFISH Allergy (Uncoded 01/05/22 14:14) GRAPES Allergy (Uncoded 01/05/22 14:14) - Review of Systems Constitutional: Weakness, Malaise Eyes: No Symptoms Reported ENT: No Symptoms Reported Respiratory: No Symptoms Reported Cardiovascular: No Symptoms Reported Gastrointestinal: Nausea, Abdominal Pain, Diarrhea Genitourinary: No Symptoms Reported Musculoskeletal: Back Pain Skin: No Symptoms Reported Neurological: No Symptoms Reported - Physical Exam Vital Signs: Blood Pressure [Left Arm] 135/63 Oriented: Normal Eyes: Normal Ear: Normal Nose: Normal Throat: Normal Respiratory: RLL Diminished, LLL Diminished Cardiovascular: Normal : Normal Auscultation: Bowel Sounds: Normal Tenderness: Normal Skin: Decreased Turgur Musculoskeletal: Normal Psychiatric: Anxiety Affect: Anxious Speech Pattern: Clear, Appropriate - Assessment/Plan (1) Acute gastroenteritis Status: Acute Plan: ADMIT, ABD SERIES ON ADMISSION. AMYLASE AND LIPASE, STOOL STUDIES. IV HYDRATION, PAIN AND NAUSEA CONTROL. PPI THERAPY, VERIFY HOME MEDICATION. PRN RESP THERAPY (2) COPD (chronic obstructive pulmonary disease) Status: Chronic (3) HTN (hypertension) Status: Chronic (4) Arthritis Status: Chronic (5) Anxiety Status: Chronic (6) Gastroesophageal reflux disease Status: None - Allergies Allergies/Adverse Reactions: Allergies Allergy/AdvReac Type Severity Reaction Status Date / Time cefdinir [From Omnicef] Allergy Unknown Unverified 01/05/22 14:14 codeine Allergy Unknown Unverified 01/05/22 14:14 diphenhydramine Allergy Unknown Unverified 01/05/22 14:14 [From Benadryl] esomeprazole [From Nexium] Allergy Unknown Unverified 01/05/22 14:14 fluconazole Allergy Unknown Verified 11/13/19 15:59 influenza virus vaccine ts Allergy Unknown Unverified 01/05/22 14:14 [id number] (36 mos,up) [From Fluarix] iodine Allergy Unknown Verified 11/13/19 15:59 levofloxacin [From Levaquin] Allergy Unknown Unverified 01/05/22 14:14 losartan Allergy Unknown Unverified 01/05/22 14:14 morphine Allergy Unknown Unverified 01/05/22 14:14 penicillin V Allergy Unknown Verified 11/13/19 16:00 prednisone Allergy Unknown Unverified 01/05/22 14:14 rabeprazole [From Aciphex] Allergy Unknown Unverified 01/05/22 14:14 starch Allergy Unknown Verified 11/13/19 16:01 sulfacetamide Allergy Unknown Unverified 01/05/22 14:14 almond Allergy Verified 01/05/22 14:14 pittman Allergy Verified 01/05/22 14:14 hydroxyzine [From Atarax] Allergy Verified 01/05/22 14:14 Iodine and Iodide Containing Allergy Verified 01/05/22 14:14 Produc Penicillins Allergy Verified 01/05/22 14:14 Pork/Porcine Containing Allergy Verified 01/05/22 14:14 Products potassium [From Potassimin] Allergy Verified 01/05/22 14:14 spinach Allergy Verified 01/05/22 14:14 turkey Allergy Verified 01/05/22 14:14 cinaman Allergy Mild RASH Uncoded 01/05/22 14:14 carbonated drinks Allergy Unknown Uncoded 01/05/22 14:14 Pork (Diagnostic) *DIAGNOSTIC Allergy Unknown Uncoded 11/13/19 16:00 CATFISH Allergy Uncoded 01/05/22 14:14 GRAPES Allergy Uncoded 01/05/22 14:14
[2022-06-28 18:12] LABS: BASOPHILS # (AUTO) 0.1 X10^3/uL (0.0-0.1); BASOPHILS % (AUTO) 0.8 % (0.2-1.0); EOSINOPHILS # (AUTO) 0.2 x10^3/uL (0.0-0.2); EOSINOPHILS % (AUTO) 2.6 % (0.9-2.9); HEMATOCRIT 43.5 % (36.0-47.0); HEMOGLOBIN 14.7 g/dL (12.0-16.0); LYMPHOCYTES # (AUTO) 1.4 X10^3/uL (1.3-2.9); LYMPHOCYTES % (AUTO) 15.6 % (21.0-51.0); MEAN CORPUSCULAR HEMOGLOBIN 28.9 pg (27.0-34.0); MEAN CORPUSCULAR HGB CONC 33.8 g/dL (33.0-35.0); MEAN CORPUSCULAR VOLUME 85.4 fL (80.0-100.0); MEAN PLATELET VOLUME 6.6 fL (7.4-11.0); MONOCYTES # (AUTO) 0.6 x10^3/uL (0.3-0.8); MONOCYTES % (AUTO) 7.2 % (0.0-13.0); NEUTROPHILS # (AUTO) 6.7 x10^3/uL (2.2-4.8); NEUTROPHILS % (AUTO) 73.8 % (42.0-75.0); RED CELL DISTRIBUTION WIDTH 14.4 % (11.6-16.5)
[2022-06-28 18:17] LABS: ALANINE AMINOTRANSFERASE 20 Units/L (12-78); ALBUMIN 3.7 g/dL (3.4-5.0); ALKALINE PHOSPHATASE 94 Units/L (46-116); AMYLASE 36 Units/L (25-115); ASPARTATE AMINO TRANSFERASE 15 Units/L (15-37); BLOOD UREA NITROGEN 11 mg/dL (7-18); CALCIUM 8.7 mg/dL (8.5-10.1); CARBON DIOXIDE 28.6 mmol/L (21-32); CHLORIDE 101 mmol/L (98-107); CREATININE 1.04 mg/dL (0.55-1.02); LIPASE 76 Units/L (73-393); SODIUM 134 mmol/L (136-145); TOTAL PROTEIN 6.7 g/dL (6.4-8.2); eGFR NON BLACK RACES 56 (>60)
[2022-06-28] MEDS: PROVENTIL NEB TX 0.083% 2.5MG/ 3ML NEB SCH (20:29)
[2022-06-28] MEDS: PULMICORT NEB TX 0.5 MG NEB SCH (20:30)
[2022-06-28] MEDS: NS 1,000 ML IV 1,000 ML IV SCH (20:40)
[2022-06-28 21:00] LABS: BILIRUBIN,URINE NEGATIVE (NEGATIVE); BLOOD/HEMOGLOBIN,URINE 1+ (NEGATIVE); GLUCOSE, URINE NEGATIVE (NEGATIVE); KETONES,URINE NEGATIVE (NEGATIVE); LEUKOCYTE ESTERASE ,URINE NEGATIVE (NEGATIVE); NITRITES,URINE NEGATIVE (NEGATIVE); PROTEIN,URINE NEGATIVE (NEGATIVE); UROBILINOGEN,URINE NORMAL (NORMAL)
[2022-06-28 21:09] LABS: APPEARANCE,URINE SLIGHTLY HAZY (CLEAR); BACTERIA,URINE 2+ /HPF (NEGATIVE); COLOR,URINE YELLOW (YELLOW); RBC,URINE 0-2 /HPF (0-3); SQUAMOUS EPITHELIAL CELL,UR MODERATE /HPF (NEGATIVE)
[2022-06-28] MEDS: PROTONIX INJ 40 MG VIAL IVP SCH (21:11)
[2022-06-28] MEDS: MIRAPEX TAB 1 MG PO SCH (21:11)
[2022-06-28 22:00] LABS: CRYPTOSPORIDIUM PARVUM ANTIGEN NEGATIVE (NEGATIVE); GIARDIA LAMBLIA ANTIGEN NEGATIVE (NEGATIVE)
[2022-06-29] MEDS: MIRAPEX TAB 1 MG PO SCH (05:12)
--- NOTE | 2022-06-29 07:30 | RAD ---
HISTORYNausea, diarrhea, abdominal painSTUDYAcute abdominal seriesCOMPARISONNoneFINDINGSHeart is enlarged. No congestive heart failure is noted. Lung hoskins are clear. No pleural effusions are identified. Abdominal gas pattern is nonspecific. No abnormal masses or abnormal calcifications are identified. No pneumoperitoneum is identified. Regional skeleton is intact.IMPRESSIONLungs clearNonspecific bowel gas patternElectronically signed by: ANA CABRAL (Jun 29, 2022 07:29:02)
[2022-06-29] MEDS: PULMICORT NEB TX 0.5 MG NEB SCH (08:43)
[2022-06-29] MEDS: PROVENTIL NEB TX 0.083% 2.5MG/ 3ML NEB SCH (08:43)
[2022-06-29 08:45] LABS: BASOPHILS # (AUTO) 0.2 X10^3/uL (0.0-0.1); BASOPHILS % (AUTO) 2.4 % (0.2-1.0); EOSINOPHILS # (AUTO) 0.2 x10^3/uL (0.0-0.2); EOSINOPHILS % (AUTO) 2.9 % (0.9-2.9); HEMATOCRIT 40.1 % (36.0-47.0); HEMOGLOBIN 13.1 g/dL (12.0-16.0); LYMPHOCYTES # (AUTO) 0.8 X10^3/uL (1.3-2.9); LYMPHOCYTES % (AUTO) 11.6 % (21.0-51.0); MEAN CORPUSCULAR HEMOGLOBIN 27.9 pg (27.0-34.0); MEAN CORPUSCULAR HGB CONC 32.5 g/dL (33.0-35.0); MEAN CORPUSCULAR VOLUME 85.6 fL (80.0-100.0); MEAN PLATELET VOLUME 6.6 fL (7.4-11.0); MONOCYTES # (AUTO) 0.4 x10^3/uL (0.3-0.8); MONOCYTES % (AUTO) 5.2 % (0.0-13.0); NEUTROPHILS # (AUTO) 5.7 x10^3/uL (2.2-4.8); NEUTROPHILS % (AUTO) 77.9 % (42.0-75.0); RED BLOOD COUNT 4.69 X10^6/uL (3.5-5.4); RED CELL DISTRIBUTION WIDTH 14.1 % (11.6-16.5); WHITE BLOOD COUNT 7.3 X10^3/uL (3.6-10.0)
[2022-06-29] MEDS ORDERED: FLAGYL IV PREMIX 500 MG BAG 500 MG/100 ML BAG IV SCH (09:00)
[2022-06-29 09:02] LABS: ALANINE AMINOTRANSFERASE 19 Units/L (12-78); ALBUMIN 3.3 g/dL (3.4-5.0); ALKALINE PHOSPHATASE 85 Units/L (46-116); ASPARTATE AMINO TRANSFERASE 12 Units/L (15-37); BLOOD UREA NITROGEN 8 mg/dL (7-18); CALCIUM 8.1 mg/dL (8.5-10.1); CARBON DIOXIDE 24.4 mmol/L (21-32); CHLORIDE 104 mmol/L (98-107); COR CA(FOR HYPOALB) 8.7 mg/dL (8.5-10.1); CREATININE 0.86 mg/dL (0.55-1.02); SODIUM 138 mmol/L (136-145); TOTAL PROTEIN 6.1 g/dL (6.4-8.2); eGFR NON BLACK RACES > 60 (>60)
[2022-06-29] MEDS: NS 1,000 ML IV 1,000 ML IV SCH (09:27)
[2022-06-29] MEDS: PROTONIX INJ 40 MG VIAL IVP SCH (09:27)
[2022-06-29] MEDS ORDERED: BENTYL CAP 10 MG PO SCH (10:00)
[2022-06-29 12:59] VITALS: BP 137/79
== END 2022-06-29 13:04 | disposition home or self-care (01) ==
LOC: MED/SURG
PROVIDERS: ADMIT Internal Medicine; ATTEND Internal Medicine
DX: K21.9 Gastro-esophageal reflux disease without esophagitis; E11.9 Type 2 diabetes mellitus without complications; I10 Essential (primary) hypertension; R79.89 Other specified abnormal findings of blood chemistry; J44.9 Chronic obstructive pulmonary disease, unspecified; R19.7 Diarrhea, unspecified; F41.8 Other specified anxiety disorders; R10.84 Generalized abdominal pain; K52.89 Other specified noninfective gastroenteritis and colitis

== ENCOUNTER 2022-09-28 16:51 | Observation (INO) ==
--- NOTE | 2022-09-28 17:13 | DR.H&P ---
H&P - History & Physical for Day of: H&P Date: 09/28/22 - Chief Complaint Chief Complaint: chest tightness and shortness of breath - History of Present Illness History of Present Illness: PT IS 72 WF, DIRECT ADMIT FROM DR DELVALLE OFFICE WITH CO SOB WITH CCC SINCE SUNDAY. PT REPORTS SHE HAD ONSET FEVER, CCC WITH INCREASED SHORTNESS OF BREATH. PT WAS SEEN IN ER ON SUNDAY AND HAD ZITHROMAX AND IV ROCEPHIN AND SOLUMEDROL WITH MINIMAL IMPROVEMENT. PT HAS PMH OF COPD, HTN, DM, OA, JUDAH, AND GERD. PT ADMITTED FOR TREATMENT AND EVALUATION OF ACUTE ILLNESS. - Past Medical History Past Medical History: Hypertension, Anxiety, Hypothyroidism, COPD, GERD, CHF - Past Surgical History Surgical History: Appendectomy, Bowel Resection - Family History Family Medical History: Diabetes Mellitus, [place] - Social History Does patient currently use any type of tobacco product: No Have you used tobacco products in the last 12 months: No Type of Tobacco Use: None Does any household member use tobacco: No Alcohol Use: None Drug Use: None Risks, benefits, and alternatives of opioids discussed: No - Review of Systems Constitutional: Fever, Weakness, Malaise Eyes: No Symptoms Reported ENT: Nose Congestion, Throat Pain Respiratory: Cough, Shortness of Breath, SOB with Excertion, Sputum, Wheezing Cardiovascular: No Symptoms Reported, Edema Gastrointestinal: Nausea, Diarrhea Genitourinary: No Symptoms Reported Musculoskeletal: No Symptoms Reported Skin: No Symptoms Reported Neurological: Other (HEADACHE) Oriented: Normal Eyes: Normal Ear: Normal Nose: Discharge Throat: Red, Exudate Respiratory: Wheezes Throughout Cardiovascular: Edema : Normal Auscultation: Bowel Sounds: Normal Palpation: Normal Tenderness: Normal Skin: Decreased Turgur Musculoskeletal: Back:Lumbar Psychiatric: Anxiety Affect: Anxious Speech Pattern: Clear, Appropriate - Assessment/Plan (1) COPD with exacerbation Status: Acute Plan: ADMIT, IV ATBX THERAPY, IV SOLU MEDROL. ROBITUSSIN, SPUTUM CULTURE. RESP SWAB AIT. BP CONTROL, VERIFY HOME MEDICATION. CXR ON ADMISSION, RESP CONSULT (2) Laryngitis Status: Acute (3) Type 2 diabetes mellitus Status: Acute (4) Arthritis Status: Chronic (5) GERD (gastroesophageal reflux disease) Status: Chronic (6) HTN (hypertension) Status: Chronic (7) Hypothyroid Status: Chronic - Allergies Allergies/Adverse Reactions: Allergies Allergy/AdvReac Type Severity Reaction Status Date / Time cefdinir [From Omnicef] Allergy Unknown Verified 06/28/22 18:09 codeine Allergy Unknown Verified 06/28/22 18:09 diphenhydramine Allergy Unknown Verified 06/28/22 18:09 [From Benadryl] esomeprazole [From Nexium] Allergy Unknown Verified 06/28/22 18:09 fluconazole Allergy Unknown Verified 06/28/22 18:09 influenza virus vaccine ts Allergy Unknown Verified 06/28/22 18:09 [id number] (36 mos,up) [From Fluarix] iodine Allergy Unknown Verified 06/28/22 18:09 levofloxacin [From Levaquin] Allergy Unknown Verified 06/28/22 18:09 losartan Allergy Unknown Verified 06/28/22 18:09 morphine Allergy Unknown Verified 06/28/22 18:09 penicillin V Allergy Unknown Verified 06/28/22 18:09 prednisone Allergy Unknown Verified 06/28/22 18:09 rabeprazole [From Aciphex] Allergy Unknown Verified 06/28/22 18:09 starch Allergy Unknown Verified 06/28/22 18:09 sulfacetamide Allergy Unknown Verified 06/28/22 18:09 almond Allergy Verified 06/28/22 18:09 pittman Allergy Verified 06/28/22 18:09 hydroxyzine [From Atarax] Allergy Verified 06/28/22 18:09 Iodine and Iodide Containing Allergy Verified 06/28/22 18:09 Produc Penicillins Allergy Verified 06/28/22 18:09 Pork/Porcine Containing Allergy Verified 06/28/22 18:09 Products potassium [From Potassimin] Allergy Verified 06/28/22 18:09 spinach Allergy Verified 06/28/22 18:09 turkey Allergy Verified 06/28/22 18:09 cinaman Allergy Mild RASH Uncoded 06/28/22 18:09 carbonated drinks Allergy Unknown Uncoded 06/28/22 18:09 Pork (Diagnostic) *DIAGNOSTIC Allergy Unknown Uncoded 06/28/22 18:09 CATFISH Allergy Uncoded 06/28/22 18:09 GRAPES Allergy Uncoded 06/28/22 18:09 - Medications Home Medications: Home Medications Medication Instructions Recorded Confirmed azelastine-fluticasone 137 mcg-50 1 spray intranasal PRN PRN 06/28/22 09/25/22 mcg/spray nasal spray budesonide 0.5 mg/2 mL suspension 1 vial BID 06/28/22 09/25/22 for nebulization cyanocobalamin (vitamin B-12) 1 ml IM QWEEK 06/28/22 09/25/22 1,000 mcg/mL injection solution doxycycline hyclate 100 mg capsule 1 cap PO BID 06/28/22 09/25/22 dupilumab 300 mg/2 mL subcutaneous 2 ml subcut PRN PRN 06/28/22 09/25/22 syringe (DupixFAB BAG) fluticasone propionate 50 1 spray intranasal BID 06/28/22 09/25/22 mcg/actuation nasal spray,suspension furosemide 40 mg tablet 1 tab PO QDAY 06/28/22 09/25/22 metronidazole 0.75 % topical cream 1 applic topical BID 06/28/22 09/25/22 pramipexole 1.5 mg tablet 2 tab PO DAILYHS 06/28/22 09/25/22 promethazine 25 mg tablet 1 tab PO QDAY PRN 06/28/22 09/25/22 tirzepatide 2.5 mg/0.5 mL 2.5 ea subcut WEEKLY 06/28/22 09/25/22 subcutaneous pen injector (Vernell) Previous Rx's Medication Instructions Recorded dicyclomine 20 mg tablet 20 mg PO TID #30 tabs 06/29/22 azithromycin 250 mg tablet See Rx Instructions PO .COMPLEX #6 09/25/22 (Zithromax Z-Tristian) tabs benzonatate 200 mg capsule 200 mg PO TID PRN cough #20 caps 09/25/22
[2022-09-28] MEDS ORDERED: TUSSIONEX PENNKINETIC SUSP PO PRN (17:17)
[2022-09-28] MEDS: PULMICORT NEB TX 0.5 MG NEB SCH ×2 (19:00→20:45)
[2022-09-28 19:39] LABS: BASOPHILS # (AUTO) 0.1 X10^3/uL (0.0-0.1); BASOPHILS % (AUTO) 0.6 % (0.2-1.0); EOSINOPHILS # (AUTO) 0.2 x10^3/uL (0.0-0.2); EOSINOPHILS % (AUTO) 1.5 % (0.9-2.9); HEMATOCRIT 42.1 % (36.0-47.0); HEMOGLOBIN 14.1 g/dL (12.0-16.0); LYMPHOCYTES # (AUTO) 2.1 X10^3/uL (1.3-2.9); LYMPHOCYTES % (AUTO) 16.4 % (21.0-51.0); MEAN CORPUSCULAR HEMOGLOBIN 28.1 pg (27.0-34.0); MEAN CORPUSCULAR HGB CONC 33.4 g/dL (33.0-35.0); MEAN CORPUSCULAR VOLUME 84.1 fL (80.0-100.0); MEAN PLATELET VOLUME 6.2 fL (7.4-11.0); MONOCYTES % (AUTO) 7.8 % (0.0-13.0); NEUTROPHILS # (AUTO) 9.4 x10^3/uL (2.2-4.8); NEUTROPHILS % (AUTO) 73.7 % (42.0-75.0); PLATELET COUNT 416 X10^3/uL (150.0-450.0); RED BLOOD COUNT 5.01 X10^6/uL (3.5-5.4); RED CELL DISTRIBUTION WIDTH 15.3 % (11.6-16.5); WHITE BLOOD COUNT 12.8 X10^3/uL (3.6-10.0)
[2022-09-28 19:50] LABS: ALANINE AMINOTRANSFERASE 20 Units/L (12-78); ALBUMIN 3.5 g/dL (3.4-5.0); ALKALINE PHOSPHATASE 87 Units/L (46-116); ASPARTATE AMINO TRANSFERASE 16 Units/L (15-37); BLOOD UREA NITROGEN 13 mg/dL (7-18); CALCIUM 8.3 mg/dL (8.5-10.1); CARBON DIOXIDE 26.6 mmol/L (21-32); CHLORIDE 103 mmol/L (98-107); CREATININE 1.04 mg/dL (0.55-1.02); GLUCOSE 87 mg/dL (65-99); MAGNESIUM 1.8 mg/dL (2.0-2.9); POTASSIUM 3.8 mmol/L (3.5-5.1); SODIUM 139 mmol/L (136-145); TOTAL PROTEIN 6.7 g/dL (6.4-8.2); eGFR NON BLACK RACES 56 (>60)
[2022-09-28] MEDS: SOLU-Medrol 125 MG VIAL IVP SCH ×2 (20:43→21:54)
[2022-09-28] MEDS: ROCEPHIN VIAL 1 GRAM 1 G in NS 100 ML IV 100 ML IV SCH (20:43)
[2022-09-28] MEDS: XANAX PO PRN (20:44)
[2022-09-28] MEDS: CLARITIN PO SCH (20:44)
[2022-09-28] MEDS: ROBITUSSIN DM PO SCH (20:44)
[2022-09-28] MEDS: NS 1,000 ML IV 1,000 ML IV SCH (20:45)
[2022-09-28] MEDS: XOPENEX 1.25 MG/3 ML NEBULE NEB SCH (20:45)
[2022-09-28] MEDS ORDERED: MIRAPEX TAB 1 MG PO SCH (21:00)
[2022-09-28] MEDS ORDERED: DUONEB 0.5 MG/3 MG (3 mL) NEB SCH (21:00)
[2022-09-28] MEDS: ZITHROMAX TAB 250 MG PO SCH (21:54)
[2022-09-28 22:18] VITALS: BMI 38.8
[2022-09-29 01:00] LABS: APPEARANCE,URINE CLEAR (CLEAR); BILIRUBIN,URINE NEGATIVE (NEGATIVE); BLOOD/HEMOGLOBIN,URINE NEGATIVE (NEGATIVE); COLOR,URINE YELLOW (YELLOW); GLUCOSE, URINE 1+ (NEGATIVE); KETONES,URINE NEGATIVE (NEGATIVE); LEUKOCYTE ESTERASE ,URINE NEGATIVE (NEGATIVE); NITRITES,URINE NEGATIVE (NEGATIVE); PROTEIN,URINE NEGATIVE (NEGATIVE); UROBILINOGEN,URINE NORMAL (NORMAL)
--- NOTE | 2022-09-29 03:33 | RAD ---
HISTORYShortness of breathSTUDYCHEST, 1 [id number]/26/2023FINDINGSThe trachea is midline. The cardiac silhouette is enlarged with a tortuous thoracic aorta. Chronic interstitial lung changes without focal infiltrate or effusion are observed. The bony thorax is unremarkable.IMPRESSIONNo acute cardiopulmonary disease.Electronically signed by: ALEXIA CROW (Sep 29, 2022 03:31:54)
[2022-09-29] MEDS: SOLU-Medrol 125 MG VIAL IVP SCH (05:07)
[2022-09-29] MEDS: LASIX IVP SCH ×2 (06:36→09:33)
[2022-09-29 06:38] LABS: BASOPHILS % (AUTO) 0.3 % (0.2-1.0); EOSINOPHILS % (AUTO) 0.2 % (0.9-2.9); HEMATOCRIT 41.1 % (36.0-47.0); HEMOGLOBIN 13.6 g/dL (12.0-16.0); LYMPHOCYTES # (AUTO) 0.7 X10^3/uL (1.3-2.9); LYMPHOCYTES % (AUTO) 8.2 % (21.0-51.0); MEAN CORPUSCULAR HEMOGLOBIN 27.9 pg (27.0-34.0); MEAN CORPUSCULAR VOLUME 84.7 fL (80.0-100.0); MEAN PLATELET VOLUME 6.9 fL (7.4-11.0); MONOCYTES # (AUTO) 0.1 x10^3/uL (0.3-0.8); MONOCYTES % (AUTO) 1.1 % (0.0-13.0); NEUTROPHILS # (AUTO) 7.5 x10^3/uL (2.2-4.8); NEUTROPHILS % (AUTO) 90.2 % (42.0-75.0); PLATELET COUNT 400 X10^3/uL (150.0-450.0); RED BLOOD COUNT 4.86 X10^6/uL (3.5-5.4); RED CELL DISTRIBUTION WIDTH 15.3 % (11.6-16.5); WHITE BLOOD COUNT 8.3 X10^3/uL (3.6-10.0)
[2022-09-29 06:44] LABS: ALANINE AMINOTRANSFERASE 19 Units/L (12-78); ALBUMIN 3.3 g/dL (3.4-5.0); ALKALINE PHOSPHATASE 94 Units/L (46-116); ASPARTATE AMINO TRANSFERASE 9 Units/L (15-37); BLOOD UREA NITROGEN 12 mg/dL (7-18); CALCIUM 8.5 mg/dL (8.5-10.1); CARBON DIOXIDE 21.5 mmol/L (21-32); CHLORIDE 102 mmol/L (98-107); COR CA(FOR HYPOALB) 9.1 mg/dL (8.5-10.1); COR NA(FOR HYPERGLY) 139 mmol/L (136-145); CREATININE 1.09 mg/dL (0.55-1.02); GLUCOSE 198 mg/dL (65-99); POTASSIUM 4.1 mmol/L (3.5-5.1); SODIUM 137 mmol/L (136-145); TOTAL PROTEIN 6.7 g/dL (6.4-8.2); eGFR NON BLACK RACES 53 (>60)
[2022-09-29 07:49] LABS: BAND NEUTROPHILS % 4 % (0-10); BASOPHILS % (MANUAL) 0 % (0-1); PLATELET MORPHOLOGY COMMENT NORMAL (NORMAL)
[2022-09-29] MEDS: XOPENEX 1.25 MG/3 ML NEBULE NEB SCH ×4 (08:00→20:40)
[2022-09-29] MEDS: PULMICORT NEB TX 0.5 MG NEB SCH ×2 (08:00→20:40)
[2022-09-29] MEDS: ROCEPHIN VIAL 1 GRAM 1 G in NS 100 ML IV 100 ML IV SCH (09:33)
[2022-09-29] MEDS: ZOFRAN INJ 4 MG VIAL IVP PRN ×3 (09:33→20:38)
[2022-09-29] MEDS: CLARITIN PO SCH (09:34)
[2022-09-29] MEDS: ROBITUSSIN DM PO SCH ×4 (09:34→20:38)
[2022-09-29] MEDS: LOVENOX INJ 40 MG SYR SC SCH (10:34)
[2022-09-29] MEDS ORDERED: ASTELIN NASAL SPRAY ENOSTRIL ONE (15:10)
[2022-09-29] MEDS: ASTELIN NASAL SPRAY ENOSTRIL SCH (15:25)
[2022-09-29] MEDS: SOLU-Medrol 40 MG VIAL IVP SCH ×2 (15:25→21:00)
[2022-09-29] MEDS: FLONASE NASAL SPRAY ENOSTRIL SCH (15:25)
[2022-09-29] MEDS: MIRAPEX TAB 1 MG PO SCH ×2 (15:25→21:00)
[2022-09-29] MEDS: NS 1,000 ML IV 1,000 ML IV SCH (18:17)
[2022-09-29] MEDS: ZITHROMAX TAB 250 MG PO SCH (18:20)
[2022-09-29] MEDS: XANAX PO PRN (20:39)
[2022-09-29] MEDS: PEPCID TAB 40 MG PO SCH (20:43)
[2022-09-30] MEDS: MIRAPEX TAB 1 MG PO SCH (05:23)
[2022-09-30] MEDS: SOLU-Medrol 40 MG VIAL IVP SCH (05:32)
[2022-09-30 05:50] LABS: BASOPHILS # (AUTO) 0.1 X10^3/uL (0.0-0.1); BASOPHILS % (AUTO) 0.4 % (0.2-1.0); EOSINOPHILS % (AUTO) 0.1 % (0.9-2.9); HEMATOCRIT 39.5 % (36.0-47.0); HEMOGLOBIN 13.2 g/dL (12.0-16.0); LYMPHOCYTES # (AUTO) 0.9 X10^3/uL (1.3-2.9); LYMPHOCYTES % (AUTO) 4.7 % (21.0-51.0); MEAN CORPUSCULAR HEMOGLOBIN 28.1 pg (27.0-34.0); MEAN CORPUSCULAR HGB CONC 33.4 g/dL (33.0-35.0); MEAN CORPUSCULAR VOLUME 84.3 fL (80.0-100.0); MEAN PLATELET VOLUME 6.8 fL (7.4-11.0); MONOCYTES # (AUTO) 1.3 x10^3/uL (0.3-0.8); NEUTROPHILS # (AUTO) 16.9 x10^3/uL (2.2-4.8); NEUTROPHILS % (AUTO) 87.8 % (42.0-75.0); PLATELET COUNT 411 X10^3/uL (150.0-450.0); RED BLOOD COUNT 4.68 X10^6/uL (3.5-5.4); RED CELL DISTRIBUTION WIDTH 15.5 % (11.6-16.5); WHITE BLOOD COUNT 19.2 X10^3/uL (3.6-10.0)
[2022-09-30 06:02] LABS: ALBUMIN 3.1 g/dL (3.4-5.0); CALCIUM 8.8 mg/dL (8.5-10.1); COR CA(FOR HYPOALB) 9.5 mg/dL (8.5-10.1); CREATININE 1.22 mg/dL (0.55-1.02); POTASSIUM 3.4 mmol/L (3.5-5.1); TOTAL PROTEIN 6.5 g/dL (6.4-8.2)
[2022-09-30 06:19] LABS: PLATELET MORPHOLOGY COMMENT NORMAL (NORMAL)
[2022-09-30] MEDS ORDERED: PHARMACY CONSULT - POTASSIUM & MAGNESIUM XX SCH (07:00)
--- NOTE | 2022-09-30 08:19 | RAD ---
HISTORYSOB HX: IA, A-FIB, ASTHMA, COPD SX: HYSTERECTOMY, MASTECTOMYSTUDYCHEST, 1 [id number]/29/2023FINDINGSCardiome diastinal silhouette within normal limits. No focal consolidation, pulmonary edema, sizeable pleural effusion, or visible pneumothorax. No acute osseous finding.IMPRESSIONNo acute appearing finding.Electronically signed by: Asif Okeefe (Sep 30, 2022 08:17:56)
[2022-09-30] MEDS ORDERED: LASIX PO SCH (09:00)
[2022-09-30] MEDS ORDERED: SYNTHROID 100 mcg TAB PO SCH (09:00)
[2022-09-30] MEDS ORDERED: SINGULAIR TAB 10 MG PO SCH (09:00)
[2022-09-30] MEDS ORDERED: MICRO K EXTEN CAP 10 MEQ PO SCH ×2 (09:00)
[2022-09-30 09:16] VITALS: TEMP 98.7
[2022-09-30 09:18] VITALS: BP 176/70; RESP 24
[2022-09-30] MEDS: PULMICORT NEB TX 0.5 MG NEB SCH (09:30)
[2022-09-30] MEDS: XOPENEX 1.25 MG/3 ML NEBULE NEB SCH (09:30)
[2022-09-30] MEDS: CLARITIN PO SCH (09:40)
[2022-09-30] MEDS: PEPCID TAB 40 MG PO SCH (09:40)
[2022-09-30] MEDS: LOVENOX INJ 40 MG SYR SC SCH (09:41)
[2022-09-30] MEDS: FLONASE NASAL SPRAY ENOSTRIL SCH (09:41)
[2022-09-30] MEDS: ROBITUSSIN DM PO SCH (09:41)
[2022-09-30] MEDS: ASTELIN NASAL SPRAY ENOSTRIL SCH (09:41)
[2022-09-30 10:47] VITALS: PULSE 65; O2SAT 93
[2022-09-30] MEDS ORDERED: DEPO-Medrol 40 MG VIAL IM ONE (11:37)
[2022-09-30] MEDS: ROCEPHIN VIAL 1 GRAM 1 G in NS 100 ML IV 100 ML IV SCH (11:51)
[2022-09-30] MEDS ORDERED: SOLU-Medrol 40 MG VIAL ONE (12:00)
== END 2022-09-30 12:48 | disposition home or self-care (01) ==
LOC: MED/SURG
PROVIDERS: ADMIT Internal Medicine; ATTEND Internal Medicine
DX: E11.65 Type 2 diabetes mellitus with hyperglycemia; R07.89 Other chest pain; J20.8 Acute bronchitis due to other specified organisms; E03.8 Other specified hypothyroidism; F41.8 Other specified anxiety disorders; M19.90 Unspecified osteoarthritis, unspecified site; J04.0 Acute laryngitis; I10 Essential (primary) hypertension; J44.1 Chronic obstructive pulmonary disease with (acute) exacerbation; K21.9 Gastro-esophageal reflux disease without esophagitis; R06.02 Shortness of breath

== ENCOUNTER 2023-06-25 10:03 | Inpatient (IN) ==
--- NOTE | 2023-06-25 11:05 | EKG ---
Test Reason : SOB, EDEMA Blood Pressure : */* mmHG Vent. Rate : 68 BPM Atrial Rate : 68 BPM P-R Int : 168 ms QRS Dur : 76 ms QT Int : 422 ms P-R-T Axes : 14 -19 15 degrees QTc Int : 448 ms Normal sinus rhythm Inferior infarct (cited on or before 25-SEP-2022) Anterior infarct (cited on or before 25-SEP-2022) Abnormal ECG When compared with ECG of 25-SEP-2022 17:11, No significant change was found Confirmed by Jimbo Montana MD ([id number]) on 06/26/2023 7:55:39 AM Referred By: Confirmed By: Jimbo Montana MD
[2023-06-25 11:09] LABS: BASOPHILS # (AUTO) 0.1 X10^3/uL (0.0-0.1); BASOPHILS % (AUTO) 0.7 % (0.2-1.0); EOSINOPHILS # (AUTO) 0.3 x10^3/uL (0.0-0.2); EOSINOPHILS % (AUTO) 2.7 % (0.9-2.9); HEMATOCRIT 42.7 % (36.0-47.0); HEMOGLOBIN 14.2 g/dL (12.0-16.0); LYMPHOCYTES # (AUTO) 1.9 X10^3/uL (1.3-2.9); LYMPHOCYTES % (AUTO) 18.4 % (21.0-51.0); MEAN CORPUSCULAR HGB CONC 33.2 g/dL (33.0-35.0); MEAN CORPUSCULAR VOLUME 87.5 fL (80.0-100.0); MEAN PLATELET VOLUME 6.6 fL (7.4-11.0); MONOCYTES # (AUTO) 0.9 x10^3/uL (0.3-0.8); MONOCYTES % (AUTO) 8.4 % (0.0-13.0); NEUTROPHILS # (AUTO) 7.3 x10^3/uL (2.2-4.8); NEUTROPHILS % (AUTO) 69.8 % (42.0-75.0); PLATELET COUNT 360 X10^3/uL (150.0-450.0); RED BLOOD COUNT 4.89 X10^6/uL (3.5-5.4); RED CELL DISTRIBUTION WIDTH 15.1 % (11.6-16.5); WHITE BLOOD COUNT 10.5 X10^3/uL (3.6-10.0)
[2023-06-25 11:25] LABS: ALANINE AMINOTRANSFERASE 25 Units/L (12-78); ALBUMIN 3.5 g/dL (3.4-5.0); ALKALINE PHOSPHATASE 101 Units/L (46-116); ASPARTATE AMINO TRANSFERASE 21 Units/L (15-37); BLOOD UREA NITROGEN 16 mg/dL (7-18); CALCIUM 9.2 mg/dL (8.5-10.1); CARBON DIOXIDE 28.2 mmol/L (21-32); CHLORIDE 104 mmol/L (98-107); CREATINE KINASE 113 Units/L (26-192); GLUCOSE 108 mg/dL (65-99); POTASSIUM 3.9 mmol/L (3.5-5.1); SODIUM 139 mmol/L (136-145); TOTAL PROTEIN 7.2 g/dL (6.4-8.2); eGFR NON BLACK RACES 58 (>60)
[2023-06-25] MEDS: LASIX IVP SCH (11:27)
[2023-06-25] MEDS: TUSSIONEX PENNKINETIC SUSP PO SCH (11:27)
[2023-06-25] MEDS: ROCEPHIN VIAL 1 GRAM 1 G in NS 100 ML IV 100 ML IV SCH (11:27)
[2023-06-25] MEDS: PROTONIX INJ 40 MG VIAL IVP SCH (11:27)
[2023-06-25] MEDS: SOLU-Medrol 40 MG VIAL IVP SCH (11:27)
[2023-06-25] MEDS: K-DUR TAB 20 MEQ PO SCH (11:28)
[2023-06-25] MEDS: NS 1,000 ML IV 1,000 ML IV SCH (11:31)
[2023-06-25 12:47] VITALS: BMI 40.3
--- NOTE | 2023-06-25 13:16 | DR.H&P ---
H&P History & Physical for Day of: H&P Date: 06/25/23 Chief Complaint Chief Complaint: CCC, LOWER EXTREMITY EDMEA, SOB Allergies Allergies Allergy/AdvReac Type Severity Reaction Status Date / Time cinnamon Allergy Mild RASH Verified 10/11/22 17:15 cefdinir [From Omnicef] Allergy Unknown Verified 06/28/22 18:09 codeine Allergy Unknown Verified 06/28/22 18:09 diphenhydramine Allergy Unknown Verified 06/28/22 18:09 [From Benadryl] esomeprazole [From Nexium] Allergy Unknown Verified 06/28/22 18:09 Fish Containing Products Allergy Unknown Verified 01/19/23 11:33 fluconazole Allergy Unknown Verified 06/28/22 18:09 influenza virus vaccine ts Allergy Unknown Verified 06/28/22 18:09 [id number] (36 mos,up) [From Fluarix] iodine Allergy Unknown Verified 06/28/22 18:09 levofloxacin [From Levaquin] Allergy Unknown Verified 06/28/22 18:09 losartan Allergy Unknown Verified 06/28/22 18:09 morphine Allergy Unknown Verified 06/28/22 18:09 penicillin V Allergy Unknown Verified 06/28/22 18:09 prednisone Allergy Unknown Verified 06/28/22 18:09 rabeprazole [From Aciphex] Allergy Unknown Verified 06/28/22 18:09 starch Allergy Unknown Verified 06/28/22 18:09 sulfacetamide Allergy Unknown Verified 06/28/22 18:09 almond Allergy Verified 06/28/22 18:09 pittman Allergy Verified 06/28/22 18:09 grape Allergy Verified 10/11/22 17:14 hydroxyzine [From Atarax] Allergy Verified 06/28/22 18:09 Iodine and Iodide Containing Allergy Verified 06/28/22 18:09 Produc Penicillins Allergy Verified 06/28/22 18:09 Pork/Porcine Containing Allergy Verified 06/28/22 18:09 Products potassium [From Potassimin] Allergy Verified 06/28/22 18:09 spinach Allergy Verified 06/28/22 18:09 turkey Allergy Verified 06/28/22 18:09 carbonated drinks Allergy Unknown Uncoded 06/28/22 18:09 CATFISH Allergy Uncoded 06/28/22 18:09 History of Present Illness History of Present Illness: PT IS 73 WF, DIRECT ADMIT FROM DR GREEN OFFICE WITH CCC, INCREASED SOB AND +3 LOWER EXTREMITY EDEMA. PT HAS BEEN SICK WITH URI FOR 2 WEEKS AND CO DIARRHEA. PT HAS TAKEN IM ROCEPHIN AND USED DUO NEBS WITHOUT IMPROVEMENT. PT WAS NEGATIVE FOR FLU AND COVID IN OUR OFFICE. PT ADMITTED FOR TREATMENT AND EVALUATION OF ACUTE ILLNESS. 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, Hysterectomy and Mastectomy Family History Family Medical History: Diabetes Mellitus, [place] and Hypertension Social History Does patient currently use any type of tobacco product: No Have you used tobacco products in the last 12 months: No Type of Tobacco Use: None Does any household member use tobacco: No Alcohol Use: None Drug Use: None Medications Home Medications: Home Medications Medication Instructions Recorded Confirmed Type azelastine 137 mcg-fluticasone 50 1 spray intranasal PRN PRN 06/28/22 09/29/22 History mcg/spray nasal spray budesonide 0.5 mg/2 mL suspension 1 vial BID 06/28/22 09/29/22 History for nebulization cyanocobalamin (vitamin B-12) 1 ml IM QWEEK 06/28/22 09/29/22 History 1,000 mcg/mL injection solution fluticasone propionate 50 1 spray intranasal BID 06/28/22 09/29/22 History mcg/actuation nasal spray,suspension furosemide 40 mg tablet 1 tab PO QDAY 06/28/22 09/28/22 History pramipexole 1.5 mg tablet (Mirapex) 1.5 tab PO TID 06/28/22 09/29/22 History conjugated estrogens 1.25 mg 1 tab PO QDAY 09/28/22 09/29/22 History tablet (Premarin) levothyroxine 100 mcg tablet 100 mcg PO QDAY 09/28/22 09/29/22 History (Synthroid) montelukast 10 mg tablet 1 tab PO QDAY 09/28/22 09/29/22 History (Singulair) ergocalciferol (vitamin D2) 1,250 1 cap PO QWEEK 09/29/22 09/29/22 History mcg (50,000 unit) capsule famotidine 40 mg tablet 1 tab PO BID 09/29/22 09/29/22 History hydrochlorothiazide 25 mg tablet 1 tab PO QDAY 09/29/22 09/29/22 History potassium chloride 10 mEq 1 tab PO QDAY 09/29/22 09/29/22 History tablet,extended release Labs 06/25/23 11:00 06/25/23 11:00 Labs: Laboratory WBC 10.5 X10^3/uL (3.6-10.0) H 06/25/23 11:00 RBC 4.89 X10^6/uL (3.5-5.4) 06/25/23 11:00 Hgb 14.2 g/dL (12.0-16.0) 06/25/23 11:00 Hct 42.7 % (36.0-47.0) 06/25/23 11:00 MCV 87.5 fL (80.0-100.0) 06/25/23 11:00 MCH 29.0 pg (27.0-34.0) 06/25/23 11:00 MCHC 33.2 g/dL (33.0-35.0) 06/25/23 11:00 RDW 15.1 % (11.6-16.5) 06/25/23 11:00 Plt Count 360 X10^3/uL (150.0-450.0) 06/25/23 11:00 MPV 6.6 fL (7.4-11.0) L 06/25/23 11:00 Neut % (Auto) 69.8 % (42.0-75.0) 06/25/23 11:00 Lymph % (Auto) 18.4 % (21.0-51.0) L 06/25/23 11:00 [place] % (Auto) 8.4 % (0.0-13.0) 06/25/23 11:00 Eos % (Auto) 2.7 % (0.9-2.9) 06/25/23 11:00 Baso % (Auto) 0.7 % (0.2-1.0) 06/25/23 11:00 Neut # (Auto) 7.3 x10^3/uL (2.2-4.8) H 06/25/23 11:00 Lymph # (Auto) 1.9 X10^3/uL (1.3-2.9) 06/25/23 11:00 [place] # (Auto) 0.9 x10^3/uL (0.3-0.8) H 06/25/23 11:00 Eos # (Auto) 0.3 x10^3/uL (0.0-0.2) H 06/25/23 11:00 Baso # (Auto) 0.1 X10^3/uL (0.0-0.1) 06/25/23 11:00 Absolute Nucleated RBC 0.1 /100WBC 06/25/23 11:00 Sodium 139 mmol/L (136-145) 06/25/23 11:00 Corrected Sodium TNP 06/25/23 11:00 Potassium 3.9 mmol/L (3.5-5.1) 06/25/23 11:00 Chloride 104 mmol/L (98-107) 06/25/23 11:00 Carbon Dioxide 28.2 mmol/L (21-32) 06/25/23 11:00 BUN 16 mg/dL (7-18) 06/25/23 11:00 Creatinine 1.00 mg/dL (0.55-1.02) 06/25/23 11:00 Est GFR (MDRD) Af Amer > 60 (>60) 06/25/23 11:00 Est GFR (MDRD) Non-Af 58 (>60) L 06/25/23 11:00 Glucose 108 mg/dL (65-99) H 06/25/23 11:00 Calcium 9.2 mg/dL (8.5-10.1) 06/25/23 11:00 Corrected Calcium TNP 06/25/23 11:00 Magnesium 2.0 mg/dL (2.0-2.9) 06/25/23 11:00 Total Bilirubin 0.50 mg/dL (0.2-1.0) 06/25/23 11:00 AST 21 Units/L (15-37) 06/25/23 11:00 ALT 25 Units/L (12-78) 06/25/23 11:00 Alkaline Phosphatase 101 Units/L (46-116) 06/25/23 11:00 Creatine Kinase 113 Units/L (26-192) 06/25/23 11:00 Troponin I High Sens 5.2 ng/L (4.0-60.0) 06/25/23 11:00 B-Natriuretic Peptide 22.9 pg/mL (0-79) 06/25/23 11:00 Total Protein 7.2 g/dL (6.4-8.2) 06/25/23 11:00 Albumin 3.5 g/dL (3.4-5.0) 06/25/23 11:00 Globulin 3.7 g/dL (2.5-4.5) 06/25/23 11:00 Albumin/Globulin Ratio 0.9 Ratio (1.1-2.1) L 06/25/23 11:00 Review of Systems Constitutional: Fever, Chills, Weakness and Malaise Eyes: No Symptoms Reported ENT: Nose Discharge and Nose Congestion Respiratory: Cough, Shortness of Breath, SOB with Excertion and Wheezing Cardiovascular: Edema Gastrointestinal: Nausea and Diarrhea Genitourinary: No Symptoms Reported Musculoskeletal: Back Pain Skin: No Symptoms Reported Neurological: Other (HEADACHE) Physical Exam Vital Signs: Vital Signs Temperature 97.6 F Pulse Rate [Left Radial] 67 Respiratory Rate 17 Respiratory Rate 20 Blood Pressure [Right Arm] 126/80 Blood Pressure 151/84 O2 Sat by Pulse Oximetry 94 Oriented: Normal Eyes: negative Blurred Vision Nose: Discharge Throat: Red and Exudate Respiratory: Diminished Throughout, RUL Exp. Wheeze and JEN Exp. Wheeze Cardiovascular: Edema; negative Tachycardia Auscultation: Bowel Sounds: Normal Tenderness: Normal Skin: Decreased Turgur Musculoskeletal: Back:Lumbar Psychiatric: Anxiety Affect: Flat Speech Pattern: Clear Assessment/Plan (1) COPD exacerbation: Narrative Support Text: ADMIT, CXR ON ADMISSION RESP PANEL ON ADMISSION BNP IV HYDRATION WITH STRICT I&OS IV LASIX WITH POTASSIUM REPLACEMENT RESP THEAPY VERIFY HOME MEDICATION PRN SUPPLEMENTAL O2 BP CONTROL Status: Acute (2) Type 2 diabetes mellitus: Status: Acute (3) HTN (hypertension): Status: Chronic (4) GERD (gastroesophageal reflux disease): Status: Chronic (5) Osteoarthritis: Status: Chronic
[2023-06-25] MEDS: PROVENTIL NEB TX 0.083% 2.5MG/ 3ML NEB SCH (13:40)
--- NOTE | 2023-06-25 15:03 | RAD ---
EXAM:CHEST, 1 VIEWHISTORY:SOB;COMPARISON:Prior study or studies were utilized for comparison during interpretation with the most relevant dated 09/30/2022TECHNIQUE:CHEST, 1 VIEWFINDINGS:Chest:Lines and tubes: NoneMediastinum: Cardiomegaly.Pulmonary vessels: No pulmonary vascular congestion.Lung hoskins: No suspicious airspace opacity.Pleura: No effusion. No pneumothorax.Bones and soft tissues: No acute osseous or soft tissue abnormality.IMPRESSION:1. No acute cardiopulmonary abnormalityTHIS IS AN ELECTRONICALLY VERIFIED FINAL REPORT06/25/2023 3:00 PM - Electronically signed by Ike Maynard MD
[2023-06-25] MEDS: MIRAPEX TAB 1 MG PO SCH (21:19)
[2023-06-25] MEDS: SINGULAIR TAB 10 MG PO SCH (21:19)
[2023-06-25] MEDS: FLONASE NASAL SPRAY ENOSTRIL SCH (21:41)
[2023-06-25] MEDS: RESTORIL CAP 15 MG PO PRN (22:27)
[2023-06-25] MEDS ORDERED: STERILE WATER IRRIGATION IR ONE (23:08)
[2023-06-26 05:16] LABS: BASOPHILS % (AUTO) 0.3 % (0.2-1.0); EOSINOPHILS % (AUTO) 0.1 % (0.9-2.9); HEMATOCRIT 40.2 % (36.0-47.0); HEMOGLOBIN 13.3 g/dL (12.0-16.0); LYMPHOCYTES # (AUTO) 1.1 X10^3/uL (1.3-2.9); LYMPHOCYTES % (AUTO) 6.5 % (21.0-51.0); MEAN CORPUSCULAR HEMOGLOBIN 28.7 pg (27.0-34.0); MEAN CORPUSCULAR HGB CONC 33.1 g/dL (33.0-35.0); MEAN CORPUSCULAR VOLUME 86.9 fL (80.0-100.0); MEAN PLATELET VOLUME 6.8 fL (7.4-11.0); MONOCYTES # (AUTO) 0.9 x10^3/uL (0.3-0.8); MONOCYTES % (AUTO) 5.5 % (0.0-13.0); NEUTROPHILS # (AUTO) 14.2 x10^3/uL (2.2-4.8); NEUTROPHILS % (AUTO) 87.6 % (42.0-75.0); PLATELET COUNT 406 X10^3/uL (150.0-450.0); RED BLOOD COUNT 4.63 X10^6/uL (3.5-5.4); RED CELL DISTRIBUTION WIDTH 14.5 % (11.6-16.5); WHITE BLOOD COUNT 16.2 X10^3/uL (3.6-10.0)
[2023-06-26 05:27] LABS: ALBUMIN 3.3 g/dL (3.4-5.0); CALCIUM 8.6 mg/dL (8.5-10.1); CARBON DIOXIDE 27.6 mmol/L (21-32); COR CA(FOR HYPOALB) 9.2 mg/dL (8.5-10.1); CREATININE 1.34 mg/dL (0.55-1.02); POTASSIUM 4.1 mmol/L (3.5-5.1); TOTAL PROTEIN 6.9 g/dL (6.4-8.2)
[2023-06-26] MEDS: SYNTHROID 100 mcg TAB PO SCH (06:22)
[2023-06-26] MEDS: SOLU-Medrol 40 MG VIAL IVP SCH (09:33)
[2023-06-26] MEDS: LOVENOX INJ 40 MG SYR SC SCH (09:33)
[2023-06-26 09:49] LABS: PHOSPHORUS 3.5 mg/dL (2.6-4.7); URIC ACID 7.6 mg/dL (2.6-6.0)
[2023-06-26] MEDS: NORCO 5/325 MG TAB PO PRN (13:08)
[2023-06-26] MEDS ORDERED: PULMICORT NEB TX 0.5 MG NEB ONE (19:55)
[2023-06-26] MEDS: PULMICORT NEB TX 0.5 MG NEB SCH (20:21)
[2023-06-27 06:20] LABS: ALBUMIN 3.3 g/dL (3.4-5.0); CALCIUM 8.9 mg/dL (8.5-10.1); CARBON DIOXIDE 26.3 mmol/L (21-32); COR CA(FOR HYPOALB) 9.5 mg/dL (8.5-10.1); CREATININE 1.16 mg/dL (0.55-1.02); POTASSIUM 4.6 mmol/L (3.5-5.1); TOTAL PROTEIN 7.1 g/dL (6.4-8.2)
[2023-06-27 06:21] LABS: BASOPHILS # (AUTO) 0.1 X10^3/uL (0.0-0.1); BASOPHILS % (AUTO) 0.3 % (0.2-1.0); EOSINOPHILS # (AUTO) 0.1 x10^3/uL (0.0-0.2); EOSINOPHILS % (AUTO) 0.5 % (0.9-2.9); HEMATOCRIT 41.4 % (36.0-47.0); HEMOGLOBIN 13.6 g/dL (12.0-16.0); LYMPHOCYTES # (AUTO) 0.9 X10^3/uL (1.3-2.9); LYMPHOCYTES % (AUTO) 4.3 % (21.0-51.0); MEAN CORPUSCULAR HEMOGLOBIN 28.8 pg (27.0-34.0); MEAN CORPUSCULAR HGB CONC 32.8 g/dL (33.0-35.0); MEAN CORPUSCULAR VOLUME 87.6 fL (80.0-100.0); MEAN PLATELET VOLUME 6.8 fL (7.4-11.0); MONOCYTES # (AUTO) 1.4 x10^3/uL (0.3-0.8); MONOCYTES % (AUTO) 6.5 % (0.0-13.0); NEUTROPHILS # (AUTO) 18.8 x10^3/uL (2.2-4.8); NEUTROPHILS % (AUTO) 88.4 % (42.0-75.0); PLATELET COUNT 431 X10^3/uL (150.0-450.0); RED BLOOD COUNT 4.72 X10^6/uL (3.5-5.4); RED CELL DISTRIBUTION WIDTH 14.5 % (11.6-16.5); WHITE BLOOD COUNT 21.2 X10^3/uL (3.6-10.0)
[2023-06-27 06:55] LABS: BAND NEUTROPHILS % 5 % (0-10)
[2023-06-27 06:56] LABS: PLATELET MORPHOLOGY COMMENT NORMAL (NORMAL)
[2023-06-27 07:53] LABS: CREATININE,URINE 124.88 mg/dL (29-226); MICROALBUMIN,URINE 4.7 mg/L
--- NOTE | 2023-06-27 08:01 | RAD ---
EXAM: CHEST x-ray, 1 VIEW HISTORY: COPD EXACERBATION - COMPARISON: X-ray 06/25/2023 FINDINGS: Possible cardiomegaly but no pulmonary venous congestion is seen. No pneumothorax, focal infiltrate, or pleural effusion is seen. IMPRESSION: Possible cardiomegaly. Appearance is similar to prior study. THIS IS AN ELECTRONICALLY VERIFIED FINAL REPORT 06/27/2023 7:58 AM - Electronically signed by Jonas Simon MD
[2023-06-27 10:44] LABS: BILIRUBIN,URINE NEGATIVE (NEGATIVE); BLOOD/HEMOGLOBIN,URINE NEGATIVE (NEGATIVE); GLUCOSE, URINE NEGATIVE (NEGATIVE); KETONES,URINE NEGATIVE (NEGATIVE); LEUKOCYTE ESTERASE ,URINE NEGATIVE (NEGATIVE); NITRITES,URINE NEGATIVE (NEGATIVE); PROTEIN,URINE 1+ (NEGATIVE); UROBILINOGEN,URINE NORMAL (NORMAL)
[2023-06-27 10:53] LABS: APPEARANCE,URINE CLEAR (CLEAR); BACTERIA,URINE TRACE /HPF (NEGATIVE); COLOR,URINE YELLOW (YELLOW); RBC,URINE 0-2 /HPF (0-3); SQUAMOUS EPITHELIAL CELL,UR MODERATE /HPF (NEGATIVE)
[2023-06-28] MEDS: PHENERGAN TAB 25 MG PO PRN (00:36)
[2023-06-28 06:32] LABS: BASOPHILS # (AUTO) 0.1 X10^3/uL (0.0-0.1); BASOPHILS % (AUTO) 0.4 % (0.2-1.0); HEMATOCRIT 39.9 % (36.0-47.0); HEMOGLOBIN 13.2 g/dL (12.0-16.0); LYMPHOCYTES # (AUTO) 0.8 X10^3/uL (1.3-2.9); LYMPHOCYTES % (AUTO) 4.1 % (21.0-51.0); MEAN CORPUSCULAR HEMOGLOBIN 28.7 pg (27.0-34.0); MEAN CORPUSCULAR VOLUME 87.1 fL (80.0-100.0); MONOCYTES # (AUTO) 1.2 x10^3/uL (0.3-0.8); MONOCYTES % (AUTO) 6.6 % (0.0-13.0); NEUTROPHILS # (AUTO) 16.4 x10^3/uL (2.2-4.8); NEUTROPHILS % (AUTO) 88.9 % (42.0-75.0); PLATELET COUNT 414 X10^3/uL (150.0-450.0); RED BLOOD COUNT 4.59 X10^6/uL (3.5-5.4); RED CELL DISTRIBUTION WIDTH 14.8 % (11.6-16.5); WHITE BLOOD COUNT 18.4 X10^3/uL (3.6-10.0)
[2023-06-28 06:48] LABS: ALBUMIN 3.3 g/dL (3.4-5.0); CALCIUM 8.6 mg/dL (8.5-10.1); CARBON DIOXIDE 30.1 mmol/L (21-32); COR CA(FOR HYPOALB) 9.2 mg/dL (8.5-10.1); CREATININE 1.18 mg/dL (0.55-1.02); POTASSIUM 4.4 mmol/L (3.5-5.1); TOTAL PROTEIN 6.7 g/dL (6.4-8.2)
[2023-06-28 07:05] LABS: BAND NEUTROPHILS % 5 % (0-10); PLATELET MORPHOLOGY COMMENT NORMAL (NORMAL)
--- NOTE | 2023-06-28 10:55 | CT ---
EXAM: CHEST W/O CON HISTORY: Bronchitis/Shortness of breath; COMPARISON: No relevant prior studies were available for comparison at the time of interpretation.. TECHNIQUE: CT images were obtained. Multiplanar reconstructions were created on a separate workstation and used during interpretation. All CT scans at this facility is dose modulation, iterative reconstruction, an d/or weight-based dosing as appropriate to reduce radiation to levels as low as reasonably achievable (ALARA). Postprocessing details, radiation dose, and contrast dose (if applicable) are recorded in t he patient's medical record. 3D maximum intensity projection images were obtained and evaluated. FINDINGS: Lower Neck: No acute soft tissue abnormality. No actionable thyroid nodule. Lymph nodes: No visualized cervical, supraclavicular, axillary, mediastinal, or hilar adenopathy Upper abdomen: No acute abnormality identified in the visualized upper abdomen. There is a 5.2 x 5.4 cm simple cyst of the upper pole of the right kidney. There are multiple simple left renal cysts, t he largest of which measures 7.3 x 6.0 cm. Status post cholecystectomy. There are several simple he patic cysts, the largest of which is seen near the gallbladder fossa, measuring 2.9 cm. There are pu nctate nonobstructing right renal calculi Cardiomediastinum: No acute cardiac abnormality. Vascular: Normal aortic caliber. No significant branch vessel calcification. No pulmonary artery dil ation. Lungs: Ofmi-qm-ourgqwxc emphysema. No suspicious airspace opacity, mass, or nodule. No evidence of t raumatic injury. . No effusion or pneumothorax Osseous structures: No acute osseous abnormality. No destructive osseous lesion. IMPRESSION: 1. Iijt-iw-gtudwerw emphysema 2. Simple hepatic and renal cysts 3. Nonobstructing right renal calculi THIS IS AN ELECTRONICALLY VERIFIED FINAL REPORT 06/28/2023 10:52 AM - Electronically signed by Ike Maynard MD
[2023-06-28] MEDS: ZITHROMAX INJ 500 MG VIAL 500 MG in NS 250 ML IV 250 ML IV SCH (12:06)
[2023-06-29 06:13] LABS: BASOPHILS % (AUTO) 0.1 % (0.2-1.0); HEMATOCRIT 39.6 % (36.0-47.0); LYMPHOCYTES # (AUTO) 0.6 X10^3/uL (1.3-2.9); LYMPHOCYTES % (AUTO) 4.1 % (21.0-51.0); MEAN CORPUSCULAR HEMOGLOBIN 28.7 pg (27.0-34.0); MEAN CORPUSCULAR HGB CONC 32.8 g/dL (33.0-35.0); MEAN CORPUSCULAR VOLUME 87.6 fL (80.0-100.0); MEAN PLATELET VOLUME 7.1 fL (7.4-11.0); MONOCYTES # (AUTO) 0.9 x10^3/uL (0.3-0.8); MONOCYTES % (AUTO) 6.5 % (0.0-13.0); NEUTROPHILS % (AUTO) 89.3 % (42.0-75.0); PLATELET COUNT 407 X10^3/uL (150.0-450.0); RED BLOOD COUNT 4.52 X10^6/uL (3.5-5.4); RED CELL DISTRIBUTION WIDTH 14.7 % (11.6-16.5); WHITE BLOOD COUNT 13.4 X10^3/uL (3.6-10.0)
[2023-06-29 06:16] LABS: CALCIUM 8.2 mg/dL (8.5-10.1); CARBON DIOXIDE 28.5 mmol/L (21-32); CREATININE 1.16 mg/dL (0.55-1.02); POTASSIUM 4.4 mmol/L (3.5-5.1); TOTAL PROTEIN 6.2 g/dL (6.4-8.2)
[2023-06-29 06:37] LABS: PLATELET MORPHOLOGY COMMENT NORMAL (NORMAL)
[2023-06-29] MEDS: PREDNISONE TAB 10 MG PO SCH (08:51)
[2023-06-29 10:11] VITALS: BP 160/73; PULSE 75; RESP 18; TEMP 97.7; O2SAT 92
--- NOTE | 2023-06-29 12:12 | PCM.DCPLAN ---
DISCHARGE SUMMARY Admission Date Date of Admission: 06/25/23 Discharge Date Discharge Date: 06/29/23 Admission Diagnoses (1) COPD exacerbation: Status: Acute (2) Type 2 diabetes mellitus: Status: Acute (3) HTN (hypertension): Status: Chronic (4) GERD (gastroesophageal reflux disease): Status: Chronic (5) Osteoarthritis: Status: Chronic Discharge Diagnoses Discharge Diagnosis: Same as admission Discharge Medications Discharge Medications: Home Medication List promethazine 25 mg tablet 25 mg PO DAILY PRN 06/25/23 [History] azithromycin 250 mg tablet (Zithromax) 250 mg PO QDAY 7 days #7 tabs 06/29/23 [Rx] budesonide 160 mcg-glycopyr 9 mcg-formot 4.8 mcg/actuation HFA inhaler (Breztri Aerosphere) 2 inh inhalation BID 30 days #10.7 grams 06/29/23 [Rx] prednisone 10 mg tablet 10 mg PO DAILY #11 tabs 06/29/23 [Rx] Prescriptions: azithromycin [Zithromax] [facility] [id number]-[id number] [Breztri Aerosphere] [facility] prednisone [facility] Hospital Course Vital Signs: Vital Signs Temperature 97.7 F Temperature 98.0 F Pulse Rate [Left Radial] 75 Pulse Rate [Left Radial] 77 Respiratory Rate 18 Respiratory Rate 22 Blood Pressure [Right Arm] 160/73 Blood Pressure [Right Arm] 121/59 O2 Sat by Pulse Oximetry 92 O2 Sat by Pulse Oximetry 93 Latest Lab Results: Laboratory Last Values WBC 13.4 X10^3/uL (3.6-10.0) H 06/29/23 05:15 RBC 4.52 X10^6/uL (3.5-5.4) 06/29/23 05:15 Hgb 13.0 g/dL (12.0-16.0) 06/29/23 05:15 Hct 39.6 % (36.0-47.0) 06/29/23 05:15 MCV 87.6 fL (80.0-100.0) 06/29/23 05:15 MCH 28.7 pg (27.0-34.0) 06/29/23 05:15 MCHC 32.8 g/dL (33.0-35.0) L 06/29/23 05:15 RDW 14.7 % (11.6-16.5) 06/29/23 05:15 Plt Count 407 X10^3/uL (150.0-450.0) 06/29/23 05:15 Plt Count Comment Adequate (ADEQUATE) 06/29/23 05:15 MPV 7.1 fL (7.4-11.0) L 06/29/23 05:15 Neut % (Auto) 89.3 % (42.0-75.0) H 06/29/23 05:15 Lymph % (Auto) 4.1 % (21.0-51.0) L 06/29/23 05:15 [place] % (Auto) 6.5 % (0.0-13.0) 06/29/23 05:15 Eos % (Auto) 0.0 % (0.9-2.9) L 06/29/23 05:15 Baso % (Auto) 0.1 % (0.2-1.0) L 06/29/23 05:15 Neut # (Auto) 12.0 x10^3/uL (2.2-4.8) H 06/29/23 05:15 Lymph # (Auto) 0.6 X10^3/uL (1.3-2.9) L 06/29/23 05:15 [place] # (Auto) 0.9 x10^3/uL (0.3-0.8) H 06/29/23 05:15 Eos # (Auto) 0.0 x10^3/uL (0.0-0.2) 06/29/23 05:15 Baso # (Auto) 0.0 X10^3/uL (0.0-0.1) 06/29/23 05:15 Absolute Nucleated RBC 0.0 /100WBC 06/29/23 05:15 Total Counted 100 06/29/23 05:15 Neutrophils % (Manual) 86 % (39-76) H 06/29/23 05:15 Band Neutrophils % 5 % (0-10) 06/28/23 05:33 Lymphocytes % (Manual) 8 % (13-43) L 06/29/23 05:15 Monocytes % (Manual) 6 % (4-9) 06/29/23 05:15 Plt Morphology Comment Normal (NORMAL) 06/29/23 05:15 RBC Morphology Normal (NORMAL) 06/29/23 05:15 Sodium 138 mmol/L (136-145) 06/29/23 05:15 Corrected Sodium 139 mmol/L (136-145) 06/29/23 05:15 Potassium 4.4 mmol/L (3.5-5.1) 06/29/23 05:15 Chloride 99 mmol/L (98-107) 06/29/23 05:15 Carbon Dioxide 28.5 mmol/L (21-32) 06/29/23 05:15 BUN 27 mg/dL (7-18) H 06/29/23 05:15 Creatinine 1.16 mg/dL (0.55-1.02) H 06/29/23 05:15 Est GFR (MDRD) Af Amer 59 (>60) 06/29/23 05:15 Est GFR (MDRD) Non-Af 49 (>60) L 06/29/23 05:15 Glucose 146 mg/dL (65-99) H 06/29/23 05:15 Uric Acid 7.6 mg/dL (2.6-6.0) H 06/26/23 04:50 Calcium 8.2 mg/dL (8.5-10.1) L 06/29/23 05:15 Corrected Calcium 9.0 mg/dL (8.5-10.1) 06/29/23 05:15 Phosphorus 3.5 mg/dL (2.6-4.7) 06/26/23 04:50 Magnesium 2.0 mg/dL (2.0-2.9) 06/25/23 11:00 Total Bilirubin 0.30 mg/dL (0.2-1.0) 06/29/23 05:15 AST 8 Units/L (15-37) L 06/29/23 05:15 ALT 17 Units/L (12-78) 06/29/23 05:15 Alkaline Phosphatase 88 Units/L (46-116) 06/29/23 05:15 Creatine Kinase 113 Units/L (26-192) 06/25/23 11:00 Troponin I High Sens 5.2 ng/L (4.0-60.0) 06/25/23 11:00 B-Natriuretic Peptide 33.3 pg/mL (0-79) 06/28/23 05:33 Total Protein 6.2 g/dL (6.4-8.2) L 06/29/23 05:15 Albumin 3.0 g/dL (3.4-5.0) L 06/29/23 05:15 Globulin 3.2 g/dL (2.5-4.5) 06/29/23 05:15 Albumin/Globulin Ratio 0.9 Ratio (1.1-2.1) L 06/29/23 05:15 Specimen Type Clean catch urine 06/27/23 07:10 Urine Color Yellow (YELLOW) 06/27/23 07:10 Urine Appearance Clear (CLEAR) 06/27/23 07:10 Urine pH 6.0 (5.0 - 8.0) 06/27/23 07:10 Ur Specific [place] 1.020 (1.000-1.030) 06/27/23 07:10 Urine Protein 1+ (NEGATIVE) 06/27/23 07:10 Urine Glucose (UA) Negative (NEGATIVE) 06/27/23 07:10 Urine Ketones Negative (NEGATIVE) 06/27/23 07:10 Urine Blood Negative (NEGATIVE) 06/27/23 07:10 Urine Nitrite Negative (NEGATIVE) 06/27/23 07:10 Urine Bilirubin Negative (NEGATIVE) 06/27/23 07:10 Urine Urobilinogen Normal (NORMAL) 06/27/23 07:10 Ur Leukocyte Esterase Negative (NEGATIVE) 06/27/23 07:10 Urine RBC 0-2 /HPF (0-3) 06/27/23 07:10 Urine WBC 0-2 /HPF (0-5) 06/27/23 07:10 Ur Squamous Epith Cells Moderate /HPF (NEGATIVE) 06/27/23 07:10 Urine Bacteria Trace /HPF (NEGATIVE) 06/27/23 07:10 Ur Culture Indicated? No/not indicated 06/27/23 07:10 Urine Creatinine 124.88 mg/dL (29-226) 06/27/23 07:10 Urine Microalbumin 4.7 mg/L 06/27/23 07:10 Microalb/Creat Ratio 3 mg/g cre (0-29) 06/27/23 07:10 Resp Viral Panel (PCR) Cancelled 06/27/23 23:08 Hospital Course: This is a 73 year old white female who was admitted on 06/25/23 with chronic obstructive pulmonary disease exacerbation having failed outpatient treatment. She has been on antibiotics and low dose corticosteroids since admission with antiemetic therapy. The patient did have severe lower extremity edema bilaterally up to +3 to her shins on admission; improved with IV lasix. She had a chest xray on admission showing chronic changes and had a repeat chest xray on 06/27/23 that showed "possible cardiomegaly. Appearance is similar to prior study." We also obtained a AIT respiratory swab that was negative. CK, BNP, magnesium, tropinin, ua, microalbumin all wnl. EKG was stable from previous reading. We obtained a [place] Lambda [employer] chain and PO level, which are pending. Yesterday we obtained a repeat BNP,an Echo,and Chest CT without contrast. The BNP continued to be WNL. Echo revealed EF 60-65%. Chest CT showed "[id number], hepatic and renal cysts, non-obstructing right renal calculi." AM labs: hgb 13, wbc 13.4, bun 27/creatinine 1.16. Patient states that she is feeling much better, so we will allow her to discharge home on po abx, steroids, and breztri. We recommended the patient to have an outpatient cardiac workup within the next week, since it has been a few years since her last. We referred her to Dr. [place]. She will also need to follow up with her primary care provider and she has an appointment scheduled for 07/03/23 at 3:15PM. Please see discharge plan for list of discharge medications and modifications that we made, electronic medical record for diagnostic tests and labs. The patient was instructed to return to the ER if condition changed or worsened unexpectedly.
--- NOTE | 2023-06-29 12:12 | PCM.PROG ---
Progress Note Progress Note for Day of Date of Exam: 06/28/23 Subjective Subjective: This is a 73-year-old white female who was admitted on 06/25/23 with chronic obstructive pulmonary disease exacerbation having failed outpatient treatment. She has been on antibiotics and low-dose corticosteroids since admission with antiemetic therapy. The patient did have severe lower extremity edema bilaterally up to +3 to her norton on admission; improved with IV lasix. She had a chest x-ray on admission showing chronic changes and had a repeat chest xray yesterday morning that showed "possible cardiomegaly. Appearance is similar to prior study." We will plan to obtain a BNP, Echo, chest CT without contrast. Morning labs: wbc 18.4, hgb 13.0, bun26/creatinine 1.18. AM vitals: 164/73 -94-18-98.2-94% on 2L. Past Medical Family Social History Allergies: Allergies cinnamon Allergy (Mild, Verified 10/11/22 17:15) RASH cefdinir [From Omnicef] Allergy (Unknown, Verified 06/28/22 18:09) Reason: Drug allergy codeine Allergy (Unknown, Verified 06/28/22 18:09) Reason: Drug allergy diphenhydramine [From Benadryl] Allergy (Unknown, Verified 06/28/22 18:09) Reason: Drug allergy esomeprazole [From Nexium] Allergy (Unknown, Verified 06/28/22 18:09) Reason: Drug allergy Fish Containing Products Allergy (Unknown, Verified 01/19/23 11:33) "catfish" allergy fluconazole Allergy (Unknown, Verified 06/28/22 18:09) Reason: Drug allergy influenza virus vaccine ts [id number] (36 mos,up) [From Fluarix] Allergy (Unknown, Verified 06/28/22 18:09) Reason: Drug allergy iodine Allergy (Unknown, Verified 06/28/22 18:09) Reason: Drug allergy levofloxacin [From Levaquin] Allergy (Unknown, Verified 06/28/22 18:09) Reason: Drug allergy losartan Allergy (Unknown, Verified 06/28/22 18:09) Reason: Drug allergy morphine Allergy (Unknown, Verified 06/28/22 18:09) Reason: Drug allergy penicillin V Allergy (Unknown, Verified 06/28/22 18:09) Reason: Drug allergy prednisone Allergy (Unknown, Verified 06/28/22 18:09) Reason: Drug allergy rabeprazole [From Aciphex] Allergy (Unknown, Verified 06/28/22 18:09) Reason: Drug allergy starch Allergy (Unknown, Verified 06/28/22 18:09) Reason: Drug allergy sulfacetamide Allergy (Unknown, Verified 06/28/22 18:09) Reason: Drug allergy almond Allergy (Verified 06/28/22 18:09) pittman Allergy (Verified 06/28/22 18:09) grape Allergy (Verified 10/11/22 17:14) 'GRAPES' ALLERGY hydroxyzine [From Atarax] Allergy (Verified 06/28/22 18:09) Iodine and Iodide Containing Produc Allergy (Verified 06/28/22 18:09) Penicillins Allergy (Verified 06/28/22 18:09) Pork/Porcine Containing Products Allergy (Verified 06/28/22 18:09) potassium [From Potassimin] Allergy (Verified 06/28/22 18:09) spinach Allergy (Verified 06/28/22 18:09) turkey Allergy (Verified 06/28/22 18:09) carbonated drinks Allergy (Unknown, Uncoded 06/28/22 18:09) CATFISH Allergy (Uncoded 06/28/22 18:09) Vital Signs and I&O's Vital Signs: Vital Signs Temperature 98.0 F Pulse Rate [Left Radial] 77 Respiratory Rate 22 Blood Pressure [Right Arm] 121/59 O2 Sat by Pulse Oximetry 93 Intake and Output: Intake & Output 06/26/23 06/27/23 06/28/23 06/29/23 11:59 11:59 11:59 11:59 Intake Total 1264 / 1264 2467 / 2467 3517 / 3517 3244 / 3244 Balance 1264 / 1264 2467 / 2467 3517 / 3517 3244 / 3244 Physical Exam Oriented: Normal Eyes: Normal Ear: Normal Nose: Discharge Throat: Red and Exudate Respiratory: Rhonchi Cardiovascular: Edema (+1 BLE) : Normal Auscultation: Bowel Sounds: Normal Tenderness: Normal Skin: Decreased Turgur Musculoskeletal: Back:Lumbar Psychiatric: Anxiety Mood Description: Calm Affect: Flat Speech Pattern: Clear and Appropriate Laboratory and Diagnostics 06/29/23 05:15 06/29/23 05:15 Labs: Laboratory WBC 13.4 X10^3/uL (3.6-10.0) H 06/29/23 05:15 RBC 4.52 X10^6/uL (3.5-5.4) 06/29/23 05:15 Hgb 13.0 g/dL (12.0-16.0) 06/29/23 05:15 Hct 39.6 % (36.0-47.0) 06/29/23 05:15 MCV 87.6 fL (80.0-100.0) 06/29/23 05:15 MCH 28.7 pg (27.0-34.0) 06/29/23 05:15 MCHC 32.8 g/dL (33.0-35.0) L 06/29/23 05:15 RDW 14.7 % (11.6-16.5) 06/29/23 05:15 Plt Count 407 X10^3/uL (150.0-450.0) 06/29/23 05:15 Plt Count Comment Adequate (ADEQUATE) 06/29/23 05:15 MPV 7.1 fL (7.4-11.0) L 06/29/23 05:15 Neut % (Auto) 89.3 % (42.0-75.0) H 06/29/23 05:15 Lymph % (Auto) 4.1 % (21.0-51.0) L 06/29/23 05:15 Ralls % (Auto) 6.5 % (0.0-13.0) 06/29/23 05:15 Eos % (Auto) 0.0 % (0.9-2.9) L 06/29/23 05:15 Baso % (Auto) 0.1 % (0.2-1.0) L 06/29/23 05:15 Neut # (Auto) 12.0 x10^3/uL (2.2-4.8) H 06/29/23 05:15 Lymph # (Auto) 0.6 X10^3/uL (1.3-2.9) L 06/29/23 05:15 [place] # (Auto) 0.9 x10^3/uL (0.3-0.8) H 06/29/23 05:15 Eos # (Auto) 0.0 x10^3/uL (0.0-0.2) 06/29/23 05:15 Baso # (Auto) 0.0 X10^3/uL (0.0-0.1) 06/29/23 05:15 Absolute Nucleated RBC 0.0 /100WBC 06/29/23 05:15 Total Counted 100 06/29/23 05:15 Neutrophils % (Manual) 86 % (39-76) H 06/29/23 05:15 Band Neutrophils % 5 % (0-10) 06/28/23 05:33 Lymphocytes % (Manual) 8 % (13-43) L 06/29/23 05:15 Monocytes % (Manual) 6 % (4-9) 06/29/23 05:15 Plt Morphology Comment Normal (NORMAL) 06/29/23 05:15 RBC Morphology Normal (NORMAL) 06/29/23 05:15 Sodium 138 mmol/L (136-145) 06/29/23 05:15 Corrected Sodium 139 mmol/L (136-145) 06/29/23 05:15 Potassium 4.4 mmol/L (3.5-5.1) 06/29/23 05:15 Chloride 99 mmol/L (98-107) 06/29/23 05:15 Carbon Dioxide 28.5 mmol/L (21-32) 06/29/23 05:15 BUN 27 mg/dL (7-18) H 06/29/23 05:15 Creatinine 1.16 mg/dL (0.55-1.02) H 06/29/23 05:15 Est GFR (MDRD) Af Amer 59 (>60) 06/29/23 05:15 Est GFR (MDRD) Non-Af 49 (>60) L 06/29/23 05:15 Glucose 146 mg/dL (65-99) H 06/29/23 05:15 Uric Acid 7.6 mg/dL (2.6-6.0) H 06/26/23 04:50 Calcium 8.2 mg/dL (8.5-10.1) L 06/29/23 05:15 Corrected Calcium 9.0 mg/dL (8.5-10.1) 06/29/23 05:15 Phosphorus 3.5 mg/dL (2.6-4.7) 06/26/23 04:50 Magnesium 2.0 mg/dL (2.0-2.9) 06/25/23 11:00 Total Bilirubin 0.30 mg/dL (0.2-1.0) 06/29/23 05:15 AST 8 Units/L (15-37) L 06/29/23 05:15 ALT 17 Units/L (12-78) 06/29/23 05:15 Alkaline Phosphatase 88 Units/L (46-116) 06/29/23 05:15 Creatine Kinase 113 Units/L (26-192) 06/25/23 11:00 Troponin I High Sens 5.2 ng/L (4.0-60.0) 06/25/23 11:00 B-Natriuretic Peptide 33.3 pg/mL (0-79) 06/28/23 05:33 Total Protein 6.2 g/dL (6.4-8.2) L 06/29/23 05:15 Albumin 3.0 g/dL (3.4-5.0) L 06/29/23 05:15 Globulin 3.2 g/dL (2.5-4.5) 06/29/23 05:15 Albumin/Globulin Ratio 0.9 Ratio (1.1-2.1) L 06/29/23 05:15 Specimen Type Clean catch urine 06/27/23 07:10 Urine Color Yellow (YELLOW) 06/27/23 07:10 Urine Appearance Clear (CLEAR) 06/27/23 07:10 Urine pH 6.0 (5.0 - 8.0) 06/27/23 07:10 Ur Specific [place] 1.020 (1.000-1.030) 06/27/23 07:10 Urine Protein 1+ (NEGATIVE) 06/27/23 07:10 Urine Glucose (UA) Negative (NEGATIVE) 06/27/23 07:10 Urine Ketones Negative (NEGATIVE) 06/27/23 07:10 Urine Blood Negative (NEGATIVE) 06/27/23 07:10 Urine Nitrite Negative (NEGATIVE) 06/27/23 07:10 Urine Bilirubin Negative (NEGATIVE) 06/27/23 07:10 Urine Urobilinogen Normal (NORMAL) 06/27/23 07:10 Ur Leukocyte Esterase Negative (NEGATIVE) 06/27/23 07:10 Urine RBC 0-2 /HPF (0-3) 06/27/23 07:10 Urine WBC 0-2 /HPF (0-5) 06/27/23 07:10 Ur Squamous Epith Cells Moderate /HPF (NEGATIVE) 06/27/23 07:10 Urine Bacteria Trace /HPF (NEGATIVE) 06/27/23 07:10 Ur Culture Indicated? No/not indicated 06/27/23 07:10 Urine Creatinine 124.88 mg/dL (29-226) 06/27/23 07:10 Urine Microalbumin 4.7 mg/L 06/27/23 07:10 Microalb/Creat Ratio 3 mg/g cre (0-29) 06/27/23 07:10 Resp Viral Panel (PCR) Cancelled 06/27/23 23:08 Plan (1) COPD exacerbation: Status: Acute Plan: Obtain BNP, Echo, chest CT without contrast. Continue IV abx, respiratory therapy, supplemental 02, pulmonary toileting. (2) Type 2 diabetes mellitus: Status: Acute (3) HTN (hypertension): Status: Chronic (4) GERD (gastroesophageal reflux disease): Status: Chronic (5) Osteoarthritis: Status: Chronic
[2023-06-30 06:40] LABS: KAPPA LIGHT CHAINS 16.14 mg/L (3.30-19.40); KAPPA/LAMBDA RATIO 1.16 (0.26-1.65); LAMBDA LIGHT CHAIN 13.91 mg/L (5.71-26.30)
[2023-07-01 10:37] LABS: ANTI-NUCLEAR ANTIBODY TEST None Detected (None Detected)
== END 2023-06-29 12:10 | disposition home or self-care (01) | DRG 192 ==
LOC: MED/SURG → OBSVTOIN 10:23
PROVIDERS: ADMIT Internal Medicine; ATTEND Internal Medicine
DX: K21.9 Gastro-esophageal reflux disease without esophagitis; M19.90 Unspecified osteoarthritis, unspecified site; J44.1 Chronic obstructive pulmonary disease with (acute) exacerbation; I10 Essential (primary) hypertension; E03.8 Other specified hypothyroidism; E11.65 Type 2 diabetes mellitus with hyperglycemia; R60.0 Localized edema; R06.02 Shortness of breath

== ENCOUNTER 2023-08-09 12:02 | Observation (INO) ==
[2023-08-09] MEDS ORDERED: DUONEB 0.5 MG/3 MG (3 mL) NEB ONE (12:30)
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
[2023-08-09 12:59] LABS: BASOPHILS # (AUTO) 0.1 X10^3/uL (0.0-0.1); BASOPHILS % (AUTO) 0.8 % (0.2-1.0); EOSINOPHILS # (AUTO) 0.4 x10^3/uL (0.0-0.2); EOSINOPHILS % (AUTO) 2.8 % (0.9-2.9); HEMATOCRIT 33.5 % (36.0-47.0); LYMPHOCYTES # (AUTO) 1.5 X10^3/uL (1.3-2.9); LYMPHOCYTES % (AUTO) 10.7 % (21.0-51.0); MEAN CORPUSCULAR HEMOGLOBIN 28.2 pg (27.0-34.0); MEAN CORPUSCULAR HGB CONC 32.8 g/dL (33.0-35.0); MEAN CORPUSCULAR VOLUME 86.2 fL (80.0-100.0); MONOCYTES # (AUTO) 0.8 x10^3/uL (0.3-0.8); MONOCYTES % (AUTO) 6.2 % (0.0-13.0); NEUTROPHILS # (AUTO) 10.8 x10^3/uL (2.2-4.8); NEUTROPHILS % (AUTO) 79.5 % (42.0-75.0); PLATELET COUNT 365 X10^3/uL (150.0-450.0); RED BLOOD COUNT 3.89 X10^6/uL (3.5-5.4); RED CELL DISTRIBUTION WIDTH 14.8 % (11.6-16.5); WHITE BLOOD COUNT 13.6 X10^3/uL (3.6-10.0)
[2023-08-09 13:03] LABS: ABG BASE EXCESS 4.1 mmol/L (-2.0-2.0); ABG HCO3 28.5 mmol/L (22-26)
[2023-08-09 13:04] LABS: ABG ALLEN TEST POS
[2023-08-09 13:14] LABS: ALANINE AMINOTRANSFERASE 28 Units/L (12-78); ALBUMIN 2.7 g/dL (3.4-5.0); ALKALINE PHOSPHATASE 71 Units/L (46-116); ASPARTATE AMINO TRANSFERASE 17 Units/L (15-37); BLOOD UREA NITROGEN 14 mg/dL (7-18); CALCIUM 8.5 mg/dL (8.5-10.1); CARBON DIOXIDE 32.5 mmol/L (21-32); CHLORIDE 100 mmol/L (98-107); COR CA(FOR HYPOALB) 9.5 mg/dL (8.5-10.1); CREATININE 0.96 mg/dL (0.55-1.02); GLUCOSE 103 mg/dL (65-99); POTASSIUM 4.5 mmol/L (3.5-5.1); SODIUM 136 mmol/L (136-145); TOTAL PROTEIN 6.6 g/dL (6.4-8.2); eGFR NON BLACK RACES > 60 (>60)
[2023-08-09] MEDS: DUONEB 0.5 MG/3 MG (3 mL) NEB SCH (13:15)
[2023-08-09] MEDS: NS 1,000 ML IV 1,000 ML IV SCH (13:30)
[2023-08-09] MEDS: XOPENEX 1.25 MG/3 ML NEBULE NEB SCH (13:34)
--- NOTE | 2023-08-09 14:10 | RAD ---
EXAM: Portable AP chest HISTORY: Contusion COMPARISON: 08/05/2023 FINDINGS: Heart size normal. Minimal bibasal atelectasis without evidence for leti pulmonary edema, pneumoth orax or pleural fluid. IMPRESSION: As above. Minimal bibasal atelectasis as described on recent CTA chest exam. THIS IS AN ELECTRONICALLY VERIFIED FINAL REPORT 08/09/2023 2:07 PM - Electronically signed by Art Tyson MD
[2023-08-09 14:26] VITALS: BMI 40.3
[2023-08-09] MEDS: NORCO 5/325 MG TAB PO PRN (16:59)
[2023-08-09] MEDS ORDERED: COLACE CAP 100 MG PO PRN (17:06)
[2023-08-09] MEDS ORDERED: MILK OF MAGNESIA PO PRN (17:06)
[2023-08-09] MEDS ORDERED: TYLENOL 325 MG TAB PO PRN (17:06)
[2023-08-09] MEDS: PULMICORT NEB TX 0.5 MG NEB SCH (21:04)
[2023-08-09] MEDS: RESTORIL CAP 15 MG PO PRN (21:20)
[2023-08-10 04:40] LABS: BILIRUBIN,URINE NEGATIVE (NEGATIVE); BLOOD/HEMOGLOBIN,URINE 2+ (NEGATIVE); GLUCOSE, URINE NEGATIVE (NEGATIVE); KETONES,URINE NEGATIVE (NEGATIVE); LEUKOCYTE ESTERASE ,URINE 3+ (NEGATIVE); NITRITES,URINE NEGATIVE (NEGATIVE); PROTEIN,URINE 1+ (NEGATIVE); UROBILINOGEN,URINE NORMAL (NORMAL)
[2023-08-10 04:50] LABS: APPEARANCE,URINE CLOUDY (CLEAR); BACTERIA,URINE 2+ /HPF (NEGATIVE); COLOR,URINE YELLOW (YELLOW); SQUAMOUS EPITHELIAL CELL,UR RARE /HPF (NEGATIVE)
[2023-08-10 06:19] LABS: BASOPHILS # (AUTO) 0.1 X10^3/uL (0.0-0.1); BASOPHILS % (AUTO) 0.7 % (0.2-1.0); EOSINOPHILS # (AUTO) 0.4 x10^3/uL (0.0-0.2); HEMATOCRIT 31.3 % (36.0-47.0); HEMOGLOBIN 10.5 g/dL (12.0-16.0); LYMPHOCYTES # (AUTO) 1.6 X10^3/uL (1.3-2.9); LYMPHOCYTES % (AUTO) 16.4 % (21.0-51.0); MEAN CORPUSCULAR HEMOGLOBIN 28.9 pg (27.0-34.0); MEAN CORPUSCULAR HGB CONC 33.5 g/dL (33.0-35.0); MEAN CORPUSCULAR VOLUME 86.3 fL (80.0-100.0); MEAN PLATELET VOLUME 6.2 fL (7.4-11.0); MONOCYTES % (AUTO) 9.7 % (0.0-13.0); NEUTROPHILS # (AUTO) 6.8 x10^3/uL (2.2-4.8); NEUTROPHILS % (AUTO) 69.2 % (42.0-75.0); PLATELET COUNT 351 X10^3/uL (150.0-450.0); RED BLOOD COUNT 3.62 X10^6/uL (3.5-5.4); RED CELL DISTRIBUTION WIDTH 14.7 % (11.6-16.5); WHITE BLOOD COUNT 9.8 X10^3/uL (3.6-10.0)
[2023-08-10 06:23] LABS: ALANINE AMINOTRANSFERASE 24 Units/L (12-78); ALBUMIN 2.5 g/dL (3.4-5.0); ALKALINE PHOSPHATASE 71 Units/L (46-116); ASPARTATE AMINO TRANSFERASE 14 Units/L (15-37); BLOOD UREA NITROGEN 9 mg/dL (7-18); CALCIUM 8.3 mg/dL (8.5-10.1); CARBON DIOXIDE 30.5 mmol/L (21-32); CHLORIDE 103 mmol/L (98-107); COR CA(FOR HYPOALB) 9.5 mg/dL (8.5-10.1); CREATININE 0.84 mg/dL (0.55-1.02); GLUCOSE 79 mg/dL (65-99); POTASSIUM 4.2 mmol/L (3.5-5.1); SODIUM 138 mmol/L (136-145); TOTAL PROTEIN 6.2 g/dL (6.4-8.2); eGFR NON BLACK RACES > 60 (>60)
[2023-08-10] MEDS: MORPHINE SULFATE INJ 2 MG INJ IVP PRN (08:56)
[2023-08-10] MEDS: PROTONIX INJ 40 MG VIAL IVP SCH (08:56)
[2023-08-10] MEDS: MORPHINE SULFATE INJ 2 MG INJ ONE (10:10)
[2023-08-10] MEDS: LOVENOX INJ 40 MG SYR SC SCH (11:10)
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
[2023-08-11 06:15] LABS: BASOPHILS # (AUTO) 0.1 X10^3/uL (0.0-0.1); BASOPHILS % (AUTO) 0.9 % (0.2-1.0); EOSINOPHILS # (AUTO) 0.5 x10^3/uL (0.0-0.2); EOSINOPHILS % (AUTO) 4.6 % (0.9-2.9); HEMATOCRIT 32.1 % (36.0-47.0); HEMOGLOBIN 10.7 g/dL (12.0-16.0); LYMPHOCYTES # (AUTO) 1.5 X10^3/uL (1.3-2.9); LYMPHOCYTES % (AUTO) 14.3 % (21.0-51.0); MEAN CORPUSCULAR HEMOGLOBIN 28.8 pg (27.0-34.0); MEAN CORPUSCULAR HGB CONC 33.5 g/dL (33.0-35.0); MEAN CORPUSCULAR VOLUME 85.8 fL (80.0-100.0); MEAN PLATELET VOLUME 6.2 fL (7.4-11.0); MONOCYTES # (AUTO) 0.7 x10^3/uL (0.3-0.8); MONOCYTES % (AUTO) 6.8 % (0.0-13.0); NEUTROPHILS # (AUTO) 7.9 x10^3/uL (2.2-4.8); NEUTROPHILS % (AUTO) 73.4 % (42.0-75.0); PLATELET COUNT 379 X10^3/uL (150.0-450.0); RED BLOOD COUNT 3.74 X10^6/uL (3.5-5.4); RED CELL DISTRIBUTION WIDTH 14.9 % (11.6-16.5); WHITE BLOOD COUNT 10.7 X10^3/uL (3.6-10.0)
[2023-08-11 06:40] LABS: ALANINE AMINOTRANSFERASE 19 Units/L (12-78); ALBUMIN 2.5 g/dL (3.4-5.0); ALKALINE PHOSPHATASE 68 Units/L (46-116); ASPARTATE AMINO TRANSFERASE 15 Units/L (15-37); BLOOD UREA NITROGEN 6 mg/dL (7-18); CALCIUM 8.6 mg/dL (8.5-10.1); CARBON DIOXIDE 25.5 mmol/L (21-32); CHLORIDE 105 mmol/L (98-107); COR CA(FOR HYPOALB) 9.8 mg/dL (8.5-10.1); CREATININE 0.72 mg/dL (0.55-1.02); GLUCOSE 86 mg/dL (65-99); POTASSIUM 4.3 mmol/L (3.5-5.1); SODIUM 138 mmol/L (136-145); TOTAL PROTEIN 6.2 g/dL (6.4-8.2); eGFR NON BLACK RACES > 60 (>60)
--- NOTE | 2023-08-11 06:59 | RAD ---
EXAM: AP chest HISTORY: Pneumonia COMPARISON: 08/09/2023 FINDINGS: Heart size similar. Lung volumes are reduced with incomplete inspiration. There is no definite con solidation, pneumothorax or developing pleural effusion. IMPRESSION: Considering low volume lungs, no definite change since recent similar exam. THIS IS AN ELECTRONICALLY VERIFIED FINAL REPORT 08/11/2023 6:56 AM - Electronically signed by Art Tyson MD
[2023-08-11] MEDS: DULCOLAX SUPPOSITORY 10 MG RECTAL ONE (08:23)
[2023-08-11] MEDS: MIRALAX POWDER (1 DOSE 17 G) PO ONE (08:23)
[2023-08-11 08:39] VITALS: RESP 20
--- NOTE | 2023-08-11 10:01 | RAD ---
EXAM: Abdomen series three views HISTORY: Pain constipation COMPARISON: CT abdomen 01/18/2023 FINDINGS: Submitted supine and upright views of the abdomen are virtually nondiagnostic, secondary to patient habitus, motion artifact and soft tissue attenuation. There is no obvious intestinal dilatation or free air. IMPRESSION: Technically limited and suboptimal exam, see above. A significant abdominal abnormality can not be excluded on this study. THIS IS AN ELECTRONICALLY VERIFIED FINAL REPORT 08/11/2023 9:58 AM - Electronically signed by Art Tyson MD
[2023-08-11 10:11] VITALS: BP 171/79; PULSE 78; TEMP 97.2; O2SAT 92
== END 2023-08-11 11:00 | disposition home or self-care (01) ==
LOC: ICU → MED/SURG 18:18
PROVIDERS: ADMIT Internal Medicine; ATTEND Internal Medicine
DX: K21.9 Gastro-esophageal reflux disease without esophagitis; R94.31 Abnormal electrocardiogram [ECG] [EKG]; R07.89 Other chest pain; R06.02 Shortness of breath; I10 Essential (primary) hypertension; S20.219A Contusion of unspecified front wall of thorax, initial encounter; V89.2XXA Person injured in unspecified motor-vehicle accident, traffic, initial encounter; E03.8 Other specified hypothyroidism; K59.09 Other constipation; J44.9 Chronic obstructive pulmonary disease, unspecified; Z87.898 Personal history of other specified conditions; R09.02 Hypoxemia; Y92.9 Unspecified place or not applicable

== ENCOUNTER 2023-11-27 15:06 | Inpatient (IN) ==
[2023-11-27] MEDS ORDERED: PATIENT'S HOME MEDICATION (Oxycodone-Acetaminophen 10-325 mg tablet) PO PRN (17:27)
[2023-11-27] MEDS: NS 1,000 ML IV 1,000 ML IV SCH (17:55)
--- NOTE | 2023-11-27 17:56 | DR.H&P ---
H&P History & Physical for Day of: H&P Date: 11/27/23 Chief Complaint Chief Complaint: FEVER, 6 DAYS POST OP SPINAL SURGERY, LOWER LEG SWELLING Past Medical History Past Medical History: Anxiety, CHF, COPD, GERD, Hypertension and Hypothyroidism Past Surgical History Surgical History: Appendectomy, Cholecystectomy, ECONOMIC HISTORIAN Surgery, Hysterectomy, Mastectomy and Ortho Surgery Family History Family Medical History: Diabetes Mellitus, AL and Hypertension Medications Home Medications: Home Medications Medication Instructions Recorded Confirmed Type conjugated estrogens 1.25 mg 1.25 mg PO QDAY 09/28/22 09/23/23 History tablet (Premarin) levothyroxine 100 mcg tablet 100 mcg PO QDAY 09/28/22 09/23/23 History (Synthroid) hydrochlorothiazide 25 mg tablet 25 mg PO QDAY PRN 09/29/22 09/23/23 History cyanocobalamin (vitamin B-12) 1,000 mcg IM QWEEK 07/06/23 11/27/23 History 1,000 mcg/mL injection solution meloxicam 15 mg tablet 15 mg PO QDAY 07/06/23 09/23/23 History lidocaine 5 % topical patch 1 patch topical QDAY 08/09/23 09/23/23 History azelastine 137 mcg (0.1 %) nasal intranasal 09/23/23 History spray budesonide 160 mcg-glycopyr 9 inh inhalation 09/23/23 History mcg-formot 4.8 mcg/actuation HFA inhaler (Breztri Aerosphere) conjugated estrogens 1.25 mg 1.25 mg PO QDAY 09/23/23 09/23/23 History tablet (Premarin) dupilumab 300 mg/2 mL subcutaneous mg subcut 09/23/23 History syringe (Dupixent) famotidine 40 mg tablet 40 mg PO BID 09/23/23 11/27/23 History fexofenadine 180 mg tablet 180 mg PO QAM 09/23/23 09/23/23 History fluticasone propionate 50 1 spray intranasal BID 09/23/23 09/23/23 History mcg/actuation nasal spray,suspension hydrocodone 5 mg-acetaminophen 325 1 tab PO 09/23/23 History mg tablet levocetirizine 5 mg tablet 5 mg PO QPM 09/23/23 09/23/23 History montelukast 10 mg tablet 10 mg PO QPM 09/23/23 09/23/23 History ondansetron 8 mg disintegrating 8 mg PO TID 09/23/23 09/23/23 History tablet pantoprazole 40 mg tablet,delayed 40 mg PO QDAY 09/23/23 11/27/23 History release pramipexole 1.5 mg tablet 1.5 mg PO TID 09/23/23 11/27/23 History promethazine-DM 6.25 mg-15 mg/5 mL 5 ml PO Q6H PRN 09/23/23 09/23/23 History oral syrup tirzepatide 2.5 mg/0.5 mL 2.5 mg subcut QWEEK 09/23/23 09/23/23 History subcutaneous pen injector (Vernell) ergocalciferol (vitamin D2) 1,250 1,250 mcg PO QWEEK 11/27/23 11/27/23 History mcg (50,000 unit) capsule (Vitamin D2) ondansetron HCl 8 mg tablet 8 mg PO Q8H PRN 11/27/23 11/27/23 History oxycodone-acetaminophen 10 mg-325 1 tab PO Q4-6H PRN 11/27/23 11/27/23 History mg tablet tizanidine 4 mg tablet 4 mg PO TID PRN 11/27/23 11/27/23 History Allergies Allergies Allergy/AdvReac Type Severity Reaction Status Date / Time cefdinir [From Omnicef] Allergy Unknown Verified 07/06/23 12:06 codeine Allergy Unknown Verified 07/06/23 12:06 esomeprazole [From Nexium] Allergy Unknown Verified 07/06/23 12:06 influenza virus vaccine ts Allergy Unknown Verified 07/06/23 12:06 [id number] (36 mos,up) [From Fluarix] levofloxacin [From Levaquin] Allergy Unknown Verified 07/06/23 12:06 losartan Allergy Unknown Verified 07/06/23 12:06 rabeprazole [From Aciphex] Allergy Unknown Verified 07/06/23 12:06 starch Allergy Unknown Verified 07/06/23 12:06 sulfacetamide Allergy Unknown Verified 07/06/23 12:06 almond Allergy Verified 07/06/23 12:06 carrot Allergy Verified 08/10/23 15:56 corn Allergy Verified 08/10/23 15:56 egg Allergy Verified 08/10/23 15:56 Iodine and Iodide Containing Allergy Verified 07/06/23 12:06 Produc Penicillins Allergy Verified 07/06/23 12:06 potassium [From Potassimin] Allergy Verified 07/06/23 12:06 regadenoson [From Lexiscan] Allergy Verified 09/17/23 14:07 shellfish derived Allergy Verified 08/10/23 15:55 shrimp Allergy Verified 08/09/23 17:08 turkey Allergy Verified 07/06/23 12:06 walnut Allergy Verified 08/10/23 15:56 carbonated drinks Allergy Unknown Uncoded 06/28/22 18:09 CATFISH Allergy Uncoded 06/28/22 18:09 Review of Systems Constitutional: Fever, Chills and Weakness Eyes: No Symptoms Reported ENT: No Symptoms Reported Respiratory: No Symptoms Reported Cardiovascular: Edema Gastrointestinal: Nausea Genitourinary: No Symptoms Reported Musculoskeletal: Back Pain Skin: Wound (UPPER LSPINE ) Neurological: Weakness and Change in Speech (SLOW) Physical Exam Vital Signs: Vital Signs Temperature 98.1 F Pulse Rate [Radial] 71 Respiratory Rate 20 Blood Pressure [Right Arm] 113/54 O2 Sat by Pulse Oximetry 91 Oriented: Normal Eyes: negative Blurred Vision Ear: Normal Throat: Dry Respiratory: RLL Diminished and LLL Diminished Cardiovascular: Edema Auscultation: Bowel Sounds: Normal Palpation: Normal Tenderness: Normal Skin: Diaphoresis and Wound Musculoskeletal: Back:Lumbar, Motor Deficit and Sensory Deficit Mood Description: Depressed Speech Pattern: Appropriate and Delayed (APPEARS SEDATED) Assessment/Plan (1) Postoperative fever: Status: Acute Plan: 6 DAYS S/P L SPINE SURGERY AT [facility] WITH DR KYLE ADMISSION LABS WITH BC AND LACTIC ACID UA, RESP CONSULT VERIFY HOME MEDICATION IV HYDRATION, NEURO CHECKS BP CONTROL, CE ON ADMISSION IV ATBX (2) Edema of both lower extremities: Status: Acute (3) COPD (chronic obstructive pulmonary disease): Status: Chronic (4) HTN (hypertension): Status: Chronic (5) Dehydration: Status: Acute (6) Hypotension: Status: Acute
[2023-11-27] MEDS: PERCOCET TAB 5/325 MG PO PRN (17:58)
[2023-11-27 18:14] LABS: MEAN CORPUSCULAR HEMOGLOBIN 27.8 pg (27.0-34.0)
[2023-11-27] MEDS: CLEOCIN 300 MG IV PREMIX 300 MG/50 ML BAG IV SCH (18:17)
[2023-11-27 18:24] LABS: ALANINE AMINOTRANSFERASE 46 Units/L (12-78); ALBUMIN 2.9 g/dL (3.4-5.0); ALKALINE PHOSPHATASE 102 Units/L (46-116); ASPARTATE AMINO TRANSFERASE 60 Units/L (15-37); BLOOD UREA NITROGEN 9 mg/dL (7-18); CALCIUM 8.6 mg/dL (8.5-10.1); CARBON DIOXIDE 26.1 mmol/L (21-32); CHLORIDE 99 mmol/L (98-107); COR CA(FOR HYPOALB) 9.5 mg/dL (8.5-10.1); CREATININE 1.01 mg/dL (0.55-1.02); GLUCOSE 89 mg/dL (65-99); MAGNESIUM 1.9 mg/dL (2.0-2.9); POTASSIUM 4.2 mmol/L (3.5-5.1); SODIUM 135 mmol/L (136-145); TOTAL PROTEIN 6.7 g/dL (6.4-8.2); eGFR NON BLACK RACES 57 (>60)
[2023-11-27 18:32] LABS: BASOPHILS # (AUTO) 0.1 X10^3/uL (0.0-0.1); BASOPHILS % (AUTO) 0.5 % (0.2-1.0); EOSINOPHILS # (AUTO) 0.8 x10^3/uL (0.0-0.2); HEMATOCRIT 35.7 % (36.0-47.0); HEMOGLOBIN 11.6 g/dL (12.0-16.0); LYMPHOCYTES # (AUTO) 1.9 X10^3/uL (1.3-2.9); LYMPHOCYTES % (AUTO) 13.8 % (21.0-51.0); MEAN CORPUSCULAR HGB CONC 32.6 g/dL (33.0-35.0); MEAN CORPUSCULAR VOLUME 85.2 fL (80.0-100.0); MEAN PLATELET VOLUME 6.5 fL (7.4-11.0); MONOCYTES # (AUTO) 1.1 x10^3/uL (0.3-0.8); MONOCYTES % (AUTO) 7.9 % (0.0-13.0); NEUTROPHILS # (AUTO) 9.8 x10^3/uL (2.2-4.8); NEUTROPHILS % (AUTO) 71.8 % (42.0-75.0); PLATELET COUNT 309 X10^3/uL (150.0-450.0); RED BLOOD COUNT 4.19 X10^6/uL (3.5-5.4); RED CELL DISTRIBUTION WIDTH 15.7 % (11.6-16.5); WHITE BLOOD COUNT 13.7 X10^3/uL (3.6-10.0)
[2023-11-27] MEDS ORDERED: CONSULT PHARMACY - POTASSIUM & MAGNESIUM XX SCH (19:00)
[2023-11-27] MEDS: PULMICORT NEB TX 0.5 MG NEB SCH (19:54)
[2023-11-27] MEDS: PROVENTIL NEB TX 0.083% 2.5MG/ 3ML NEB SCH (19:54)
[2023-11-27] MEDS: MAG-OX TAB PO SCH (20:13)
[2023-11-27] MEDS: FLONASE NASAL SPRAY ENOSTRIL SCH (20:13)
[2023-11-27 20:45] LABS: BILIRUBIN,URINE NEGATIVE (NEGATIVE); BLOOD/HEMOGLOBIN,URINE NEGATIVE (NEGATIVE); GLUCOSE, URINE NEGATIVE (NEGATIVE); KETONES,URINE NEGATIVE (NEGATIVE); LEUKOCYTE ESTERASE ,URINE 1+ (NEGATIVE); NITRITES,URINE NEGATIVE (NEGATIVE); PROTEIN,URINE NEGATIVE (NEGATIVE); UROBILINOGEN,URINE 2+ (NORMAL)
[2023-11-27 20:48] LABS: APPEARANCE,URINE HAZY (CLEAR); COLOR,URINE YELLOW (YELLOW)
[2023-11-27 20:55] LABS: BACTERIA,URINE NEGATIVE /HPF (NEGATIVE); RBC,URINE 0-2 /HPF (0-3); SQUAMOUS EPITHELIAL CELL,UR FEW /HPF (NEGATIVE)
[2023-11-27] MEDS ORDERED: PATIENT'S HOME MEDICATION (Levocetirizine 5 mg tablet) PO SCH (21:00)
[2023-11-28 06:14] LABS: BASOPHILS # (AUTO) 0.1 X10^3/uL (0.0-0.1); BASOPHILS % (AUTO) 0.8 % (0.2-1.0); EOSINOPHILS # (AUTO) 0.7 x10^3/uL (0.0-0.2); EOSINOPHILS % (AUTO) 6.8 % (0.9-2.9); HEMATOCRIT 34.9 % (36.0-47.0); HEMOGLOBIN 11.4 g/dL (12.0-16.0); LYMPHOCYTES # (AUTO) 1.5 X10^3/uL (1.3-2.9); LYMPHOCYTES % (AUTO) 13.4 % (21.0-51.0); MEAN CORPUSCULAR HEMOGLOBIN 27.6 pg (27.0-34.0); MEAN CORPUSCULAR HGB CONC 32.7 g/dL (33.0-35.0); MEAN CORPUSCULAR VOLUME 84.4 fL (80.0-100.0); MEAN PLATELET VOLUME 6.8 fL (7.4-11.0); NEUTROPHILS # (AUTO) 7.7 x10^3/uL (2.2-4.8); PLATELET COUNT 346 X10^3/uL (150.0-450.0); RED BLOOD COUNT 4.13 X10^6/uL (3.5-5.4); RED CELL DISTRIBUTION WIDTH 15.9 % (11.6-16.5); WHITE BLOOD COUNT 10.9 X10^3/uL (3.6-10.0)
[2023-11-28 06:25] LABS: ALANINE AMINOTRANSFERASE 38 Units/L (12-78); ALBUMIN 2.6 g/dL (3.4-5.0); ALKALINE PHOSPHATASE 89 Units/L (46-116); ASPARTATE AMINO TRANSFERASE 46 Units/L (15-37); BLOOD UREA NITROGEN 6 mg/dL (7-18); CALCIUM 8.3 mg/dL (8.5-10.1); CARBON DIOXIDE 25.7 mmol/L (21-32); CHLORIDE 100 mmol/L (98-107); COR CA(FOR HYPOALB) 9.4 mg/dL (8.5-10.1); GLUCOSE 85 mg/dL (65-99); MAGNESIUM 1.9 mg/dL (2.0-2.9); POTASSIUM 3.6 mmol/L (3.5-5.1); SODIUM 135 mmol/L (136-145); TOTAL PROTEIN 6.1 g/dL (6.4-8.2); eGFR NON BLACK RACES > 60 (>60)
[2023-11-28] MEDS ORDERED: CONSULT PHARMACY - POTASSIUM & MAGNESIUM XX SCH (07:00)
[2023-11-28] MEDS: PULMICORT NEB TX 0.5 MG NEB ONE (08:44)
[2023-11-28] MEDS: PROVENTIL NEB TX 0.083% 2.5MG/ 3ML ONE (08:44)
[2023-11-28] MEDS: MAG-OX TAB PO SCH (09:41)
[2023-11-28] MEDS: K-DUR TAB 20 MEQ PO SCH (09:41)
[2023-11-28] MEDS: CLARITIN PO SCH (09:41)
[2023-11-28] MEDS: LOVENOX INJ 40 MG SYR SC SCH (09:42)
--- NOTE | 2023-11-28 10:06 | VAS ---
EXAM: LEVUNIBCH Right lower extremity DVT Doppler ultrasound examination. HISTORY: right calf pain, post op ro dvt; RT CALF PAIN, POST OP BACK SURGERY, Lower extremity pain, swelling , and edema COMPARISON: None. TECHNIQUE: Ultrasound of the deep venous vasculature of the right lower extremity was performed. Color and spect ral doppler imaging was utilized. FINDINGS: The deep veins of the right lower extremity are normal in size and configuration. No intraluminal fi lling defects are seen on grayscale or color flow imaging. The veins compress normally. Doppler waveforms are normal at rest and with augmentation. IMPRESSION: Negative right lower extremity DVT ultrasound exam. THIS IS AN ELECTRONICALLY VERIFIED FINAL REPORT 11/28/2023 10:03 AM - Electronically signed by Garett Guthrie MD
[2023-11-28] MEDS: ZANAFLEX PO SCH (10:27)
[2023-11-28] MEDS: PROTONIX TAB 40 MG PO SCH (10:27)
[2023-11-28] MEDS: MIRAPEX TAB 1 MG PO SCH (10:27)
--- NOTE | 2023-11-28 16:36 | RAD ---
EXAM: CHEST, 1 VIEW HISTORY: FEVER; COMPARISON: 11/16/2023 FINDINGS: Cardiomediastinal silhouette within normal limits. No focal consolidation, pulmonary edema, sizeabl e pleural effusion, or visible pneumothorax. No acute osseous finding. Minor patchy left base opacit y. IMPRESSION: Left base atelectasis, scarring, or infiltrate. THIS IS AN ELECTRONICALLY VERIFIED FINAL REPORT 11/28/2023 4:33 PM - Electronically signed by Asif Okeefe MD
[2023-11-28 19:56] VITALS: BMI 38.9
[2023-11-29 06:14] LABS: BASOPHILS # (AUTO) 0.1 X10^3/uL (0.0-0.1); BASOPHILS % (AUTO) 0.8 % (0.2-1.0); EOSINOPHILS # (AUTO) 0.9 x10^3/uL (0.0-0.2); EOSINOPHILS % (AUTO) 8.2 % (0.9-2.9); HEMATOCRIT 33.5 % (36.0-47.0); HEMOGLOBIN 11.1 g/dL (12.0-16.0); LYMPHOCYTES # (AUTO) 1.5 X10^3/uL (1.3-2.9); LYMPHOCYTES % (AUTO) 14.1 % (21.0-51.0); MEAN CORPUSCULAR HEMOGLOBIN 27.8 pg (27.0-34.0); MEAN CORPUSCULAR HGB CONC 33.1 g/dL (33.0-35.0); MEAN CORPUSCULAR VOLUME 83.9 fL (80.0-100.0); MEAN PLATELET VOLUME 6.7 fL (7.4-11.0); MONOCYTES % (AUTO) 9.6 % (0.0-13.0); NEUTROPHILS % (AUTO) 67.3 % (42.0-75.0); PLATELET COUNT 350 X10^3/uL (150.0-450.0); RED BLOOD COUNT 3.99 X10^6/uL (3.5-5.4); RED CELL DISTRIBUTION WIDTH 15.6 % (11.6-16.5); WHITE BLOOD COUNT 10.4 X10^3/uL (3.6-10.0)
[2023-11-29 06:18] LABS: ALANINE AMINOTRANSFERASE 31 Units/L (12-78); ALBUMIN 2.5 g/dL (3.4-5.0); ALKALINE PHOSPHATASE 87 Units/L (46-116); ASPARTATE AMINO TRANSFERASE 27 Units/L (15-37); BLOOD UREA NITROGEN 5 mg/dL (7-18); CALCIUM 8.4 mg/dL (8.5-10.1); CARBON DIOXIDE 23.6 mmol/L (21-32); CHLORIDE 101 mmol/L (98-107); COR CA(FOR HYPOALB) 9.6 mg/dL (8.5-10.1); COR NA(FOR HYPERGLY) 134 mmol/L (136-145); GLUCOSE 112 mg/dL (65-99); POTASSIUM 4.1 mmol/L (3.5-5.1); SODIUM 134 mmol/L (136-145); eGFR NON BLACK RACES > 60 (>60)
[2023-11-29] MEDS: DIFLUCAN PO SCH (10:14)
--- NOTE | 2023-11-29 10:55 | PCM.PROG ---
Progress Note Progress Note for Day of Date of Exam: 11/28/23 Subjective Subjective: The patient is a 73-year-old female, currently 7 days status post lumbar spine surgery performed by Dr. Delaney. She was admitted after presenting to Dr. Rogers's office with hypotension, altered mental status, and lethargy. The patient also complained of right lower extremity swelling and pain. Blood cultures are pending. She had a Doppler ultrasound to evaluate for possible deep vein thrombosis, we are pending these results as well. She is receiving treatment with IV hydration, IV antibiotics, and blood pressure management. Her magnesium level is 1.9, and she has been started on magnesium replacement therapy. Her wbc was 13.7 on admission and has improved to 10.9. Her hemoglobin is 11.6. Patient's bp is 124/62. Past Medical Family Social History Allergies: Allergies cefdinir [From Omnicef] Allergy (Unknown, Verified 07/06/23 12:06) Reason: Drug allergy codeine Allergy (Unknown, Verified 07/06/23 12:06) Reason: Drug allergy esomeprazole [From Nexium] Allergy (Unknown, Verified 07/06/23 12:06) Reason: Drug allergy influenza virus vaccine ts [id number] (36 mos,up) [From Fluarix] Allergy ( Unknown, Verified 07/06/23 12:06) Reason: Drug allergy levofloxacin [From Levaquin] Allergy (Unknown, Verified 07/06/23 12:06) Reason: Drug allergy losartan Allergy (Unknown, Verified 07/06/23 12:06) Reason: Drug allergy rabeprazole [From Aciphex] Allergy (Unknown, Verified 07/06/23 12:06) Reason: Drug allergy starch Allergy (Unknown, Verified 07/06/23 12:06) Reason: Drug allergy sulfacetamide Allergy (Unknown, Verified 07/06/23 12:06) Reason: Drug allergy almond Allergy (Verified 07/06/23 12:06) carrot Allergy (Verified 08/10/23 15:56) corn Allergy (Verified 08/10/23 15:56) egg Allergy (Verified 08/10/23 15:56) Iodine and Iodide Containing Produc Allergy (Verified 07/06/23 12:06) Penicillins Allergy (Verified 07/06/23 12:06) potassium [From Potassimin] Allergy (Verified 07/06/23 12:06) regadenoson [From Lexiscan] Allergy (Verified 09/17/23 14:07) shellfish derived Allergy (Verified 08/10/23 15:55) shrimp Allergy (Verified 08/09/23 17:08) turkey Allergy (Verified 07/06/23 12:06) walnut Allergy (Verified 08/10/23 15:56) carbonated drinks Allergy (Unknown, Uncoded 06/28/22 18:09) CATFISH Allergy (Uncoded 06/28/22 18:09) Vital Signs and I&O's Vital Signs: Vital Signs Temperature 98.5 F Temperature 98.1 F Pulse Rate [Radial] 70 Pulse Rate [Radial] 74 Respiratory Rate 15 Respiratory Rate 16 Blood Pressure [Right Arm] 108/59 Blood Pressure [Right Arm] 124/62 O2 Sat by Pulse Oximetry 91 O2 Sat by Pulse Oximetry 95 Intake and Output: Intake & Output 11/26/23 11/27/23 11/28/23 11/29/23 11:59 11:59 11:59 11:59 Intake Total 807 / 807 Balance 807 / 807 Physical Exam Oriented: Normal Eyes: negative Blurred Vision Ear: Normal Nose: Normal Throat: Dry Respiratory: Diminished Cardiovascular: Edema Auscultation: Bowel Sounds: Normal Tenderness: Normal Skin: Wound Musculoskeletal: Back:Lumbar, Motor Deficit and Sensory Deficit Psychiatric: Anxiety Mood Description: Anxious Affect: Anxious Speech Pattern: Clear Laboratory and Diagnostics 11/29/23 05:45 11/29/23 05:45 Labs: Laboratory WBC 10.9 X10^3/uL (3.6-10.0) H 11/28/23 05:25 RBC 4.13 X10^6/uL (3.5-5.4) 11/28/23 05:25 Hgb 11.4 g/dL (12.0-16.0) L 11/28/23 05:25 Hct 34.9 % (36.0-47.0) L 11/28/23 05:25 MCV 84.4 fL (80.0-100.0) 11/28/23 05:25 MCH 27.6 pg (27.0-34.0) 11/28/23 05:25 MCHC 32.7 g/dL (33.0-35.0) L 11/28/23 05:25 RDW 15.9 % (11.6-16.5) 11/28/23 05:25 Plt Count 346 X10^3/uL (150.0-450.0) 11/28/23 05:25 MPV 6.8 fL (7.4-11.0) L 11/28/23 05:25 Neut % (Auto) 70.0 % (42.0-75.0) 11/28/23 05:25 Lymph % (Auto) 13.4 % (21.0-51.0) L 11/28/23 05:25 [place] % (Auto) 9.0 % (0.0-13.0) 11/28/23 05:25 Eos % (Auto) 6.8 % (0.9-2.9) H 11/28/23 05:25 Baso % (Auto) 0.8 % (0.2-1.0) 11/28/23 05:25 Neut # (Auto) 7.7 x10^3/uL (2.2-4.8) H 11/28/23 05:25 Lymph # (Auto) 1.5 X10^3/uL (1.3-2.9) 11/28/23 05:25 [place] # (Auto) 1.0 x10^3/uL (0.3-0.8) H 11/28/23 05:25 Eos # (Auto) 0.7 x10^3/uL (0.0-0.2) H 11/28/23 05:25 Baso # (Auto) 0.1 X10^3/uL (0.0-0.1) 11/28/23 05:25 Absolute Nucleated RBC 0.1 /100WBC 11/28/23 05:25 Sodium 135 mmol/L (136-145) L 11/28/23 05:25 Corrected Sodium TNP 11/28/23 05:25 Potassium 3.6 mmol/L (3.5-5.1) 11/28/23 05:25 Chloride 100 mmol/L (98-107) 11/28/23 05:25 Carbon Dioxide 25.7 mmol/L (21-32) 11/28/23 05:25 BUN 6 mg/dL (7-18) L 11/28/23 05:25 Creatinine 0.90 mg/dL (0.55-1.02) 11/28/23 05:25 Est GFR (MDRD) Af Amer > 60 (>60) 11/28/23 05:25 Est GFR (MDRD) Non-Af > 60 (>60) 11/28/23 05:25 Glucose 85 mg/dL (65-99) 11/28/23 05:25 Lactic Acid 1.6 mmol/L (0.4-2.0) 11/27/23 18:18 Calcium 8.3 mg/dL (8.5-10.1) L 11/28/23 05:25 Corrected Calcium 9.4 mg/dL (8.5-10.1) 11/28/23 05:25 Magnesium 1.9 mg/dL (2.0-2.9) L 11/28/23 05:25 Total Bilirubin 0.80 mg/dL (0.2-1.0) 11/28/23 05:25 AST 46 Units/L (15-37) H 11/28/23 05:25 ALT 38 Units/L (12-78) 11/28/23 05:25 Alkaline Phosphatase 89 Units/L (46-116) 11/28/23 05:25 Total Protein 6.1 g/dL (6.4-8.2) L 11/28/23 05:25 Albumin 2.6 g/dL (3.4-5.0) L 11/28/23 05:25 Globulin 3.5 g/dL (2.5-4.5) 11/28/23 05:25 Albumin/Globulin Ratio 0.7 Ratio (1.1-2.1) L 11/28/23 05:25 Specimen Type Clean catch urine 11/27/23 20:35 Urine Color Yellow (YELLOW) 11/27/23 20:35 Urine Appearance Hazy (CLEAR) 11/27/23 20:35 Urine pH 8.0 (5.0 - 8.0) 11/27/23 20:35 Ur Specific [place] 1.015 (1.000-1.030) 11/27/23 20:35 Urine Protein Negative (NEGATIVE) 11/27/23 20:35 Urine Glucose (UA) Negative (NEGATIVE) 11/27/23 20:35 Urine Ketones Negative (NEGATIVE) 11/27/23 20:35 Urine Blood Negative (NEGATIVE) 11/27/23 20:35 Urine Nitrite Negative (NEGATIVE) 11/27/23 20:35 Urine Bilirubin Negative (NEGATIVE) 11/27/23 20:35 Urine Urobilinogen 2+ (NORMAL) 11/27/23 20:35 Ur Leukocyte Esterase 1+ (NEGATIVE) 11/27/23 20:35 Urine RBC 0-2 /HPF (0-3) 11/27/23 20:35 Urine WBC 0-2 /HPF (0-5) 11/27/23 20:35 Ur Squamous Epith Cells Few /HPF (NEGATIVE) 11/27/23 20:35 Urine Bacteria Negative /HPF (NEGATIVE) 11/27/23 20:35 Ur Culture Indicated? No/not indicated 11/27/23 20:35 Plan (1) Postoperative fever: Status: Acute Plan: Continue IV abx, IV hydration, BP control. (2) Edema of both lower extremities: Status: Acute (3) COPD (chronic obstructive pulmonary disease): Status: Chronic (4) HTN (hypertension): Status: Chronic (5) Dehydration: Status: Acute (6) Hypotension: Status: Acute
--- NOTE | 2023-11-29 10:56 | PCM.PROG ---
Progress Note Progress Note for Day of Date of Exam: 11/29/23 Subjective Subjective: The patient is a 73-year-old female, currently 8 days status post lumbar spine surgery performed by Dr. Delaney. She was admitted after presenting to Dr. Rogers's office with hypotension, altered mental status, and lethargy. The patient also complained of right lower extremity swelling and pain. Upon admission, we obtained a RLE doppler, which was negative for DVT and a chest xray that showed Minor patchy left base opacity. She was started on IV abx and hydration. Blood cultures obtained and are showing no growth this morning. Her magnesium was found to be low at 1.9, so we have started her on magnesium replacement therapy. WBC was 13.7 on admission, improved to 10.4 this morning. H gb 11.1 and BUN 5/creatinine 0.80. Morning vitals: 131/68-94-20-97.7F-02 Sat 97% on 2L. Patient did complain of vaginal yeast infection symptoms this morning, likely related to current abx therapy. Past Medical Family Social History Allergies: Allergies cefdinir [From Omnicef] Allergy (Unknown, Verified 07/06/23 12:06) Reason: Drug allergy codeine Allergy (Unknown, Verified 07/06/23 12:06) Reason: Drug allergy esomeprazole [From Nexium] Allergy (Unknown, Verified 07/06/23 12:06) Reason: Drug allergy influenza virus vaccine ts [id number] (36 mos,up) [From Fluarix] Allergy (Unknown, Verified 07/06/23 12:06) Reason: Drug allergy levofloxacin [From Levaquin] Allergy (Unknown, Verified 07/06/23 12:06) Reason: Drug allergy losartan Allergy (Unknown, Verified 07/06/23 12:06) Reason: Drug allergy rabeprazole [From Aciphex] Allergy (Unknown, Verified 07/06/23 12:06) Reason: Drug allergy starch Allergy (Unknown, Verified 07/06/23 12:06) Reason: Drug allergy sulfacetamide Allergy (Unknown, Verified 07/06/23 12:06) Reason: Drug allergy almond Allergy (Verified 07/06/23 12:06) carrot Allergy (Verified 08/10/23 15:56) corn Allergy (Verified 08/10/23 15:56) egg Allergy (Verified 08/10/23 15:56) Iodine and Iodide Containing Produc Allergy (Verified 07/06/23 12:06) Penicillins Allergy (Verified 07/06/23 12:06) potassium [From Potassimin] Allergy (Verified 07/06/23 12:06) regadenoson [From Lexiscan] Allergy (Verified 09/17/23 14:07) shellfish derived Allergy (Verified 08/10/23 15:55) shrimp Allergy (Verified 08/09/23 17:08) turkey Allergy (Verified 07/06/23 12:06) walnut Allergy (Verified 08/10/23 15:56) carbonated drinks Allergy (Unknown, Uncoded 06/28/22 18:09) CATFISH Allergy (Uncoded 06/28/22 18:09) Vital Signs and I&O's Vital Signs: Vital Signs Temperature 97.7 F Temperature 97.9 F Pulse Rate [Radial] 94 Pulse Rate [Radial] 69 Respiratory Rate 20 Respiratory Rate 18 Respiratory Rate 18 Respiratory Rate 18 Respiratory Rate 20 Blood Pressure [Right Arm] 131/68 Blood Pressure [Right Arm] 152/70 O2 Sat by Pulse Oximetry 97 O2 Sat by Pulse Oximetry 93 Intake and Output: Intake & Output 11/26/23 11/27/23 11/28/23 11/29/23 11:59 11:59 11:59 11:59 Intake Total 807 / 807 2247 / 2247 Balance 807 / 807 2247 / 2247 Physical Exam Oriented: Normal Eyes: Normal Ear: Normal Nose: Normal Throat: Dry Respiratory: Diminished Cardiovascular: Edema Auscultation: Bowel Sounds: Normal Tenderness: Normal Skin: Wound Musculoskeletal: Back:Lumbar, Motor Deficit and Sensory Deficit Psychiatric: Anxiety Mood Description: Anxious Affect: Anxious Speech Pattern: Clear Laboratory and Diagnostics 11/29/23 05:45 11/29/23 05:45 Labs: 11/27/23 17:55 Blood Blood Culture - Preliminary 11/27/23 17:46 Blood Blood Culture - Preliminary Laboratory WBC 10.4 X10^3/uL (3.6-10.0) H 11/29/23 05:45 RBC 3.99 X10^6/uL (3.5-5.4) 11/29/23 05:45 Hgb 11.1 g/dL (12.0-16.0) L 11/29/23 05:45 Hct 33.5 % (36.0-47.0) L 11/29/23 05:45 MCV 83.9 fL (80.0-100.0) 11/29/23 05:45 MCH 27.8 pg (27.0-34.0) 11/29/23 05:45 MCHC 33.1 g/dL (33.0-35.0) 11/29/23 05:45 RDW 15.6 % (11.6-16.5) 11/29/23 05:45 Plt Count 350 X10^3/uL (150.0-450.0) 11/29/23 05:45 MPV 6.7 fL (7.4-11.0) L 11/29/23 05:45 Neut % (Auto) 67.3 % (42.0-75.0) 11/29/23 05:45 Lymph % (Auto) 14.1 % (21.0-51.0) L 11/29/23 05:45 [place] % (Auto) 9.6 % (0.0-13.0) 11/29/23 05:45 Eos % (Auto) 8.2 % (0.9-2.9) H 11/29/23 05:45 Baso % (Auto) 0.8 % (0.2-1.0) 11/29/23 05:45 Neut # (Auto) 7.0 x10^3/uL (2.2-4.8) H 11/29/23 05:45 Lymph # (Auto) 1.5 X10^3/uL (1.3-2.9) 11/29/23 05:45 [place] # (Auto) 1.0 x10^3/uL (0.3-0.8) H 11/29/23 05:45 Eos # (Auto) 0.9 x10^3/uL (0.0-0.2) H 11/29/23 05:45 Baso # (Auto) 0.1 X10^3/uL (0.0-0.1) 11/29/23 05:45 Absolute Nucleated RBC 0.0 /100WBC 11/29/23 05:45 Sodium 134 mmol/L (136-145) L 11/29/23 05:45 Corrected Sodium 134 mmol/L (136-145) L 11/29/23 05:45 Potassium 4.1 mmol/L (3.5-5.1) 11/29/23 05:45 Chloride 101 mmol/L (98-107) 11/29/23 05:45 Carbon Dioxide 23.6 mmol/L (21-32) 11/29/23 05:45 BUN 5 mg/dL (7-18) L 11/29/23 05:45 Creatinine 0.80 mg/dL (0.55-1.02) 11/29/23 05:45 Est GFR (MDRD) Af Amer > 60 (>60) 11/29/23 05:45 Est GFR (MDRD) Non-Af > 60 (>60) 11/29/23 05:45 Glucose 112 mg/dL (65-99) H 11/29/23 05:45 Lactic Acid 1.6 mmol/L (0.4-2.0) 11/27/23 18:18 Calcium 8.4 mg/dL (8.5-10.1) L 11/29/23 05:45 Corrected Calcium 9.6 mg/dL (8.5-10.1) 11/29/23 05:45 Magnesium 2.0 mg/dL (2.0-2.9) 11/29/23 05:45 Total Bilirubin 0.50 mg/dL (0.2-1.0) 11/29/23 05:45 AST 27 Units/L (15-37) 11/29/23 05:45 ALT 31 Units/L (12-78) 11/29/23 05:45 Alkaline Phosphatase 87 Units/L (46-116) 11/29/23 05:45 Total Protein 6.0 g/dL (6.4-8.2) L 11/29/23 05:45 Albumin 2.5 g/dL (3.4-5.0) L 11/29/23 05:45 Globulin 3.5 g/dL (2.5-4.5) 11/29/23 05:45 Albumin/Globulin Ratio 0.7 Ratio (1.1-2.1) L 11/29/23 05:45 Specimen Type Clean catch urine 11/27/23 20:35 Urine Color Yellow (YELLOW) 11/27/23 20:35 Urine Appearance Hazy (CLEAR) 11/27/23 20:35 Urine pH 8.0 (5.0 - 8.0) 11/27/23 20:35 Ur Specific [place] 1.015 (1.000-1.030) 11/27/23 20:35 Urine Protein Negative (NEGATIVE) 11/27/23 20:35 Urine Glucose (UA) Negative (NEGATIVE) 11/27/23 20:35 Urine Ketones Negative (NEGATIVE) 11/27/23 20:35 Urine Blood Negative (NEGATIVE) 11/27/23 20:35 Urine Nitrite Negative (NEGATIVE) 11/27/23 20:35 Urine Bilirubin Negative (NEGATIVE) 11/27/23 20:35 Urine Urobilinogen 2+ (NORMAL) 11/27/23 20:35 Ur Leukocyte Esterase 1+ (NEGATIVE) 11/27/23 20:35 Urine RBC 0-2 /HPF (0-3) 11/27/23 20:35 Urine WBC 0-2 /HPF (0-5) 11/27/23 20:35 Ur Squamous Epith Cells Few /HPF (NEGATIVE) 11/27/23 20:35 Urine Bacteria Negative /HPF (NEGATIVE) 11/27/23 20:35 Ur Culture Indicated? No/not indicated 11/27/23 20:35 Plan (1) Postoperative fever: Status: Acute Plan: Start diflucan. Continue IV abx, IV hydaration, BP control. (2) Edema of both lower extremities: Status: Acute (3) COPD (chronic obstructive pulmonary disease): Status: Chronic (4) HTN (hypertension): Status: Chronic (5) Dehydration: Status: Acute (6) Hypotension: Status: Acute
[2023-11-29] MEDS: NS 1,000 ML IV 1,000 ML IV SCH (14:23)
[2023-11-29] MEDS: COLACE CAP 100 MG PO SCH (21:19)
[2023-11-30 06:16] LABS: BASOPHILS # (AUTO) 0.1 X10^3/uL (0.0-0.1); BASOPHILS % (AUTO) 0.8 % (0.2-1.0); EOSINOPHILS # (AUTO) 0.6 x10^3/uL (0.0-0.2); EOSINOPHILS % (AUTO) 5.9 % (0.9-2.9); HEMATOCRIT 33.2 % (36.0-47.0); HEMOGLOBIN 10.9 g/dL (12.0-16.0); LYMPHOCYTES # (AUTO) 1.6 X10^3/uL (1.3-2.9); LYMPHOCYTES % (AUTO) 16.4 % (21.0-51.0); MEAN CORPUSCULAR HEMOGLOBIN 27.5 pg (27.0-34.0); MEAN CORPUSCULAR HGB CONC 32.9 g/dL (33.0-35.0); MEAN CORPUSCULAR VOLUME 83.8 fL (80.0-100.0); MEAN PLATELET VOLUME 6.5 fL (7.4-11.0); MONOCYTES # (AUTO) 0.8 x10^3/uL (0.3-0.8); MONOCYTES % (AUTO) 7.8 % (0.0-13.0); NEUTROPHILS # (AUTO) 6.7 x10^3/uL (2.2-4.8); NEUTROPHILS % (AUTO) 69.1 % (42.0-75.0); PLATELET COUNT 357 X10^3/uL (150.0-450.0); RED BLOOD COUNT 3.96 X10^6/uL (3.5-5.4); RED CELL DISTRIBUTION WIDTH 15.3 % (11.6-16.5); WHITE BLOOD COUNT 9.8 X10^3/uL (3.6-10.0)
[2023-11-30] MEDS ORDERED: MILK OF MAGNESIA PO PRN (06:23)
[2023-11-30 06:37] LABS: ALANINE AMINOTRANSFERASE 31 Units/L (12-78); ALBUMIN 2.7 g/dL (3.4-5.0); ALKALINE PHOSPHATASE 95 Units/L (46-116); ASPARTATE AMINO TRANSFERASE 21 Units/L (15-37); BLOOD UREA NITROGEN 6 mg/dL (7-18); CALCIUM 8.5 mg/dL (8.5-10.1); CARBON DIOXIDE 22.4 mmol/L (21-32); CHLORIDE 98 mmol/L (98-107); COR CA(FOR HYPOALB) 9.5 mg/dL (8.5-10.1); CREATININE 0.91 mg/dL (0.55-1.02); GLUCOSE 86 mg/dL (65-99); POTASSIUM 4.2 mmol/L (3.5-5.1); SODIUM 133 mmol/L (136-145); TOTAL PROTEIN 6.4 g/dL (6.4-8.2); eGFR NON BLACK RACES > 60 (>60)
[2023-11-30 07:48] VITALS: BP 127/59; PULSE 74; RESP 20; TEMP 97.8; O2SAT 93
--- NOTE | 2023-11-30 12:14 | PCM.DCPLAN ---
DISCHARGE SUMMARY Admission Date Date of Admission: 11/27/23 Discharge Date Discharge Date: 11/30/23 Admission Diagnoses (1) Postoperative fever: Status: Acute (2) Edema of both lower extremities: Status: Acute (3) COPD (chronic obstructive pulmonary disease): Status: Chronic (4) HTN (hypertension): Status: Chronic (5) Dehydration: Status: Acute (6) Hypotension: Status: Acute Discharge Medications Discharge Medications: Home Medication List ergocalciferol (vitamin D2) 1,250 mcg (50,000 unit) capsule (Vitamin D2) 1,250 mcg PO QWEEK 11/27/23 [History] ondansetron HCl 8 mg tablet 8 mg PO Q8H PRN 11/27/23 [History] oxycodone-acetaminophen 10 mg-325 mg tablet 1 tab PO Q4-6H PRN 11/27/23 [History] tizanidine 4 mg tablet 4 mg PO TID PRN 11/27/23 [History] Prescriptions: Hospital Course Vital Signs: Vital Signs Temperature 97.8 F Temperature 97.7 F Pulse Rate [Radial] 74 Pulse Rate [Radial] 65 Respiratory Rate 20 Respiratory Rate 17 Respiratory Rate 17 Respiratory Rate 18 Blood Pressure [Right Arm] 127/59 Blood Pressure [Right Arm] 121/64 O2 Sat by Pulse Oximetry 93 O2 Sat by Pulse Oximetry 94 Latest Lab Results: Laboratory Last Values WBC 9.8 X10^3/uL (3.6-10.0) 11/30/23 05:45 RBC 3.96 X10^6/uL (3.5-5.4) 11/30/23 05:45 Hgb 10.9 g/dL (12.0-16.0) L 11/30/23 05:45 Hct 33.2 % (36.0-47.0) L 11/30/23 05:45 MCV 83.8 fL (80.0-100.0) 11/30/23 05:45 MCH 27.5 pg (27.0-34.0) 11/30/23 05:45 MCHC 32.9 g/dL (33.0-35.0) L 11/30/23 05:45 RDW 15.3 % (11.6-16.5) 11/30/23 05:45 Plt Count 357 X10^3/uL (150.0-450.0) 11/30/23 05:45 MPV 6.5 fL (7.4-11.0) L 11/30/23 05:45 Neut % (Auto) 69.1 % (42.0-75.0) 11/30/23 05:45 Lymph % (Auto) 16.4 % (21.0-51.0) L 11/30/23 05:45 [place] % (Auto) 7.8 % (0.0-13.0) 11/30/23 05:45 Eos % (Auto) 5.9 % (0.9-2.9) H 11/30/23 05:45 Baso % (Auto) 0.8 % (0.2-1.0) 11/30/23 05:45 Neut # (Auto) 6.7 x10^3/uL (2.2-4.8) H 11/30/23 05:45 Lymph # (Auto) 1.6 X10^3/uL (1.3-2.9) 11/30/23 05:45 [place] # (Auto) 0.8 x10^3/uL (0.3-0.8) 11/30/23 05:45 Eos # (Auto) 0.6 x10^3/uL (0.0-0.2) H 11/30/23 05:45 Baso # (Auto) 0.1 X10^3/uL (0.0-0.1) 11/30/23 05:45 Absolute Nucleated RBC 0.1 /100WBC 11/30/23 05:45 Sodium 133 mmol/L (136-145) L 11/30/23 05:45 Corrected Sodium TNP 11/30/23 05:45 Potassium 4.2 mmol/L (3.5-5.1) 11/30/23 05:45 Chloride 98 mmol/L (98-107) 11/30/23 05:45 Carbon Dioxide 22.4 mmol/L (21-32) 11/30/23 05:45 BUN 6 mg/dL (7-18) L 11/30/23 05:45 Creatinine 0.91 mg/dL (0.55-1.02) 11/30/23 05:45 Est GFR (MDRD) Af Amer > 60 (>60) 11/30/23 05:45 Est GFR (MDRD) Non-Af > 60 (>60) 11/30/23 05:45 Glucose 86 mg/dL (65-99) 11/30/23 05:45 Lactic Acid 1.6 mmol/L (0.4-2.0) 11/27/23 18:18 Calcium 8.5 mg/dL (8.5-10.1) 11/30/23 05:45 Corrected Calcium 9.5 mg/dL (8.5-10.1) 11/30/23 05:45 Magnesium 2.0 mg/dL (2.0-2.9) 11/29/23 05:45 Total Bilirubin 0.40 mg/dL (0.2-1.0) 11/30/23 05:45 AST 21 Units/L (15-37) 11/30/23 05:45 ALT 31 Units/L (12-78) 11/30/23 05:45 Alkaline Phosphatase 95 Units/L (46-116) 11/30/23 05:45 Total Protein 6.4 g/dL (6.4-8.2) 11/30/23 05:45 Albumin 2.7 g/dL (3.4-5.0) L 11/30/23 05:45 Globulin 3.7 g/dL (2.5-4.5) 11/30/23 05:45 Albumin/Globulin Ratio 0.7 Ratio (1.1-2.1) L 11/30/23 05:45 Specimen Type Clean catch urine 11/27/23 20:35 Urine Color Yellow (YELLOW) 11/27/23 20:35 Urine Appearance Hazy (CLEAR) 11/27/23 20:35 Urine pH 8.0 (5.0 - 8.0) 11/27/23 20:35 Ur Specific [place] 1.015 (1.000-1.030) 11/27/23 20:35 Urine Protein Negative (NEGATIVE) 11/27/23 20:35 Urine Glucose (UA) Negative (NEGATIVE) 11/27/23 20:35 Urine Ketones Negative (NEGATIVE) 11/27/23 20:35 Urine Blood Negative (NEGATIVE) 11/27/23 20:35 Urine Nitrite Negative (NEGATIVE) 11/27/23 20:35 Urine Bilirubin Negative (NEGATIVE) 11/27/23 20:35 Urine Urobilinogen 2+ (NORMAL) 11/27/23 20:35 Ur Leukocyte Esterase 1+ (NEGATIVE) 11/27/23 20:35 Urine RBC 0-2 /HPF (0-3) 11/27/23 20:35 Urine WBC 0-2 /HPF (0-5) 11/27/23 20:35 Ur Squamous Epith Cells Few /HPF (NEGATIVE) 11/27/23 20:35 Urine Bacteria Negative /HPF (NEGATIVE) 11/27/23 20:35 Ur Culture Indicated? No/not indicated 11/27/23 20:35 Hospital Course: The patient is a 73-year-old female, post lumbar spine surgery, who was admitted after presenting with hypotension, altered mental status, and lethargy. She also reported right lower extremity swelling and pain. A right lower extremity Doppler was negative for DVT, and a chest X-ray showed minor patchy opacity at the left base. She was started on IV antibiotics and hydration. Initial lab work showed a WBC of 13.7, which has improved to 9.8. Blood cultures have shown no growth. Low magnesium at 1.9, prompting magnesium replacement therapy. Pt's mag is 2.0 today. Hemoglobin is 10.9, and BUN/creatinine is 6/0.91. The patient also reported symptoms of a vaginal yeast infection, likely due to antibiotic use, and was treated with Diflucan. Vitals include BP of 127/59, O2 saturation of 93% on 2L/min nasal cannula, and a temperature of 97.8F. The patient has shown overall improvement during her hospital stay. Patient has home O2 that she uses as needed. Patient declines HVN services and states she lives with her and granddaughter and is able to meet all ADL's at home. Please see discharge plan for a list of discharge medications and modifications and her electronic medical record for diagnostic tests and labs. The patient was instructed to return to the ER if condition changes or worsens unexpectedly.
== END 2023-11-30 11:20 | disposition home or self-care (01) | DRG 315 ==
LOC: MED/SURG
PROVIDERS: ADMIT Internal Medicine; ATTEND Internal Medicine

== ENCOUNTER 2024-05-12 09:05 | Observation (INO) ==
--- NOTE | 2024-05-12 09:45 | DR.HTN ---
HPI Time Seen Time Seen by Provider: 05/12/24 09:35 Primary Care Physician Primary Care Physician: Kati Chen Complaints Chief Complaint:: pt states that she came in because her blood pressure was high at home and she became SOB. BP at home was 170s/90s. She states this has been going on for about a week now. 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, Hysterectomy, Mastectomy and Ortho Surgery Family History History of Family Medical Conditions: Yes Family Medical History: Diabetes Mellitus, [place] and Hypertension Social History Type of Tobacco Use: Vape Alcohol Use: None Do you use any recreational Drugs:: No Lives With: Spouse Lives Where: Home Travel Risk Coronavirus risk:travel/contact w/high risk person: No Has patient experienced Coronavirus symptoms: No Infectious screening Have you traveled outside the country in the last 6 months?: No Isolation: Standard PE Vital Signs Vitals: Vital Signs Temperature 97.6 F Pulse Rate 53 Pulse Rate 51 Pulse Rate 53 Pulse Rate 51 Pulse Rate 50 Pulse Rate 51 Pulse Rate 55 Pulse Rate 53 Pulse Rate 53 Pulse Rate 58 Pulse Rate 58 Pulse Rate 61 Pulse Rate 67 Pulse Rate 85 Respiratory Rate 20 Respiratory Rate 18 Respiratory Rate 20 Respiratory Rate 18 Respiratory Rate 21 Respiratory Rate 24 Respiratory Rate 23 Respiratory Rate 22 Blood Pressure 166/80 Blood Pressure 147/67 Blood Pressure 151/67 Blood Pressure 151/67 Blood Pressure 146/66 Blood Pressure 171/78 Blood Pressure 193/81 O2 Sat by Pulse Oximetry 94 O2 Sat by Pulse Oximetry 94 O2 Sat by Pulse Oximetry 91 O2 Sat by Pulse Oximetry 95 O2 Sat by Pulse Oximetry 93 O2 Sat by Pulse Oximetry 97 O2 Sat by Pulse Oximetry 93 O2 Sat by Pulse Oximetry 96 O2 Sat by Pulse Oximetry 95 O2 Sat by Pulse Oximetry 95 O2 Sat by Pulse Oximetry 93 O2 Sat by Pulse Oximetry 98 O2 Sat by Pulse Oximetry 98 O2 Sat by Pulse Oximetry 97 ROR Labs Reviewed 05/12/24 10:03 05/12/24 10:03 Laboratory: WBC 10.3 X10^3/uL (3.6-10.0) H 05/12/24 10:03 RBC 4.85 X10^6/uL (3.5-5.4) 05/12/24 10:03 Hgb 14.1 g/dL (12.0-16.0) 05/12/24 10:03 Hct 41.3 % (36.0-47.0) 05/12/24 10:03 MCV 85.1 fL (80.0-100.0) 05/12/24 10:03 MCH 29.1 pg (27.0-34.0) 05/12/24 10: MCHC 34.2 g/dL (33.0-35.0) 05/12/24 10:03 RDW 15.4 % (11.6-16.5) 05/12/24 10:03 Plt Count 356 X10^3/uL (150.0-450.0) 05/12/24 10:03 MPV 6.2 fL (7.4-11.0) L 05/12/24 10:03 Neut % (Auto) 63.0 % (42.0-75.0) 05/12/24 10:03 Lymph % (Auto) 23.8 % (21.0-51.0) 05/12/24 10:03 [place] % (Auto) 10.2 % (0.0-13.0) 05/12/24 10:03 Eos % (Auto) 2.2 % (0.9-2.9) 05/12/24 10:03 Baso % (Auto) 0.8 % (0.2-1.0) 05/12/24 10:03 Neut # (Auto) 6.5 x10^3/uL (2.2-4.8) H 05/12/24 10:03 Lymph # (Auto) 2.4 X10^3/uL (1.3-2.9) 05/12/24 10:03 [place] # (Auto) 1.0 x10^3/uL (0.3-0.8) H 05/12/24 10:03 Eos # (Auto) 0.2 x10^3/uL (0.0-0.2) 05/12/24 10:03 Baso # (Auto) 0.1 X10^3/uL (0.0-0.1) 05/12/24 10:03 Absolute Nucleated RBC 0.1 /100WBC 05/12/24 10:03 Sodium 132 mmol/L (136-145) L 05/12/24 10:03 Corrected Sodium TNP 05/12/24 10:03 Potassium 4.2 mmol/L (3.5-5.1) 05/12/24 10:03 Chloride 98 mmol/L (98-107) 05/12/24 10:03 Carbon Dioxide 26.4 mmol/L (21-32) 05/12/24 10:03 BUN 14 mg/dL (7-18) 05/12/24 10:03 Creatinine 0.88 mg/dL (0.55-1.02) 05/12/24 10:03 Est GFR (MDRD) Af Amer > 60 (>60) 05/12/24 10:03 Est GFR (MDRD) Non-Af > 60 (>60) 05/12/24 10:03 Glucose 73 mg/dL (65-99) 05/12/24 10:03 Calcium 8.6 mg/dL (8.5-10.1) 05/12/24 10:03 Corrected Calcium TNP 05/12/24 10:03 Total Bilirubin 0.50 mg/dL (0.2-1.0) 05/12/24 10:03 AST 13 Units/L (15-37) L 05/12/24 10:03 ALT 19 Units/L (12-78) 05/12/24 10:03 Alkaline Phosphatase 122 Units/L (46-116) H 05/12/24 10:03 Creatine Kinase 66 Units/L (26-192) 05/12/24 10:03 Troponin I High Sens 7.2 ng/L (4.0-60.0) 05/12/24 10:03 B-Natriuretic Peptide 75.4 pg/mL (0-79) 05/12/24 10:03 Total Protein 6.8 g/dL (6.4-8.2) 05/12/24 10:03 Albumin 3.4 g/dL (3.4-5.0) 05/12/24 10:03 Globulin 3.4 g/dL (2.5-4.5) 05/12/24 10:03 Albumin/Globulin Ratio 1.0 Ratio (1.1-2.1) L 05/12/24 10:03 Specimen Type Clean catch urine 05/12/24 09:58 Urine Color Yellow (YELLOW) 05/12/24 09:58 Urine Appearance Clear (CLEAR) 05/12/24 09:58 Urine pH 6.5 (5.0 - 8.0) 05/12/24 09:58 Ur Specific [place] 1.010 (1.000-1.030) 05/12/24 09:58 Urine Protein Negative (NEGATIVE) 05/12/24 09:58 Urine Glucose (UA) Negative (NEGATIVE) 05/12/24 09:58 Urine Ketones Negative (NEGATIVE) 05/12/24 09:58 Urine Blood Negative (NEGATIVE) 05/12/24 09:58 Urine Nitrite Negative (NEGATIVE) 05/12/24 09:58 Urine Bilirubin Negative (NEGATIVE) 05/12/24 09:58 Urine Urobilinogen Normal (NORMAL) 05/12/24 09:58 Ur Leukocyte Esterase Negative (NEGATIVE) 05/12/24 09:58 SARS-CoV-2 (PCR) Negative (NEGATIVE) 05/12/24 09:44 Influenza Type A (PCR) Negative (NEGATIVE) 05/12/24 09:44 Influenza Type B (PCR) Negative (NEGATIVE) 05/12/24 09:44 RSV (PCR) Negative (NEGATIVE) 05/12/24 09:44 Opioid Opioid Risk Tool Age (Pepe box if 16-45): No History of Preadolescent Sexual Abuse: No Total: 0 Total Score Risk Category: Low Risk Copyright: Aubrey EGAN predicting aberrant behaviors Discharge Plan Discharge Plan Patient Disposition: 01 HOME, SELF-CARE Condition: Stable Orders to Discharge Patient Discharge Orders: Transfer (Routine); Ordered 05/12/24 Ordered By: NANDO CHIU
--- NOTE | 2024-05-12 10:05 | EKG ---
Test Reason : HTN Blood Pressure : */* mmHG Vent. Rate : 51 BPM Atrial Rate : 51 BPM P-R Int : 164 ms QRS Dur : 76 ms QT Int : 458 ms P-R-T Axes : 15 -24 -6 degrees QTc Int : 422 ms Sinus bradycardia Minimal voltage criteria for LVH, may be normal variant ( R in aVL ) Inferior infarct (cited on or before 25-SEP-2022) Anteroseptal infarct (cited on or before 25-SEP-2022) Abnormal ECG When compared with ECG of 16-NOV-2023 16:39, Vent. rate has decreased BY 41 BPM QT has shortened Confirmed by Jimbo Montana MD ([id number]) on 05/12/2024 1:22:11 PM Referred By: Confirmed By: Jimbo Montana MD
[2024-05-12 10:11] LABS: BASOPHILS # (AUTO) 0.1 X10^3/uL (0.0-0.1); BASOPHILS % (AUTO) 0.8 % (0.2-1.0); EOSINOPHILS # (AUTO) 0.2 x10^3/uL (0.0-0.2); EOSINOPHILS % (AUTO) 2.2 % (0.9-2.9); HEMATOCRIT 41.3 % (36.0-47.0); HEMOGLOBIN 14.1 g/dL (12.0-16.0); LYMPHOCYTES # (AUTO) 2.4 X10^3/uL (1.3-2.9); LYMPHOCYTES % (AUTO) 23.8 % (21.0-51.0); MEAN CORPUSCULAR HEMOGLOBIN 29.1 pg (27.0-34.0); MEAN CORPUSCULAR HGB CONC 34.2 g/dL (33.0-35.0); MEAN CORPUSCULAR VOLUME 85.1 fL (80.0-100.0); MEAN PLATELET VOLUME 6.2 fL (7.4-11.0); MONOCYTES % (AUTO) 10.2 % (0.0-13.0); NEUTROPHILS # (AUTO) 6.5 x10^3/uL (2.2-4.8); PLATELET COUNT 356 X10^3/uL (150.0-450.0); RED BLOOD COUNT 4.85 X10^6/uL (3.5-5.4); RED CELL DISTRIBUTION WIDTH 15.4 % (11.6-16.5); WHITE BLOOD COUNT 10.3 X10^3/uL (3.6-10.0)
[2024-05-12 10:15] LABS: BILIRUBIN,URINE NEGATIVE (NEGATIVE); BLOOD/HEMOGLOBIN,URINE NEGATIVE (NEGATIVE); GLUCOSE, URINE NEGATIVE (NEGATIVE); KETONES,URINE NEGATIVE (NEGATIVE); LEUKOCYTE ESTERASE ,URINE NEGATIVE (NEGATIVE); NITRITES,URINE NEGATIVE (NEGATIVE); PH,URINE 6.5 (5.0 - 8.0); PROTEIN,URINE NEGATIVE (NEGATIVE); UROBILINOGEN,URINE NORMAL (NORMAL)
[2024-05-12 10:25] LABS: ALANINE AMINOTRANSFERASE 19 Units/L (12-78); ALBUMIN 3.4 g/dL (3.4-5.0); ALKALINE PHOSPHATASE 122 Units/L (46-116); ASPARTATE AMINO TRANSFERASE 13 Units/L (15-37); BLOOD UREA NITROGEN 14 mg/dL (7-18); CALCIUM 8.6 mg/dL (8.5-10.1); CARBON DIOXIDE 26.4 mmol/L (21-32); CHLORIDE 98 mmol/L (98-107); CREATINE KINASE 66 Units/L (26-192); CREATININE 0.88 mg/dL (0.55-1.02); GLUCOSE 73 mg/dL (65-99); POTASSIUM 4.2 mmol/L (3.5-5.1); SODIUM 132 mmol/L (136-145); TOTAL PROTEIN 6.8 g/dL (6.4-8.2); eGFR NON BLACK RACES > 60 (>60)
[2024-05-12 10:27] LABS: APPEARANCE,URINE CLEAR (CLEAR); COLOR,URINE YELLOW (YELLOW)
--- NOTE | 2024-05-12 11:10 | RAD ---
EXAM: CHEST, 1 VIEW HISTORY: SOB, HTN; COMPARISON: Prior study or studies were utilized for comparison during interpretation with the most relevant js ed 11/28/2023 TECHNIQUE: CHEST, 1 VIEW FINDINGS: Chest: Lines and tubes: None Mediastinum: Cardiomegaly. Pulmonary vessels: There is pulmonary vascular congestion. Lung hoskins: Patchy opacities are seen Pleura: No effusion. No pneumothorax. Bones and soft tissues: No acute osseous or soft tissue abnormality. IMPRESSION: 1. Findings suggest heart failure THIS IS AN ELECTRONICALLY VERIFIED FINAL REPORT 05/12/2024 11:01 AM - Electronically signed by Ike Maynard MD
[2024-05-12] MEDS ORDERED: MORPHINE SULFATE INJ 4 MG ONE (12:38)
[2024-05-12] MEDS ORDERED: ZOFRAN INJ 4 MG VIAL ONE (12:38)
[2024-05-12] MEDS: ZOFRAN INJ 4 MG VIAL IVP ONE (12:42)
[2024-05-12] MEDS: MORPHINE SULFATE INJ 4 MG IVP ONE (12:52)
[2024-05-12 14:31] VITALS: BMI 34.4
[2024-05-12] MEDS: LASIX IVP SCH (14:44)
[2024-05-12] MEDS ORDERED: NORCO 5/325 MG TAB PO PRN (19:32)
[2024-05-12] MEDS ORDERED: ULTRAM PO PRN (19:32)
[2024-05-12] MEDS: ULTRAM PO PRN (19:54)
[2024-05-12] MEDS ORDERED: STERILE WATER IRRIGATION IR ONE (20:35)
[2024-05-13] MEDS: NORCO 5/325 MG TAB PO PRN ×2 (01:21→09:01)
[2024-05-13 05:08] LABS: BASOPHILS # (AUTO) 0.1 X10^3/uL (0.0-0.1); BASOPHILS % (AUTO) 1.1 % (0.2-1.0); EOSINOPHILS # (AUTO) 0.2 x10^3/uL (0.0-0.2); EOSINOPHILS % (AUTO) 2.4 % (0.9-2.9); HEMATOCRIT 43.7 % (36.0-47.0); HEMOGLOBIN 14.8 g/dL (12.0-16.0); LYMPHOCYTES # (AUTO) 1.9 X10^3/uL (1.3-2.9); MEAN CORPUSCULAR HEMOGLOBIN 28.9 pg (27.0-34.0); MEAN PLATELET VOLUME 6.4 fL (7.4-11.0); MONOCYTES % (AUTO) 10.1 % (0.0-13.0); NEUTROPHILS # (AUTO) 6.7 x10^3/uL (2.2-4.8); NEUTROPHILS % (AUTO) 67.4 % (42.0-75.0); PLATELET COUNT 367 X10^3/uL (150.0-450.0); RED BLOOD COUNT 5.14 X10^6/uL (3.5-5.4); RED CELL DISTRIBUTION WIDTH 15.8 % (11.6-16.5); WHITE BLOOD COUNT 9.9 X10^3/uL (3.6-10.0)
[2024-05-13 05:28] LABS: ALANINE AMINOTRANSFERASE 18 Units/L (12-78); ALBUMIN 3.5 g/dL (3.4-5.0); ALKALINE PHOSPHATASE 124 Units/L (46-116); ASPARTATE AMINO TRANSFERASE 12 Units/L (15-37); BLOOD UREA NITROGEN 14 mg/dL (7-18); CALCIUM 9.2 mg/dL (8.5-10.1); CARBON DIOXIDE 27.5 mmol/L (21-32); CHLORIDE 99 mmol/L (98-107); CHOL/HDL RATIO 2.8 (0.0-5.0); CHOLESTEROL 192 mg/dL (0-200); COR NA(FOR HYPERGLY) 134 mmol/L (136-145); CREATININE 0.99 mg/dL (0.55-1.02); GLUCOSE 115 mg/dL (65-99); HDL CHOLESTEROL 69 mg/dL (40-60); MAGNESIUM 2.2 mg/dL (2.0-2.9); POTASSIUM 4.6 mmol/L (3.5-5.1); SODIUM 134 mmol/L (136-145); TOTAL PROTEIN 7.1 g/dL (6.4-8.2); TRIGLYCERIDES 111 mg/dL (0-150); eGFR NON BLACK RACES 59 (>60)
[2024-05-13] MEDS ORDERED: ZANAFLEX PO PRN (08:07)
--- NOTE | 2024-05-13 08:28 | DR.H&P ---
H&P History & Physical for Day of: H&P Date: 05/12/24 Chief Complaint Chief Complaint: SOB, HIGH BLOOD PRESSURE History of Present Illness History of Present Illness: SOB,BP at home was 170s/90s. PT WAS SEEN IN ER LAST WEEK WITH SAME COMPLAINT. 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 Loss Surgery Family History Family Medical History: Diabetes Mellitus and [place] Social History Does patient currently use any type of tobacco product: Yes Type of Tobacco Use: Vape Does any household member use tobacco: No Alcohol Use: None Drug Use: None Medications Home Medications: Home Medications Medication Instructions Recorded Confirmed Type levothyroxine 100 mcg tablet 100 mcg PO QDAY 09/28/22 05/12/24 History (Synthroid) hydrochlorothiazide 25 mg tablet 25 mg PO QDAY PRN 09/29/22 05/12/24 History cyanocobalamin (vitamin B-12) 1,000 mcg IM QWEEK 07/06/23 05/12/24 History 1,000 mcg/mL injection solution lidocaine 5 % topical patch 1 patch topical QDAY 08/09/23 05/12/24 History azelastine 137 mcg (0.1 %) nasal 137 mcg intranasal DAILY 09/23/23 05/12/24 History spray budesonide 160 mcg-glycopyr 9 See Rx Instructions .Route .COMPLEX 09/23/23 05/12/24 History mcg-formot 4.8 mcg/actuation HFA inhaler (Breztri Aerosphere) dupilumab 300 mg/2 mL subcutaneous 300 mg subcut Q15D 09/23/23 05/12/24 History syringe (Dupixent) fexofenadine 180 mg tablet 180 mg PO QAM 09/23/23 05/12/24 History fluticasone propionate 50 1 spray intranasal BID 09/23/23 05/12/24 History mcg/actuation nasal spray,suspension hydrocodone 5 mg-acetaminophen 325 2 tab PO Q4-6H PRN 09/23/23 05/12/24 History mg tablet montelukast 10 mg tablet 10 mg PO QPM 09/23/23 05/12/24 History pantoprazole 40 mg tablet,delayed 40 mg PO QDAY 09/23/23 05/12/24 History release ergocalciferol (vitamin D2) 1,250 1,250 mcg PO QWEEK 11/27/23 05/12/24 History mcg (50,000 unit) capsule (Vitamin D2) ondansetron HCl 8 mg tablet 8 mg PO Q8H PRN 11/27/23 05/12/24 History oxycodone-acetaminophen 10 mg-325 1 tab PO Q4-6H PRN 11/27/23 05/12/24 History mg tablet tizanidine 4 mg tablet 4 mg PO TID PRN 11/27/23 05/12/24 History conjugated estrogens 1.25 mg 2.5 mg PO DAILY 05/12/24 05/12/24 History tablet (Premarin) meloxicam 15 mg tablet 15 mg PO DAILY 05/12/24 05/12/24 History tramadol 50 mg tablet 50 mg PO Q6H PRN 05/12/24 05/12/24 History Allergies Allergies Allergy/AdvReac Type Severity Reaction Status Date / Time cefdinir [From Omnicef] Allergy Severe ANAPHALEXIS Verified 05/12/24 22:02 REACTION levofloxacin [From Levaquin] Allergy Severe RASH Verified 05/12/24 22:02 Penicillins Allergy Severe NAUSEA Verified 05/12/24 22:02 codeine Allergy Intermediate NAUSEA Verified 05/12/24 22:02 diphenhydramine Allergy Intermediate Verified 05/12/24 22:02 [From Benadryl] esomeprazole [From Nexium] Allergy Intermediate CARDIOVASCULAR Verified 05/12/24 22:02 COMPLICATIONS influenza virus vaccine ts Allergy Intermediate Verified 05/12/24 22:02 [id number] (36 mos,up) [From Fluarix] Iodine and Iodide Containing Allergy Intermediate Verified 05/12/24 22:02 Produc Pork/Porcine Containing Allergy Intermediate Verified 05/12/24 22:02 Products prednisone Allergy Intermediate Verified 05/12/24 22:02 starch Allergy Intermediate Verified 05/12/24 22:02 carrot Allergy Unknown Verified 05/12/24 22:02 celery Allergy Unknown Verified 05/12/24 22:02 cinnamon Allergy Unknown Verified 05/12/24 22:02 clams Allergy Unknown Verified 05/12/24 22:02 corn Allergy Unknown Verified 05/12/24 22:02 egg Allergy Unknown Verified 05/12/24 22:02 fluconazole Allergy Unknown Verified 05/12/24 22:02 losartan Allergy Unknown Verified 05/12/24 22:02 potassium [From Potassimin] Allergy Unknown Verified 05/12/24 22:02 rabeprazole [From Aciphex] Allergy Unknown Verified 05/12/24 22:02 ragweed pollen Allergy Unknown Verified 05/12/24 22:02 regadenoson [From Lexiscan] Allergy Unknown Verified 05/12/24 22:02 shellfish derived Allergy Unknown Verified 05/12/24 22:02 shrimp Allergy Unknown Verified 05/12/24 22:02 Sulfa (Sulfonamide Allergy Unknown Verified 05/12/24 22:02 Antibiotics) turkey Allergy Unknown Verified 05/12/24 22:02 walnut Allergy Unknown Verified 05/12/24 22:02 carbonated drinks Allergy Unknown Uncoded 06/28/22 18:09 Labs 05/13/24 04:49 05/13/24 04:49 Labs: Laboratory WBC 9.9 X10^3/uL (3.6-10.0) 05/13/24 04:49 RBC 5.14 X10^6/uL (3.5-5.4) 05/13/24 04:49 Hgb 14.8 g/dL (12.0-16.0) 05/13/24 04:49 Hct 43.7 % (36.0-47.0) 05/13/24 04:49 MCV 85.0 fL (80.0-100.0) 05/13/24 04:49 MCH 28.9 pg (27.0-34.0) 05/13/24 04:49 MCHC 34.0 g/dL (33.0-35.0) 05/13/24 04:49 RDW 15.8 % (11.6-16.5) 05/13/24 04:49 Plt Count 367 X10^3/uL (150.0-450.0) 05/13/24 04:49 MPV 6.4 fL (7.4-11.0) L 05/13/24 04:49 Neut % (Auto) 67.4 % (42.0-75.0) 05/13/24 04:49 Lymph % (Auto) 19.0 % (21.0-51.0) L 05/13/24 04:49 [place] % (Auto) 10.1 % (0.0-13.0) 05/13/24 04:49 Eos % (Auto) 2.4 % (0.9-2.9) 05/13/24 04:49 Baso % (Auto) 1.1 % (0.2-1.0) H 05/13/24 04:49 Neut # (Auto) 6.7 x10^3/uL (2.2-4.8) H 05/13/24 04:49 Lymph # (Auto) 1.9 X10^3/uL (1.3-2.9) 05/13/24 04:49 [place] # (Auto) 1.0 x10^3/uL (0.3-0.8) H 05/13/24 04:49 Eos # (Auto) 0.2 x10^3/uL (0.0-0.2) 05/13/24 04:49 Baso # (Auto) 0.1 X10^3/uL (0.0-0.1) 05/13/24 04:49 Absolute Nucleated RBC 0.2 /100WBC 05/13/24 04:49 Sodium 134 mmol/L (136-145) L 05/13/24 04:49 Corrected Sodium 134 mmol/L (136-145) L 05/13/24 04:49 Potassium 4.6 mmol/L (3.5-5.1) 05/13/24 04:49 Chloride 99 mmol/L (98-107) 05/13/24 04:49 Carbon Dioxide 27.5 mmol/L (21-32) 05/13/24 04:49 BUN 14 mg/dL (7-18) 05/13/24 04:49 Creatinine 0.99 mg/dL (0.55-1.02) 05/13/24 04:49 Est GFR (MDRD) Af Amer > 60 (>60) 05/13/24 04:49 Est GFR (MDRD) Non-Af 59 (>60) 05/13/24 04:49 Glucose 115 mg/dL (65-99) H 05/13/24 04:49 Calcium 9.2 mg/dL (8.5-10.1) 05/13/24 04:49 Corrected Calcium TNP 05/13/24 04:49 Magnesium 2.2 mg/dL (2.0-2.9) 05/13/24 04:49 Total Bilirubin 0.50 mg/dL (0.2-1.0) 05/13/24 04:49 AST 12 Units/L (15-37) L 05/13/24 04:49 ALT 18 Units/L (12-78) 05/13/24 04:49 Alkaline Phosphatase 124 Units/L (46-116) H 05/13/24 04:49 Creatine Kinase 66 Units/L (26-192) 05/12/24 10:03 Troponin I High Sens 7.2 ng/L (4.0-60.0) 05/12/24 10:03 B-Natriuretic Peptide 75.4 pg/mL (0-79) 05/12/24 10:03 Total Protein 7.1 g/dL (6.4-8.2) 05/13/24 04:49 Albumin 3.5 g/dL (3.4-5.0) 05/13/24 04:49 Globulin 3.6 g/dL (2.5-4.5) 05/13/24 04:49 Albumin/Globulin Ratio 1.0 Ratio (1.1-2.1) L 05/13/24 04:49 Triglycerides 111 mg/dL (0-150) 05/13/24 04:49 Cholesterol 192 mg/dL (0-200) 05/13/24 04:49 LDL Cholesterol, Calc 101 mg/dL (0-100) H 05/13/24 04:49 HDL Cholesterol 69 mg/dL (40-60) H 05/13/24 04:49 Cholesterol/HDL Ratio 2.8 (0.0-5.0) 05/13/24 04:49 Specimen Type Clean catch urine 05/12/24 09:58 Urine Color Yellow (YELLOW) 05/12/24 09:58 Urine Appearance Clear (CLEAR) 05/12/24 09:58 Urine pH 6.5 (5.0 - 8.0) 05/12/24 09:58 Ur Specific [place] 1.010 (1.000-1.030) 05/12/24 09:58 Urine Protein Negative (NEGATIVE) 05/12/24 09:58 Urine Glucose (UA) Negative (NEGATIVE) 05/12/24 09:58 Urine Ketones Negative (NEGATIVE) 05/12/24 09:58 Urine Blood Negative (NEGATIVE) 05/12/24 09:58 Urine Nitrite Negative (NEGATIVE) 05/12/24 09:58 Urine Bilirubin Negative (NEGATIVE) 05/12/24 09:58 Urine Urobilinogen Normal (NORMAL) 05/12/24 09:58 Ur Leukocyte Esterase Negative (NEGATIVE) 05/12/24 09:58 SARS-CoV-2 (PCR) Negative (NEGATIVE) 05/12/24 09:44 Influenza Type A (PCR) Negative (NEGATIVE) 05/12/24 09:44 Influenza Type B (PCR) Negative (NEGATIVE) 05/12/24 09:44 RSV (PCR) Negative (NEGATIVE) 05/12/24 09:44 Review of Systems Constitutional: Weakness Eyes: No Symptoms Reported ENT: No Symptoms Reported Respiratory: Cough and SOB with Excertion Cardiovascular: Palpitations and Edema Gastrointestinal: No Symptoms Reported Genitourinary: No Symptoms Reported Musculoskeletal: Back Pain Skin: No Symptoms Reported Neurological: Weakness Physical Exam Vital Signs: Vital Signs Temperature 98.1 F Pulse Rate [Left Brachial] 73 Respiratory Rate 19 Respiratory Rate 18 Respiratory Rate 17 Respiratory Rate 18 Blood Pressure [Right Arm] 180/79 O2 Sat by Pulse Oximetry 95 Oriented: Normal Eyes: Normal Ear: Normal Nose: Normal Throat: Normal Respiratory: RLL Diminished and LLL Diminished Cardiovascular: Normal : Normal Auscultation: Bowel Sounds: Normal Tenderness: Normal Skin: Decreased Turgur Musculoskeletal: Back:Thoracic, Back:Lumbar and Tender Psychiatric: Anxiety Mood Description: Anxious Speech Pattern: Clear and Appropriate Assessment/Plan (1) HTN (hypertension): Status: Acute Plan: ADMIT, BP CONTROL CARDIAC MONITORING RESP THERAPY, LAST ECHO? IV LASIX STRICT I&OS SUPPLEMENTAL O2 (2) Acute CHF: Status: Acute (3) Dyspnea: Status: Acute (4) CAD (coronary artery disease): Status: Chronic (5) Type 2 diabetes mellitus: Status: Chronic (6) Hypothyroid: Status: Chronic
[2024-05-13] MEDS ORDERED: ALLEGRA ONE (08:49)
[2024-05-13] MEDS ORDERED: ASTELIN NASAL SPRAY ENOSTRIL ONE (08:50)
[2024-05-13] MEDS: ALLEGRA PO SCH (08:55)
[2024-05-13] MEDS: SYNTHROID 100 mcg TAB PO SCH (08:55)
[2024-05-13] MEDS: COZAAR PO SCH (08:55)
[2024-05-13] MEDS: PREMARIN PO SCH ×2 (08:56→09:20)
[2024-05-13] MEDS: ASTELIN NASAL SPRAY ENOSTRIL SCH (08:56)
[2024-05-13] MEDS: LOVENOX INJ 40 MG SYR SC SCH (09:35)
--- NOTE | 2024-05-13 12:47 | DR.CONSULT ---
CONSULT Consultation for Day of: Date: 05/13/24 Chief Complaint Chief Complaint: high bp/sob Allergies Allergies Allergy/AdvReac Type Severity Reaction Status Date / Time cefdinir [From Omnicef] Allergy Severe ANAPHALEXIS Verified 05/12/24 22:02 REACTION levofloxacin [From Levaquin] Allergy Severe RASH Verified 05/12/24 22:02 Penicillins Allergy Severe NAUSEA Verified 05/12/24 22:02 codeine Allergy Intermediate NAUSEA Verified 05/12/24 22:02 diphenhydramine Allergy Intermediate Verified 05/12/24 22:02 [From Benadryl] esomeprazole [From Nexium] Allergy Intermediate CARDIOVASCULAR Verified 05/12/24 22:02 COMPLICATIONS influenza virus vaccine ts Allergy Intermediate Verified 05/12/24 22:02 [id number] (36 mos,up) [From Fluarix] Iodine and Iodide Containing Allergy Intermediate Verified 05/12/24 22:02 Produc Pork/Porcine Containing Allergy Intermediate Verified 05/12/24 22:02 Products prednisone Allergy Intermediate Verified 05/12/24 22:02 starch Allergy Intermediate Verified 05/12/24 22:02 carrot Allergy Unknown Verified 05/12/24 22:02 celery Allergy Unknown Verified 05/12/24 22:02 cinnamon Allergy Unknown Verified 05/12/24 22:02 clams Allergy Unknown Verified 05/12/24 22:02 corn Allergy Unknown Verified 05/12/24 22:02 egg Allergy Unknown Verified 05/12/24 22:02 fluconazole Allergy Unknown Verified 05/12/24 22:02 losartan Allergy Unknown Verified 05/12/24 22:02 potassium [From Potassimin] Allergy Unknown Verified 05/12/24 22:02 rabeprazole [From Aciphex] Allergy Unknown Verified 05/12/24 22:02 ragweed pollen Allergy Unknown Verified 05/12/24 22:02 regadenoson [From Lexiscan] Allergy Unknown Verified 05/12/24 22:02 shellfish derived Allergy Unknown Verified 05/12/24 22:02 shrimp Allergy Unknown Verified 05/12/24 22:02 Sulfa (Sulfonamide Allergy Unknown Verified 05/12/24 22:02 Antibiotics) turkey Allergy Unknown Verified 05/12/24 22:02 walnut Allergy Unknown Verified 05/12/24 22:02 carbonated drinks Allergy Unknown Uncoded 06/28/22 18:09 History of Present Illness History of Present Illness: 74 yo female- had stress test 09/23: no ischemia- cath few years ago w/o sign cad- was once on bp med 10 years ago but not lately- bp up/some sob when bp up- cxr suggested chf, ekg suggested old antmi-seen for several years- bnp 77 ( upper normal 79)- getting diuresis- arb added for bp- sob minimal/bp still high at times- former smoker/has copd Past Medical History Past Medical History: Anxiety, CHF, COPD, GERD, Hypertension and Hypothyroidism Past Surgical History Surgical History: Abdominal Surgery, CHEMIST INTERNSHIP Surgery, Hysterectomy and Weight Loss Surgery Family History Family Medical History: Diabetes Mellitus and [place] Social History Does patient currently use any type of tobacco product: Yes Type of Tobacco Use: Vape Does any household member use tobacco: No Alcohol Use: None Drug Use: None Medications Home Medications: cefdinir [From Omnicef] Allergy (Severe, Verified 05/12/24 22:02) ANAPHALEXIS REACTION levofloxacin [From Levaquin] Allergy (Severe, Verified 05/12/24 22:02) RASH Penicillins Allergy (Severe, Verified 05/12/24 22:02) NAUSEA codeine Allergy (Intermediate, Verified 05/12/24 22:02) NAUSEA diphenhydramine [From Benadryl] Allergy (Intermediate, Verified 05/12/24 22:02) esomeprazole [From Nexium] Allergy (Intermediate, Verified 05/12/24 22:02) CARDIOVASCULAR COMPLICATIONS influenza virus vaccine ts [id number] (36 mos,up) [From Fluarix] Allergy (Intermediate, Verified 05/12/24 22:02) Iodine and Iodide Containing Produc Allergy (Intermediate, Verified 05/12/24 22:02) Pork/Porcine Containing Products Allergy (Intermediate, Verified 05/12/24 22:02) prednisone Allergy (Intermediate, Verified 05/12/24 22:02) starch Allergy (Intermediate, Verified 05/12/24 22:02) carrot Allergy (Unknown, Verified 05/12/24 22:02) celery Allergy (Unknown, Verified 05/12/24 22:02) cinnamon Allergy (Unknown, Verified 05/12/24 22:02) clams Allergy (Unknown, Verified 05/12/24 22:02) corn Allergy (Unknown, Verified 05/12/24 22:02) egg Allergy (Unknown, Verified 05/12/24 22:02) fluconazole Allergy (Unknown, Verified 05/12/24 22:02) losartan Allergy (Unknown, Verified 05/12/24 22:02) potassium [From Potassimin] Allergy (Unknown, Verified 05/12/24 22:02) rabeprazole [From Aciphex] Allergy (Unknown, Verified 05/12/24 22:02) ragweed pollen Allergy (Unknown, Verified 05/12/24 22:02) regadenoson [From Lexiscan] Allergy (Unknown, Verified 05/12/24 22:02) shellfish derived Allergy (Unknown, Verified 05/12/24 22:02) shrimp Allergy (Unknown, Verified 05/12/24 22:02) Sulfa (Sulfonamide Antibiotics) Allergy (Unknown, Verified 05/12/24 22:02) turkey Allergy (Unknown, Verified 05/12/24 22:02) walnut Allergy (Unknown, Verified 05/12/24 22:02) carbonated drinks Allergy (Unknown, Uncoded 06/28/22 18:09) CONTINUE taking the following medications conjugated estrogens 1.25 mg tablet (Premarin) 2.5 mg PO DAILY 05/12/24 [History] meloxicam 15 mg tablet 15 mg PO DAILY 05/12/24 [History] tramadol 50 mg tablet 50 mg PO Q6H PRN 05/12/24 [History] Physical Exam Vital Signs: Vital Signs Temperature 97.7 F Temperature 98.2 F Pulse Rate [Left Brachial] 90 Pulse Rate [Left Brachial] 78 Respiratory Rate 19 Respiratory Rate 20 Respiratory Rate 20 Respiratory Rate 19 Blood Pressure [Right Arm] 133/65 Blood Pressure [Right Arm] 177/81 O2 Sat by Pulse Oximetry 94 O2 Sat by Pulse Oximetry 91 alert ox3 nad no jvd R arm sling clear lungs rrr soft cammy s4 minimal edema other labs to note: hct 43, k 4.6, cr 0.99 ldl 101 trop negative ECHO: good LV/lvh tr mr est normal PA pressures Plan (1) HTN (hypertension): Status: Acute Plan: agree with arb- given a few days of lasix- will change to hctz for bp/minimal chf- will take few days to kick in- f/u w me in 10-14 days upon d/c (2) Acute CHF: Status: Acute (3) Dyspnea: Status: Acute (4) COPD (chronic obstructive pulmonary disease): Status: Chronic
[2024-05-13] MEDS ORDERED: ZOFRAN INJ 4 MG VIAL IVP PRN (17:34)
[2024-05-13 23:59] VITALS: O2SAT 90
--- NOTE | 2024-05-14 05:17 | RAD ---
EXAM: CHEST, PA/LAT ADULT HISTORY: CHF; COMPARISON: 05/12/2024 FINDINGS: The cardiomediastinal silhouette is stable. No acute airspace disease. No pneumothorax or effusion. No acute osseous abnormality. IMPRESSION: No acute cardiopulmonary disease. THIS IS AN ELECTRONICALLY VERIFIED FINAL REPORT 05/14/2024 5:14 AM - Electronically signed by Mitchell Lin MD
[2024-05-14 05:49] LABS: BASOPHILS # (AUTO) 0.1 X10^3/uL (0.0-0.1); NEUTROPHILS % (AUTO) 64.6 % (42.0-75.0); RED CELL DISTRIBUTION WIDTH 15.9 % (11.6-16.5)
[2024-05-14 05:58] LABS: BASOPHILS % (AUTO) 1.4 % (0.2-1.0); EOSINOPHILS # (AUTO) 0.5 x10^3/uL (0.0-0.2); EOSINOPHILS % (AUTO) 4.3 % (0.9-2.9); HEMATOCRIT 41.5 % (36.0-47.0); HEMOGLOBIN 13.8 g/dL (12.0-16.0); LYMPHOCYTES % (AUTO) 18.5 % (21.0-51.0); MEAN CORPUSCULAR HEMOGLOBIN 28.4 pg (27.0-34.0); MEAN CORPUSCULAR HGB CONC 33.3 g/dL (33.0-35.0); MEAN CORPUSCULAR VOLUME 85.4 fL (80.0-100.0); MEAN PLATELET VOLUME 6.5 fL (7.4-11.0); MONOCYTES # (AUTO) 1.2 x10^3/uL (0.3-0.8); MONOCYTES % (AUTO) 11.2 % (0.0-13.0); PLATELET COUNT 371 X10^3/uL (150.0-450.0); RED BLOOD COUNT 4.86 X10^6/uL (3.5-5.4); WHITE BLOOD COUNT 10.9 X10^3/uL (3.6-10.0)
[2024-05-14 06:05] LABS: ALANINE AMINOTRANSFERASE 16 Units/L (12-78); ALBUMIN 3.1 g/dL (3.4-5.0); ALKALINE PHOSPHATASE 111 Units/L (46-116); ASPARTATE AMINO TRANSFERASE 12 Units/L (15-37); BLOOD UREA NITROGEN 20 mg/dL (7-18); CALCIUM 8.6 mg/dL (8.5-10.1); CARBON DIOXIDE 30.6 mmol/L (21-32); CHLORIDE 101 mmol/L (98-107); COR CA(FOR HYPOALB) 9.3 mg/dL (8.5-10.1); CREATININE 0.94 mg/dL (0.55-1.02); GLUCOSE 96 mg/dL (65-99); POTASSIUM 4.6 mmol/L (3.5-5.1); SODIUM 138 mmol/L (136-145); TOTAL PROTEIN 6.4 g/dL (6.4-8.2); eGFR NON BLACK RACES > 60 (>60)
[2024-05-14 07:35] VITALS: BP 112/58; PULSE 57; RESP 17; TEMP 97.1
[2024-05-14] MEDS: HYDROCHLOROTHIAZIDE 25 MG TAB PO SCH (08:32)
[2024-05-14] MEDS: ALLEGRA ONE (08:36)
== END 2024-05-14 11:27 | disposition home or self-care (01) ==
LOC: MED/SURG 09:05 → ER 09:05 → MED/SURG 13:40
PROVIDERS: ADMIT Internal Medicine; ATTEND Internal Medicine
DX: M19.90 Unspecified osteoarthritis, unspecified site; I25.10 Atherosclerotic heart disease of native coronary artery without angina pectoris; E87.1 Hypo-osmolality and hyponatremia; R06.02 Shortness of breath; I50.9 Heart failure, unspecified; G47.33 Obstructive sleep apnea (adult) (pediatric); J44.89 Other specified chronic obstructive pulmonary disease; E03.8 Other specified hypothyroidism; Z03.818 Encounter for observation for suspected exposure to other biological agents ruled out; F41.8 Other specified anxiety disorders; R00.1 Bradycardia, unspecified; I11.0 Hypertensive heart disease with heart failure; K21.9 Gastro-esophageal reflux disease without esophagitis; J45.998 Other asthma; R94.31 Abnormal electrocardiogram [ECG] [EKG]